=== PATIENT | male | born 1945 | race Caucasian/White ===

== ENCOUNTER → 2016-02-27 | Outpatient (CLI) | payer OTHER ==
[~2016-02-27] MED LIST: AMLO10CA PO; ASPI81TA28 PO; ATEN-175 PO; FENO48TA9 PO; GLUCPOW41 PO; INSDGI SC; INSUINJ14 SC; MULT-506 PO; OMEG10007 PO; SITA50TA5 PO; TRIA75TA53 PO
--- NOTE | 2016-02-28 04:32 | MYOCARDIAL PERFUSION SCAN ---
STRESS CARDIOLITE EXERCISE TREADMILL TEST: Patient exercised for 4 minutes and 4 seconds on a Jaron protocol achieving a peak heart rate of 112 bpm (75% maximum predicted, 7 MET workload). Appropriate blood pressure response to exercise (resting BP 128/ 88 mm Hg, peak BP 166/94 mm Hg). No symptoms reported. Baseline ECG showed sinus rhythm with incomplete right bundle branch block and isoelectric ST segments. During exercise, no ST deviation or significant ectopy noted. At the conclusion of the study, patient was asymptomatic and hemodynamically stable. IMAGING TECHNIQUE: For the stress portion of the study, 32.0 mCi of technetium- 99m Cardiolite IV was injected at 11:25 a.m. on 02/27/2016. Fifteen minutes after the injection, imaging of the heart was performed in multiple projections. For the rest period of the study, 11.5 mCi of technetium-99m Cardiolite was injected IV at 9:30 a.m. One hour following the injection, imaging of the heart was performed in the same projections. FINDINGS: The short axis, vertical long axis and horizontal long axis images were reviewed in detail. No perfusion defects noted at rest or stress. Normal left ventricular size and systolic function with no regional wall motion abnormalities. Ejection fraction was 77%. IMPRESSION: 1. No scintigraphic evidence of myocardial infarct or ischemia. 2. Normal left ventricular wall motion and systolic function (ejection fraction = 77%). 3. Negative ECG portion of exercise treadmill test. 4. No exercise-induced symptoms. MTDD
== END | disposition home or self-care (01) ==
LOC: C.NUCL 09:02
PROVIDERS: ATTEND Family Medicine
DX: R07.89 Other chest pain (principal)

== ENCOUNTER 2020-04-07 17:02 | Observation (INO) ==
--- NOTE | 2020-04-07 18:20 | XRay Report ---
XR chest 1V portable CLINICAL HISTORY: Atypical chest pain COMPARISON STUDY: 08/11/2019 FINDINGS: The heart is borderline enlarged. There is no failure. There is no focal pulmonary consolid ation. There are no pleural effusions. There is no pneumothorax.[ IMPRESSION: No active disease in the chest. ACT 112: Negative or not required by law. Electronically signed by: Michel Johnson M.D. 04/07/2020 6:18 PM
[2020-04-07 18:22] LABS: Basophils # (auto) 0.01 K/uL (0-0.2); Basophils % (auto) 0.1 %; Eosinophils # (auto) 0.25 K/uL (0-0.5); Eosinophils % (auto) 2.7 %; Hematocrit (blood only) 35.8 % (42-52); Immature Granulocytes # (auto) 0.03 K/uL (0.00-0.02); Immature Granulocytes % (auto) 0.3 %; Lymphocytes # (auto) 1.89 K/uL (1.2-3.4); Lymphocytes % (auto) 20.3 %; Mean Corpuscular Hemoglobin 28.2 pg (25-34); Mean Corpuscular Hgb Conc 33.5 g/dL (32-36); Mean Corpuscular Volume 84.2 fL (80-100); Mean Platelet Volume 9.9 fL (7.4-10.4); Monocytes # (auto) 0.72 K/uL (0.11-0.59); Monocytes % (auto) 7.7 %; Neutrophils # (auto) 6.42 K/uL (1.4-6.5); Neutrophils % (auto) 68.9 %; Platelet Count 235 K/uL (130-400); RDW Coefficient of Variation 13.9 % (11.5-14.5); RDW Standard Deviation 42.9 fL (36.4-46.3); Red Blood Count 4.25 M/uL (4.7-6.1); White Blood Count 9.32 K/uL (4.8-10.8)
[2020-04-07 18:39] LABS: Alanine Aminotransferase 26 U/L (12-78); Albumin Level 3.5 gm/dl (3.4-5.0); Aspartate Aminotransferase 17 U/L (15-37); BUN Creatinine Ratio 18.7 (10-20); Blood Urea Nitrogen 24 mg/dl (7-18); Calcium 9.1 mg/dl (8.5-10.1); Carbon Dioxide 30 mmol/L (21-32); Chloride 109 mmol/L (98-107); Creatinine Clr Calc Pharmacy 67.3 ml/min; Est GFR (African American) 63.6; Est GFR (Non-African American) 54.9; Glucose 94 mg/dl (70-99); Lipase 122 U/L (73-393); Potassium 3.7 mmol/L (3.5-5.1); Sodium 144 mmol/L (136-145)
[2020-04-07 18:44] LABS: Albumin Globulin Ratio 0.9 (0.9-2); Alkaline Phosphatase 45 U/L (45-117); Bilirubin,Total 0.5 mg/dl (0.2-1); Globulin 3.9 gm/dl (2.5-4.0); Total Protein 7.4 gm/dl (6.4-8.2); Troponin I < 0.015 ng/ml (0-0.045)
[2020-04-07] MEDS ORDERED: NITROGLYCERIN 2% OINTMENT 30GM TUBE EXT STA (18:54)
--- NOTE | 2020-04-07 19:35 | Emergency Department Note ---
Impression & Plan Substernal chest pain, Insulin dependent diabetes mellitus, RBBB, Left anterior fascicular block ED Provider Note INFORMANT: Patient ED PROVIDER(S): Berny Rios MD CHIEF COMPLAINT: Chest pain PLAN: Disposition: Admitted Condition: Good Outpatient prescription management: none Referral: None MEDICAL DECISION MAKING: Patient presented due to chest pain. He did have relief with nitroglycerin. The patient's ECG did show a bifascicular block. There was no significant change compared to prior. The patient had blood work obtained. Chest x-ray was unremarkable. His CBC, chemistry panel, LFTs, and troponin were negative. The patient had Nitropaste applied to prevent any recurrent chest pain. I discussed a cardiac rule out in the hospital given his family history as well as his diabetes. The patient was in agreement. Consultation was made with Dr. Botello of the hospitalist service. Patient was evaluated in the ER and admitted for further management. Triage Nursing notes reviewed and agree them. Vital Signs: reviewed and remarkable for no significant abnormalities Differential diagnosis: Cardiac ischemia, aortic dissection, pulmonary embolism, pneumothorax, pneumonia, pericarditis, myocarditis, esophageal rupture, GERD, cholecystitis, pancreatitis, musculoskeletal, as well as other pathologies. Diagnostics interpreted by me: ECG: Twelve-lead ECG reveals a sinus rhythm with first-degree AV block at 75 bpm. Right bundle branch block and left anterior fascicular block. No ST elevation. There is no significant change when compared to July 2019. Cardiac Monitoring: Cardiac monitoring ordered by me: The patient was placed on continuous cardiac monitoring and observed. It revealed a normal sinus rhythm at 71 beats per minute without ectopy or evidence of dysrhythmia. Imaging studies: Chest x-ray. Findings: A chest x-ray was performed and revealed no pneumothorax, effusion, infiltrate, pulmonary edema, free air under the diaphragm, or wide mediastinum. Impression: No acute disease. Consultation(s): [facility] hospitalist service HPI: The patient is a 75 year old male who presents to the Emergency Room with complaints of chest pain. This started this morning and is currently resolved. The patient also notes the following associated symptoms, pain radiating to the right shoulder. The patient has used nitroglycerin and IcyHot for relieving factors. Current pain is rated as 0/10. When the patient initially presented his pain was a 3/10. It then resolved. Pt denies LOC, headache, fevers, chills, diaphoresis, visual changes, neck pain, breathing difficulties, nausea, vomiting, abdominal pain, back pain, melena, hematochezia, urinary symptoms, numbness, weakness, lymphadenopathy, rash, or other complaints. ROS: See above HPI for pertinent positives & negatives. A total of 10 systems reviewed and were otherwise negative. PAST MEDICAL HISTORY:See Below , diabetes PAST SURGICAL HISTORY:See Below, FAMILY HISTORY:See Below, CAD. Father of [place] at 71 SOCIAL HISTORY:See Below, non-smoker HOME MEDICATIONS:See Below ALLERGIES:See Below VITALS:See Below PHYSICAL EXAMINATION: GENERAL: Awake, alert, well-appearing, in no distress HENT: Normocephalic, atraumatic. Oropharynx unremarkable. EYES: Normal conjunctiva. Sclera non-icteric. NECK: Inspection normal. Non-tender. Supple. No nuchal rigidity. FROM. No masses. RESPIRATORY: Clear to auscultation. No wheezes. No rales. Normal respiratory effort. CARDIAC: Normal rate. Normal rhythm. No murmurs. No rubs. Extremities warm and well perfused. Pulses equal. No JVD. GI: Soft, non-distended. No tenderness to palpation. No rebound or guarding. No masses. RECTAL: Deferred. MUSCULOSKELETAL: Atraumatic. Chest examination reveals no tenderness. The back is symmetrical on inspection without obvious abnormality. There is no CVA tenderness to palpation. No joint edema. LOWER EXTREMITIES: Calves are equal size bilaterally and non-tender. 1+ edema. No discoloration. NEURO: Normal sensorium. No sensory or motor deficits noted. SKIN: No rash or jaundice noted. Berny Rios MD Past Med/Surg History Medical History (Updated 04/07/20 @ 19:27 by Berny Rios MD) Anemia Cellulitis Diabetic neuropathy Diverticulosis DJD (degenerative joint disease), lumbosacral Dyslipidemia First degree atrioventricular block Hemorrhoids Hypertension Laceration of finger Left anterior fascicular block Monoclonal gammopathy Nephrolithiasis Osteoarthritis RBBB SIRS (systemic inflammatory response syndrome) Type 2 diabetes mellitus Surgical History (Updated 10/18/19 @ 12:53 by Betito Miguel Jr, MD, [facility]) H/O oral surgery History of back surgery Hx of cataract surgery Family History (Updated 02/22/20 @ 12:54 by Montserrat Andujar RN) Father Coronary heart disease Myocardial infarction Heart disease Sister Coronary heart disease Cancer Brother Coronary heart disease Hx of CABG Family/Other Hearing loss Mother Asthma Denies family history of No family history of adverse response to anesthesia Social History (Updated 02/22/20 @ 12:55 by Montserrat Andujar RN) Smoking Status: Never smoker Tobacco Type: Smokeless Tobacco (Dip or Chew) Number of Years Since Quit: 28; Hx Alcohol Use: No Hx Substance Use: No Preferred Language: Portuguese Communication Ability: Effective marital status: Single Current Living Situation: Alone Current Living Situation Comment: Sister lives next door current occupational status: retired How many Children do You have Comment: No Children Feels Safe at Home: Yes Allergies Allergies Allergy/AdvReac Type Severity Reaction Status Date / Time cephalexin Allergy Unknown Unknown Verified 02/22/20 12:48 codeine Allergy Unknown unknown Verified 02/22/20 12:48 Home Meds Home Medications Medication Instructions Recorded Confirmed amlodipine-benazepril 1 cap PO DAILY 08/11/19 02/22/20 aspirin 81 mg PO DAILY 08/11/19 02/22/20 atenolol 50 mg PO BID 08/11/19 02/22/20 atorvastatin 10 mg PO HS 08/11/19 02/22/20 dulaglutide [Trulicity] 0.75 mg SUBCUT WK 08/11/19 02/22/20 fenofibrate 54 mg PO DAILY 08/11/19 02/22/20 insulin aspart U-100 [Novolog 22 - 25 unit SUBCUT TID 08/11/19 02/22/20 Flexpen U-100 Insulin] insulin degludec [Tresiba 56 unit SUBCUT BID 08/11/19 02/22/20 FlexTouch U-200] metformin 1,000 mg PO BID 08/11/19 02/22/20 multivitamin [Multiple Vitamins] 1 tab PO DAILY 08/11/19 02/22/20 nitroglycerin [Nitrostat] 0.4 mg SUBLINGUAL UD PRN 08/11/19 02/22/20 omega 3-iqr-ewe-fish oil [Friendship-3] 1 cap PO BID 08/11/19 10/14/19 triamterene-hydrochlorothiazid 1 tab PO DAILY 08/11/19 02/22/20 Results & Data (ED) Vital Signs Vital Signs - 24 hr 04/07/20 17:06 04/07/20 18:11 04/07/20 18:20 Temperature 36.2 C L Temperature Source Temporal Artery Scan Pulse Rate 79 77 72 Pulse Rate from SpO2 Sensor 76 72 Respiratory Rate 18 12 19 Respiratory Effort / Characteristics Non-Labored Spontaneous Respiratory Depth Normal Blood Pressure 138/76 138/90 Blood Pressure Mean 96 106 Blood Pressure Position Sitting Pulse Oximetry 94 96 93 Oxygen Delivery Method Room Air Sepsis Recent Fever Within 48 Hours No Sepsis New/Unexplained Change in Mental Status N/A Sepsis Action Taken by Nursing No Action Required 04/07/20 18:30 04/07/20 18:31 04/07/20 18:40 Temperature Temperature Source Pulse Rate 72 72 72 Pulse Rate from SpO2 Sensor 72 73 72 Respiratory Rate 19 18 19 Respiratory Effort / Characteristics Respiratory Depth Blood Pressure 157/72 H Blood Pressure Mean 100 Blood Pressure Position Pulse Oximetry 93 94 93 Oxygen Delivery Method Sepsis Recent Fever Within 48 Hours Sepsis New/Unexplained Change in Mental Status Sepsis Action Taken by Nursing 04/07/20 18:50 04/07/20 19:00 04/07/20 19:01 Temperature Temperature Source Pulse Rate 74 71 72 Pulse Rate from SpO2 Sensor 72 71 72 Respiratory Rate 20 15 17 Respiratory Effort / Characteristics Respiratory Depth Blood Pressure 183/97 H Blood Pressure Mean 125 Blood Pressure Position Pulse Oximetry 94 94 94 Oxygen Delivery Method Sepsis Recent Fever Within 48 Hours Sepsis New/Unexplained Change in Mental Status Sepsis Action Taken by Nursing 04/07/20 19:10 Temperature Temperature Source Pulse Rate 71 Pulse Rate from SpO2 Sensor 71 Respiratory Rate 10 L Respiratory Effort / Characteristics Respiratory Depth Blood Pressure Blood Pressure Mean Blood Pressure Position Pulse Oximetry 95 Oxygen Delivery Method Sepsis Recent Fever Within 48 Hours Sepsis New/Unexplained Change in Mental Status Sepsis Action Taken by Nursing Laboratory Data Result diagrams: 04/07/20 18:01 04/07/20 18:01 Lab Results 04/07/20 04/07/20 Range/Units 18:01 18:01 WBC 9.32 (4.8-10.8) K/uL RBC 4.25 L (4.7-6.1) M/uL Hgb 12.0 L (14.0-18.0) g/dL Hct 35.8 L (42-52) % MCV 84.2 (80-100) fL MCH 28.2 (25-34) pg MCHC 33.5 (32-36) g/dL RDW Std Deviation 42.9 (36.4-46.3) fL RDW Coeff of [place] 13.9 (11.5-14.5) % Plt Count 235 (130-400) K/uL MPV 9.9 (7.4-10.4) fL Immature Gran % (Auto) 0.3 % Neut % (Auto) 68.9 % Lymph % (Auto) 20.3 % [place] % (Auto) 7.7 % Eos % (Auto) 2.7 % Baso % (Auto) 0.1 % Neut # (Auto) 6.42 (1.4-6.5) K/uL Lymph # (Auto) 1.89 (1.2-3.4) K/uL [place] # (Auto) 0.72 H (0.11-0.59) K/uL Eos # (Auto) 0.25 (0-0.5) K/uL Baso # (Auto) 0.01 (0-0.2) K/uL Immature Gran # (Auto) 0.03 H (0.00-0.02) K/uL Sodium 144 (136-145) mmol/L Potassium 3.7 (3.5-5.1) mmol/L Chloride 109 H (98-107) mmol/L Carbon Dioxide 30 (21-32) mmol/L Anion Gap 5.0 (3-11) BUN 24 H (7-18) mg/dl Creatinine 1.27 (0.6-1.4) mg/dl Est Cr Clr Drug Dosing 67.3 ml/min Est GFR ( Amer) 63.6 Est GFR (Non-Af Amer) 54.9 BUN/Creatinine Ratio 18.7 (10-20) Glucose 94 (70-99) mg/dl Calcium 9.1 (8.5-10.1) mg/dl Total Bilirubin 0.5 (0.2-1) mg/dl AST 17 (15-37) U/L ALT 26 (12-78) U/L Alkaline Phosphatase 45 (45-117) U/L Troponin I < 0.015 (0-0.045) ng/ml Total Protein 7.4 (6.4-8.2) gm/dl Albumin 3.5 (3.4-5.0) gm/dl Globulin 3.9 (2.5-4.0) gm/dl Albumin/Globulin Ratio 0.9 (0.9-2) Lipase 122 (73-393) U/L Administered Medications Discontinued Medications Nitroglycerin (Nitroglycerin 2% Ointment 30gm Tube) 0.5 inch EXT NOW STA Stop: 04/07/20 18:55 Last Admin: 04/07/20 19:18 Dose: 0.5 inch Documented by: [id number] Discharge Plan Visit Data Chief Complaint: Chest Pain Stated Complaint: CHEST PAIN ED Provider: Berny Rios Discharge Problem: Substernal chest pain, Insulin dependent diabetes mellitus, RBBB, Left anterior fascicular block Forms Stand Alone Forms: My [facility] [place] Prescriptions Prescriptions: No Action multivitamin [Multiple Vitamins] Tablet 1 tab PO DAILY RF: 0 atorvastatin 10 mg tablet 10 mg PO HS RF: 0 aspirin 81 mg Tablet,Delayed Release (Dr/Ec) 81 mg PO DAILY RF: 0 metformin 1,000 mg tablet 1,000 mg PO BID RF: 0 nitroglycerin [Nitrostat] 0.4 mg Tablet, Sublingual 0.4 mg sublingual UD PRN (Reason: Chest Pain) RF: 0 triamterene-hydrochlorothiazid 75-50 mg tablet 1 tab PO DAILY RF: 0 atenolol 50 mg tablet 50 mg PO BID RF: 0 amlodipine-benazepril 10-20 mg capsule 1 cap PO DAILY RF: 0 insulin aspart U-100 [Novolog Flexpen U-100 Insulin] 100 unit/mL (3 mL) insulin pen 22 - 25 unit SUBCUT TID RF: 0 fenofibrate 54 mg tablet 54 mg PO DAILY RF: 0 Tresiba FlexTouch U-200 200 unit/mL (3 mL) insulin pen 56 unit SUBCUT BID RF: 0 Trulicity 0.75 mg/0.5 mL pen injector 0.75 mg SUBCUT WK RF: 0 Friendship-3 350 mg-235 mg- 90 mg-597 mg Capsule,Delayed Release(Dr/Ec) 1 cap PO BID RF: 0
--- NOTE | 2020-04-07 19:51 | History & Physical Report ---
Date of Service April 07, 2020 Assessment & Plan (1) Substernal chest pain: 75yo male with HTN, HLP, DM, Obesity presenting with substernal chest pain . EKG with stable conduction abnormalities, no ischemic changes, troponin x 1 negative -Observation to med with telemetry -trend troponin -Nitro as needed -2D echo in AM -Continue ASA, Atenolol, Atorvastatin, Amlodipine-Benazepril Present on Admission?: Yes (2) Insulin dependent diabetes mellitus: Chronic. Well controlled. -Continue Tresiba -ISS Present on Admission?: Yes (3) Dyslipidemia: Chronic. Stable -Continue Atorvastatin - consider increased dosing -Continue Fenofibrate Present on Admission?: Yes (4) Hypertension: Elevated -Continue Amlodipine-Benazepril -Continue Atenolol - patient will get dose tonight -Continue Triamterene-HCTZ -Continue to monitor F/E/N - Heplock. Electrolytes WNL - check Mg and replete as needed, CC/AHA diet as tolerated Ppx - Lovenox Code - Full per discussion with patient Dispo - Observation to medical with telemetry Present on Admission?: Yes History of Present Illness Chief Complaint: chest pain Primary Care Provider: EZE Vega Kleber Venegas is a 75yo male with history of HTN, HLP, DM presenting with chest pain. Patient woke up around 07:30 this morning and was found to have chest pain. Pain central/substernal, tightness, moderate severity with radiation to the right arm. Pain persisted throughout the day. Patient took a Nitro with some relief. He also took an Aleve and used some Icy Hot with temporary relief. Pain is non-positional, non-pleuritic and non-exertional. He denies diaphoresis, nausea, vomiting, SOB, palpitations. No history of prior. Patient was shoveling snow 7-10 days ago without difficulty. He had some mild shoulder pain following shoveling. Patient with no known CAD. He follows with Cardiology, Dr. Miguel, and is due to see him on April 24. He had a dobutamine stress echocardiogram performed on 11/02 19 which was negative for inducible ischemia at 88% exercise capacity. In the ER patient afebrile, hypertensive at 183/97, no respiratory distress. CP free upon arrival to the ER ER course: Nitro patch Allergies Allergy/AdvReac Type Severity Reaction Status Date / Time cephalexin Allergy Unknown Unknown Verified 04/07/20 19:40 codeine Allergy Unknown unknown Verified 04/07/20 19:40 Home Medications Medication Instructions Recorded Confirmed Type amlodipine-benazepril 1 cap PO DAILY 08/11/19 04/07/20 History aspirin 81 mg PO DAILY 08/11/19 04/07/20 History atenolol 50 mg PO BID 08/11/19 04/07/20 History atorvastatin 10 mg PO HS 08/11/19 04/07/20 History dulaglutide [Trulicity] 0.75 mg SUBCUT WK 08/11/19 04/07/20 History fenofibrate 54 mg PO DAILY 08/11/19 04/07/20 History insulin aspart U-100 [Novolog 0 unit SUBCUT BIDM 08/11/19 04/07/20 History Flexpen U-100 Insulin] insulin degludec [Tresiba 56 unit SUBCUT BID 08/11/19 04/07/20 History FlexTouch U-200] metformin 1,000 mg PO BID 08/11/19 04/07/20 History multivitamin [Multiple Vitamins] 1 tab PO DAILY 08/11/19 04/07/20 History nitroglycerin [Nitrostat] 0.4 mg SUBLINGUAL UD PRN 08/11/19 04/07/20 History omega 2-ehd-kxk-fish oil [[place]-3] 1 cap PO BID 08/11/19 04/07/20 History triamterene-hydrochlorothiazid 1 tab PO DAILY 08/11/19 04/07/20 History Past Med/Surg History Medical History (Updated 04/07/20 @ 20:17 by Parvin Botello DO) Anemia Cellulitis Diabetic neuropathy Diverticulosis DJD (degenerative joint disease), lumbosacral Dyslipidemia First degree atrioventricular block Hemorrhoids Hypertension Laceration of finger Left anterior fascicular block Monoclonal gammopathy Nephrolithiasis Osteoarthritis RBBB SIRS (systemic inflammatory response syndrome) Type 2 diabetes mellitus Surgical History (Updated 10/18/19 @ 12:53 by Betito Miguel Jr, MD, [facility]) H/O oral surgery History of back surgery Hx of cataract surgery Family History (Updated 02/22/20 @ 12:54 by Montserrat Andujar RN) Father Coronary heart disease Myocardial infarction Heart disease Sister Coronary heart disease Cancer Brother Coronary heart disease Hx of CABG Family/Other Hearing loss Mother Asthma Denies family history of No family history of adverse response to anesthesia Social History (Updated 02/22/20 @ 12:55 by Montserrat Andujar RN) Smoking Status: Never smoker Tobacco Type: Smokeless Tobacco (Dip or Chew) Number of Years Since Quit: 28; Hx Alcohol Use: No Hx Substance Use: No Preferred Language: Rwandan Communication Ability: Effective marital status: Single Current Living Situation: Alone Current Living Situation Comment: Sister lives next door current occupational status: retired How many Children do You have Comment: No Children Feels Safe at Home: Yes Review of Systems Review of Systems: All systems reviewed & are unremarkable except as noted in HPI & below Physical Exam Physical Exam: General: patient resting comfortably, NAD, non-toxic in appearance, AA&O x 4 Skin: warm, dry, intact, no rashes or lesions HEENT: NC/AT, PERRL, EOMI, anicteric sclera, conjunctiva without injection, external ear normal to inspection and nontender, nares patent, moist mucus membranes, dentition intact, no oropharyngeal lesions, neck supple, trachea midline, no LAD, no thyromegaly, no JVD Heart: +S1/S2, regular, no m/r/g, no reproducible chest wall or epigastric pain Lungs: equal air entry bilaterally, no rales/rhonchi/wheezes Abd: +BS, soft, NT/ND, no masses/organomegaly/ascites Ext: warm, 2+ pulses in UE/LE bilaterally, no clubbing/cyanosis or edema Neuro: nonfocal, patient AA&O x 4, speech intact, no facial droop, moving all extremities on command with equal strength 5/5 Results & Data Results & Data ([facility]) Vital Signs (Past 12 Hours) Vital Signs Temp Pulse Resp BP Pulse Ox 04/07/20 19:10 71 10 L 95 04/07/20 19:01 72 17 94 04/07/20 19:00 71 15 183/97 H 94 04/07/20 18:50 74 20 94 04/07/20 18:40 72 19 93 04/07/20 18:31 72 18 94 04/07/20 18:30 72 19 157/72 H 93 04/07/20 18:20 72 19 93 04/07/20 18:11 77 12 138/90 96 04/07/20 17:06 36.2 C L 79 18 138/76 94 Laboratory Results Lab Results 04/07/20 04/07/20 Range/Units 18:01 18:01 WBC 9.32 (4.8-10.8) K/uL RBC 4.25 L (4.7-6.1) M/uL Hgb 12.0 L (14.0-18.0) g/dL Hct 35.8 L (42-52) % MCV 84.2 (80-100) fL MCH 28.2 (25-34) pg MCHC 33.5 (32-36) g/dL RDW Std Deviation 42.9 (36.4-46.3) fL RDW Coeff of [place] 13.9 (11.5-14.5) % Plt Count 235 (130-400) K/uL MPV 9.9 (7.4-10.4) fL Immature Gran % (Auto) 0.3 % Neut % (Auto) 68.9 % Lymph % (Auto) 20.3 % [place] % (Auto) 7.7 % Eos % (Auto) 2.7 % Baso % (Auto) 0.1 % Neut # (Auto) 6.42 (1.4-6.5) K/uL Lymph # (Auto) 1.89 (1.2-3.4) K/uL [place] # (Auto) 0.72 H (0.11-0.59) K/uL Eos # (Auto) 0.25 (0-0.5) K/uL Baso # (Auto) 0.01 (0-0.2) K/uL Immature Gran # (Auto) 0.03 H (0.00-0.02) K/uL Sodium 144 (136-145) mmol/L Potassium 3.7 (3.5-5.1) mmol/L Chloride 109 H (98-107) mmol/L Carbon Dioxide 30 (21-32) mmol/L Anion Gap 5.0 (3-11) BUN 24 H (7-18) mg/dl Creatinine 1.27 (0.6-1.4) mg/dl Est Cr Clr Drug Dosing 67.3 ml/min Est GFR ( Amer) 63.6 Est GFR (Non-Af Amer) 54.9 BUN/Creatinine Ratio 18.7 (10-20) Glucose 94 (70-99) mg/dl Calcium 9.1 (8.5-10.1) mg/dl Total Bilirubin 0.5 (0.2-1) mg/dl AST 17 (15-37) U/L ALT 26 (12-78) U/L Alkaline Phosphatase 45 (45-117) U/L Troponin I < 0.015 (0-0.045) ng/ml Total Protein 7.4 (6.4-8.2) gm/dl Albumin 3.5 (3.4-5.0) gm/dl Globulin 3.9 (2.5-4.0) gm/dl Albumin/Globulin Ratio 0.9 (0.9-2) Lipase 122 (73-393) U/L Diagnostic Findings XR chest 1V portable CLINICAL HISTORY: Atypical chest pain COMPARISON STUDY: 08/11/2019 FINDINGS: The heart is borderline enlarged. There is no failure. There is no focal pulmonary consolidation. There are no pleural effusions. There is no pneumothorax.[ IMPRESSION: No active disease in the chest. ACT 112: Negative or not required by law. Electronically signed by: Michel Johnson M.D. 04/07/2020 6:18 PM Dictated: 04/07/201817Transcribed: 04/07/201817 ECG Additional Comments: EKG with SR, RBB, LAFB, no acute ischemic changes Code Status & VTE Plan VTE Prophylaxis Plan VTE Prophylaxis will be ordered: Yes PG Care Time/CCT Total # of Minutes Spent Total Time Spent with Patient: Total time spent is greater than 50% in coordination of care (as documented) at patient's floor/unit and/or counseling patient: Coding Level of Care Code 90143 OBS Care - Level 3 Diagnoses Substernal chest pain R07.2 Insulin dependent diabetes mellitus Dyslipidemia E78.5 Hypertension I10 Hypertension type: essential hypertension (1) Hypertension Hypertension type: essential hypertension Qualified Code(s): I10 - Essential (primary) hypertension
[2020-04-07] MEDS ORDERED: DEXTROSE 50% 50 ML SYRINGE IV PRN (22:11)
[2020-04-07] MEDS ORDERED: ACETAMINOPHEN 325 MG TAB PO PRN (22:11)
[2020-04-07] MEDS ORDERED: GLUCOSE 40% GEL 15 GM TUBE PO PRN (22:11)
[2020-04-07] MEDS ORDERED: CARBOHYDRATES FOR HYPOGLYCEMIA PO PRN (22:11)
[2020-04-07] MEDS ORDERED: NITROGLYCERIN SL 0.4 MG/TAB TAB SL PRN (22:11)
[2020-04-07] MEDS ORDERED: GLUCAGON FOR INJ 1 MG VIAL SQ PRN (22:11)
[2020-04-07] MEDS ORDERED: ATORVASTATIN 10 MG TAB PO SCH (22:11)
[2020-04-07] MEDS ORDERED: ONDANSETRON INJ 2 MG/ML 2 ML VIAL IV PRN (22:11)
[2020-04-07] MEDS ORDERED: NON-FORMULARY MEDICATION (Insulin Degludec [Tresiba Flextouch U-200] 200 unit/mL (3 mL) in SQ SCH (22:11)
[2020-04-07] MEDS ORDERED: GLUCOSE 10 TABS/TUBE PO PRN (22:11)
[2020-04-07] MEDS: ENOXAPARIN INJ 40 MG/0.4 ML SYR SQ SCH (23:34)
[2020-04-07] MEDS: ATENOLOL 50 MG TABLET PO SCH (23:36)
[2020-04-07] MEDS: INSULIN GLARGINE SOLOSTAR 100 UNITS/ML 3 ML PEN SC SCH (23:36)
[2020-04-07] MEDS: INSULIN ASPART 100 UNITS/ML 3 ML PEN SC SCH (23:37)
--- NOTE | 2020-04-08 08:43 | Hospitalist Progress Note ---
Date of Service April 08, 2020 Assessment & Plan Admission and Anticipated Discharge Date Admission Date: April 07, 2020 Results & Data Results & Data ([facility]) Vital Signs (Past 12 Hours) Vital Signs Temp Pulse Pulse Resp BP BP BP 04/08/20 07:44 69 04/08/20 07:28 36.6 C 68 20 146/77 H 04/08/20 05:03 75 04/08/20 03:00 36.9 C 71 20 129/64 04/07/20 23:00 36.8 C 74 18 148/72 H 04/07/20 22:00 36.4 C L 68 16 171/93 H 04/07/20 21:01 70 17 171/93 H 04/07/20 21:00 70 18 04/07/20 20:50 71 18 Pulse Ox 04/08/20 07:44 04/08/20 07:28 95 04/08/20 05:03 04/08/20 03:00 92 04/07/20 23:00 95 04/07/20 22:00 94 04/07/20 21:01 91 04/07/20 21:00 91 04/07/20 20:50 94 Laboratory Results 04/08/20 04/08/20 04/07/20 Range/Units 07:38 01:12 23:31 WBC (4.8-10.8) K/uL RBC (4.7-6.1) M/uL Hgb (14.0-18.0) g/dL Hct (42-52) % MCV (80-100) fL MCH (25-34) pg MCHC (32-36) g/dL RDW Std Deviation (36.4-46.3) fL RDW Coeff of [place] (11.5-14.5) % Plt Count (130-400) K/uL MPV (7.4-10.4) fL Immature Gran % (Auto) % Neut % (Auto) % Lymph % (Auto) % [place] % (Auto) % Eos % (Auto) % Baso % (Auto) % Neut # (Auto) (1.4-6.5) K/uL Lymph # (Auto) (1.2-3.4) K/uL [place] # (Auto) (0.11-0.59) K/uL Eos # (Auto) (0-0.5) K/uL Baso # (Auto) (0-0.2) K/uL Immature Gran # (Auto) (0.00-0.02) K/uL Sodium (136-145) mmol/L Potassium (3.5-5.1) mmol/L Chloride (98-107) mmol/L Carbon Dioxide (21-32) mmol/L Anion Gap (3-11) BUN (7-18) mg/dl Creatinine (0.6-1.4) mg/dl Est Cr Clr Drug Dosing ml/min Est GFR ( Amer) Est GFR (Non-Af Amer) BUN/Creatinine Ratio (10-20) Glucose (70-99) mg/dl POC Glucose 83 92 (70-99) mg/dl Calcium (8.5-10.1) mg/dl Magnesium (1.8-2.4) mg/dl Total Bilirubin (0.2-1) mg/dl AST (15-37) U/L ALT (12-78) U/L Alkaline Phosphatase (45-117) U/L Troponin I < 0.015 (0-0.045) ng/ml Total Protein (6.4-8.2) gm/dl Albumin (3.4-5.0) gm/dl Globulin (2.5-4.0) gm/dl Albumin/Globulin Ratio (0.9-2) Lipase (73-393) U/L COVID-19 Eval Order SARS-CoV-2, RNA, NAAT (NEGATIVE) 04/07/20 04/07/20 04/07/20 Range/Units 20:02 20:02 18:01 WBC (4.8-10.8) K/uL RBC (4.7-6.1) M/uL Hgb (14.0-18.0) g/dL Hct (42-52) % MCV (80-100) fL MCH (25-34) pg MCHC (32-36) g/dL RDW Std Deviation (36.4-46.3) fL RDW Coeff of [place] (11.5-14.5) % Plt Count (130-400) K/uL MPV (7.4-10.4) fL Immature Gran % (Auto) % Neut % (Auto) % Lymph % (Auto) % [place] % (Auto) % Eos % (Auto) % Baso % (Auto) % Neut # (Auto) (1.4-6.5) K/uL Lymph # (Auto) (1.2-3.4) K/uL [place] # (Auto) (0.11-0.59) K/uL Eos # (Auto) (0-0.5) K/uL Baso # (Auto) (0-0.2) K/uL Immature Gran # (Auto) (0.00-0.02) K/uL Sodium (136-145) mmol/L Potassium (3.5-5.1) mmol/L Chloride (98-107) mmol/L Carbon Dioxide (21-32) mmol/L Anion Gap (3-11) BUN (7-18) mg/dl Creatinine (0.6-1.4) mg/dl Est Cr Clr Drug Dosing ml/min Est GFR ( Amer) Est GFR (Non-Af Amer) BUN/Creatinine Ratio (10-20) Glucose (70-99) mg/dl POC Glucose (70-99) mg/dl Calcium (8.5-10.1) mg/dl Magnesium 1.6 L (1.8-2.4) mg/dl Total Bilirubin (0.2-1) mg/dl AST (15-37) U/L ALT (12-78) U/L Alkaline Phosphatase (45-117) U/L Troponin I (0-0.045) ng/ml Total Protein (6.4-8.2) gm/dl Albumin (3.4-5.0) gm/dl Globulin (2.5-4.0) gm/dl Albumin/Globulin Ratio (0.9-2) Lipase (73-393) U/L COVID-19 Eval Order Covid19 [facility] SARS-CoV-2, RNA, NAAT NEGATIVE (NEGATIVE) 04/07/20 04/07/20 Range/Units 18:01 18:01 WBC 9.32 (4.8-10.8) K/uL RBC 4.25 L (4.7-6.1) M/uL Hgb 12.0 L (14.0-18.0) g/dL Hct 35.8 L (42-52) % MCV 84.2 (80-100) fL MCH 28.2 (25-34) pg MCHC 33.5 (32-36) g/dL RDW Std Deviation 42.9 (36.4-46.3) fL RDW Coeff of [place] 13.9 (11.5-14.5) % Plt Count 235 (130-400) K/uL MPV 9.9 (7.4-10.4) fL Immature Gran % (Auto) 0.3 % Neut % (Auto) 68.9 % Lymph % (Auto) 20.3 % [place] % (Auto) 7.7 % Eos % (Auto) 2.7 % Baso % (Auto) 0.1 % Neut # (Auto) 6.42 (1.4-6.5) K/uL Lymph # (Auto) 1.89 (1.2-3.4) K/uL [place] # (Auto) 0.72 H (0.11-0.59) K/uL Eos # (Auto) 0.25 (0-0.5) K/uL Baso # (Auto) 0.01 (0-0.2) K/uL Immature Gran # (Auto) 0.03 H (0.00-0.02) K/uL Sodium 144 (136-145) mmol/L Potassium 3.7 (3.5-5.1) mmol/L Chloride 109 H (98-107) mmol/L Carbon Dioxide 30 (21-32) mmol/L Anion Gap 5.0 (3-11) BUN 24 H (7-18) mg/dl Creatinine 1.27 (0.6-1.4) mg/dl Est Cr Clr Drug Dosing 67.3 ml/min Est GFR ( Amer) 63.6 Est GFR (Non-Af Amer) 54.9 BUN/Creatinine Ratio 18.7 (10-20) Glucose 94 (70-99) mg/dl POC Glucose (70-99) mg/dl Calcium 9.1 (8.5-10.1) mg/dl Magnesium (1.8-2.4) mg/dl Total Bilirubin 0.5 (0.2-1) mg/dl AST 17 (15-37) U/L ALT 26 (12-78) U/L Alkaline Phosphatase 45 (45-117) U/L Troponin I < 0.015 (0-0.045) ng/ml Total Protein 7.4 (6.4-8.2) gm/dl Albumin 3.5 (3.4-5.0) gm/dl Globulin 3.9 (2.5-4.0) gm/dl Albumin/Globulin Ratio 0.9 (0.9-2) Lipase 122 (73-393) U/L COVID-19 Eval Order SARS-CoV-2, RNA, NAAT (NEGATIVE) PG Care Time/CCT Total # of Minutes Spent Total Time Spent with Patient: Total time spent is greater than 50% in coordination of care (as documented) at patient's floor/unit and/or counseling patient: Coding
[2020-04-08] MEDS: MAGNESIUM SULFATE / D5W 1 GM/100 ML BAG IV SCH ×2 (08:59→11:12)
[2020-04-08] MEDS ORDERED: ASPIRIN 81 MG ECTAB PO SCH (09:00)
[2020-04-08] MEDS ORDERED: FENOFIBRATE NANOCRYSTALLIZED 48 MG TABLET PO SCH (09:00)
[2020-04-08] MEDS ORDERED: TRIAMTERENE/HCTZ 37.5/25MG TAB PO SCH (09:00)
[2020-04-08] MEDS ORDERED: amLODIPine BESYLATE 5 MG TAB PO SCH (09:00)
[2020-04-08] MEDS ORDERED: ENALAPRIL MALEATE 10 MG TAB PO SCH (09:00)
[2020-04-08] MEDS: ENOXAPARIN INJ 40 MG/0.4 ML SYR SQ SCH (09:03)
[2020-04-08] MEDS: ATENOLOL 50 MG TABLET PO SCH (09:05)
[2020-04-08] MEDS: INSULIN GLARGINE SOLOSTAR 100 UNITS/ML 3 ML PEN SC SCH (09:07)
[2020-04-08] MEDS: INSULIN ASPART 100 UNITS/ML 3 ML PEN SC SCH ×2 (09:13→12:54)
[2020-04-08 09:14] LABS: Hematocrit (blood only) 37.3 % (42-52); Hemoglobin 12.7 g/dL (14.0-18.0); Mean Corpuscular Hemoglobin 28.7 pg (25-34); Mean Corpuscular Volume 84.4 fL (80-100); Mean Platelet Volume 9.8 fL (7.4-10.4); Platelet Count 248 K/uL (130-400); RDW Coefficient of Variation 13.8 % (11.5-14.5); RDW Standard Deviation 41.9 fL (36.4-46.3); Red Blood Count 4.42 M/uL (4.7-6.1); White Blood Count 10.56 K/uL (4.8-10.8)
[2020-04-08 09:34] LABS: BUN Creatinine Ratio 15.7 (10-20); Blood Urea Nitrogen 20 mg/dl (7-18); Calcium 9.5 mg/dl (8.5-10.1); Carbon Dioxide 29 mmol/L (21-32); Chloride 104 mmol/L (98-107); Creatinine Clr Calc Pharmacy 66.6 ml/min; Est GFR (Non-African American) 54.4; Glucose 188 mg/dl (70-99); Potassium 3.4 mmol/L (3.5-5.1); Sodium 140 mmol/L (136-145)
[2020-04-08] MEDS ORDERED: POTASSIUM CHLORIDE CRTAB 20 MEQ TABCR PO STA (09:35)
[2020-04-08 09:38] LABS: Troponin I < 0.015 ng/ml (0-0.045)
[2020-04-08 09:56] LABS: Lyme Ab IgG w/WB Rflx Negative (Negative)
[2020-04-08 09:57] LABS: Lyme Ab IgM w/WB Rflx Negative (Negative)
--- NOTE | 2020-04-08 13:50 | Discharge Summary ---
Date of Service April 08, 2020 Admission HPI Per Admitting Provider Kleber Venegas is a 75yo male with history of HTN, HLP, DM presenting with chest pain. Patient woke up around 07:30 this morning and was found to have chest pain. Pain central/substernal, tightness, moderate severity with radiation to the right arm. Pain persisted throughout the day. Patient took a Nitro with some relief. He also took an Aleve and used some Icy Hot with temporary relief. Pain is non-positional, non-pleuritic and non-exertional. He denies diaphoresis, nausea, vomiting, SOB, palpitations. No history of prior. Patient was shoveling snow 7-10 days ago without difficulty. He had some mild shoulder pain following shoveling. Patient with no known CAD. He follows with Cardiology, Dr. Miguel, and is due to see him on April 24. He had a dobutamine stress echocardiogram performed on 11/02 19 which was negative for inducible ischemia at 88% exercise capacity. In the ER patient afebrile, hypertensive at 183/97, no respiratory distress. CP free upon arrival to the ER ER course: Nitro patch Admission Exam Per Admitting Provider General: patient resting comfortably, NAD, non-toxic in appearance, AA&O x 4 Skin: warm, dry, intact, no rashes or lesions HEENT: NC/AT, PERRL, EOMI, anicteric sclera, conjunctiva without injection, external ear normal to inspection and nontender, nares patent, moist mucus membranes, dentition intact, no oropharyngeal lesions, neck supple, trachea midline, no LAD, no thyromegaly, no JVD Heart: +S1/S2, regular, no m/r/g, no reproducible chest wall or epigastric pain Lungs: equal air entry bilaterally, no rales/rhonchi/wheezes Abd: +BS, soft, NT/ND, no masses/organomegaly/ascites Ext: warm, 2+ pulses in UE/LE bilaterally, no clubbing/cyanosis or edema Neuro: nonfocal, patient AA&O x 4, speech intact, no facial droop, moving all extremities on command with equal strength 5/5 Principal Diagnosis Rule Out Chest Pain Discharge Exam Constitutional well developed, well nourished, + obese and comfortable; no acute distress Eyes + anicteric sclerae and PERRL ENMT mmm Neck normal visual inspection and trachea midline Respiratory normal respiratory effort, lungs clear to auscultation Cardiovascular RRR, no murmur, no edema Chest (Breasts) Additional Comments: R chest tender to palpation -- reproducible Gastrointestinal (Abdomen) normal bowel sounds, soft, nontender, no hepatosplenomegaly Musculoskeletal no cyanosis or clubbing, extremities motor strength 5/5 Skin warm, dry Neurologic PERRL, EOMI, accommodation nl, no face palsy, no dysarthria Psychiatric A+Ox3, euthymic affect Lymphatic no cervical or axillary lymphadenopathy Discharge Data Allergies Allergy/AdvReac Type Severity Reaction Status Date / Time cephalexin Allergy Unknown Unknown Verified 04/07/20 19:40 codeine Allergy Unknown unknown Verified 04/07/20 19:40 Consultations 04/07/20 19:26 ED Decision to Admit Stat Ordered Studies 04/07 CXR 04/08 ECHO Hospital Course (1) Substernal chest pain: 75yo male with HTN, HLP, DM, Obesity presenting with substernal chest pain . EKG with stable conduction abnormalities, no ischemic changes Troponin negative x 3 troponin x 1 negative Monitored on telemetry ECHO performed -- normal LV size and systolic function. EF 60-65%. No wma. Mild concentric LVH. No significant valvular abnormalities visualized. Normal estimated RVSP. Continued home ASA, Atenolol, Atorvastatin, Amlodipine-Benazepril To have routine follow up with Dr. Miguel in the next month per 6 month follow up from September visit. Of note, prior dobutamine stress echo negative for ischemia October 2019. Had been shoveling snow last week. Pain relieved with IcyHot and Aleve and only time patient with pain during admission was on palpation, aiding in MSK origin (2) Insulin dependent diabetes mellitus: Chronic. Well controlled. Continue Tresiba -ISS while inpatient (3) Dyslipidemia: Chronic. Stable Continued Atorvastatin, fenofibrate -- would discuss with PCP about increasing dose but would hold off during acute period given MSK discomfort and not wanting to cause further myalgias at this time (4) Hypertension: Elevated on admission, secondary to pain. Continued amlodipine-benazepril, atenolol, triamterene-HCTZ BP improved to 127/73 Hypokalemia -- K 3.4 on AM labs and given 20meq PO replacement. Mag also was low on admission but not initially replaced -- ordered 2gm IV while inpatient Hypomagnesemia --Mag 1.6 as above. Replaced Code - Full per discussion with patient Discharged home. Total Time Total Time Spent Total Time Spent (In Minutes): 60 Discharge Plan Discharge Items Patient Disposition: Home - Self-Care Reason For Visit: CHEST PAIN Discharge Diagnosis: Chest Pain Goals: You have been hospitalized for an acute medical problem. During your stay at [facility], we have made an effort to correct the problem that brought you to the hospital while keeping you as comfortable as possible. Medications were used to bring your condition under control and your discharge instructions will include directions for any medications you should take after leaving the hospital. Please make sure you see your Primary Care Provider as part of your follow up plan. Activity: As commented below Activity Comment: no heavy lifting for 2 weeks Non-emergency contact: Primary Care Provider and String Top Sealer Call non-emergency contact if: you have any medication questions, your symptoms worsen, your pain is concerning for you and you have a fever Follow-up/Referrals: Betito Miguel Jr, MD, [facility] [Physician] - (within next month) Mary Koehler CRNP [Primary Care Provider] - Diet: Carb Consistent or DM2 and Heart Healthy Addtl Attending Provider Instructions: You have been hospitalized for chest pain. You have been tested for COVID-19 and this was negative. Chest xray was performed which did not show any abnormality/acute process. No signs of pneumonia or fluid around your lungs or heart. You were placed on a playground monitor no arrhythmias were noted. Cardiac enzymes were checked to ensure no damage to your heart tissue and those have been negative on all three lab draws. Your potassium and magnesium were found to be low and these have been replaced. An ECHO (ultrasound of your heart) was performed to ensure there was no issue. Your pumping function is normal and there were not any valvular abnormalities. There was also no evidence of abnormal movement of your heart ruggiero that would indicate a heart attack. You have had no further chest discomfort outside of reproduction to palpation of your chest wall, which also aides in that this was likely musculoskeletal in origin from previous week of shoveling snow. You can continue to use IcyHot/ibuprofen as needed (but try use sparingly as this can worsen kidney function. You have been sent a prescription for Voltaren gel (diclofenac) that can be used topically up to four times daily and does not have the same effects on your kidneys. Please avoid any heavy lifting for the next two weeks as this can worsen symptoms. You may also want to consider taking over the counter Zantac or similar as reflux can also commonly cause chest pain type symptoms, however they do not seem to be current issue. You should follow up with your primary care in the next weeks to monitor your progress. You may also want to follow up with Dr. Miguel in the upcoming month as you are to have routine follow-up in 6 months per recent office note from last September. Please return to the emergency department with any worsening chest pain, fevers, shortness of breath or for any other symptoms that are concerning for you. It has been a pleasure being a part of the medical team providing for you while you have been in the hospital. Take care! Pending Studies at Discharge: No Stand-Alone Forms: My [facility] Medications and DC Order Prescriptions: New diclofenac sodium 1 % gel 2 g topical QID Qty: 100 RF: 0 Continued multivitamin [Multiple Vitamins] Tablet 1 tab PO DAILY RF: 0 atorvastatin 10 mg tablet 10 mg PO HS RF: 0 aspirin 81 mg Tablet,Delayed Release (Dr/Ec) 81 mg PO DAILY RF: 0 metformin 1,000 mg tablet 1,000 mg PO BID RF: 0 nitroglycerin [Nitrostat] 0.4 mg Tablet, Sublingual 0.4 mg sublingual UD PRN (Reason: Chest Pain) RF: 0 triamterene-hydrochlorothiazid 75-50 mg tablet 1 tab PO DAILY RF: 0 atenolol 50 mg tablet 50 mg PO BID RF: 0 amlodipine-benazepril 10-20 mg capsule 1 cap PO DAILY RF: 0 insulin aspart U-100 [Novolog Flexpen U-100 Insulin] 100 unit/mL (3 mL) insulin pen 0 unit SUBCUT BIDM RF: 0 fenofibrate 54 mg tablet 54 mg PO DAILY RF: 0 Tresiba FlexTouch U-200 200 unit/mL (3 mL) insulin pen 56 unit SUBCUT BID RF: 0 Trulicity 0.75 mg/0.5 mL pen injector 0.75 mg SUBCUT WK RF: 0 [place]-3 350 mg-235 mg- 90 mg-597 mg Capsule,Delayed Release(Dr/Ec) 1 cap PO BID RF: 0 Discharge Orders: Discharge Order (Routine); Ordered 04/08/20 Ordered By: Shari Cox Admission Data Admit Date/Time: 04/07/20 19:40 Attending Provider: Cody Oviedo Admit Provider: Parvin Botello Primary Care Provider: Mary Koehler Other Providers: Cody Oviedo Other Interventions: Discharge Summary Assessment (RN) Last Done: 04/08/20 15:32 Supervising Physician Co-Signing Physician Notes I supervised Shari Cox PA-C on this discharge. I did not see the patient as he was examined within the last 24 hours by an attending physician. The plan is as written in the PA/LOOSELEAF BINDER COVERER's note except for any following changes/exceptions: None Given the negative troponins & stable echo, along with negative stress test <6 months ago, no further inpatient testing needed. Can follow up with PCP or dairy chemist in 1-2 weeks. Coding Level of Care Code 97297 OBS Care - Discharge Diagnoses Substernal chest pain R07.2 Insulin dependent diabetes mellitus Dyslipidemia E78.5 Hypertension I10 Hypertension type: essential hypertension
[2020-04-08 14:28] LABS: BUN Creatinine Ratio 15.9 (10-20); Creatinine Clr Calc Pharmacy 66.1 ml/min; Est GFR (African American) 62.4; Est GFR (Non-African American) 53.9
--- NOTE | 2020-04-08 14:42 | XCELERA ---
[id number]
--- NOTE | 2020-04-09 06:04 | Electrocardiogram Report ---
Test Reason : Blood Pressure : / mmHG Vent. Rate : 075 BPM Atrial Rate : 075 BPM P-R Int : 248 ms QRS Dur : 130 ms QT Int : 418 ms P-R-T Axes : 068 -63 036 degrees QTc Int : 466 ms Sinus rhythm with 1st degree A-V block Right bundle branch block Left anterior fascicular block Bifascicular block Abnormal ECG When compared with ECG of 11-AUG-2019 11:39, T wave inversion no longer evident in Inferior leads Confirmed by Wayne Henry ([id number]) on 04/09/2020 6:03:56 AM Referred By: REFERRED SELF Confirmed By:Wayne Henry
== END 2020-04-08 16:55 | disposition home or self-care (01) ==
LOC: 2W 17:02 → ED 17:02 → SUATTDRO 19:40 → 2W 21:30

== ENCOUNTER 2021-06-10 17:40 | Observation (INO) ==
--- NOTE | 2021-06-10 17:56 | Emergency Department Note ---
Impression & Plan Chest pain ADMIT ED Provider Note HPI: The patient is a 76-year-old gentleman with history of lipidemia, hypertension, type 2 diabetes, presents the emergency department with a chief complaint of a 45-minute episode of chest pain that occurred earlier today. Patient does have nitroglycerin at home, states that he took several tablets and this did relieve his pain after about 45 minutes. By the time the patient arrived to the ED he states he is now pain-free. Patient is hemodynamically stable on arrival, he is noted to have had a cardiac catheterization about 1 month ago on May 07 that showed only mild coronary artery disease. Patient states he did have some nausea associated with this event but no vomiting, states this symptom also resolved. On arrival the patient is in no acute distress, he is hemodynamically stable. ROS: -Cardio: Chest pain *10 point review systems was conducted and is otherwise negative unless stated above *Outpatient medications and allergy history reviewed PE: General: Alert, NAD HEENT: Normocephalic, atraumatic Eyes: Extraocular eye movement is intact, no scleral erythema Pulmonary: Clear to auscultation bilaterally, no wheezing Cardio: Regular rate and rhythm GI: Abdomen is soft, nontender : No suprapubic tenderness MSK: No evidence of trauma or malformation of the extremities, no edema Skin: No evidence of rash Neuro: Alert, no focal deficits Psychiatric: Cooperative testing lead: - An order was placed for continuous cardiac monitoring - Patient was noted to be in sinus rhythm with rate of 70 EKG: Rate: 78 Rhythm: Sinus rhythm Intervals: NV interval prolonged at 240 ms, QRS 152, QTc 501 ST changes: No ST elevation Time: 1753 Medical Decision Making: Patient presented to the emergency department with a transient episode of chest pain. He is noted to have had a recent cardiac catheterization that showed only mild coronary artery disease, this was done about 1 month ago on May 07. On arrival here to the ED the patient states his chest pain is now gone. He is hemodynamically stable on arrival. IV was established, lab work obtained, initial troponin is negative x1, EKG does not show any acute ischemic changes. Glucose is elevated in the 200s without evidence of DKA otherwise. No anion gap, serum bicarbonate level is normal. Lab work is otherwise largely unremarkable. Delta high sensitivity troponin was done at 2 hours and is elevated at 24.3, patient will therefore require admission. He was given aspirin prior to arrival here to the ED. I did discuss this with the patient and he is in agreement for admission, case was discussed with the on-call hospitalist for [facility], Dr. Mendez and the patient was admitted in stable condition for further care. Diagnosis: 1. Chest pain 2. Elevated high-sensitivity troponin at 2 hours 3. History of mild/nonobstructive coronary artery disease Disposition: Admission Martin Webber DO Emergency Medicine Past Med/Surg History Medical History Anemia Cellulitis Diabetic neuropathy Diverticulosis Dizziness DJD (degenerative joint disease), lumbosacral Dyslipidemia First degree atrioventricular block Hemorrhoids Hypertension Left anterior fascicular block Monoclonal gammopathy Morbid obesity Nephrolithiasis Osteoarthritis RBBB Substernal chest pain Type 2 diabetes mellitus Surgical History H/O oral surgery History of back surgery Hx of cataract surgery Family History Father Coronary heart disease Myocardial infarction Heart disease Sister Coronary heart disease Cancer Brother Coronary heart disease Hx of CABG Family/Other Hearing loss Mother Asthma Denies family history of No family history of adverse response to anesthesia Social History Smoking Status: Never smoker Tobacco Type: Smokeless Tobacco (Dip or Chew) Number of Years Since Quit: 28; Second Hand Exposure: No; Hx Alcohol Use: No Hx Substance Use: No Preferred Language: Fijian Communication Ability: Effective 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 Beliefs That Will Affect Care: None marital status: Single Current Living Situation: Alone Current Living Situation Comment: Sister lives next door current occupational status: retired How many Children do You have Comment: No Children Feels Safe at Home: Yes Assistive Devices: Denture - Upper, Denture - Lower and Glasses Allergies Allergies Allergy/AdvReac Type Severity Reaction Status Date / Time cephalexin Allergy Mild Unknown Verified 06/10/21 21:04 codeine Allergy Mild unknown Verified 06/10/21 21:04 Home Meds Home Medications Medication Instructions Recorded Confirmed aspirin 81 mg tablet,delayed 81 mg PO QAM 08/11/19 06/10/21 release atenolol 50 mg tablet 50 mg PO BID 08/11/19 06/10/21 dulaglutide 0.75 mg/0.5 mL 0.75 mg SUBCUT WK 08/11/19 06/10/21 subcutaneous pen injector (Trulicity) fenofibrate 54 mg tablet 54 mg PO QAM 08/11/19 06/10/21 insulin degludec 200 unit/mL (3 56 unit SUBCUT BID 08/11/19 06/10/21 mL) subcutaneous pen (Tresiba FlexTouch U-200 insulin) metformin 1,000 mg tablet 1,000 mg PO BID 08/11/19 06/10/21 nitroglycerin 0.4 mg sublingual 0.4 mg SUBLINGUAL UD PRN 08/11/19 06/10/21 tablet (Nitrostat) omega 3 350 mg-dha 235 mg-epa 90 1 cap PO BID 08/11/19 06/10/21 mg-fish oil 597 mg capsule,delay rel (Guffey-3) glucosam 750 mg-chondroi 100 1 tab PO BID 05/05/20 06/10/21 mg-hyalur 1.65 mg-CF borate 108 mg tablet (Move Free [facility]) losartan 50 mg tablet 50 mg PO QAM 10/25/20 06/10/21 vitamins A,C,W-ryri-mkpchp 14,320 1 cap PO BID 10/25/20 06/10/21 unit-226 mg-200 unit capsule (PreserVision AREDS) amlodipine 10 mg tablet (Norvasc) 10 mg PO QAM 01/02/21 06/10/21 insulin aspart U-100 100 unit/mL 20 unit SUBCUT BIDM ml 04/25/21 06/10/21 (3 mL) subcutaneous pen (Novolog Flexpen U-100 Insulin aspart) atorvastatin 20 mg tablet 20 mg PO HS 05/16/21 06/10/21 triamterene 37.5 1 tab PO QAM 05/16/21 06/10/21 mg-hydrochlorothiazide 25 mg tablet iWOPI 1 tab PO BID 05/17/21 06/10/21 Previous Rx's Medication Instructions Recorded tramadol 50 mg tablet 50 mg PO Q8H PRN #20 tab 05/16/21 Results & Data (ED) Vital Signs Vital Signs - 24 hr 06/10/21 17:53 06/10/21 18:00 06/10/21 18:01 Temperature 36.5 C Temperature Source Oral Pulse Rate 77 78 77 Pulse Rate [Finger] Pulse Rate from SpO2 Sensor 78 78 Pulse Rhythm Regular Pulse Rhythm [Finger] Pulse Strength Normal Pulse Strength [Finger] Respiratory Rate 20 21 21 Respiratory Effort / Characteristics Non-Labored Spontaneous Respiratory Depth Normal Respiratory Pattern Regular Blood Pressure 130/56 L 130/56 L Blood Pressure [Right Arm] Blood Pressure Mean 80 80 Blood Pressure Mean [Right Arm] Blood Pressure Position Sitting Blood Pressure Position [Right Arm] Pulse Oximetry 96 96 96 Oxygen Delivery Method Room Air Room Air Oxygen Flow Rate 0 Sepsis Recent Fever Within 48 Hours No Sepsis New/Unexplained Change in Mental Status N/A Sepsis Action Taken by Nursing No Action Required 06/10/21 18:10 06/10/21 18:20 06/10/21 18:30 Temperature Temperature Source Pulse Rate 76 75 73 Pulse Rate [Finger] Pulse Rate from SpO2 Sensor 76 75 73 Pulse Rhythm Pulse Rhythm [Finger] Pulse Strength Pulse Strength [Finger] Respiratory Rate 20 20 18 Respiratory Effort / Characteristics Respiratory Depth Respiratory Pattern Blood Pressure 139/74 Blood Pressure [Right Arm] Blood Pressure Mean 95 Blood Pressure Mean [Right Arm] Blood Pressure Position Blood Pressure Position [Right Arm] Pulse Oximetry 94 95 94 Oxygen Delivery Method Oxygen Flow Rate Sepsis Recent Fever Within 48 Hours Sepsis New/Unexplained Change in Mental Status Sepsis Action Taken by Nursing 06/10/21 18:40 06/10/21 18:58 06/10/21 20:01 Temperature Temperature Source Pulse Rate 72 Pulse Rate [Finger] 71 Pulse Rate from SpO2 Sensor 72 Pulse Rhythm Pulse Rhythm [Finger] Regular Pulse Strength Pulse Strength [Finger] Normal Respiratory Rate 18 18 20 Respiratory Effort / Characteristics Non-Labored Non-Labored Respiratory Depth Normal Normal Respiratory Pattern Regular Regular Blood Pressure Blood Pressure [Right Arm] 139/74 132/65 Blood Pressure Mean Blood Pressure Mean [Right Arm] 95 87 Blood Pressure Position Blood Pressure Position [Right Arm] Sitting Sitting Pulse Oximetry 95 96 95 Oxygen Delivery Method Room Air Room Air Oxygen Flow Rate Sepsis Recent Fever Within 48 Hours Sepsis New/Unexplained Change in Mental Status Sepsis Action Taken by Nursing Laboratory Data Result diagrams: 06/10/21 18:01 06/10/21 18:01 Lab Results 06/10/21 06/10/21 06/10/21 Range/Units 18:01 18:01 19:56 WBC 10.70 (4.8-10.8) K/uL RBC 4.57 L (4.7-6.1) M/uL Hgb 13.1 L (14.0-18.0) g/dL Hct 39.4 L (42-52) % MCV 86.2 (80-100) fL MCH 28.7 (25-34) pg MCHC 33.2 (32-36) g/dL RDW Std Deviation 44.0 (36.4-46.3) fL RDW Coeff of [place] 14.1 (11.5-14.5) % Plt Count 243 (130-400) K/uL MPV 10.0 (7.4-10.4) fL Immature Gran % (Auto) 0.3 % Neut % (Auto) 79.6 % Lymph % (Auto) 13.6 % Garrett % (Auto) 5.3 % Eos % (Auto) 1.1 % Baso % (Auto) 0.1 % Neut # (Auto) 8.52 H (1.4-6.5) K/uL Lymph # (Auto) 1.45 (1.2-3.4) K/uL Garrett # (Auto) 0.57 (0.11-0.59) K/uL Eos # (Auto) 0.12 (0-0.5) K/uL Baso # (Auto) 0.01 (0-0.2) K/uL Immature Gran # (Auto) 0.03 H (0.00-0.02) K/uL Sodium 140 (136-145) mmol/L Potassium 3.6 (3.5-5.1) mmol/L Chloride 102 (98-107) mmol/L Carbon Dioxide 28 (21-32) mmol/L Anion Gap 10 (3-11) BUN 22 (6-23) mg/dl Creatinine 1.35 (0.6-1.4) mg/dl Est Cr Clr Drug Dosing 63.4 ml/min Est GFR ( Amer) 58.7 ml/min Est GFR (Non-Af Amer) 50.6 ml/min BUN/Creatinine Ratio 16.3 (10-20) Glucose 253 H (70-99(Fasting)) mg/dl Calcium 9.1 (8.5-10.1) mg/dl Total Bilirubin 0.3 (0.2-1.0) mg/dl AST 18 (13-39) U/L ALT 18 (7-52) U/L Alkaline Phosphatase 47 (34-104) U/L Troponin I High Sens 15.0 24.3 H (0-20) pg/ml Total Protein 7.2 (6.0-8.3) gm/dl Albumin 4.1 (3.4-5.0) gm/dl Globulin 3.1 (2.5-4.0) gm/dl Albumin/Globulin Ratio 1.3 (0.9-2) Lipase 28 (11-82) U/L Administered Medications Discontinued Medications Aspirin (Aspirin Chew 324 Mg) 324 mg PO NOW STA Stop: 06/10/21 20:53 Last Admin: 06/10/21 21:03 Dose: Not Given Documented by: [id number] Imaging Data Radiologist's Impression: Chest X-Ray 06/10/21 17:53 XR chest 1V portable HISTORY: 76 years-old Male Chest Pain acute atypical chest pain COMPARISON: Chest radiograph 01/02/2021 TECHNIQUE: Portable AP view of the chest FINDINGS: The cardiac silhouette is enlarged. No pneumothorax, pleural effusion, airspace consolidation or overt pulmonary edema. Atherosclerosis of the thoracic aorta. Bones appear grossly intact. IMPRESSION: Cardiomegaly without acute process. ACT 112: Negative or not required by law. The above report was generated using voice recognition software. It may contain grammatical, syntax or spelling errors. Electronically signed by: Oracio Martinez M.D. 06/10/2021 6:07 PM Discharge Plan Visit Data Chief Complaint: Chest Pain Stated Complaint: CHEST PAIN ED Provider: Martin Webber Discharge Problem: Chest pain Forms Stand Alone Forms: [email or web address] Prescriptions Prescriptions: No Action [facility] 1 tab PO BID RF: 0 losartan 50 mg tablet 50 mg PO QAM RF: 0 PreserVision AREDS [id number] [id number]-yt-ghud capsule 1 cap PO BID RF: 0 aspirin 81 mg Tablet,Delayed Release (Dr/Ec) 81 mg PO QAM RF: 0 metformin 1,000 mg tablet 1,000 mg PO BID RF: 0 nitroglycerin [Nitrostat] 0.4 mg Tablet, Sublingual 0.4 mg sublingual UD PRN (Reason: Chest Pain) RF: 0 atenolol 50 mg tablet 50 mg PO BID RF: 0 fenofibrate 54 mg tablet 54 mg PO QAM RF: 0 Tresiba FlexTouch U-200 200 unit/mL (3 mL) insulin pen 56 unit SUBCUT BID RF: 0 Trulicity 0.75 mg/0.5 mL pen injector 0.75 mg SUBCUT WK RF: 0 Guffey-3 350 mg-235 mg- 90 mg-597 mg Capsule,Delayed Release(Dr/Ec) 1 cap PO BID RF: 0 insulin aspart U-100 [Novolog Flexpen U-100 Insulin] 100 unit/mL (3 mL) insulin pen 20 unit SUBCUT BIDM RF: 0 Move Free [facility] 750 mg-100 mg- 1.65 mg-108 mg Tablet 1 tab PO BID RF: 0 amlodipine [Norvasc] 10 mg tablet 10 mg PO QAM RF: 0 atorvastatin 20 mg tablet 20 mg PO HS RF: 0 triamterene-hydrochlorothiazid 37.5-25 mg tablet 1 tab PO QAM RF: 0 tramadol 50 mg tablet 50 mg PO Q8H PRN (Reason: pain) Qty: 20 RF: 0 Referrals Referrals: Martin Zavaleta MD [Primary Care Provider] - Discharge Problem: Chest pain Qualifiers: Chest pain type: unspecified Qualified Code(s): R07.9 - Chest pain, unspecified
--- NOTE | 2021-06-10 18:09 | XRay Report ---
XR chest 1V portable HISTORY: 76 years-old Male Chest Pain acute atypical chest pain COMPARISON: Chest radiograph 01/02/2021 TECHNIQUE: Portable AP view of the chest FINDINGS: The cardiac silhouette is enlarged. No pneumothorax, pleural effusion, airspace consolidation or over t pulmonary edema. Atherosclerosis of the thoracic aorta. Bones appear grossly intact. IMPRESSION: Cardiomegaly without acute process. ACT 112: Negative or not required by law. The above report was generated using voice recognition software. It may contain grammatical, syntax o r spelling errors. Electronically signed by: Oracio Martinez M.D. 06/10/2021 6:07 PM
[2021-06-10 18:12] LABS: Basophils # (auto) 0.01 K/uL (0-0.2); Basophils % (auto) 0.1 %; Eosinophils # (auto) 0.12 K/uL (0-0.5); Eosinophils % (auto) 1.1 %; Hematocrit (blood only) 39.4 % (42-52); Hemoglobin 13.1 g/dL (14.0-18.0); Immature Granulocytes # (auto) 0.03 K/uL (0.00-0.02); Immature Granulocytes % (auto) 0.3 %; Lymphocytes # (auto) 1.45 K/uL (1.2-3.4); Lymphocytes % (auto) 13.6 %; Mean Corpuscular Hemoglobin 28.7 pg (25-34); Mean Corpuscular Hgb Conc 33.2 g/dL (32-36); Mean Corpuscular Volume 86.2 fL (80-100); Monocytes # (auto) 0.57 K/uL (0.11-0.59); Monocytes % (auto) 5.3 %; Neutrophils # (auto) 8.52 K/uL (1.4-6.5); Neutrophils % (auto) 79.6 %; Platelet Count 243 K/uL (130-400); RDW Coefficient of Variation 14.1 % (11.5-14.5); Red Blood Count 4.57 M/uL (4.7-6.1)
[2021-06-10 18:31] LABS: Albumin Globulin Ratio 1.3 (0.9-2); Albumin Level 4.1 gm/dl (3.4-5.0); BUN Creatinine Ratio 16.3 (10-20); Bilirubin,Total 0.3 mg/dl (0.2-1.0); Calcium 9.1 mg/dl (8.5-10.1); Creatinine Clr Calc Pharmacy 63.4 ml/min; Est GFR (African American) 58.7 ml/min; Est GFR (Non-African American) 50.6 ml/min; Globulin 3.1 gm/dl (2.5-4.0); Potassium 3.6 mmol/L (3.5-5.1); Total Protein 7.2 gm/dl (6.0-8.3)
[2021-06-10] MEDS ORDERED: ASPIRIN CHEW 324 MG PO STA (20:52)
[2021-06-10] MEDS ORDERED: traMADol HCL 50 MG TABLET PO PRN (22:58)
[2021-06-10] MEDS ORDERED: POLYETHYLENE (MIRALAX) 17 GM PACK PO PRN (22:58)
[2021-06-10] MEDS ORDERED: NITROGLYCERIN SL 0.4 MG/TAB TAB SL PRN (22:58)
[2021-06-10] MEDS ORDERED: ACETAMINOPHEN 325 MG TAB PO PRN (22:58)
[2021-06-10] MEDS ORDERED: CARBOHYDRATES FOR HYPOGLYCEMIA PO PRN (23:15)
[2021-06-10] MEDS ORDERED: GLUCAGON FOR INJ 1 MG VIAL IM PRN (23:15)
[2021-06-10] MEDS ORDERED: DEXTROSE 50% 50 ML SYRINGE IV PRN (23:15)
[2021-06-10] MEDS ORDERED: GLUCOSE 10 TABS/TUBE PO PRN (23:15)
[2021-06-10] MEDS ORDERED: GLUCOSE 40% GEL 15 GM TUBE PO PRN (23:15)
[2021-06-10] MEDS: ATENOLOL 50 MG TABLET PO SCH (23:36)
[2021-06-10] MEDS: INSULIN GLARGINE SOLOSTAR 100 UNITS/ML 3 ML PEN SC SCH (23:36)
[2021-06-10] MEDS: INSULIN ASPART PER UNIT SC SCH (23:41)
--- NOTE | 2021-06-11 00:08 | History and Physical Report ---
DATE OF ADMISSION: 06/10/2021. CHIEF COMPLAINT: Chest pain. HISTORY OF PRESENT ILLNESS: This is a 76-year-old male with past medical history significant type 2 diabetes, hypertension, obesity, depression, generalized anxiety, who lives alone at home, presents with chest pain. Around 4:00 p.m., the patient had noticed chest pain, when he was walking in the house, about 8/10 in severity, pressure-like feeling. At that time, he was sweating, no nausea, no shortness of breath, no dizziness. He took three nitros, which relieved the pain. Currently, the patient does not have any chest pain, no sweating currently. Resting comfortably, hemodynamically stable. No headache, no blurred visions, no runny nose, no sore throat, no cough, no fevers, no abdominal pain. Normal bowel and bladder movements. Has chronic swelling in the legs. The patient recently in April had a cardiac catheterization, which showed mild nonobstructive disease. He followed with cardiology. Cardiology was recommending for recuring chest pain to start on long-acting nitrates. ALLERGIES: CEPHALEXIN, CODEINE. PAST MEDICAL HISTORY: As mentioned above. PAST SURGICAL HISTORY: Colonoscopy, cardiac catheterization. MEDICATIONS: The patient is on amlodipine 10 mg p.o. a.m., aspirin 81 mg p.o. a.m., atenolol 50 mg p.o. b.i.d., atorvastatin 20 mg p.o. at bedtime, fenofibrate 54 mg p.o. a.m., insulin aspart 20 units subcutaneous b.i.d., losartan 50 mg p.o. a.m., metformin 1000 mg p.o. b.i.d., nitroglycerin 0.4 mg sublingual p.r.n., omega 1 capsule p.o. b.i.d., tramadol 50 mg p.o. q. 8 hours p.r.n., Tresiba FlexTouch 56 units subcutaneous b.i.d., triamterene/hydrochlorothiazide 37.5/25 mg 1 tablet daily, Trulicity 0.75 mg subcutaneous weekly, multivitamin 1 capsule p.o. b.i.d. FAMILY HISTORY: Significant for no family history on file. SOCIAL HISTORY: Single. No tobacco use. Alcohol occasional. No drug use. REVIEW OF SYSTEMS: As per HPI. Rest of the review of systems is negative. PHYSICAL EXAMINATION: GENERAL: The patient is morbidly obese, not in acute distress. VITAL SIGNS: Temperature 36.5, pulse 71, respiratory rate 20, blood pressure 132/65, oxygen 95% on room air. GENERAL: The patient is alert, oriented, not in acute distress. NECK: No JVD. No neck masses. CARDIOVASCULAR: S1 and S2 heard. Regular rate and rhythm. No murmur, no gallop. RESPIRATORY SYSTEM: Normal AP diameter. No accessory muscle use. No wheezing, no crackles. ABDOMEN: Soft, bowel sounds present, nontender, no distention. CENTRAL NERVOUS SYSTEM: Cranial nerves II through XII are grossly intact, nonfocal. EXTREMITIES: Lower extremity edema present, no erythema seen. LABORATORY DATA: WBC 10, hemoglobin 13.1, hematocrit 39.4, platelets 243. Sodium 140, potassium 3.6, chloride 102, bicarbonate 28, BUN 22, creatinine 1.3, serum glucose 253, calcium 9.1, total bilirubin 0.3, AST 18, ALT 18, alkaline phosphatase 47. Troponin I high sensitivity 24.3, lipase 28. SARS-CoV-2 rapid test negative. IMAGING DATA: Chest x-ray, no acute findings. EKG: Sinus rhythm with first-degree AV block, bifascicular block, no significant change was found. ASSESSMENT AND PLAN: A 76-year-old male who presents with chest pain. 1. Chest pain: Rule out acute coronary syndrome. Initial workup is negative. Recently 2021 had cardiac cath, which showed mild nonobstructive disease, on medical management. Will follow serial enzymes as troponin is slightly elevated. W Echo as per Cardiology. Monitor in the INNOBI tele, n.p.o., and consult cardiology for further recommendations. 2. Diabetes: As the patient is n.p.o., we will cut back his long-acting insulin to [address] on insulin sliding scale. Hold his metformin. Monitor his blood sugars, will follow his HbA1c level. 3. History of hyperlipidemia: Continue atorvastatin and fenofibrate. 4. History of hypertension: Continue atenolol, amlodipine, losartan, and Dyazide and monitor his blood pressure. 5. Obesity: Needs counseling. 6. Deep venous thrombosis prophylaxis: Sequential compression devices. DISPOSITION: Observation in [facility]. PT/OT prior to discharge. Social service to help with discharge planning. Job ID: [id number] BRENDAN
[2021-06-11] MEDS: INSULIN ASPART PER UNIT SC SCH ×4 (06:26→20:22)
[2021-06-11 06:38] LABS: Basophils # (auto) 0.01 K/uL (0-0.2); Basophils % (auto) 0.1 %; Hematocrit (blood only) 35.6 % (42-52); Hemoglobin 12.2 g/dL (14.0-18.0); Immature Granulocytes # (auto) 0.02 K/uL (0.00-0.02); Immature Granulocytes % (auto) 0.2 %; Lymphocytes # (auto) 2.05 K/uL (1.2-3.4); Lymphocytes % (auto) 20.7 %; Mean Corpuscular Hgb Conc 34.3 g/dL (32-36); Mean Corpuscular Volume 84.8 fL (80-100); Mean Platelet Volume 10.1 fL (7.4-10.4); Monocytes # (auto) 0.91 K/uL (0.11-0.59); Monocytes % (auto) 9.2 %; Neutrophils % (auto) 67.8 %; Platelet Count 227 K/uL (130-400); RDW Coefficient of Variation 14.1 % (11.5-14.5); RDW Standard Deviation 43.3 fL (36.4-46.3); White Blood Count 9.89 K/uL (4.8-10.8)
[2021-06-11 06:49] LABS: BUN Creatinine Ratio 20.2 (10-20); Calcium 8.8 mg/dl (8.5-10.1); Creatinine Clr Calc Pharmacy 91.6 ml/min; Est GFR (African American) 90.9 ml/min; Est GFR (Non-African American) 78.4 ml/min; Magnesium 1.6 mg/dl (1.7-2.4); Potassium 3.5 mmol/L (3.5-5.1); Troponin I High Sensitivity 32.3 pg/ml (0-20)
[2021-06-11] MEDS: amLODIPine BESYLATE 5 MG TAB PO SCH (07:45)
[2021-06-11] MEDS: FENOFIBRATE NANOCRYSTALLIZED 48 MG TABLET PO SCH (07:45)
[2021-06-11] MEDS: ATENOLOL 50 MG TABLET PO SCH ×2 (07:45→20:25)
[2021-06-11] MEDS: CEROVITE ADV FORMULA TAB PO SCH (07:45)
[2021-06-11] MEDS: LOSARTAN POTASSIUM 50 MG TAB PO SCH (07:45)
[2021-06-11 07:46] LABS: Estimated Average Glucose 157 mg/dl; Hemoglobin A1C 7.1 % (4.5-5.6)
[2021-06-11] MEDS: TRIAMTERENE/HCTZ 37.5/25MG TAB PO SCH (07:46)
[2021-06-11] MEDS: ASPIRIN 81 MG ECTAB PO SCH (07:46)
[2021-06-11] MEDS: INSULIN GLARGINE SOLOSTAR 100 UNITS/ML 3 ML PEN SC SCH ×2 (08:06→20:23)
[2021-06-11] MEDS ORDERED: NITROGLYCERIN 2% OINTMENT 30GM TUBE EXT SCH (10:00)
--- NOTE | 2021-06-11 11:21 | Hospitalist Progress Note ---
Date of Service June 11, 2021 Assessment & Plan (1) Chest pain: Plan: 1. Chest pain, history of mild nonobstructive CAD Troponins mildly elevated 24, 32, pending EKG: No signs of ischemia Cardiology service consulted Nitropaste ordered 2. Diabetes:Lantus [address] on insulin sliding scale. Hold his metformin. A1c: 7.1 3. History of hyperlipidemia: Continue atorvastatin and fenofibrate. 4. History of hypertension: Continue atenolol, amlodipine, losartan, and Dyazide -Monitor BP 5. Obesity: Needs counseling. 6. Deep venous thrombosis prophylaxis: Sequential compression devices. Disposition Anticipate return to home when medically stable, cleared by cardiology service plan of care discussed with patient in detail and at length all questions answered he is understanding, agreeable, comfortable with the plan of care Admission and Anticipated Discharge Date Admission Date: June 10, 2021 Subjective Follow-up for chest pain, etc. Seen sitting up in bed, comfortable, not in distress Sitting up States he was having chest pain this a.m., relieved by nitro sublingual Also given Nitropaste Chest pain has resolved on exam No shortness of breath, palpitations, dizziness, nausea No other symptom Review of Systems Review of Systems: all noted and negative except for above Physical Exam Physical Exam: General- oriented x 3, not in distress, speaks in sentences with no effort or accessory muscle use Head- atraumatic Eyes- PERRL, EOMI, anicteric ENT- oropharynx clear Neck- supple, no JVD, no adenopathy, no thyromegaly; carotids +2/2, no bruits appreciated Lungs- clear to auscultation bilaterally, no rales/wheezes Heart- normal rate, regular rhythm; no murmur, no gallop, no rub appreciated Abdomen- normal bowel sounds, nondistended, soft, nontender, no masses or hepatosplenomegaly Extremities-trace pretibial edema, no calf tenderness; peripheral pulses intact Neuro- alert, oriented x 3; CN 2-12 grossly intact; motor 5/5 bilaterally;sensation 100% on all extremities; no other gross focal neurologic deficits Skin- warm & dry Results & Data Results & Data ([facility]) Vital Signs (Past 12 Hours) Vital Signs Temp Pulse Pulse Resp BP Pulse Ox 06/11/21 07:51 36.6 C 69 20 164/89 H 93 06/11/21 07:36 70 06/11/21 02:46 36.6 C 67 18 154/80 H 96 06/10/21 23:45 70 all noted and reviewed including below (1) Chest pain Chest pain type: unspecified Qualified Code(s): R07.9 - Chest pain, unspecified
--- NOTE | 2021-06-11 11:32 | Cardiology Consultation ---
Date of Consultation June 11, 2021 Assessment & Plan (1) Chest pain: (2) First degree atrioventricular block: (3) Elevated troponin: 1. Chest pain: He has a long history substernal chest pain. The symptoms he described appear to be consistent with his prior episodes although more severe. As is typical, they did respond to nitroglycerin although this time it took slightly longer. He has been evaluated for these symptoms both with noninvasive and invasive testing. None of these tests have suggested coronary disease as a likely etiology. The only abnormality in his current evaluation is a very mild elevation in the high sensitivity troponin assay. He does not appear to have had elevations in troponin previously, but the new assay is certainly more sensitive in that regard. However, given the reportedly severe and quite prolonged episode of discomfort, I would have expected in even higher elevation in his high sensitivity troponin should this have been true ischemia. I do not think he requires any additional cardiac testing. Think the initial plan for recurrent symptoms was a daily long-acting nitrate. I would recommend isosorbide mononitrate 30 mg daily. 2. 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 This is a 1st degree AV block, right bundle branch block and left anterior fascicular block. This does put him at risk of bradycardia and higher degree conduction disease. This precludes the use of beta-blockers for symptom relief. However, he did not endorse any symptoms of dizziness, lightheadedness, presyncope or syncope at this time. We will need to monitor him for the symptoms over time. History of Present Illness Reason for Consultation: Chest pain Requesting Physician: Kirsten Attending Physician: Néstor Curtis MD History of Present Illness The patient is a 76-year-old gentleman with a history of diabetes and nonobstructive coronary disease who presented to the hospital with an episode of severe and prolonged chest discomfort. The patient states that yesterday while doing very light activity he began to experience substernal chest pain. This was fairly severe in intensity. Patient discontinued his activity and was sitting in his car for a while. After 20-30 minutes he took nitroglycerin without relief. He took a 2nd nitroglycerin with some improvement but not resolution of his pain. He then contacted the paramedics and while waiting took a 3rd nitroglycerin which eventually relieved his symptoms. However, based on the severity of his chest pain in the prolonged course he was brought to the emergency room for evaluation. The chest pain did involve his arms as well. He states that the symptom itself was similar to other episodes he has had but more severe and prolonged. He has had fairly frequent episodes of chest discomfort over the past year or 2. Most of these episodes are prolonged in nature lasting 30-40 minutes. They are generally not provoked by exertion. They are generally relieved with a single nitroglycerin or occasionally a 2nd nitroglycerin. He did not appear to be associated with significant breathing difficulty or dizziness. The patient did undergo coronary angiography for the symptoms approximate 1 month ago. He states that he has had at least 4 or 5 episodes of chest discomfort since that time. These episodes generally last about half an hour. The patient states that he did have 1 additional episodes since being in the hospital. This occurred while lying in his bed, was fairly mild and was relieved with 1 nitroglycerin administered by the nurse. He was ambulatory to the bathroom earlier today without symptoms. Otherwise he claims to be feeling well recently. He denies any activity limitations. No exertional dyspnea. No palpitations. No dizziness. No change in his diet. No gastrointestinal symptoms. No nausea or vomiting. He does have a sleep disturbance related to frequent urination. No orthopnea or paroxysmal nocturnal dyspnea. Allergies Allergy/AdvReac Type Severity Reaction Status Date / Time cephalexin Allergy Mild Unknown Verified 06/10/21 21:04 codeine Allergy Mild unknown Verified 06/10/21 21:04 Home Medications Medication Instructions Recorded Confirmed Type aspirin 81 mg tablet,delayed 81 mg PO QAM 08/11/19 06/10/21 History release atenolol 50 mg tablet 50 mg PO BID 08/11/19 06/10/21 History dulaglutide 0.75 mg/0.5 mL 0.75 mg SUBCUT WK 08/11/19 06/10/21 History subcutaneous pen injector (Trulicity) fenofibrate 54 mg tablet 54 mg PO QAM 08/11/19 06/10/21 History insulin degludec 200 unit/mL (3 56 unit SUBCUT BID 08/11/19 06/10/21 History mL) subcutaneous pen (Tresiba FlexTouch U-200 insulin) metformin 1,000 mg tablet 1,000 mg PO BID 08/11/19 06/10/21 History nitroglycerin 0.4 mg sublingual 0.4 mg SUBLINGUAL UD PRN 08/11/19 06/10/21 History tablet (Nitrostat) omega 3 350 mg-dha 235 mg-epa 90 1 cap PO BID 08/11/19 06/10/21 History mg-fish oil 597 mg capsule,delay rel ([place]-3) glucosam 750 mg-chondroi 100 1 tab PO BID 05/05/20 06/10/21 History mg-hyalur 1.65 mg-CF borate 108 mg tablet ([facility] SADAR 3D) losartan 50 mg tablet 50 mg PO QAM 10/25/20 06/10/21 History vitamins A,C,Z-rlqh-jaexly 14,320 1 cap PO BID 10/25/20 06/10/21 History unit-226 mg-200 unit capsule (PreserVision AREDS) amlodipine 10 mg tablet (Norvasc) 10 mg PO QAM 01/02/21 06/10/21 History insulin aspart U-100 100 unit/mL 20 unit SUBCUT BIDM ml 04/25/21 06/10/21 Hi story (3 mL) subcutaneous pen (Novolog Flexpen U-100 Insulin aspart) atorvastatin 20 mg tablet 20 mg PO HS 05/16/21 06/10/21 History tramadol 50 mg tablet 50 mg PO Q8H PRN #20 tab 05/16/21 06/10/21 Rx triamterene 37.5 1 tab PO QAM 05/16/21 06/10/21 History mg-hydrochlorothiazide 25 mg tablet Zkatter 1 tab PO BID 05/17/21 06/10/21 History Patient History Medical History Anemia Cellulitis Diabetic neuropathy Diverticulosis Dizziness DJD (degenerative joint disease), lumbosacral Dyslipidemia First degree atrioventricular block Hemorrhoids Hypertension Left anterior fascicular block Monoclonal gammopathy Morbid obesity Nephrolithiasis Osteoarthritis RBBB Substernal chest pain Type 2 diabetes mellitus Surgical History H/O oral surgery History of back surgery Hx of cataract surgery Family History Father Coronary heart disease Myocardial infarction Heart disease Sister Coronary heart disease Cancer Brother Coronary heart disease Hx of CABG Family/Other Hearing loss Mother Asthma Denies family history of No family history of adverse response to anesthesia Social History Smoking Status: Never smoker Tobacco Type: Smokeless Tobacco (Dip or Chew) Number of Years Since Quit: 28; Second Hand Exposure: No; Do You Dip or Chew Tobacco: No; Hx Alcohol Use: No Hx Substance Use: No Preferred Language: Swedish Communication Ability: Effective 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 Mood and affect appeared normal. He answered all questions appropriately. Obese HEENT: Pupils are equal and reactive to light and accommodation. Extraocular movements are intact. The sclerae are anicteric. Neuro: Cranial nerves intact Neck: Redundant neck tissue Lungs: Clear to auscultation bilaterally. He has good air movement without use of accessory muscles. No rales wheezes or rhonchi. Cardiac: Heart demonstrates a regular rate and rhythm. Normal S1 and S2. No murmurs on examination. Pulses: The patient has palpable radial pulses bilaterally that are equal in intensity Extremities: There was no evidence of hypoperfusion. There is no cyanosis or clubbing. Minimal lower extremity edema Skin: I did not appreciate any rashes on examination today. Results & Data ([facility]) Vital Signs (Past 12 Hours) Vital Signs Temp Pulse Pulse Resp BP Pulse Ox 06/11/21 07:51 36.6 C 69 20 164/89 H 93 06/11/21 07:36 70 06/11/21 02:46 36.6 C 67 18 154/80 H 96 06/10/21 23:45 70 Laboratory Results Abnormal Lab Results 06/10/21 06/10/21 06/10/21 18:01 18:01 19:56 WBC 10.70 RBC 4.57 L Hgb 13.1 L Hct 39.4 L MCV 86.2 MCH 28.7 MCHC 33.2 RDW Std Deviation 44.0 RDW Coeff of [place] 14.1 Plt Count 243 MPV 10.0 Immature Gran % (Auto) 0.3 Neut % (Auto) 79.6 Lymph % (Auto) 13.6 [place] % (Auto) 5.3 Eos % (Auto) 1.1 Baso % (Auto) 0.1 Neut # (Auto) 8.52 H Lymph # (Auto) 1.45 [place] # (Auto) 0.57 Eos # (Auto) 0.12 Baso # (Auto) 0.01 Immature Gran # (Auto) 0.03 H Sodium 140 Potassium 3.6 Chloride 102 Carbon Dioxide 28 Anion Gap 10 BUN 22 Creatinine 1.35 Est Cr Clr Drug Dosing 63.4 Est GFR ( Amer) 58.7 Est GFR (Non-Af Amer) 50.6 BUN/Creatinine Ratio 16.3 Glucose 253 H POC Glucose Estimat Average Glucose Hemoglobin A1c Calcium 9.1 Magnesium Total Bilirubin 0.3 AST 18 ALT 18 Alkaline Phosphatase 47 Troponin I High Sens 15.0 24.3 H Total Protein 7.2 Albumin 4.1 Globulin 3.1 Albumin/Globulin Ratio 1.3 Lipase 28 SARS-CoV-2, RNA, NAAT 06/10/21 06/10/21 06/11/21 20:52 22:46 05:25 WBC 9.89 RBC 4.20 L Hgb 12.2 L Hct 35.6 L MCV 84.8 MCH 29.0 MCHC 34.3 RDW Std Deviation 43.3 RDW Coeff of [place] 14.1 Plt Count 227 MPV 10.1 Immature Gran % (Auto) 0.2 Neut % (Auto) 67.8 Lymph % (Auto) 20.7 [place] % (Auto) 9.2 Eos % (Auto) 2.0 Baso % (Auto) 0.1 Neut # (Auto) 6.70 H Lymph # (Auto) 2.05 [place] # (Auto) 0.91 H Eos # (Auto) 0.20 Baso # (Auto) 0.01 Immature Gran # (Auto) 0.02 Sodium Potassium Chloride Carbon Dioxide Anion Gap BUN Creatinine Est Cr Clr Drug Dosing Est GFR ( Amer) Est GFR (Non-Af Amer) BUN/Creatinine Ratio Glucose POC Glucose 159 H Estimat Average Glucose Hemoglobin A1c Calcium Magnesium Total Bilirubin AST ALT Alkaline Phosphatase Troponin I High Sens Total Protein Albumin Globulin Albumin/Globulin Ratio Lipase SARS-CoV-2, RNA, NAAT NEGATIVE 06/11/21 06/11/21 06/11/21 05:25 05:25 05:42 WBC RBC Hgb Hct MCV MCH MCHC RDW Std Deviation RDW Coeff of [place] Plt Count MPV Immature Gran % (Auto) Neut % (Auto) Lymph % (Auto) [place] % (Auto) Eos % (Auto) Baso % (Auto) Neut # (Auto) Lymph # (Auto) [place] # (Auto) Eos # (Auto) Baso # (Auto) Immature Gran # (Auto) Sodium 141 Potassium 3.5 Chloride 105 Carbon Dioxide 30 Anion Gap 6 BUN 19 Creatinine 0.94 D Est Cr Clr Drug Dosing 91.6 Est GFR ( Amer) 90.9 Est GFR (Non-Af Amer) 78.4 BUN/Creatinine Ratio 20.2 H Glucose 102 H POC Glucose 109 H Estimat Average Glucose 157 Hemoglobin A1c 7.1 H Calcium 8.8 Magnesium 1.6 L Total Bilirubin AST ALT Alkaline Phosphatase Troponin I High Sens 32.3 H Total Protein Albumin Globulin Albumin/Globulin Ratio Lipase SARS-CoV-2, RNA, NAAT Diagnostic Findings Cardiac catheterization performed 05/07/2021: Mild nonobstructive coronary disease involving the proximal all and 3. The remaining coronary arteries without significant obstructive disease. Echocardiogram obtained 213 1021: Normal LV systolic function with ejection fraction of 60 65%. Mild LVH. No significant valvular abnormalities. Chest x-ray obtained the time admission the acute cardiopulmonary process ECG Additional Comments: EKG demonstrated normal sinus rhythm with long first-degree AV block, right bundle branch block and left anterior fascicular block. PG Care Time/CCT Total # of Minutes Spent Total Time Spent with Patient: Total time spent is greater than 50% in coordination of care (as documented) at patient's floor/unit and/or counseling patient: Coding Level of Care Code INT OBSERVATION CARE 70M LVL 3 Diagnoses Chest pain R07.9 Chest pain type: unspecified First degree atrioventricular block I44.0 Elevated troponin R77.8 (1) Chest pain Chest pain type: unspecified Qualified Code(s): R07.9 - Chest pain, unspecified
[2021-06-11] MEDS: ISOSORBIDE MONO EXTENDED REL 30 MG TABCR PO SCH ×2 (12:05→21:10)
--- NOTE | 2021-06-11 14:05 | Electrocardiogram Report ---
Test Reason : Blood Pressure : / mmHG Vent. Rate : 078 BPM Atrial Rate : 078 BPM P-R Int : 248 ms QRS Dur : 152 ms QT Int : 440 ms P-R-T Axes : 069 -70 000 degrees QTc Int : 501 ms Poor data quality, interpretation may be adversely affected Sinus rhythm with 1st degree A-V block Right bundle branch block Left anterior fascicular block Bifascicular block Abnormal ECG When compared with ECG of 02-JAN-2021 11:23, No significant change was found Confirmed by George Salinas ([id number]) on 06/11/2021 2:04:46 PM Referred By: REFERRED SELF Confirmed By:Oliver Salinas
--- NOTE | 2021-06-11 14:14 | Electrocardiogram Report ---
Test Reason : Blood Pressure : / mmHG Vent. Rate : 067 BPM Atrial Rate : 067 BPM P-R Int : 328 ms QRS Dur : 148 ms QT Int : 444 ms P-R-T Axes : 047 -65 003 degrees QTc Int : 469 ms Sinus rhythm with 1st degree A-V block Right bundle branch block Left anterior fascicular block Bifascicular block Abnormal ECG When compared with ECG of 10-JUN-2021 17:53, (unconfirmed) No significant change was found Confirmed by George Salinas ([id number]) on 06/11/2021 2:14:34 PM Referred By: REFERRED SELF Confirmed By:Oliver Salinas
[2021-06-11] MEDS ORDERED: ATORVASTATIN 20 MG TAB PO SCH (21:00)
[2021-06-12] MEDS: ISOSORBIDE MONO EXTENDED REL 30 MG TABCR PO SCH (08:09)
[2021-06-12] MEDS: FENOFIBRATE NANOCRYSTALLIZED 48 MG TABLET PO SCH (08:11)
[2021-06-12] MEDS: TRIAMTERENE/HCTZ 37.5/25MG TAB PO SCH (08:11)
[2021-06-12] MEDS: ASPIRIN 81 MG ECTAB PO SCH (08:11)
[2021-06-12] MEDS: amLODIPine BESYLATE 5 MG TAB PO SCH (08:12)
[2021-06-12] MEDS: CEROVITE ADV FORMULA TAB PO SCH (08:12)
[2021-06-12] MEDS: LOSARTAN POTASSIUM 50 MG TAB PO SCH (08:12)
[2021-06-12] MEDS: INSULIN GLARGINE SOLOSTAR 100 UNITS/ML 3 ML PEN SC SCH (08:13)
[2021-06-12] MEDS: INSULIN ASPART PER UNIT SC SCH ×2 (08:16→12:11)
[2021-06-12] MEDS: ATENOLOL 50 MG TABLET PO SCH (08:17)
--- NOTE | 2021-06-12 14:19 | Electrocardiogram Report ---
Test Reason : Blood Pressure : / mmHG Vent. Rate : 065 BPM Atrial Rate : 065 BPM P-R Int : 290 ms QRS Dur : 152 ms QT Int : 454 ms P-R-T Axes : 086 -68 -06 degrees QTc Int : 472 ms Sinus rhythm with 1st degree A-V block Right bundle branch block Left anterior fascicular block Bifascicular block Abnormal ECG Confirmed by George Salinas ([id number]) on 06/12/2021 2:18:31 PM Referred By: REFERRED SELF Confirmed By:Oliver Salinas
--- NOTE | 2021-06-12 14:59 | Hospitalist Progress Note ---
Date of Service June 12, 2021 Assessment & Plan (1) Chest pain: Plan: 1. 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 Diabetes: resume usual medications A1c: 7.1 3. History of hyperlipidemia: Continue atorvastatin and fenofibrate. 4. History of hypertension: Continue atenolol, amlodipine, losartan, and Dyazide -Monitor BP 5. Obesity: Needs counseling. 6. Deep venous thrombosis prophylaxis: Sequential compression devices. Disposition as per above plan of care discussed with patient in detail and at length all questions answered he is understanding, agreeable, comfortable with the plan of care Admission and Anticipated Discharge Date Admission Date: June 10, 2021 Subjective ff up for chest pain, etc seen resting in bed, comfortable feels better overall chest pain has resolved ambulated in the halls with no problems no other symptoms states he is ready and would like to be discharged Review of Systems Review of Systems: all noted and negative except for above Physical Exam Physical Exam: General- oriented x 3, not in distress, speaks in sentences with no effort or accessory muscle use Eyes- anicteric Neck- no JVD Lungs- clear breath sounds BL Heart- normal rate, regular rhythm; no murmurs Abdomen- normal bowel sounds, nondistended, soft, no tenderness Extremities- no pretibial edema, no calf tenderness Neuro- alert, oriented x 3; no gross focal neurologic deficits Skin- warm & dry Results & Data Results & Data ([facility]) Vital Signs (Past 12 Hours) Vital Signs Temp Pulse Pulse Resp BP BP Pulse Ox 06/12/21 11:07 36.7 C 75 20 111/62 91 06/12/21 07:25 36.5 C 66 18 130/67 92 06/12/21 07:05 65 06/12/21 03:23 36.4 C L 66 20 130/70 94 all noted and reviewed including below (1) Chest pain Chest pain type: unspecified Qualified Code(s): R07.9 - Chest pain, unspecified
--- NOTE | 2021-06-13 17:27 | Discharge Summary ---
Date of Service June 13, 2021 Admission HPI Per Admitting Provider HISTORY OF PRESENT ILLNESS: This is a 76-year-old male with past medical history significant type 2 diabetes, hypertension, obesity, depression, generalized anxiety, who lives alone at home, presents with chest pain. Around 4:00 p.m., the patient had noticed chest pain, when he was walking in the house, about 8/10 in severity, pressure-like feeling. At that time, he was sweating, no nausea, no shortness of breath, no dizziness. He took three nitros, which relieved the pain. Currently, the patient does not have any chest pain, no sweating currently. Resting comfortably, hemodynamically stable. No headache, no blurred visions, no runny nose, no sore throat, no cough, no fevers, no abdominal pain. Normal bowel and bladder movements. Has chronic swelling in the legs. The patient recently in April had a cardiac catheterization, which showed mild nonobstructive disease. He followed with cardiology. Cardiology was recommending for recuring chest pain to start on long-acting nitrates. ALLERGIES: CEPHALEXIN, CODEINE. PAST MEDICAL HISTORY: As mentioned above. PAST SURGICAL HISTORY: Colonoscopy, cardiac catheterization. MEDICATIONS: The patient is on amlodipine 10 mg p.o. a.m., aspirin 81 mg p.o. a.m., atenolol 50 mg p.o. b.i.d., atorvastatin 20 mg p.o. at bedtime, fenofibrate 54 mg p.o. a.m., insulin aspart 20 units subcutaneous b.i.d., losartan 50 mg p.o. a.m., metformin 1000 mg p.o. b.i.d., nitroglycerin 0.4 mg sublingual p.r.n., omega 1 capsule p.o. b.i.d., tramadol 50 mg p.o. q. 8 hours p.r.n., Tresiba FlexTouch 56 units subcutaneous b.i.d., triamterene/hydrochlorothiazide 37.5/25 mg 1 tablet daily, Trulicity 0.75 mg subcutaneous weekly, multivitamin 1 capsule p.o. b.i.d. FAMILY HISTORY: Significant for no family history on file. SOCIAL HISTORY: Single. No tobacco use. Alcohol occasional. No drug use. REVIEW OF SYSTEMS: As per HPI. Rest of the review of systems is negative. Admission Exam Per Admitting Provider PHYSICAL EXAMINATION: GENERAL: The patient is morbidly obese, not in acute distress. VITAL SIGNS: Temperature 36.5, pulse 71, respiratory rate 20, blood pressure 132/65, oxygen 95% on room air. GENERAL: The patient is alert, oriented, not in acute distress. NECK: No JVD. No neck masses. CARDIOVASCULAR: S1 and S2 heard. Regular rate and rhythm. No murmur, no gallop. RESPIRATORY SYSTEM: Normal AP diameter. No accessory muscle use. No wheezing, no crackles. ABDOMEN: Soft, bowel sounds present, nontender, no distention. CENTRAL NERVOUS SYSTEM: Cranial nerves II through XII are grossly intact, nonfocal. EXTREMITIES: Lower extremity edema present, no erythema seen. Principal Diagnosis CHEST PAIN SECONDARY TO ANGINA HISTORY OF NONOBSTRUCTIVE CORONARY ARTERY DISEASE Discharge Exam General- oriented x 3, not in distress, speaks in sentences with no effort or accessory muscle use Eyes- anicteric Neck- no JVD Lungs- clear breath sounds BL Heart- normal rate, regular rhythm; no murmurs Abdomen- normal bowel sounds, nondistended, soft, no tenderness Extremities- no pretibial edema, no calf tenderness Neuro- alert, oriented x 3; no gross focal neurologic deficits Skin- warm & dry Discharge Data Allergies Allergy/AdvReac Type Severity Reaction Status Date / Time cephalexin Allergy Mild Unknown Verified 06/10/21 21:04 codeine Allergy Mild unknown Verified 06/10/21 21:04 Consultations 06/10/21 21:00 ED Decision to Admit Stat 06/11/21 07:36 Consult Cardiology Routine Hospital Course (1) Chest pain: 1. 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 Diabetes: resume usual medications A1c: 7.1 3. History of hyperlipidemia: Continue atorvastatin and fenofibrate. 4. History of hypertension: Continue atenolol, amlodipine, losartan, and Dyazide -Monitor BP 5. Obesity: Needs counseling. 6. Deep venous thrombosis prophylaxis: Sequential compression devices. Disposition as per above plan of care discussed with patient in detail and at length all questions answered he is understanding, agreeable, comfortable with the plan of care Total Time Total Time Spent Total Time Spent (In Minutes): >30 MINUTES Discharge Plan Discharge Items Patient Disposition: Home - Self-Care Reason For Visit: CHEST PAIN Discharge Diagnosis: CHEST PAIN Activity: As commented below Activity Comment: INCREASE ACTIVITY GRADUALLY TOLERATED Lifting: Wait until after follow-up appointment Exercise/Sports: Wait until after follow-up appointment Driving/Machine Use: No driving if you are having chest pain Non-emergency contact: Primary Care Provider and Spiral Winding Machine Helper Call non-emergency contact if: you have any medication questions, your symptoms worsen, your pain is not controlled, your pain is worsening, your pain is unusual for you, your pain is concerning for you and you have a fever Follow-up/Referrals: Betito Logan Jr, MD, [facility] [Physician] - Martin Zavaleta MD [Primary Care Provider] - (Date & Time 06/15/2021 11:20 AM Provider Martin Zavaleta MD [facility] ) Diet: Carb Consistent or DM2 and Heart Healthy Addtl Attending Provider Instructions: PLEASE REFER TO YOUR NEW MEDICATION LIST AND FOLLOW INSTRUCTIONS CAREFULLY. YOUR NEW MEDICATIONS INCLUDE: Isosorbide mononitrate (Imdur) PLEASE CALL YOUR PRIMARY CARE PHYSICIAN OR RETURN TO THE ER IF WITH WORSENING OF SYMPTOMS, INCLUDING Chest pain, shortness of breath, palpitations, dizziness, weakness. FOLLOW UP WITH PRIMARY CARE PHYSICIAN OUTLINED ABOVE. Follow-up with child care team lead Dr. Logan in 2 weeks. Please call his office for an appointment. Pending Studies at Discharge: No Stand-Alone Forms: My [facility] The car easily beat, Smoking Cessation Medications and DC Order Prescriptions: New isosorbide mononitrate 30 mg Tablet Extended Release 24 Hr 30 mg PO BID 30 Days Qty: 60 RF: 2 Continued [facility] 1 tab PO BID RF: 0 losartan 50 mg tablet 50 mg PO QAM RF: 0 PreserVision AREDS [id number] capsule 1 cap PO BID RF: 0 aspirin 81 mg Tablet,Delayed Release (Dr/Ec) 81 mg PO QAM RF: 0 metformin 1,000 mg tablet 1,000 mg PO BID RF: 0 nitroglycerin [Nitrostat] 0.4 mg Tablet, Sublingual 0.4 mg sublingual UD PRN (Reason: Chest Pain) RF: 0 atenolol 50 mg tablet 50 mg PO BID RF: 0 fenofibrate 54 mg tablet 54 mg PO QAM RF: 0 Tresiba FlexTouch U-200 200 unit/mL (3 mL) insulin pen 56 unit SUBCUT BID RF: 0 Trulicity 0.75 mg/0.5 mL pen injector 0.75 mg SUBCUT WK RF: 0 [place]-3 350 mg-235 mg- 90 mg-597 mg Capsule,Delayed Release(Dr/Ec) 1 cap PO BID RF: 0 insulin aspart U-100 [Novolog Flexpen U-100 Insulin] 100 unit/mL (3 mL) insulin pen 20 unit SUBCUT BIDM RF: 0 [facility] 750 mg-100 mg- 1.65 mg-108 mg Tablet 1 tab PO BID RF: 0 amlodipine [Norvasc] 10 mg tablet 10 mg PO QAM RF: 0 atorvastatin 20 mg tablet 20 mg PO HS RF: 0 triamterene-hydrochlorothiazid 37.5-25 mg tablet 1 tab PO QAM RF: 0 tramadol 50 mg tablet 50 mg PO Q8H PRN (Reason: pain) Qty: 20 RF: 0 Discharge Orders: Discharge Order (Routine); Ordered 06/12/21 Ordered By: Néstor Holloway/Other Patient Handouts: Managing Type 2 Diabetes Admission Data Admit Date/Time: 06/10/21 21:41 Attending Provider: Néstor Curtis Admit Provider: Gal Mendez Primary Care Provider: Martin Zaavleta Other Providers: Gal Mendez ; George Salinas Other Interventions: Discharge Summary Assessment (RN) Last Done: 06/12/21 15:17
== END 2021-06-12 16:12 | disposition home or self-care (01) ==
LOC: 2N 17:40 → ED 17:40 → 2N 06-11 00:54

== ENCOUNTER 2021-10-07 14:15 | Inpatient (IN) ==
--- NOTE | 2021-10-07 15:16 | Emergency Department Note ---
Impression & Plan COVID-19, Hypoxia ED Provider Note NAME: SONDRA FRANCES AGE: 76 SEX: M : 1945 ARRIVES VIA: Ambulance INFORMANT: Patient ED PROVIDER(S): Nate Panda DO CHIEF COMPLAINT: shortness of breath and cough HPI: Patient is a 76-year-old male with a past medical history of chest pain, diabetes, morbid obesity, right bundle branch block, hypertension, hyp erlipidemia who presents to the ER for cough which has been present for the past 1.5 months in combination with not feeling well for the past 3 to 5 days. Admits to shortness of breath with lying flat. Denies any belly pain, nausea, vomiting, or diarrhea. No dysuria, urgency, or frequency. No other exacerbating or remitting factors. He might have a slight sore throat. No recorded fevers. No sick contacts. ROS: See above HPI for pertinent positives & negatives. A total of 10 systems reviewed and were otherwise negative. PAST MEDICAL HISTORY:See Below PAST SURGICAL HISTORY:See Below FAMILY HISTORY:See Below SOCIAL HISTORY:See Below HOME MEDICATIONS:See Below ALLERGIES:See Below VITALS:See Below PHYSICAL EXAMINATION: GENERAL: Sitting up in bed, alert, ill-appearing, disheveled, morbidly obese EYE EXAM: normal conjunctiva. OROPHARYNX: mucous membranes are dry LUNGS: Crackles bilaterally. Normal chest wall mechanics HEART: no murmurs, S1 normal and S2 normal ABDOMEN: abdomen soft, non-tender, normo-active bowel sounds, no masses, no rebound or guarding. UPPER EXTREMITIES: upper extremities are grossly normal. LOWER EXTREMITIES: No pitting edema. NEURO EXAM: Normal sensorium, cranial nerves II-XII grossly intact, normal speech, no gross weakness of arms, no gross weakness of legs. MEDICAL DECISION MAKING: Pt is a 76-year-old male who presents to the ER for shortness of breath and cough. IV was established blood work was obtained. He was found to be hypoxic and placed on 2 L nasal cannula. Labs show no significant leukocytosis. Mild anemia 11.9. D-dimer was elevated and drawn by the hospitalist. BMP slightly low glucose. Troponin was negative. COVID was positive. Chest x-ray was unremarkable. I do favor this likely explains his symptoms. He remained on nasal cannula and was given IV steroids. He was admitted to the hospitalist service. The results the day following admission as it was ordered by the hospitalist service for further work-up. Triage Nursing notes reviewed. Limited review of prior medical records performed Vital Signs: reviewed and remarkable for hypoxic Differential diagnosis: Differential diagnoses includes but is not limited to pneumonia, bronchitis, COPD/Asthma exacerbation, pneumothorax, pulmonary embolism, congestive heart failure, acute coronary syndrome ER treatment provided: See below Diagnostics interpreted by me: ECG: Sinus rhythm with first-degree AV block rate of 76 Left axis Right bundle branch block QTC 497 Cardiac Monitoring: An order was placed for continuous cardiac monitoring. The monitor shows a rate of 80 with sinus rhythm. Laboratory studies: As stated above and show below. Imaging studies: Blood AP upright 1 view the chest was unremarkable Consultation(s): This with hospitalist for further evaluation Procedures: none Critical Care: I have personally spent 35 minutes of critical care time in the direct management of this patient. This includes bedside care, interpretation of rosie gnostic studies, and testing, discussion with consultants, patient, and family members, and other required patient management activities. This 35 minutes is in excess of all separately billable procedures. Past Med/Surg History Medical History Cellulitis Diabetic neuropathy Diverticulosis DJD (degenerative joint disease), lumbosacral Dyslipidemia First degree atrioventricular block Hemorrhoids Hypertension Left anterior fascicular block Monoclonal gammopathy Morbid obesity Osteoarthritis RBBB Snoring Type 2 diabetes mellitus Surgical History H/O oral surgery History of back surgery (~05/2005) History of cardiac cath (~04/27/21) History of colonoscopy History of sinus surgery (~05/10/20) Hx of cataract surgery Family History Father Coronary heart disease Heart disease Myocardial infarction Sister Coronary heart disease Cancer Brother Coronary heart disease Hx of CABG Family/Other Hearing loss Mother Asthma Other No family history of adverse response to anesthesia Social History Smoking Status: Never smoker Tobacco Type: Smokeless Tobacco (Dip or Chew) Number of Years Since Quit: 28; Second Hand Exposure: No; Hx Alcohol Use: No Hx Substance Use: No Preferred Language: Telugu Communication Ability: Effective 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 Beliefs That Will Affect Care: None marital status: Single Current Living Situation: Alone Current Living Situation Comment: Sister lives next door current occupational status: retired How many Children do You have Comment: No Children Feels Safe at Home: Yes Assistive Devices: Glasses Allergies Allergies Allergy/AdvReac Type Severity Reaction Status Date / Time cephalexin Allergy Mild Unknown Verified 09/10/21 15:54 codeine Allergy Mild unknown Verified 09/10/21 15:54 Home Meds Home Medications Medication Instructions Recorded Confirmed aspirin 81 mg tablet,delayed 81 mg PO QAM 08/11/19 10/07/21 release atenolol 50 mg tablet 100 mg PO QAM 08/11/19 10/07/21 dulaglutide 0.75 mg/0.5 mL 0.75 mg subcut WK 08/11/19 10/07/21 subcutaneous pen injector (Trulicity) insulin degludec 200 unit/mL (3 56 unit subcut BID 08/11/19 10/07/21 mL) subcutaneous pen (Tresiba FlexTouch U-200 insulin) metformin 1,000 mg tablet 1,000 mg PO BID 08/11/19 10/07/21 losartan 50 mg tablet 50 mg PO QAM 10/25/20 10/07/21 amlodipine 10 mg tablet (Norvasc) 10 mg PO QAM 01/02/21 10/07/21 atorvastatin 20 mg tablet 20 mg PO HS 05/16/21 10/07/21 triamterene 37.5 1 tab PO QAM 05/16/21 10/07/21 mg-hydrochlorothiazide 25 mg tablet isosorbide mononitrate 120 mg 60 mg PO QAM 07/10/21 10/07/21 tablet,extended release 24 hr Previous Rx's Medication Instructions Recorded tramadol 50 mg tablet 50 mg PO Q8H PRN pain #20 tabs 05/16/21 Results & Data (ED) Vital Signs Vital Signs - 24 hr 10/07/21 14:24 10/07/21 14:29 10/07/21 16:00 Temperature 37.1 C Temperature Source Oral Pulse Rate 75 Pulse Rate [Apical] 74 Pulse Rate from SpO2 Sensor Pulse Rhythm [Apical] Regular Pulse Strength [Apical] Normal Respiratory Rate 24 20 Respiratory Effort / Characteristics Non-Labored Respiratory Depth Normal Normal Blood Pressure 104/53 L Blood Pressure [Right Arm] 121/57 L Blood Pressure Mean 70 Blood Pressure Mean [Right Arm] 78 Pulse Oximetry 88 L 92 94 Oxygen Delivery Method Room Air Nasal Cannula Nasal Cannula Oxygen Flow Rate 2 2 Sepsis Recent Fever Within 48 Hours No Sepsis New/Unexplained Change in Mental Status No Sepsis Action Taken by Nursing No Action Required 10/07/21 16:00 10/07/21 17:30 10/07/21 19:00 Temperature Temperature Source Pulse Rate Pulse Rate [Apical] 97 H Pulse Rate from SpO2 Sensor 74 Pulse Rhythm [Apical] Regular Pulse Strength [Apical] Normal Respiratory Rate 22 Respiratory Effort / Characteristics Respiratory Depth Normal Blood Pressure Blood Pressure [Right Arm] 137/69 Blood Pressure Mean Blood Pressure Mean [Right Arm] 91 Pulse Oximetry 94 95 94 Oxygen Delivery Method Nasal Cannula Oxygen Flow Rate 2 Sepsis Recent Fever Within 48 Hours Sepsis New/Unexplained Change in Mental Status Sepsis Action Taken by Nursing Laboratory Data Result diagrams: 10/07/21 14:30 10/07/21 14:30 Lab Results 10/07/21 10/07/21 10/07/21 Range/Units 14:30 14:30 14:30 WBC 10.27 (4.8-10.8) K/ul RBC 4.41 L (4.63-6.08) M/uL Hgb 11.9 L (14.0-18.0) g/dl Hct 36.9 L (40.1-51.0) % MCV 83.7 (80.0-100.0) fL MCH 27.0 (25.0-34.0) pg MCHC 32.2 (32.0-36.0) g/dL RDW Std Deviation 42.7 (36.4-46.3) fL RDW Coeff of [place] 14.0 (11.5-14.5) % Plt Count 331 (130-400) K/uL MPV 10.4 (9.4-12.4) fL Immature Gran % (Auto) 0.3 % Neut % (Auto) 68.8 % Lymph % (Auto) 14.3 % [place] % (Auto) 14.7 % Eos % (Auto) 1.6 % Baso % (Auto) 0.3 % Neut # (Auto) 7.07 H (1.4-6.5) K/uL Lymph # (Auto) 1.47 (1.2-3.4) K/uL [place] # (Auto) 1.51 H (0.24-0.82) K/uL Eos # (Auto) 0.16 (0-0.50) K/uL Baso # (Auto) 0.03 (0-0.2) K/uL Immature Gran # (Auto) 0.03 H (0.00-0.02) K/uL D-Dimer (0-500) ug/L FEU Sodium 139 (136-145) mmol/L Potassium 3.5 (3.5-5.1) mmol/L Chloride 99 (98-107) mmol/L Carbon Dioxide 30 (21-32) mmol/L Anion Gap 10 (3-11) BUN 17 (6-23) mg/dl Creatinine 1.12 (0.6-1.4) mg/dl Est Cr Clr Drug Dosing 75.3 ml/min Est GFR ( Amer) 73.6 ml/min Est GFR (Non-Af Amer) 63.5 ml/min BUN/Creatinine Ratio 15.2 (10-20) Glucose 68 L (70-99(Fasting)) mg/dl Calcium 9.5 (8.5-10.1) mg/dl Total Bilirubin 1.0 (0.2-1.0) mg/dl AST 23 (13-39) U/L ALT 19 (7-52) U/L Alkaline Phosphatase 55 (34-104) U/L Troponin I High Sens 13.0 (0-20) pg/ml B-Natriuretic Peptide 115 H (0-100) pg/ml Total Protein 7.9 (6.0-8.3) gm/dl Albumin 4.0 (3.4-5.0) gm/dl Globulin 3.9 (2.5-4.0) gm/dl Albumin/Globulin Ratio 1.0 (0.9-2) Lipase 48 (11-82) U/L SARS-CoV-2, RNA, NAAT (NEGATIVE) 10/07/21 10/07/21 Range/Units 14:30 15:40 WBC (4.8-10.8) K/ul RBC (4.63-6.08) M/uL Hgb (14.0-18.0) g/dl Hct (40.1-51.0) % MCV (80.0-100.0) fL MCH (25.0-34.0) pg MCHC (32.0-36.0) g/dL RDW Std Deviation (36.4-46.3) fL RDW Coeff of [place] (11.5-14.5) % Plt Count (130-400) K/uL MPV (9.4-12.4) fL Immature Gran % (Auto) % Neut % (Auto) % Lymph % (Auto) % [place] % (Auto) % Eos % (Auto) % Baso % (Auto) % Neut # (Auto) (1.4-6.5) K/uL Lymph # (Auto) (1.2-3.4) K/uL [place] # (Auto) (0.24-0.82) K/uL Eos # (Auto) (0-0.50) K/uL Baso # (Auto) (0-0.2) K/uL Immature Gran # (Auto) (0.00-0.02) K/uL D-Dimer 790 H* (0-500) ug/L FEU Sodium (136-145) mmol/L Potassium (3.5-5.1) mmol/L Chloride (98-107) mmol/L Carbon Dioxide (21-32) mmol/L Anion Gap (3-11) BUN (6-23) mg/dl Creatinine (0.6-1.4) mg/dl Est Cr Clr Drug Dosing ml/min Est GFR ( Amer) ml/min Est GFR (Non-Af Amer) ml/min BUN/Creatinine Ratio (10-20) Glucose (70-99(Fasting)) mg/dl Calcium (8.5-10.1) mg/dl Total Bilirubin (0.2-1.0) mg/dl AST (13-39) U/L ALT (7-52) U/L Alkaline Phosphatase (34-104) U/L Troponin I High Sens (0-20) pg/ml B-Natriuretic Peptide (0-100) pg/ml Total Protein (6.0-8.3) gm/dl Albumin (3.4-5.0) gm/dl Globulin (2.5-4.0) gm/dl Albumin/Globulin Ratio (0.9-2) Lipase (11-82) U/L SARS-CoV-2, RNA, NAAT POSITIVE A* (NEGATIVE) Administered Medications Discontinued Medications Dexamethasone Sodium Phosphate (DexamethasonePf 10 Mg/Ml Vial) 8 mg IV NOW ONE Stop: 10/07/21 16:17 Last Admin: 10/07/21 16:22 Dose: 8 mg Documented By: SALLY Ioversol (Optiray 300 500ml) 112 ml IV ONCE ONE Stop: 10/07/21 18:35 Last Admin: 10/07/21 18:34 Dose: 112 ml Documented By: EDK Imaging Data Radiologist's Impression: Chest X-Ray 10/07/21 15:05 XR chest 1V portable CLINICAL HISTORY: Chest Pain. COMPARISON STUDY: 06/10/2021 TECHNIQUE: 1 view of the chest FINDINGS: Single frontal view of the chest demonstrates the cardiomediastinal silhouette to be within normal limits. There is a decreased inspiratory effort with elevation of the hemidiaphragms and crowding of the bronchovascular markings at the lung bases and centrally. The lungs are clear of alveolar opacities. There is no evidence for pleural effusion. There is no evidence for vascular congestion. There is no acute osseous pathology. IMPRESSION: 1. There is a decreased inspiratory effort with otherwise no acute chest disease. ACT 112: Negative or not required by law. Electronically signed by: Manfred Stephens M.D. 10/07/2021 3:44 PM Chest CTA 10/07/21 18:09 CT angio chest PE protocol CLINICAL HISTORY: Covid positive. Chest pain and shortness of breath. COMPARISON STUDY: Portable chest from July 07, 2021 CT DOSE: 815.62 mGy. TECHNIQUE: CT Angio of the chest was performed.followed by image post processing with coronal, and sagittal MIP reformats. Contrast Volume: Optiray 300, 112 ml FINDINGS: Vasculature: There is homogeneous perfusion of the pulmonary vasculature bilaterally. No intraluminal filling defects or evidence for pulmonary embolus is seen. Airway: The airway is clear. No endobronchial lesion is identified. Lungs: There is evidence for bronchiectasis with mucus plugging at both lung bases characteristic of an inflammatory process. No groundglass opacities are seen. The lungs are otherwise clear of acute alveolar opacities, air bronchograms or pulmonary nodules. Pleura: There is no evidence for pleural effusion. There is no evidence for pneumothorax. Mediastinum: There is no evidence for pathologic adenopathy. The heart size is within normal limits. The thoracic aorta is within normal limits. There is no evidence for pericardial effusion. Upper abdomen: The adrenal glands are normal bilaterally. Osseous structures: There is no acute osseous pathology. Impression: 1. No CTA evidence for pulmonary embolus. 2. Bronchiectasis with mucus plugging of both lung bases characteristic of an inflammatory process. 2. No groundglass opacities or confluent alveolar infiltrates. ACT 112: Negative or not required by law. Electronically signed by: Manfred Stephens M.D. 10/07/2021 6:46 PM Discharge Plan Visit Data Chief Complaint: Shortness of Breath/Dyspnea ED Provider: Nate Panda Discharge Problem: COVID-19, Hypoxia Forms Stand Alone Forms: [facility] Prescriptions Prescriptions: No Action losartan 50 mg tablet 50 mg PO QAM aspirin 81 mg Tablet,Delayed Release (Dr/Ec) 81 mg PO QAM metformin 1,000 mg tablet 1,000 mg PO BID atenolol 50 mg tablet 100 mg PO QAM Tresiba FlexTouch U-200 200 unit/mL (3 mL) insulin pen 56 unit SUBCUT BID Trulicity 0.75 mg/0.5 mL pen injector 0.75 mg SUBCUT WK Rx Instructions: Q SUN amlodipine [Norvasc] 10 mg tablet 10 mg PO QAM atorvastatin 20 mg tablet 20 mg PO HS triamterene-hydrochlorothiazid 37.5-25 mg tablet 1 tab PO QAM tramadol 50 mg tablet 50 mg PO Q8H PRN (Reason: pain) Qty: 20 0RF isosorbide mononitrate 120 mg tablet extended release 24 hr 60 mg PO QAM Referrals Referrals: Martin Zavaleta MD [Primary Care Provider] -
[2021-10-07 15:20] LABS: Basophils # (auto) 0.03 K/uL (0-0.2); Basophils % (auto) 0.3 %; Eosinophils # (auto) 0.16 K/uL (0-0.50); Eosinophils % (auto) 1.6 %; Hematocrit (blood only) 36.9 % (40.1-51.0); Hemoglobin 11.9 g/dl (14.0-18.0); Immature Granulocytes # (auto) 0.03 K/uL (0.00-0.02); Immature Granulocytes % (auto) 0.3 %; Lymphocytes # (auto) 1.47 K/uL (1.2-3.4); Lymphocytes % (auto) 14.3 %; Mean Corpuscular Hgb Conc 32.2 g/dL (32.0-36.0); Mean Corpuscular Volume 83.7 fL (80.0-100.0); Mean Platelet Volume 10.4 fL (9.4-12.4); Monocytes # (auto) 1.51 K/uL (0.24-0.82); Monocytes % (auto) 14.7 %; Neutrophils # (auto) 7.07 K/uL (1.4-6.5); Neutrophils % (auto) 68.8 %; Platelet Count 331 K/uL (130-400); RDW Standard Deviation 42.7 fL (36.4-46.3); Red Blood Count 4.41 M/uL (4.63-6.08); White Blood Count 10.27 K/ul (4.8-10.8)
[2021-10-07 15:40] LABS: BUN Creatinine Ratio 15.2 (10-20); Calcium 9.5 mg/dl (8.5-10.1); Creatinine Clr Calc Pharmacy 75.3 ml/min; Est GFR (African American) 73.6 ml/min; Est GFR (Non-African American) 63.5 ml/min; Globulin 3.9 gm/dl (2.5-4.0); Potassium 3.5 mmol/L (3.5-5.1); Total Protein 7.9 gm/dl (6.0-8.3)
--- NOTE | 2021-10-07 15:45 | XRay Report ---
XR chest 1V portable CLINICAL HISTORY: Chest Pain. COMPARISON STUDY: 06/10/2021 TECHNIQUE: 1 view of the chest FINDINGS: Single frontal view of the chest demonstrates the cardiomediastinal silhouette to be within normal li mits. There is a decreased inspiratory effort with elevation of the hemidiaphragms and crowding of th e bronchovascular markings at the lung bases and centrally. The lungs are clear of alveolar opacities . There is no evidence for pleural effusion. There is no evidence for vascular congestion. There is n o acute osseous pathology. IMPRESSION: 1. There is a decreased inspiratory effort with otherwise no acute chest disease. ACT 112: Negative or not required by law. Electronically signed by: Manfred Stephens M.D. 10/07/2021 3:44 PM
[2021-10-07] MEDS ORDERED: dexAMETHasone**PF** 10 MG/ML VIAL IV ONE (16:16)
--- NOTE | 2021-10-07 17:02 | History & Physical Report ---
Date of Service October 07, 2021 Assessment & Plan (1) Acute respiratory failure with hypoxemia: (2) COVID-19 virus infection: Plan: 76-year-old male with history of CAD, diabetes type 2, hypertension, presenting with cough and weakness for the past few days. ACUTE HYPOXIC RESPIRATORY FAILURE COVID-19 INFECTION Chest x-ray: No pneumonia Check D-dimer, if elevated will order CT chest Check procalcitonin, ferritin, CRP Start remdesivir day #1: Monitor liver function tests daily Start Decadron 6 mg IV daily Mucinex every 12 hours, Xopenex every 6 hours Incentive spirometry, flutter valve Lovenox for DVT prophylaxis HISTORY OF CAD No cardiac symptoms Continue aspirin, atenolol, Imdur, losartan HYPERTENSION Continue triamterene hydrochlorothiazide DIABETES TYPE 2 Usually Trulicity, Tresiba, metformin Hold above, start Lantus and insulin sliding scale Pharmacy glycemic control consult placed patient on Full code as per patient Disposition Anticipate discharge to home medically stable plan of care discussed with patient in detail and at length all questions answered he is understanding, agreeable, comfortable with the plan of care History of Present Illness Primary Care Provider: Martin Zavaleta MD 76-year-old male with history of CAD, diabetes type 2, hypertension, presenting with cough and weakness for the past few days. Patient was at baseline state of health until a few weeks ago when he started to develop nonproductive cough. The cough progressed and for the past few days the patient has been feeling weak. Also admits to having some shortness of breath. Denies fevers or chills, sore throat, nausea, abdominal pain, chest pain, diarrhea. At the ER, patient was noted to be hypoxic, 88% on room air. Positive wheezing on exam, chest x-ray clear COVID test positive On exam, the patient is comfortable, sitting up in bed, on 2 L of oxygen States he feels better since admission No active symptoms during exam except for coughing spells No other symptoms Allergies Allergy/AdvReac Type Severity Reaction Status Date / Time cephalexin Allergy Mild Unknown Verified 09/10/21 15:54 codeine Allergy Mild unknown Verified 09/10/21 15:54 Home Medications Medication Instructions Recorded Confirmed Type aspirin 81 mg tablet,delayed 81 mg PO QAM 08/11/19 09/10/21 History release atenolol 50 mg tablet 50 mg PO BID 08/11/19 09/10/21 History dulaglutide 0.75 mg/0.5 mL 0.75 mg subcut WK 08/11/19 09/10/21 History subcutaneous pen injector (Trulicity) fenofibrate 54 mg tablet 54 mg PO QAM 08/11/19 09/10/21 History insulin degludec 200 unit/mL (3 56 unit subcut BID 08/11/19 09/10/21 History mL) subcutaneous pen (Tresiba FlexTouch U-200 insulin) metformin 1,000 mg tablet 1,000 mg PO BID 08/11/19 09/10/21 History nitroglycerin 0.4 mg sublingual 0.4 mg sublingual UD PRN Chest Pain 08/11/19 09/10/21 History tablet (Nitrostat) omega 3 350 mg-dha 235 mg-epa 90 1 cap PO BID 08/11/19 09/10/21 History mg-fish oil 597 mg capsule,delay rel (Ware-3) glucosam 750 mg-chondroi 100 1 tab PO BID 05/05/20 09/10/21 History mg-hyalur 1.65 mg-CF borate 108 mg tablet (Move Free [facility]) losartan 50 mg tablet 50 mg PO QAM 10/25/20 09/10/21 History vitamins A,C,J-bsiz-ugrhpm 14,320 1 cap PO BID 10/25/20 09/10/21 History unit-226 mg-200 unit capsule (PreserVision AREDS) amlodipine 10 mg tablet (Norvasc) 10 mg PO QAM 01/02/21 09/10/21 History insulin aspart U-100 100 unit/mL 20 unit subcut BIDM 04/25/21 09/10/21 History (3 mL) subcutaneous pen (Novolog Flexpen U-100 Insulin aspart) atorvastatin 20 mg tablet 20 mg PO HS 05/16/21 09/10/21 History tramadol 50 mg tablet 50 mg PO Q8H PRN pain #20 tabs 05/16/21 09/10/21 Rx triamterene 37.5 1 tab PO QAM 05/16/21 09/10/21 History mg-hydrochlorothiazide 25 mg tablet [facility] 1 tab PO BID 05/17/21 09/10/21 History isosorbide mononitrate 120 mg 60 mg PO QAM 07/10/21 09/10/21 History tablet,extended release 24 hr mometasone 0.1 % topical ointment 1 applic topical DAILY 1 week #15 09/04/21 09/10/21 Rx grams Past Med/Surg History Medical History Cellulitis Diabetic neuropathy Diverticulosis DJD (degenerative joint disease), lumbosacral Dyslipidemia First degree atrioventricular block Hemorrhoids Hypertension Left anterior fascicular block Monoclonal gammopathy Morbid obesity Osteoarthritis RBBB Snoring Type 2 diabetes mellitus Surgical History H/O oral surgery History of back surgery (~05/2005) History of cardiac cath (~04/27/21) History of colonoscopy History of sinus surgery (~05/10/20) Hx of cataract surgery Family History Father Coronary heart disease Heart disease Myocardial infarction Sister Coronary heart disease Cancer Brother Coronary heart disease Hx of CABG Family/Other Hearing loss Mother Asthma Other No family history of adverse response to anesthesia Social History Smoking Status: Never smoker Tobacco Type: Smokeless Tobacco (Dip or Chew) Number of Years Since Quit: 28; Second Hand Exposure: No; Hx Alcohol Use: No Hx Substance Use: No Preferred Language: Croatian Communication Ability: Effective 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: No Beliefs That Will Affect Care: None marital status: Single Current Living Situation: Alone Current Living Situation Comment: Sister lives next door current occupational status: retired How many Children do You have Comment: No Children Feels Safe at Home: Yes Assistive Devices: Glasses Review of Systems Review of Systems: all noted and negative except for above Physical Exam Physical Exam: General- oriented x 3, not in distress, speaks in sentences with no effort or accessory muscle use Head- atraumatic Eyes- PERRL, EOMI, anicteric ENT- oropharynx clear Neck- supple, no JVD, no adenopathy, no thyromegaly; carotids +2/2, no bruits appreciated Lungs-positive mild rhonchi bilaterally, good air entry bilaterally Heart- normal rate, regular rhythm; no murmur, no gallop, no rub appreciated Abdomen- normal bowel sounds, nondistended, soft, nontender, no masses or hepatosplenomegaly Extremities-trace pretibial edema, no calf tenderness; peripheral pulses intact Neuro- alert, oriented x 3; CN 2-12 grossly intact; motor 5/5 bilaterally;sensation 100% on all extremities; no other gross focal neurologic d eficits Skin- warm & dry Results & Data Results & Data ([facility]) Vital Signs (Past 12 Hours) Vital Signs Temp Pulse Pulse Resp BP BP Pulse Ox 10/07/21 16:00 94 10/07/21 16:00 74 20 121/57 L 94 10/07/21 14:29 92 10/07/21 14:24 37.1 C 75 24 104/53 L 88 L O2 Del Method O2 Flow Rate 10/07/21 16:00 Nasal Cannula 2 10/07/21 16:00 Nasal Cannula 2 10/07/21 14:29 Nasal Cannula 2 10/07/21 14:24 Room Air all noted and reviewed including below
[2021-10-07 17:40] LABS: D Dimer 790 ug/L FEU (0-500)
[2021-10-07] MEDS ORDERED: OPTIRAY 300 500mL IV ONE (18:34)
--- NOTE | 2021-10-07 18:48 | CT Scan Report ---
CT angio chest PE protocol CLINICAL HISTORY: Covid positive. Chest pain and shortness of breath. COMPARISON STUDY: Portable chest from July 07, 2021 CT DOSE: 815.62 mGy.cm TECHNIQUE: CT Angio of the chest was performed.followed by image post processing with coronal, and s agittal MIP reformats. Contrast Volume: Optiray 300, 112 ml FINDINGS: Vasculature: There is homogeneous perfusion of the pulmonary vasculature bilaterally. No intraluminal filling defects or evidence for pulmonary embolus is seen. Airway: The airway is clear. No endobronchial lesion is identified. Lungs: There is evidence for bronchiectasis with mucus plugging at both lung bases characteristic of an inflammatory process. No groundglass opacities are seen. The lungs are otherwise clear of acute al veolar opacities, air bronchograms or pulmonary nodules. Pleura: There is no evidence for pleural effusion. There is no evidence for pneumothorax. Mediastinum: There is no evidence for pathologic adenopathy. The heart size is within normal limits. The thoracic aorta is within normal limits. There is no evidence for pericardial effusion. Upper abdomen: The adrenal glands are normal bilaterally. Osseous structures: There is no acute osseous pathology. Impression: 1. No CTA evidence for pulmonary embolus. 2. Bronchiectasis with mucus plugging of both lung bases characteristic of an inflammatory process. 2. No groundglass opacities or confluent alveolar infiltrates. ACT 112: Negative or not required by law. Electronically signed by: Manfred Stephens M.D. 10/07/2021 6:46 PM
[2021-10-07] MEDS ORDERED: ACETAMINOPHEN 325 MG TAB PO PRN (21:35)
[2021-10-07] MEDS ORDERED: REMDESIVIR 200 MG in SODIUM CHLORIDE 0.9% 210 ML IV STA (21:35)
[2021-10-07] MEDS ORDERED: GLUCAGON FOR INJ 1 MG VIAL SQ PRN (21:35)
[2021-10-07] MEDS ORDERED: PHARMACY GLYCEMIC MGMT CONSULT PRN (21:35)
[2021-10-07] MEDS ORDERED: SODIUM CHLOR 7% 4 ML NEB NEB SCH (21:35)
[2021-10-07] MEDS ORDERED: CARBOHYDRATES FOR HYPOGLYCEMIA PO PRN (21:35)
[2021-10-07] MEDS ORDERED: GLUCOSE 10 TAB/TUBE PO PRN (21:35)
[2021-10-07] MEDS ORDERED: LANTUS PER UNIT CHARGE SQ SCH (21:35)
[2021-10-07] MEDS ORDERED: DEXTROSE 50% 50 ML SYRINGE IV PRN (21:35)
[2021-10-07] MEDS ORDERED: GLUCOSE 40% GEL 15 GM TUBE PO PRN (21:35)
[2021-10-07 22:04] LABS: C Reactive Protein 15.44 mg/dl (0-0.5)
[2021-10-07] MEDS: LEVALBUTEROL 1.25MG/0.5ML NEB NEB SCH (22:18)
[2021-10-07] MEDS: INSULIN ASPART PER UNIT SC SCH (22:20)
[2021-10-07 22:25] LABS: Ferritin 168.4 ng/ml (8-388)
[2021-10-07] MEDS: guaiFENesin 600 MG TABCR PO SCH (22:42)
[2021-10-08] MEDS: LEVALBUTEROL 1.25MG/0.5ML NEB NEB SCH (01:14)
[2021-10-08 07:24] LABS: Basophils # (auto) 0.01 K/uL (0-0.2); Basophils % (auto) 0.1 %; Eosinophils # (auto) 0.01 K/uL (0-0.50); Eosinophils % (auto) 0.1 %; Hematocrit (blood only) 34.7 % (40.1-51.0); Hemoglobin 11.3 g/dl (14.0-18.0); Immature Granulocytes # (auto) 0.03 K/uL (0.00-0.02); Immature Granulocytes % (auto) 0.4 %; Lymphocytes # (auto) 0.95 K/uL (1.2-3.4); Mean Corpuscular Hemoglobin 26.8 pg (25.0-34.0); Mean Corpuscular Hgb Conc 32.6 g/dL (32.0-36.0); Mean Corpuscular Volume 82.2 fL (80.0-100.0); Mean Platelet Volume 9.9 fL (9.4-12.4); Monocytes # (auto) 0.81 K/uL (0.24-0.82); Monocytes % (auto) 11.1 %; Neutrophils # (auto) 5.48 K/uL (1.4-6.5); Neutrophils % (auto) 75.3 %; Platelet Count 257 K/uL (130-400); RDW Coefficient of Variation 13.8 % (11.5-14.5); RDW Standard Deviation 41.1 fL (36.4-46.3); Red Blood Count 4.22 M/uL (4.63-6.08); White Blood Count 7.29 K/ul (4.8-10.8)
[2021-10-08] MEDS: LEVALBUTEROL TARTRATE 15 GM HFA.AER.AD INH SCH ×2 (07:30→10:44)
[2021-10-08 07:45] LABS: Albumin Level 3.5 gm/dl (3.4-5.0); Bilirubin,Total 0.6 mg/dl (0.2-1.0); Calcium 8.6 mg/dl (8.5-10.1); Creatinine Clr Calc Pharmacy 66.5 ml/min; Est GFR (Non-African American) 56.1 ml/min; Globulin 3.6 gm/dl (2.5-4.0); Total Protein 7.1 gm/dl (6.0-8.3)
[2021-10-08] MEDS ORDERED: INSULIN HUMAN NPH SC SCH (08:00)
[2021-10-08] MEDS: INSULIN ASPART PER UNIT SC SCH ×4 (08:06→21:13)
[2021-10-08] MEDS: INSULIN HUMAN NPH SC SCH ×2 (08:07→17:12)
[2021-10-08] MEDS: guaiFENesin 600 MG TABCR PO SCH ×2 (08:11→19:59)
[2021-10-08] MEDS: dexAMETHasone 6 MG in SYRINGE 0 ML IV SCH (08:11)
[2021-10-08] MEDS: ENOXAPARIN INJ 40 MG/0.4 ML SYR SQ SCH ×2 (09:01→19:57)
--- NOTE | 2021-10-08 09:12 | Electrocardiogram Report ---
Test Reason : Blood Pressure : / mmHG Vent. Rate : 076 BPM Atrial Rate : 076 BPM P-R Int : 200 ms QRS Dur : 152 ms QT Int : 442 ms P-R-T Axes : -28 -64 -10 degrees QTc Int : 497 ms Normal sinus rhythm Right bundle branch block Left anterior fascicular block Bifascicular block Abnormal ECG When compared with ECG of 12-JUN-2021 05:37, [place] interval has decreased Confirmed by Ihsan Vasquez ([id number]) on 10/08/2021 9:12:48 AM Referred By: REFERRED SELF Confirmed By:Ihsan Vasquez
--- NOTE | 2021-10-08 10:39 | Pharmacy Report ---
Pharmacy Glycemic Short Note 2 - Date of Service October 08, 2021 - Glycemic Short BSG Results (Last 24 hours): 10/07/21 10/07/21 10/08/21 14:30 20:53 07:06 Glucose 68 L 236 H POC Glucose 109 H 10/08/21 07:48 Glucose POC Glucose 230 H OUTPATIENT ANTIDIABETIC REGIMEN: * Trulicity 0.75mg once weekly * Tresiba 56 units SQ BID HbA1C: pending ASSESSMENT: * Patient with a history of type 2 diabetes admitted with COVID and acute hypoxemic respiratory failure. Pharmacy consulted to assist with glycemic management in this setting. * Receiving IV dexamethasone 6mg daily and ordered a diet. * Ordered an initial dose of 10units Lantus last evening, however will transition to NPH BID for basal coverage in light of COVID steroid utilization, and Novolog sliding scale ACHS (moderate-severe stress). PLAN FOR INPATIENT GLYCEMIC CONTROL: * Hold outpatient oral diabetes medications * Basal insulin * NPH 20 units SQ BID * Bolus insulin * NovoLog per scale ACHS or Q6hrs while NPO * Goal Range: Low 110 mg/dL - High 140 mg/dL * Correction Factor: 15 mg/dL/unit * Nutritional / Prandial insulin per carb ratio of 1 unit per 5 grams CHO consumed
[2021-10-08] MEDS ORDERED: LEVALBUTEROL TARTRATE 15 GM HFA.AER.AD INH PRN (14:37)
--- NOTE | 2021-10-08 14:41 | Hospitalist Progress Note ---
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 At presentation: SPO2 88% on room air, required 2 L nasal cannula oxygen At presentation: WBC/Pro-Hernandez/BNP fairly WNL. CRP and D-dimer elevated. CXR with no acute findings. CTA chest with no PE but suggestive of inflammatory process at lung bases. Patient is started on Decadron and remdesivir 10/07, continue with the same Mucinex, Xopenex as needed, incentive spirometer, flutter valve, Lovenox for DVT prophylaxis, self proning as able. Renal function and LFT monitoring. Other chronic medical conditions: CAD, HTN, DM type II--->> continue with/resume home meds as and when appropriate. Sliding scale insulin, home DM meds on hold. Glycemic pharmacy on board. Full code DVT prophylaxis: Lovenox Disposition: Anticipate discharge next few days, possible two-step test prior to discharge. Text document was generated using voice recognition software. It may contain grammatical or spelling errors. Kindly contact undersigned for clarification of any documentation item in question. Admission and Anticipated Discharge Date Admission Date: October 07, 2021 Subjective Patient seen and examined at bedside as a follow-up of COVID-19 virus infection. Patient was lying in bed, on 2 L nasal cannula oxygen, NAD, denies new acute events overnight. Reports eating okay and moving bowels okay. Patient also reports having dry cough about the same. Patient denies any headache or dizziness or chest pain or palpitation or belly pain or acute changes in bowel or bladder habits. Patient does not use oxygen at home. Physical Exam Physical Exam: GENERAL: Alert and oriented x3. NAD, on 2L NC O2. Obese Class III. HEENT: No pallor, no icterus. Pupils equal, round and reactive to light. Oral mucosa moist. NECK: No JVD, no neck masses. HEART: S1 and S2 heard. Regular rate and rhythm. No murmur, no gallop. RESPIRATORY SYSTEM: Normal AP diameter. No accessory muscle use. No wheezing, no crackles. ABDOMEN: Soft, bowel sounds present, nontender, no distention. CENTRAL NERVOUS SYSTEM: No facial droop. Speech is clear. Obeys simple commands. Moves extremities. EXTREMITIES: No edema, no erythema seen. Results & Data Results & Data ([facility]) Vital Signs (Past 12 Hours) Vital Signs Temp Pulse Pulse Pulse Resp BP Pulse Ox 10/08/21 11:53 37.0 C 78 18 140/69 92 10/08/21 10:45 80 20 92 10/08/21 10:21 75 10/08/21 10:21 10/08/21 07:55 36.7 C 80 18 166/83 H 93 10/08/21 07:32 77 18 94 10/08/21 03:09 36.7 C 80 20 103/55 L 91 O2 Del Method O2 Flow Rate 10/08/21 11:53 Nasal Cannula 2 10/08/21 10:45 Nasal Cannula 2 10/08/21 10:21 10/08/21 10:21 Nasal Cannula 2 10/08/21 07:55 Nasal Cannula 2 10/08/21 07:32 Nasal Cannula 2 10/08/21 03:09 Nasal Cannula 1.5
[2021-10-08] MEDS: REMDESIVIR 100 MG in SODIUM CHLORIDE 0.9% 230 ML IV SCH (19:49)
[2021-10-08] MEDS: BENZONATATE 100 MG CAPSULE PO SCH (19:59)
[2021-10-09] MEDS ORDERED: guaiFENesin/DEXTROM SYRUP 100MG/10MG 5ML UDC PO ONE (02:50)
[2021-10-09 07:03] LABS: Hematocrit (blood only) 35.7 % (40.1-51.0); Hemoglobin 11.8 g/dl (14.0-18.0); Mean Corpuscular Hemoglobin 27.2 pg (25.0-34.0); Mean Corpuscular Hgb Conc 33.1 g/dL (32.0-36.0); Mean Corpuscular Volume 82.3 fL (80.0-100.0); Mean Platelet Volume 9.9 fL (9.4-12.4); Platelet Count 290 K/uL (130-400); RDW Standard Deviation 41.8 fL (36.4-46.3); Red Blood Count 4.34 M/uL (4.63-6.08)
[2021-10-09 07:29] LABS: Estimated Average Glucose 166 mg/dl; Hemoglobin A1C 7.4 % (4.5-5.6)
[2021-10-09 07:33] LABS: Albumin Level 3.5 gm/dl (3.4-5.0); BUN Creatinine Ratio 30.9 (10-20); Bilirubin Direct 0.1 mg/dl (0-0.2); Bilirubin,Total 0.3 mg/dl (0.2-1.0); Calcium 8.5 mg/dl (8.5-10.1); Creatinine Clr Calc Pharmacy 74.9 ml/min; Est GFR (African American) 75.2 ml/min; Est GFR (Non-African American) 64.9 ml/min; Globulin 3.5 gm/dl (2.5-4.0); Magnesium 1.8 mg/dl (1.7-2.4); Potassium 3.8 mmol/L (3.5-5.1)
[2021-10-09] MEDS: INSULIN ASPART PER UNIT SC SCH ×4 (08:25→23:07)
[2021-10-09] MEDS ORDERED: INSULIN HUMAN NPH SC SCH (08:30)
[2021-10-09] MEDS: ENOXAPARIN INJ 40 MG/0.4 ML SYR SQ SCH ×2 (08:42→20:35)
[2021-10-09] MEDS: BENZONATATE 100 MG CAPSULE PO SCH ×3 (08:42→20:34)
[2021-10-09] MEDS: guaiFENesin 600 MG TABCR PO SCH ×2 (08:42→20:34)
[2021-10-09] MEDS: dexAMETHasone 6 MG in SYRINGE 0 ML IV SCH (08:43)
[2021-10-09] MEDS: INSULIN HUMAN NPH SC SCH ×2 (10:11→16:48)
--- NOTE | 2021-10-09 11:22 | Pharmacy Report ---
Pharmacy Glycemic Short Note 2 - Date of Service October 09, 2021 - Glycemic Short BSG Results (Last 24 hours): 10/08/21 10/08/21 10/08/21 11:52 17:00 20:20 Glucose POC Glucose 211 H 253 H 180 H 10/09/21 10/09/21 06:30 08:23 Glucose 141 H POC Glucose 123 H OUTPATIENT ANTIDIABETIC REGIMEN: * Trulicity 0.75 mg SC every Friday * Tresiba 56 units SC BID * Metformin 1000 mg PO BID * HbA1c = 7.4% (10/09/21) ASSESSMENT: 10/09: * Leonides received 85 units of insulin yesterday (40 units basal + 45 units bolus). BSGs were uncontrolled: [phone] mg/dL. * Fasting BSG was controlled at 123 mg/dL this AM. Given decrease in BSG from dinner NPH dose to fasting BSG, will reduce dinner NPH dose today. However, given uncontrolled BSGs throughout the day will increase AM NPH dose. * Novolog will be tightened further this AM to help with steroid-induced hyperglycemia, which more commonly effects postprandial BSGs. 10/08: * Patient with a history of type 2 diabetes admitted with COVID and acute hyp oxemic respiratory failure. Pharmacy consulted to assist with glycemic management in this setting. * Receiving IV dexamethasone 6mg daily and ordered a diet. * Ordered an initial dose of 10units Lantus last evening, however will transition to NPH BID for basal coverage in light of COVID steroid utilization, and Novolog sliding scale ACHS (moderate-severe stress). PLAN FOR INPATIENT GLYCEMIC CONTROL: * Hold outpatient oral diabetes medications * Basal insulin * NPH 30 units SC w/ breakfast * NPH 15 units SC w/ dinner * Bolus insulin * NovoLog per scale ACHS or Q6hrs while NPO * Goal Range: Low 110 mg/dL - High 140 mg/dL * Correction Factor: 12 mg/dL/unit * Nutritional / Prandial insulin per carb ratio of 1 unit per 4 grams CHO consumed
[2021-10-09] MEDS ORDERED: POLYETHYLENE (MIRALAX) 17 GM PACK PO PRN (14:06)
[2021-10-09] MEDS ORDERED: FUROSEMIDE INJ 20 MG/2 ML VIAL IV ONE (14:06)
[2021-10-09] MEDS ORDERED: POLYETHYLENE (MIRALAX) 17 GM PACK PO ONE (14:06)
--- NOTE | 2021-10-09 14:07 | Hospitalist Progress Note ---
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 At presentation: SPO2 88% on room air, required 2 L nasal cannula oxygen At presentation: WBC/Pro-Hernandez/BNP fairly WNL. CRP and D-dimer elevated. CXR with no acute findings. CTA chest with no PE but suggestive of inflammatory process at lung bases. Patient is started on Decadron and remdesivir 10/07, continue with the same Mucinex, Xopenex as needed, incentive spirometer, flutter valve, Lovenox for DVT prophylaxis, self proning as able. Renal function and LFT monitoring. Pt fairly stable. Will use one time dose lasix today. Class III obese: pt counseled on healthy lifestyle, dietary intake and exercise regimen. Pt voiced understanding. Other chronic medical conditions: CAD, HTN, DM type II--->> continue with/resume home meds as and when appropriate. Sliding scale insulin, home DM meds on hold. Glycemic pharmacy on board. Full code DVT prophylaxis: Lovenox Disposition: Anticipate discharge in 1-2 days, possible two-step test prior to discharge. PT/OT. Text document was generated using voice recognition software. It may contain grammatical or spelling errors. Kindly contact undersigned for clarification of any documentation item in question. Admission and Anticipated Discharge Date Admission Date: October 07, 2021 Subjective Patient seen and examined at bedside as a follow-up of COVID-19 virus infection. Patient was sitting up in bed, on 2 L nasal cannula oxygen, NAD, denies new acute events overnight. Reports eating okay. Patient reports having dry cough about the same. Patient denies any headache or dizziness or chest pain or palpitation or belly pain or acute changes in bowel or bladder habits. Pt reports strength coming back. Patient does not use oxygen at home. Physical Exam Physical Exam: GENERAL: Alert and oriented x3. NAD, on 2L NC O2. Obese Class III. HEENT: No pallor, no icterus. Pupils equal, round and reactive to light. Oral mucosa moist. NECK: No JVD, no neck masses. HEART: S1 and S2 heard. Regular rate and rhythm. No murmur, no gallop. RESPIRATORY SYSTEM: Normal AP diameter. No accessory muscle use. No wheezing, no crackles. ABDOMEN: Soft, bowel sounds present, nontender, no distention. CENTRAL NERVOUS SYSTEM: No facial droop. Speech is clear. Obeys simple commands. Moves extremities. EXTREMITIES: 1+ BLE edema, no erythema seen. Results & Data Results & Data ([facility]) Vital Signs (Past 12 Hours) Vital Signs Temp Pulse Pulse Resp BP Pulse Ox O2 Del Method 10/09/21 11:00 36.4 C L 75 18 143/89 H 92 Nasal Cannula 10/09/21 10:35 69 10/09/21 10:35 Nasal Cannula 10/09/21 07:00 36.5 C 74 18 155/98 H 92 Nasal Cannula 10/09/21 03:00 36.7 C 74 20 107/65 91 Nasal Cannula O2 Flow Rate 10/09/21 11:00 2 10/09/21 10:35 10/09/21 10:35 2 10/09/21 07:00 2 10/09/21 03:00 2
[2021-10-09] MEDS: REMDESIVIR 100 MG in SODIUM CHLORIDE 0.9% 230 ML IV SCH (20:35)
[2021-10-10 06:44] LABS: Albumin Level 3.5 gm/dl (3.4-5.0); BUN Creatinine Ratio 29.5 (10-20); Bilirubin,Total 0.3 mg/dl (0.2-1.0); Calcium 8.6 mg/dl (8.5-10.1); Creatinine Clr Calc Pharmacy 73.4 ml/min; Est GFR (African American) 73.6 ml/min; Est GFR (Non-African American) 63.5 ml/min; Globulin 3.5 gm/dl (2.5-4.0)
--- NOTE | 2021-10-10 07:55 | Hospitalist Progress Note ---
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 At presentation: SPO2 88% on room air, required 2 L nasal cannula oxygen At presentation: WBC/Procalcitonin/BNP fairly WNL. CRP and D-dimer elevated. CXR with no acute findings. CTA chest with no PE but suggestive of inflammatory process at lung bases. Patient was started on Decadron and remdesivir 10/07, continue with the same Mucinex, Xopenex as needed, incentive spirometer, flutter valve, Lovenox for DVT prophylaxis, self proning as able. Renal function and LFT monitoring. 10/10 - Patient has been on 2 L, now on 4 L of supplemental oxygen. Chest x-ray repeated No change in the patchy bibasilar airspace opacities. This may represent a pneumonia. , opacities at bases, possibly pneumonia. Procalcitonin repeated and negative. We will add doxycycline for now, and continue to closely monitor. Class III obese: pt counseled on healthy lifestyle, dietary intake and exercise regimen. Pt voiced understanding. Other chronic medical conditions: CAD, HTN, DM type II--->> continue with/resume home meds as and when appropriate. Sliding scale insulin, home DM meds on hold. Glycemic pharmacy following. Full code DVT prophylaxis: Lovenox Disposition: may need two-step test prior to discharge. PT/OT. Admission and Anticipated Discharge Date Admission Date: October 07, 2021 Subjective Patient seen in follow-up of COVID-19 virus infection. Patient has been using 2 L since admission, today is requiring 4 L of supplemental oxygen via nasal cannula Chest x-ray repeated this morning Patient is however ambulating in his room without any difficulty Denies fevers, chills, Continues to have cough Denies any abdominal pain, reports good appetite, no nausea vomiting Patient does not use oxygen at home. Review of Systems Review of Systems: All systems reviewed & are unremarkable except as noted in Subjective Physical Exam Physical Exam: GENERAL: Alert and oriented x3. NAD, on 4L NC O2. Obes e Class III. HEENT : NC. EOMI. no ic terus. Pupils equ al, round and reac tive to light. Or al mucosa moist. N XAVI: No JVD, no n xavi masses. HEART: S1 and S2 heard. Regular rate and rhythm. No murmu r, no gallop. RESP IRATORY:No access ory muscle use. 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 ABDOMEN: S oft,obese, bowel s ounds present, non tender NEURO: Sandy rt oriented, answe ring questions jhony ropriately. No fac ial droop. Speech is clear.Moves e xtremities. EXTREM ITIES: 1+ BLE kailee sierra. Results & Data Results & Data ([facility]) Vital Signs (Past 12 Hours) Vital Signs Temp Pulse Pulse Resp BP BP Pulse Ox 10/10/21 07:00 36.8 C 70 18 127/48 L 94 10/10/21 03:10 37 C 74 16 144/71 H 91 10/10/21 00:08 37.1 C 76 20 161/56 H 92 10/09/21 23:34 10/09/21 23:19 74 10/09/21 19:54 36.9 C 74 16 147/85 H 91 O2 Del Method O2 Flow Rate 10/10/21 07:00 Nasal Cannula 4 10/10/21 03:10 Nasal Cannula 2 10/10/21 00:08 Nasal Cannula 2 10/09/21 23:34 Nasal Cannula 2 10/09/21 23:19 10/09/21 19:54 Nasal Cannula 2 Laboratory Results 10/10/21 10/10/21 10/09/21 Range/Units 07:46 05:48 20:32 Sodium 142 (136-145) mmol/L Potassium 4.0 (3.5-5.1) mmol/L Chloride 102 (98-107) mmol/L Carbon Dioxide 35 H (21-32) mmol/L Anion Gap 5 (3-11) BUN 33 H (6-23) mg/dl Creatinine 1.12 (0.6-1.4) mg/dl Est Cr Clr Drug Dosing 73.4 ml/min Est GFR ( Amer) 73.6 ml/min Est GFR (Non-Af Amer) 63.5 ml/min BUN/Creatinine Ratio 29.5 H (10-20) Glucose 126 H (70-99(Fasting)) mg/dl POC Glucose 123 H 173 H (70-99) mg/dl Calcium 8.6 (8.5-10.1) mg/dl Total Bilirubin 0.3 (0.2-1.0) mg/dl AST 32 (13-39) U/L ALT 28 (7-52) U/L Alkaline Phosphatase 45 (34-104) U/L Total Protein 7.0 (6.0-8.3) gm/dl Albumin 3.5 (3.4-5.0) gm/dl Globulin 3.5 (2.5-4.0) gm/dl Albumin/Globulin Ratio 1.0 (0.9-2) 10/09/21 10/09/21 10/09/21 Range/Units 16:38 11:53 08:23 Sodium (136-145) mmol/L Potassium (3.5-5.1) mmol/L Chloride (98-107) mmol/L Carbon Dioxide (21-32) mmol/L Anion Gap (3-11) BUN (6-23) mg/dl Creatinine (0.6-1.4) mg/dl Est Cr Clr Drug Dosing ml/min Est GFR ( Amer) ml/min Est GFR (Non-Af Amer) ml/min BUN/Creatinine Ratio (10-20) Glucose (70-99(Fasting)) mg/dl POC Glucose 189 H 172 H 123 H (70-99) mg/dl Calcium (8.5-10.1) mg/dl Total Bilirubin (0.2-1.0) mg/dl AST (13-39) U/L ALT (7-52) U/L Alkaline Phosphatase (34-104) U/L Total Protein (6.0-8.3) gm/dl Albumin (3.4-5.0) gm/dl Globulin (2.5-4.0) gm/dl Albumin/Globulin Ratio (0.9-2) Medications Administered Current Inpatient Medications Acetaminophen (Acetaminophen 325 Mg Tab) 650 mg PO Q4H PRN PRN Reason: Pain or Fever Stop: 11/06/21 21:34 Benzonatate (Benzonatate 100 Mg Capsule) 100 mg PO TID JOSÉ MANUEL Stop: 11/07/21 20:59 Last Admin: 10/09/21 20:34 Dose: 100 mg Dextrose (Dextrose 50% 50 Ml Syringe) 25 - 50 ml IV UD PRN; Protocol PRN Reason: Hypoglycemia Protocol Stop: 11/06/21 21:34 Enoxaparin Sodium (Enoxaparin Inj 40 Mg/0.4 Ml Syr) 40 mg SQ Q12H JOSÉ MANUEL Stop: 11/07/21 07:59 Last Admin: 10/09/21 20:35 Dose: 40 mg Glucagon (Glucagon For Inj 1 Mg Vial) 1 mg SQ UD PRN; Protocol PRN Reason: Hypoglycemia Protocol Stop: 11/06/21 21:34 Glucose (Glucose 40% Gel 15 Gm Tube) 15 - 30 gm PO UD PRN; Protocol PRN Reason: Hypoglycemia Protocol Stop: 11/06/21 21:34 Glucose (Glucose 10 Tab/Tube) 4 - 8 tab PO UD PRN; Protocol PRN Reason: Hypoglycemia Treatment Stop: 11/06/21 21:34 Guaifenesin (Guaifenesin 600 Mg Tabcr) 1,200 mg PO Q12 JOSÉ MANUEL Stop: 11/06/21 21:34 Last Admin: 10/09/21 20:34 Dose: 1,200 mg Remdesivir 100 mg/ Sodium (Chloride) 250 mls @ 250 mls/hr IV Q24H JOSÉ MANUEL Stop: 10/11/21 20:59 Last Infusion: 10/09/21 21:35 Dose: Infused Dexamethasone 6 mg/ Syringe 1.5 mls @ 1 mls/min IV DAILY JOSÉ MANUEL Stop: 10/18/21 08:59 Last Admin: 10/09/21 08:43 Dose: 1 mls/min Insulin Aspart (Insulin Aspart Per Unit) 0 units SC ACHS JOSÉ MANUEL; Protocol Stop: 11/06/21 21:34 Last Admin: 10/09/21 23:07 Dose: 18 units Insulin Human NPH (Insulin Human Nph) 15 units SC QDD JOSÉ MANUEL; Protocol Stop: 11/08/21 16:29 Last Admin: 10/09/21 16:48 Dose: 15 units Insulin Human NPH (Insulin Human Nph) 35 units SC QDB JOSÉ MANUEL; Protocol Stop: 11/08/21 08:29 Levalbuterol HCl (Levalbuterol Tartrate 15 Gm Hfa.Aer.Ad) 2 puffs INH QIDR PRN PRN Reason: sob/wheezing/resp distress Stop: 11/07/21 06:59 Miscellaneous (Carbohydrates For Hypoglycemia ) 15 - 30 gm PO UD PRN PRN Reason: Hypoglycemia Protocol Stop: 11/06/21 21:34 Miscellaneous Information (Pharmacy Glycemic Mgmt Consult) 1 each N/A UD PRN PRN Reason: Consult Stop: 11/06/21 21:34 Polyethylene Glycol (Polyethylene (Miralax) 17 Gm Pack) 17 gm PO DAILY PRN PRN Reason: Constipation Stop: 11/08/21 14:05
[2021-10-10] MEDS: INSULIN HUMAN NPH SC SCH ×2 (07:59→17:01)
[2021-10-10] MEDS: INSULIN ASPART PER UNIT SC SCH ×4 (07:59→21:18)
[2021-10-10] MEDS: ENOXAPARIN INJ 40 MG/0.4 ML SYR SQ SCH ×2 (08:05→20:26)
[2021-10-10] MEDS: dexAMETHasone 6 MG in SYRINGE 0 ML IV SCH (08:05)
[2021-10-10] MEDS: guaiFENesin 600 MG TABCR PO SCH ×2 (08:06→20:28)
[2021-10-10] MEDS: BENZONATATE 100 MG CAPSULE PO SCH ×3 (08:06→20:27)
--- NOTE | 2021-10-10 09:49 | XRay Report ---
XR chest 1V portable HISTORY: hypoxia, follow up COMPARISON: Chest 10/07/2021. FINDINGS: There are low lung volumes. No pneumothorax. No pleural effusions. The heart is borderline enlarged. No evidence for pulmonary edema. Patchy bibasilar airspace opacities persist. IMPRESSION: No change in the patchy bibasilar airspace opacities. This may represent a pneumonia. ACT 112: Negative or not required by law. Electronically signed by: Norris Meléndez M.D. 10/10/2021 9:48 AM
[2021-10-10] MEDS: DOXYCYCLINE HYCLATE 100 MG CAP PO SCH ×2 (11:57→20:28)
--- NOTE | 2021-10-10 13:46 | Pharmacy Report ---
Pharmacy Glycemic Short Note 2 - Date of Service October 10, 2021 - Glycemic Short BSG Results (Last 24 hours): 10/09/21 10/09/21 10/10/21 16:38 20:32 05:48 Glucose 126 H POC Glucose 189 H 173 H 10/10/21 10/10/21 07:46 11:51 Glucose POC Glucose 123 H 175 H OUTPATIENT ANTIDIABETIC REGIMEN: * Trulicity 0.75 mg SC every Friday * Tresiba 56 units SC BID * Metformin 1000 mg PO BID * HbA1c = 7.4% (10/09/21) ASSESSMENT: 10/10: * Patient received 108 units of insulin yesterday (45 units basal + 63 units bolus). BSGs were improved but still above goal: [phone] mg/dL. * Evening BSGs still elevated. No adjustment to Novolog today but will increase AM NPH dose by approximately 20%. * Remains on 6 mg IV dexamethasone daily plus day #4/5 of Remdesivir. 10/09: * Leonides received 85 units of insulin yesterday (40 units basal + 45 units bolus). BSGs were uncontrolled: [phone] mg/dL. * Fasting BSG was controlled at 123 mg/dL this AM. Given decrease in BSG from dinner NPH dose to fasting BSG, will reduce dinner NPH dose today. However, given uncontrolled BSGs throughout the day will increase AM NPH dose. * Novolog will be tightened further this AM to help with steroid-induced hypergl ycemia, which more commonly effects postprandial BSGs. 10/08: * Patient with a history of type 2 diabetes admitted with COVID and acute hypoxemic respiratory failure. Pharmacy consulted to assist with glycemic management in this setting. * Receiving IV dexamethasone 6mg daily and ordered a diet. * Ordered an initial dose of 10units Lantus last evening, however will transition to NPH BID for basal coverage in light of COVID steroid utilization, and Novolog sliding scale ACHS (moderate-severe stress). PLAN FOR INPATIENT GLYCEMIC CONTROL: * Hold outpatient oral diabetes medications * Basal insulin * NPH 35 units SC w/ breakfast * NPH 15 units SC w/ dinner * Bolus insulin * NovoLog per scale ACHS or Q6hrs while NPO * Goal Range: Low 110 mg/dL - High 140 mg/dL * Correction Factor: 12 mg/dL/unit * Nutritional / Prandial insulin per carb ratio of 1 unit per 4 grams CHO consumed
[2021-10-10] MEDS: ASPIRIN 81 MG ECTAB PO SCH (17:40)
[2021-10-10] MEDS: REMDESIVIR 100 MG in SODIUM CHLORIDE 0.9% 230 ML IV SCH (19:39)
[2021-10-10] MEDS: ATENOLOL 50 MG TABLET PO SCH (20:27)
[2021-10-10] MEDS: ISOSORBIDE MONONITRATE 20 MG TAB PO SCH (20:29)
[2021-10-11 06:21] LABS: Albumin Level 3.1 gm/dl (3.4-5.0); BUN Creatinine Ratio 28.7 (10-20); Bilirubin,Total 0.3 mg/dl (0.2-1.0); Calcium 8.1 mg/dl (8.5-10.1); Creatinine Clr Calc Pharmacy 81.7 ml/min; Est GFR (African American) 83.4 ml/min; Est GFR (Non-African American) 71.9 ml/min; Globulin 3.2 gm/dl (2.5-4.0); Magnesium 1.7 mg/dl (1.7-2.4); Phosphorus 2.9 mg/dl (2.5-4.9); Potassium 3.9 mmol/L (3.5-5.1); Total Protein 6.3 gm/dl (6.0-8.3)
[2021-10-11] MEDS ORDERED: MAGNESIUM SULFATE / D5W 1 GM/100 ML BAG IV ONE (07:30)
--- NOTE | 2021-10-11 07:34 | Hospitalist Progress Note ---
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 At presentation: SPO2 88% on room air, required 2 L nasal cannula oxygen At presentation: WBC/Procalcitonin/BNP fairly WNL. CRP and D-dimer elevated. CXR with no acute findings. CTA chest with no PE but suggestive of inflammatory process at lung bases. Patient was started on Decadron and remdesivir 10/07, continue with the same Mucinex, Xopenex as needed, incentive spirometer, flutter valve, Lovenox for DVT prophylaxis, self proning as able. Renal function and LFT monitoring. 10/10 - Patient has been on 2 L, now on 4 L of supplemental oxygen. Chest x-ray repeated No change in the patchy bibasilar airspace opacities. This may represent a pneumonia. , opacities at bases, possibly pneumonia. Procalcitonin repeated and negative. Doxycycline added, continue to closely monitor. Class III obese: pt counseled on healthy lifestyle, dietary intake and exercise regimen. Pt voiced understanding. Other chronic medical conditions: CAD, HTN, DM type II--->> continue with/resume home meds as and when appropriate. Sliding scale insulin, home DM meds on hold. Glycemic pharmacy following. Resumed atenolol - pt takes 50 mg bid Resumed ASA Resumed isosorbide mononitrate - pt takes 30 bid Will resume HCTZ/triamteren Full code DVT prophylaxis: Lovenox Disposition: may need two-step test prior to discharge. PT/OT. Admission and Anticipated Discharge Date Admission Date: October 07, 2021 Subjective Patient seen in follow-up of COVID-19 virus infection. Patient has been using 2 L since admission, but since yesterday is requiring 4 L of supplemental oxygen via nasal cannula Chest x-ray repeated yesterday Patient is however ambulating in his room without any difficulty Denies fevers, chills, Continues to have cough Denies any abdominal pain, reports good appetite, no nausea vomiting Patient does not use oxygen at home. Review of Systems Review of Systems: All systems reviewed & are unremarkable except as noted in Subjective Physical Exam Physical Exam: GENERAL: Alert and oriented x3. NAD, on 4L NC O2. Obes e Class III. HEENT : NC. EOMI. no ic terus. Pupils equ al, round and reac tive to light. Or al mucosa moist. N XAVI: No JVD, no n xavi masses. HEART: S1 and S2 heard. Regular rate and rhythm. No murmu r, no gallop. RESP IRATORY:No access ory muscle use. 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 ABDOMEN: S oft,obese, bowel s ounds present, non tender NEURO: Sandy rt oriented, answe ring questions jhony ropriately. No fac ial droop. Speech is clear.Moves e xtremities. EXTREM ITIES: 1+ BLE kailee sierra. Results & Data Results & Data ([facility]) Vital Signs (Past 12 Hours) Vital Signs Temp Pulse Pulse Resp BP Pulse Ox O2 Del Method 10/11/21 07:20 61 10/11/21 02:00 Nasal Cannula 10/11/21 03:23 36.6 C 64 20 130/59 L 95 Nasal Cannula 10/10/21 22:18 73 10/10/21 23:15 37.0 C 70 18 124/72 97 Nasal Cannula 10/10/21 22:22 Room Air 10/10/21 20:10 36.4 C L 78 22 142/75 H 94 Nasal Cannula O2 Flow Rate 10/11/21 07:20 10/11/21 02:00 4 10/11/21 03:23 4 10/10/21 22:18 10/10/21 23:15 4 10/10/21 22:22 10/10/21 20:10 4 Laboratory Results 10/11/21 10/10/21 10/10/21 Range/Units 05:35 21:15 16:52 Sodium 140 (136-145) mmol/L Potassium 3.9 (3.5-5.1) mmol/L Chloride 104 (98-107) mmol/L Carbon Dioxide 33 H (21-32) mmol/L Anion Gap 3 (3-11) BUN 29 H (6-23) mg/dl Creatinine 1.01 (0.6-1.4) mg/dl Est Cr Clr Drug Dosing 81.7 ml/min Est GFR ( Amer) 83.4 ml/min Est GFR (Non-Af Amer) 71.9 ml/min BUN/Creatinine Ratio 28.7 H (10-20) Glucose 105 H (70-99(Fasting)) mg/dl POC Glucose 156 H 194 H (70-99) mg/dl Calcium 8.1 L (8.5-10.1) mg/dl Phosphorus 2.9 (2.5-4.9) mg/dl Magnesium 1.7 (1.7-2.4) mg/dl Total Bilirubin 0.3 (0.2-1.0) mg/dl AST 25 (13-39) U/L ALT 28 (7-52) U/L Alkaline Phosphatase 41 (34-104) U/L Total Protein 6.3 (6.0-8.3) gm/dl Albumin 3.1 L (3.4-5.0) gm/dl Globulin 3.2 (2.5-4.0) gm/dl Albumin/Globulin Ratio 1.0 (0.9-2) Procalcitonin (0-0.5) ng/ml 10/10/21 10/10/21 10/10/21 Range/Units 11:51 07:46 05:52 Sodium (136-145) mmol/L Potassium (3.5-5.1) mmol/L Chloride (98-107) mmol/L Carbon Dioxide (21-32) mmol/L Anion Gap (3-11) BUN (6-23) mg/dl Creatinine (0.6-1.4) mg/dl Est Cr Clr Drug Dosing ml/min Est GFR ( Amer) ml/min Est GFR (Non-Af Amer) ml/min BUN/Creatinine Ratio (10-20) Glucose (70-99(Fasting)) mg/dl POC Glucose 175 H 123 H (70-99) mg/dl Calcium (8.5-10.1) mg/dl Phosphorus (2.5-4.9) mg/dl Magnesium (1.7-2.4) mg/dl Total Bilirubin (0.2-1.0) mg/dl AST (13-39) U/L ALT (7-52) U/L Alkaline Phosphatase (34-104) U/L Total Protein (6.0-8.3) gm/dl Albumin (3.4-5.0) gm/dl Globulin (2.5-4.0) gm/dl Albumin/Globulin Ratio (0.9-2) Procalcitonin 0.10 (0-0.5) ng/ml Medications Administered Current Inpatient Medications Acetaminophen (Acetaminophen 325 Mg Tab) 650 mg PO Q4H PRN PRN Reason: Pain or Fever Stop: 11/06/21 21:34 Aspirin (Aspirin 81 Mg Ectab) 81 mg PO QAM [facility] Stop: 11/09/21 16:29 Last Admin: 10/10/21 17:40 Dose: 81 mg Atenolol (Atenolol 50 Mg Tablet) 50 mg PO BID [facility] Stop: 11/09/21 20:59 Last Admin: 10/10/21 20:27 Dose: 50 mg Benzonatate (Benzonatate 100 Mg Capsule) 100 mg PO TID [facility] Stop: 11/07/21 20:59 Last Admin: 10/10/21 20:27 Dose: 100 mg Dextrose (Dextrose 50% 50 Ml Syringe) 25 - 50 ml IV UD PRN; Protocol PRN Reason: Hypoglycemia Protocol Stop: 11/06/21 21:34 Doxycycline Hyclate (Doxycycline Hyclate 100 Mg Cap) 100 mg PO BID [facility] Stop: 10/17/21 10:59 Last Admin: 10/10/21 20:28 Dose: 100 mg Enoxaparin Sodium (Enoxaparin Inj 40 Mg/0.4 Ml Syr) 40 mg SQ Q12H [facility] Stop: 11/07/21 07:59 Last Admin: 10/10/21 20:26 Dose: 40 mg Glucagon (Glucagon For Inj 1 Mg Vial) 1 mg SQ UD PRN; Protocol PRN Reason: Hypoglycemia Protocol Stop: 11/06/21 21:34 Glucose (Glucose 40% Gel 15 Gm Tube) 15 - 30 gm PO UD PRN; Protocol PRN Reason: Hypoglycemia Protocol Stop: 11/06/21 21:34 Glucose (Glucose 10 Tab/Tube) 4 - 8 tab PO UD PRN; Protocol PRN Reason: Hypoglycemia Treatment Stop: 11/06/21 21:34 Guaifenesin (Guaifenesin 600 Mg Tabcr) 1,200 mg PO Q12 [facility] Stop: 11/06/21 21:34 Last Admin: 10/10/21 20:28 Dose: 1,200 mg Remdesivir 100 mg/ Sodium (Chloride) 250 mls @ 250 mls/hr IV Q24H [facility] Stop: 10/11/21 20:59 Last Infusion: 10/10/21 20:51 Dose: Infused Dexamethasone 6 mg/ Syringe 1.5 mls @ 1 mls/min IV DAILY [facility] Stop: 10/18/21 08:59 Last Admin: 10/10/21 08:05 Dose: 1 mls/min Magnesium Sulfate/Dextrose (Magnesium Sulfate / D5w) 1 gm in 100 mls @ 50 mls/hr IV ONE ONE Stop: 10/11/21 09:29 Insulin Aspart (Insulin Aspart Per Unit) 0 units SC ACHS [facility]; Protocol Stop: 11/06/21 21:34 Last Admin: 10/10/21 21:18 Dose: 13 units Insulin Human NPH (Insulin Human Nph) 15 units SC QDD [facility]; Protocol Stop: 11/08/21 16:29 Last Admin: 10/10/21 17:01 Dose: 15 units Insulin Human NPH (Insulin Human Nph) 35 units SC QDB [facility]; Protocol Stop: 11/08/21 08:29 Last Admin: 10/10/21 07:59 Dose: 35 units Isosorbide Mononitrate (Isosorbide Mononitrate 20 Mg Tab) 20 mg PO BID [facility] Stop: 11/09/21 20:59 Last Admin: 10/10/21 20:29 Dose: 20 mg Levalbuterol HCl (Levalbuterol Tartrate 15 Gm Hfa.Aer.Ad) 2 puffs INH QIDR PRN PRN Reason: sob/wheezing/resp distress Stop: 11/07/21 06:59 Miscellaneous (Carbohydrates For Hypoglycemia ) 15 - 30 gm PO UD PRN PRN Reason: Hypoglycemia Protocol Stop: 11/06/21 21:34 Miscellaneous Information (Pharmacy Glycemic Mgmt Consult) 1 each N/A UD PRN PRN Reason: Consult Stop: 11/06/21 21:34 Polyethylene Glycol (Polyethylene (Miralax) 17 Gm Pack) 17 gm PO DAILY PRN PRN Reason: Constipation Stop: 11/08/21 14:05 Last Admin: 10/10/21 12:00 Dose: 17 gm
[2021-10-11] MEDS: INSULIN ASPART PER UNIT SC SCH ×4 (08:00→21:08)
[2021-10-11] MEDS: INSULIN HUMAN NPH SC SCH ×2 (08:00→17:04)
[2021-10-11] MEDS: ENOXAPARIN INJ 40 MG/0.4 ML SYR SQ SCH ×2 (08:23→20:51)
[2021-10-11] MEDS: guaiFENesin 600 MG TABCR PO SCH ×2 (08:23→20:52)
[2021-10-11] MEDS: ISOSORBIDE MONONITRATE 20 MG TAB PO SCH ×2 (08:23→20:54)
[2021-10-11] MEDS: dexAMETHasone 6 MG in SYRINGE 0 ML IV SCH (08:23)
[2021-10-11] MEDS: ATENOLOL 50 MG TABLET PO SCH ×2 (08:24→20:53)
[2021-10-11] MEDS: DOXYCYCLINE HYCLATE 100 MG CAP PO SCH ×2 (08:24→20:52)
[2021-10-11] MEDS: BENZONATATE 100 MG CAPSULE PO SCH ×3 (08:24→20:53)
[2021-10-11] MEDS: ASPIRIN 81 MG ECTAB PO SCH (09:50)
[2021-10-11] MEDS: TRIAMTERENE/HCTZ 37.5/25MG TAB PO SCH (12:21)
[2021-10-11] MEDS: REMDESIVIR 100 MG in SODIUM CHLORIDE 0.9% 230 ML IV SCH (20:50)
[2021-10-12 07:09] LABS: BUN Creatinine Ratio 26.5 (10-20); Calcium 8.4 mg/dl (8.5-10.1); Creatinine Clr Calc Pharmacy 80.9 ml/min; Est GFR (African American) 82.4 ml/min; Est GFR (Non-African American) 71.1 ml/min; Magnesium 1.8 mg/dl (1.7-2.4); Phosphorus 3.4 mg/dl (2.5-4.9)
[2021-10-12] MEDS: INSULIN ASPART PER UNIT SC SCH ×4 (08:33→20:33)
[2021-10-12] MEDS: INSULIN HUMAN NPH SC SCH ×2 (08:34→16:57)
[2021-10-12] MEDS: BENZONATATE 100 MG CAPSULE PO SCH ×3 (08:44→20:42)
[2021-10-12] MEDS: dexAMETHasone 6 MG in SYRINGE 0 ML IV SCH (08:44)
[2021-10-12] MEDS: ISOSORBIDE MONONITRATE 20 MG TAB PO SCH ×2 (08:44→20:45)
[2021-10-12] MEDS: DOXYCYCLINE HYCLATE 100 MG CAP PO SCH ×2 (08:45→20:43)
[2021-10-12] MEDS: guaiFENesin 600 MG TABCR PO SCH ×2 (08:45→20:44)
[2021-10-12] MEDS: ATENOLOL 50 MG TABLET PO SCH ×2 (08:45→20:45)
[2021-10-12] MEDS: ENOXAPARIN INJ 40 MG/0.4 ML SYR SQ SCH ×2 (08:45→20:44)
[2021-10-12] MEDS: TRIAMTERENE/HCTZ 37.5/25MG TAB PO SCH (08:46)
[2021-10-12] MEDS: ASPIRIN 81 MG ECTAB PO SCH (08:46)
--- NOTE | 2021-10-12 10:47 | Pharmacy Report ---
Pharmacy Glycemic Short Note 2 - Date of Service October 12, 2021 - Glycemic Short BSG Results (Last 24 hours): 10/11/21 10/11/21 10/11/21 11:48 16:28 20:42 Glucose POC Glucose 173 H 174 H 140 H 10/12/21 10/12/21 05:47 07:46 Glucose 141 H POC Glucose 153 H OUTPATIENT ANTIDIABETIC REGIMEN: * Trulicity 0.75 mg SC every Friday * Tresiba 56 units SC BID * Metformin 1000 mg PO BID * HbA1c = 7.4% (10/09/21) ASSESSMENT: 10/12: * Leonides received 102 units of insulin yesterday (50 units basal + 52 units bolus). BSGs were acceptable: [phone] mg/dL. * Fasting BSG acceptable at 153 mg/dL this AM. No change to NPH. No change to Novolog. * Continues on IV dexamethasone for COVID. Remdesivir course is complete. Patient started on doxycycline yesterday. 10/10: * Patient received 108 units of insulin yesterday (45 units basal + 63 units bolus). BSGs were improved but still above goal: [phone] mg/dL. * Evening BSGs still elevated. No adjustment to Novolog today but will increase AM NPH dose by approximately 20%. * Remains on 6 mg IV dexamethasone daily plus day #4/5 of Remdesivir. 10/09: * Leonides received 85 units of insulin yesterday (40 units basal + 45 units bolus). BSGs were uncontrolled: [phone] mg/dL. * Fasting BSG was controlled at 123 mg/dL this AM. Given decrease in BSG from dinner NPH dose to fasting BSG, will reduce dinner NPH dose today. However, given uncontrolled BSGs throughout the day will increase AM NPH dose. * Novolog will be tightened further this AM to help with steroid-induced hyperglycemia, which more commonly effects postprandial BSGs. 10/08: * Patient with a history of type 2 diabetes admitted with COVID and acute hypoxemic respiratory failure. Pharmacy consulted to assist with glycemic management in this setting. * Receiving IV dexamethasone 6mg daily and ordered a diet. * Ordered an initial dose of 10units Lantus last evening, however will transition to NPH BID for basal coverage in light of COVID steroid utilization, and Novolog sliding scale ACHS (moderate-severe stress). PLAN FOR INPATIENT GLYCEMIC CONTROL: * Hold outpatient oral diabetes medications * Basal insulin * NPH 35 units SC w/ breakfast * NPH 15 units SC w/ dinner * Bolus insulin * NovoLog per scale ACHS or Q6hrs while NPO * Goal Range: Low 110 mg/dL - High 140 mg/dL * Correction Factor: 12 mg/dL/unit * Nutritional / Prandial insulin per carb ratio of 1 unit per 4 grams CHO consumed
--- NOTE | 2021-10-12 17:30 | Hospitalist Progress Note ---
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 At presentation: SPO2 88% on room air, required 2 L nasal cannula oxygen At presentation: WBC/Procalcitonin/BNP fairly WNL. CRP and D-dimer elevated. CXR with no acute findings. CTA chest with no PE but suggestive of inflammatory process at lung bases. Patient was started on Decadron and remdesivir 10/07 Finished 5 day course of remdesivir Mucinex, Xopenex as needed, incentive spirometer, flutter valve, Lovenox for DVT prophylaxis, self proning as able. Renal function and LFT monitoring. 10/10 - Patient has been on 2 L, now on 4 L of supplemental oxygen. Chest x-ray repeated No change in the patchy bibasilar airspace opacities. This may represent a pneumonia. , opacities at bases, possibly pneumonia. Procalcitonin repeated and negative. Doxycycline added, continue to closely monitor. 10/12 - pt down to 2L today, pt does not seem to feel much different Class III obese: pt counseled on healthy lifestyle, dietary intake and exercise regimen. Pt voiced understanding. Other chronic medical conditions: CAD, HTN, DM type II--->> continue with/resume home meds as and when appropriate. Sliding scale insulin, home DM meds on hold. Glycemic pharmacy following. Resumed atenolol - pt takes 50 mg bid Resumed ASA Resumed isosorbide mononitrate - pt takes 30 bid Resumed HCTZ/triamteren Full code DVT prophylaxis: Lovenox Disposition: may need two-step test prior to discharge. PT/OT. Admission and Anticipated Discharge Date Admission Date: October 07, 2021 Subjective Patient seen in follow-up of COVID-19 virus infection. Patient initially using 2 L since admission, then was requiring 4 L of supplemental oxygen via nasal cannula as of yesterday Now again down to 2L Patient is ambulating in his room without any difficulty Denies fevers, chills, Continues to have cough Denies any abdominal pain, reports good appetite, no nausea vomiting Patient does not use oxygen at home. Review of Systems Review of Systems: All systems reviewed & are unremarkable except as noted in Subjective Physical Exam Physical Exam: GENERAL: Alert and oriented x3. NAD, on 2L NC O2. Obes e Class III. HEENT : NC. EOMI. no ic terus. Pupils equ al, round and reac tive to light. Or al mucosa moist. N XAVI: No JVD, no n xavi masses. HEART: S1 and S2 heard. Regular rate and rhythm. No murmu r, no gallop. RESP IRATORY:No access ory muscle use. 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 ABDOMEN: S oft,obese, bowel s ounds present, non tender NEURO: Sandy rt oriented, answe ring questions jhony ropriately. No fac ial droop. Speech is clear.Moves e xtremities. EXTREM ITIES: 1+ BLE kailee ma. Results & Data Results & Data ([facility]) Vital Signs (Past 12 Hours) Vital Signs Temp Pulse Pulse Pulse Resp BP BP 10/12/21 15:00 66 10/12/21 14:43 36.6 C 69 20 141/83 H 10/12/21 11:45 36.8 C 69 18 123/69 10/12/21 08:00 10/12/21 08:40 36.6 C 68 18 129/66 10/12/21 07:00 61 Pulse Ox O2 Del Method O2 Flow Rate 10/12/21 15:00 10/12/21 14:43 93 Nasal Cannula 2 10/12/21 11:45 94 Nasal Cannula 2 10/12/21 08:00 Nasal Cannula 2 10/12/21 08:40 94 Nasal Cannula 2 10/12/21 07:00 Laboratory Results 10/12/21 10/12/21 10/12/21 Range/Units 16:42 11:42 07:46 Sodium (136-145) mmol/L Potassium (3.5-5.1) mmol/L Chloride (98-107) mmol/L Carbon Dioxide (21-32) mmol/L Anion Gap (3-11) BUN (6-23) mg/dl Creatinine (0.6-1.4) mg/dl Est Cr Clr Drug Dosing ml/min Est GFR ( Amer) ml/min Est GFR (Non-Af Amer) ml/min BUN/Creatinine Ratio (10-20) Glucose (70-99(Fasting)) mg/dl POC Glucose 156 H 171 H 153 H (70-99) mg/dl Calcium (8.5-10.1) mg/dl Phosphorus (2.5-4.9) mg/dl Magnesium (1.7-2.4) mg/dl 10/12/21 10/11/21 Range/Units 05:47 20:42 Sodium 138 (136-145) mmol/L Potassium 4.0 (3.5-5.1) mmol/L Chloride 100 (98-107) mmol/L Carbon Dioxide 33 H (21-32) mmol/L Anion Gap 5 (3-11) BUN 27 H (6-23) mg/dl Creatinine 1.02 (0.6-1.4) mg/dl Est Cr Clr Drug Dosing 80.9 ml/min Est GFR ( Amer) 82.4 ml/min Est GFR (Non-Af Amer) 71.1 ml/min BUN/Creatinine Ratio 26.5 H (10-20) Glucose 141 H (70-99(Fasting)) mg/dl POC Glucose 140 H (70-99) mg/dl Calcium 8.4 L (8.5-10.1) mg/dl Phosphorus 3.4 (2.5-4.9) mg/dl Magnesium 1.8 (1.7-2.4) mg/dl Medications Administered Current Inpatient Medications Acetaminophen (Acetaminophen 325 Mg Tab) 650 mg PO Q4H PRN PRN Reason: Pain or Fever Stop: 11/06/21 21:34 Aspirin (Aspirin 81 Mg Ectab) 81 mg PO QAM [facility] Stop: 11/09/21 16:29 Last Admin: 10/12/21 08:46 Dose: 81 mg Atenolol (Atenolol 50 Mg Tablet) 50 mg PO BID [facility] Stop: 11/09/21 20:59 Last Admin: 10/12/21 08:45 Dose: 50 mg Benzonatate (Benzonatate 100 Mg Capsule) 100 mg PO TID [facility] Stop: 11/07/21 20:59 Last Admin: 10/12/21 13:50 Dose: 100 mg Dextrose (Dextrose 50% 50 Ml Syringe) 25 - 50 ml IV UD PRN; Protocol PRN Reason: Hypoglycemia Protocol Stop: 11/06/21 21:34 Doxycycline Hyclate (Doxycycline Hyclate 100 Mg Cap) 100 mg PO BID [facility] Stop: 10/17/21 10:59 Last Admin: 10/12/21 08:45 Dose: 100 mg Enoxaparin Sodium (Enoxaparin Inj 40 Mg/0.4 Ml Syr) 40 mg SQ Q12H [facility] Stop: 11/07/21 07:59 Last Admin: 10/12/21 08:45 Dose: 40 mg Glucagon (Glucagon For Inj 1 Mg Vial) 1 mg SQ UD PRN; Protocol PRN Reason: Hypoglycemia Protocol Stop: 11/06/21 21:34 Glucose (Glucose 40% Gel 15 Gm Tube) 15 - 30 gm PO UD PRN; Protocol PRN Reason: Hypoglycemia Protocol Stop: 11/06/21 21:34 Glucose (Glucose 10 Tab/Tube) 4 - 8 tab PO UD PRN; Protocol PRN Reason: Hypoglycemia Treatment Stop: 11/06/21 21:34 Guaifenesin (Guaifenesin 600 Mg Tabcr) 1,200 mg PO Q12 [facility] Stop: 11/06/21 21:34 Last Admin: 10/12/21 08:45 Dose: 1,200 mg Dexamethasone 6 mg/ Syringe 1.5 mls @ 1 mls/min IV DAILY [facility] Stop: 10/18/21 08:59 Last Admin: 10/12/21 08:44 Dose: 1 mls/min Insulin Aspart (Insulin Aspart Per Unit) 0 units SC ACHS [facility]; Protocol Stop: 11/06/21 21:34 Last Admin: 10/12/21 16:56 Dose: 10 units Insulin Human NPH (Insulin Human Nph) 15 units SC QDD [facility]; Protocol Stop: 11/08/21 16:29 Last Admin: 10/12/21 16:57 Dose: 15 units Insulin Human NPH (Insulin Human Nph) 35 units SC QDB [facility]; Protocol Stop: 11/08/21 08:29 Last Admin: 10/12/21 08:34 Dose: 35 units Isosorbide Mononitrate (Isosorbide Mononitrate 20 Mg Tab) 20 mg PO BID [facility] Stop: 11/09/21 20:59 Last Admin: 10/12/21 08:44 Dose: 20 mg Levalbuterol HCl (Levalbuterol Tartrate 15 Gm Hfa.Aer.Ad) 2 puffs INH QIDR PRN PRN Reason: sob/wheezing/resp distress Stop: 11/07/21 06:59 Miscellaneous (Carbohydrates For Hypoglycemia ) 15 - 30 gm PO UD PRN PRN Reason: Hypoglycemia Protocol Stop: 11/06/21 21:34 Miscellaneous Information (Pharmacy Glycemic Mgmt Consult) 1 each N/A UD PRN PRN Reason: Consult Stop: 11/06/21 21:34 Polyethylene Glycol (Polyethylene (Miralax) 17 Gm Pack) 17 gm PO DAILY PRN PRN Reason: Constipation Stop: 11/08/21 14:05 Last Admin: 10/10/21 12:00 Dose: 17 gm Triamterene/Hydrochlorothiazide (Triamterene/Hctz 37.5/25mg Tab) 1 tab PO QAM [facility] Stop: 11/10/21 11:59 Last Admin: 10/12/21 08:46 Dose: 1 tab
[2021-10-13] MEDS: INSULIN ASPART PER UNIT SC SCH ×4 (08:40→21:57)
[2021-10-13] MEDS: ATENOLOL 50 MG TABLET PO SCH ×2 (09:09→21:33)
[2021-10-13] MEDS: ISOSORBIDE MONONITRATE 20 MG TAB PO SCH ×2 (09:09→21:32)
[2021-10-13] MEDS: ASPIRIN 81 MG ECTAB PO SCH (09:09)
[2021-10-13] MEDS: BENZONATATE 100 MG CAPSULE PO SCH ×3 (09:09→21:35)
[2021-10-13] MEDS: guaiFENesin 600 MG TABCR PO SCH ×2 (09:09→21:34)
[2021-10-13] MEDS: TRIAMTERENE/HCTZ 37.5/25MG TAB PO SCH (09:10)
[2021-10-13] MEDS: ENOXAPARIN INJ 40 MG/0.4 ML SYR SQ SCH ×2 (09:10→20:30)
[2021-10-13] MEDS: DOXYCYCLINE HYCLATE 100 MG CAP PO SCH ×2 (09:10→21:33)
[2021-10-13] MEDS: INSULIN HUMAN NPH SC SCH ×2 (09:30→17:20)
--- NOTE | 2021-10-13 10:17 | Hospitalist Progress Note ---
Date of Service October 13, 2021 Assessment & Plan (1) COVID-19 virus infection: Plan: 76 yo M with hx of CAD, diabetes type 2, hypertension, presented 10/08 with cough and weakness for the past few days [employer]. He is being managed for the following: Hypoxia COVID-19 INFECTION Presenting with dry cough and weakness for past few days [employer]. 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 At presentation: SPO2 88% on room air, required 2 L nasal cannula oxygen At presentation: WBC/Procalcitonin/BNP fairly WNL. CRP and D-dimer elevated. CXR with no acute findings. CTA chest with no PE but suggestive of inflammatory process at lung bases. Patient was started on Decadron and remdesivir 10/07 Finished 5 day course of remdesivir Mucinex, Xopenex as needed, incentive spirometer, flutter valve, Lovenox for DVT prophylaxis, self proning as able. Renal function and LFT monitoring. 10/10 - Patient has been on 2 L, now on 4 L of supplemental oxygen. Chest x-ray repeated No change in the patchy bibasilar airspace opacities. This may represent a pneumonia. , opacities at bases, possibly pneumonia. Procalcitonin repeated and negative. Doxycycline added, continue to closely monitor. 10/12 - pt down to 2L today, pt does not seem to feel much different 10/13 - pt on 2L, continues to feel weak but improved since he came the hospital Class III obese: pt counseled on lifestyle modifications. Pt voiced understanding. Other chronic medical conditions: CAD, HTN, DM type II--->> continue with/resume home meds as and when appropriate. Sliding scale insulin, home DM meds on hold. Glycemic pharmacy following. Resumed atenolol - pt takes 50 mg bid Resumed ASA Resumed isosorbide mononitrate - pt takes 30 bid Resumed HCTZ/triamteren Full code DVT prophylaxis: Lovenox Disposition: may need two-step test prior to discharge. PT/OT. Admission and Anticipated Discharge Date Admission Date: October 07, 2021 Subjective Patient seen in follow-up of COVID-19 virus infection. Patient initially using 2 L since admission, then was requiring 4 L of supplemental oxygen via nasal cannula Now again down to 2L as of yesterday saturating at 95% Patient is ambulating in his room without any difficulty Denies fevers, chills, Continues to have cough complains of being weak. Denies any abdominal pain, reports good appetite, no nausea vomiting Patient does not use oxygen at home. Will obtain 2 step tmrw Review of Systems Review of Systems: All systems reviewed & are unremarkable except as noted in Subjective Physical Exam Physical Exam: GENERAL: Alert and oriented x3. NAD, on 2L NC O2. Obes e Class III. HEENT : NC. EOMI. no ic terus. Pupils equ al, round and reac tive to light. Or al mucosa moist. N XAVI: No JVD, no n xavi masses. HEART: S1 and S2 heard. Regular rate and rhythm. No murmu r, no gallop. RESP IRATORY:No access ory muscle use. N o wheezing, no electrician aircraft ckles. ABDOMEN: S oft,obese, bowel s ounds present, non tender NEURO: Sandy rt oriented, answe ring questions jhony ropriately. No fac ial droop. Speech is clear.Moves e xtremities. EXTREM ITIES: 1+ BLE kailee ma. Results & Data Results & Data ([facility]) Vital Signs (Past 12 Hours) Vital Signs Temp Pulse Pulse Resp BP BP Pulse Ox 10/13/21 09:06 37 C 63 18 134/73 94 10/12/21 22:22 63 10/13/21 03:36 36.6 C 57 L 18 127/58 L 94 10/12/21 23:00 36.5 C 62 20 129/59 L 95 O2 Del Method O2 Flow Rate 10/13/21 09:06 Nasal Cannula 2 10/12/21 22:22 10/13/21 03:36 Nasal Cannula 2 10/12/21 23:00 Nasal Cannula 2 Medications Administered Current Inpatient Medications Acetaminophen (Acetaminophen 325 Mg Tab) 650 mg PO Q4H PRN PRN Reason: Pain or Fever Stop: 11/06/21 21:34 Aspirin (Aspirin 81 Mg Ectab) 81 mg PO QAM [facility] Stop: 11/09/21 16:29 Last Admin: 10/13/21 09:09 Dose: 81 mg Atenolol (Atenolol 50 Mg Tablet) 50 mg PO BID [facility] Stop: 11/09/21 20:59 Last Admin: 10/13/21 09:09 Dose: 50 mg Benzonatate (Benzonatate 100 Mg Capsule) 100 mg PO TID [facility] Stop: 11/07/21 20:59 Last Admin: 10/13/21 09:09 Dose: 100 mg Dextrose (Dextrose 50% 50 Ml Syringe) 25 - 50 ml IV UD PRN; Protocol PRN Reason: Hypoglycemia Protocol Stop: 11/06/21 21:34 Doxycycline Hyclate (Doxycycline Hyclate 100 Mg Cap) 100 mg PO BID [facility] Stop: 10/17/21 10:59 Last Admin: 10/13/21 09:10 Dose: 100 mg Enoxaparin Sodium (Enoxaparin Inj 40 Mg/0.4 Ml Syr) 40 mg SQ Q12H [facility] Stop: 11/07/21 07:59 Last Admin: 10/13/21 09:10 Dose: 40 mg Glucagon (Glucagon For Inj 1 Mg Vial) 1 mg SQ UD PRN; Protocol PRN Reason: Hypoglycemia Protocol Stop: 11/06/21 21:34 Glucose (Glucose 40% Gel 15 Gm Tube) 15 - 30 gm PO UD PRN; Protocol PRN Reason: Hypoglycemia Protocol Stop: 11/06/21 21:34 Glucose (Glucose 10 Tab/Tube) 4 - 8 tab PO UD PRN; Protocol PRN Reason: Hypoglycemia Treatment Stop: 11/06/21 21:34 Guaifenesin (Guaifenesin 600 Mg Tabcr) 1,200 mg PO Q12 [facility] Stop: 11/06/21 21:34 Last Admin: 10/13/21 09:09 Dose: 1,200 mg Dexamethasone 6 mg/ Syringe 1.5 mls @ 1 mls/min IV DAILY [facility] Stop: 10/16/21 09:02 Last Admin: 10/12/21 08:44 Dose: 1 mls/min Insulin Aspart (Insulin Aspart Per Unit) 0 units SC ACHS [facility]; Protocol Stop: 11/06/21 21:34 Last Admin: 10/13/21 08:40 Dose: 18 units Insulin Human NPH (Insulin Human Nph) 15 units SC QDD [facility]; Protocol Stop: 11/08/21 16:29 Last Admin: 10/12/21 16:57 Dose: 15 units Insulin Human NPH (Insulin Human Nph) 35 units SC QDB [facility]; Protocol Stop: 11/08/21 08:29 Last Admin: 10/13/21 09:30 Dose: 35 units Isosorbide Mononitrate (Isosorbide Mononitrate 20 Mg Tab) 20 mg PO BID [facility] Stop: 11/09/21 20:59 Last Admin: 10/13/21 09:09 Dose: 20 mg Levalbuterol HCl (Levalbuterol Tartrate 15 Gm Hfa.Aer.Ad) 2 puffs INH QIDR PRN PRN Reason: sob/wheezing/resp distress Stop: 11/07/21 06:59 Miscellaneous (Carbohydrates For Hypoglycemia ) 15 - 30 gm PO UD PRN PRN Reason: Hypoglycemia Protocol Stop: 11/06/21 21:34 Miscellaneous Information (Pharmacy Glycemic Mgmt Consult) 1 each N/A UD PRN PRN Reason: Consult Stop: 11/06/21 21:34 Polyethylene Glycol (Polyethylene (Miralax) 17 Gm Pack) 17 gm PO DAILY PRN PRN Reason: Constipation Stop: 11/08/21 14:05 Last Admin: 10/10/21 12:00 Dose: 17 gm Triamterene/Hydrochlorothiazide (Triamterene/Hctz 37.5/25mg Tab) 1 tab PO QAM [facility] Stop: 11/10/21 11:59 Last Admin: 10/13/21 09:10 Dose: 1 tab
[2021-10-13] MEDS: dexAMETHasone 6 MG in SYRINGE 0 ML IV SCH (10:51)
[2021-10-13] MEDS ORDERED: SODIUM CHLORIDE 0.65% NA SOLN 45 ML (OCEAN) ONE ×2 (12:21→12:27)
[2021-10-14] MEDS: DOXYCYCLINE HYCLATE 100 MG CAP PO SCH ×2 (08:30→20:50)
[2021-10-14] MEDS: guaiFENesin 600 MG TABCR PO SCH ×2 (08:30→20:49)
[2021-10-14] MEDS: dexAMETHasone 6 MG in SYRINGE 0 ML IV SCH (08:30)
[2021-10-14] MEDS: ENOXAPARIN INJ 40 MG/0.4 ML SYR SQ SCH ×2 (08:30→20:45)
[2021-10-14] MEDS: ISOSORBIDE MONONITRATE 20 MG TAB PO SCH ×2 (08:31→20:49)
[2021-10-14] MEDS: ASPIRIN 81 MG ECTAB PO SCH (08:31)
[2021-10-14] MEDS: ATENOLOL 50 MG TABLET PO SCH ×2 (08:31→20:47)
[2021-10-14] MEDS: TRIAMTERENE/HCTZ 37.5/25MG TAB PO SCH (08:31)
[2021-10-14] MEDS: BENZONATATE 100 MG CAPSULE PO SCH ×3 (08:31→20:47)
[2021-10-14] MEDS: INSULIN ASPART PER UNIT SC SCH ×4 (08:38→21:51)
[2021-10-14] MEDS: INSULIN HUMAN NPH SC SCH (08:39)
--- NOTE | 2021-10-14 09:15 | Hospitalist Progress Note ---
Date of Service October 14, 2021 Assessment & Plan (1) COVID-19 virus infection: Plan: 76 yo M with hx of CAD, diabetes type 2, hypertension, presented 10/08 with cough and weakness for the past few days [employer]. He is being managed for the following: Hypoxia COVID-19 INFECTION Presenting with dry cough and weakness for past few days [employer]. 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 At presentation: SPO2 88% on room air, required 2 L nasal cannula oxygen At presentation: WBC/Procalcitonin/BNP fairly WNL. CRP and D-dimer elevated. CXR with no acute findings. CTA chest with no PE but suggestive of inflammatory process at lung bases. Patient was started on Decadron and remdesivir 10/07 Finished 5 day course of remdesivir Mucinex, Xopenex as needed, incentive spirometer, flutter valve, Lovenox for DVT prophylaxis, self proning as able. Renal function and LFT monitoring. 10/10 - Patient has been on 2 L, now on 4 L of supplemental oxygen. Chest x-ray repeated No change in the patchy bibasilar airspace opacities. This may represent a pneumonia. , opacities at bases, possibly pneumonia. Procalcitonin repeated and negative. Doxycycline added, continue to closely monitor. 10/12 - pt down to 2L today, pt does not seem to feel much different 10/13 - pt on 2L, continues to feel weak but improved since he came to the hospital 10/14 - pt remains on 2L 2 step test done - pt does not require O2 at rest or with ambulation Class III obese: pt counseled on lifestyle modifications. Pt voiced understanding. Other chronic medical conditions: CAD, HTN, DM type II--->> continue with/resume home meds as and when appropriate. Sliding scale insulin, home DM meds on hold. Glycemic pharmacy following. Resumed atenolol - pt takes 50 mg bid Resumed ASA Resumed isosorbide mononitrate - pt takes 30 bid Resumed HCTZ/triamteren Full code DVT prophylaxis: Lovenox Disposition: plan to DC home Admission and Anticipated Discharge Date Admission Date: October 07, 2021 Subjective Patient seen in follow-up of COVID-19 virus infection. Patient initially using 2 L since admission, then was requiring 4 L of supplemental oxygen via nasal cannula Now again down to 2L Patient is ambulating in his room without any difficulty Denies fevers, chills, chest pain. continues to have cough complains of being weak. Denies any abdominal pain, reports good appetite, no nausea vomiting Update: 2 step test today and pt does not require O2 at rest or with ambulation Review of Systems Review of Systems: All systems reviewed & are unremarkable except as noted in Subjective Physical Exam Physical Exam: GENERAL: Alert and oriented x3. NAD, on 2L NC O2. Obes e Class III. HEENT : NC. EOMI. no ic terus. Pupils equ al, round and reac tive to light. Or al mucosa moist. N XAVI: No JVD, no n xavi masses. HEART: S1 and S2 heard. Regular rate and rhythm. No murmu r, no gallop. RESP IRATORY:No access ory muscle use. N o wheezing, no etcher aircraft ckles. ABDOMEN: S oft,obese, bowel s ounds present, non tender NEURO: Sandy rt oriented, answe ring questions jhony ropriately. No fac ial droop. Speech is clear.Moves e xtremities. EXTREM ITIES: 1+ BLE kailee esquivel. Results & Data Results & Data ([facility]) Vital Signs (Past 12 Hours) Vital Signs Temp Pulse Pulse Resp BP BP Pulse Ox 10/14/21 09:00 54 L 10/14/21 09:00 10/14/21 08:16 36.2 C L 63 20 146/75 H 96 10/14/21 05:23 36.8 C 56 L 18 139/66 96 10/13/21 22:22 65 10/13/21 23:50 36.5 C 63 18 122/60 96 O2 Del Method O2 Flow Rate 10/14/21 09:00 10/14/21 09:00 Nasal Cannula 2 10/14/21 08:16 Nasal Cannula 2 10/14/21 05:23 Room Air 10/13/21 22:22 10/13/21 23:50 Nasal Cannula 2 Laboratory Results 10/14/21 10/14/21 10/14/21 Range/Units 11:48 08:11 08:08 Sodium 138 (136-145) mmol/L Potassium 3.8 (3.5-5.1) mmol/L Chloride 100 (98-107) mmol/L Carbon Dioxide 31 (21-32) mmol/L Anion Gap 7 (3-11) BUN 24 H (6-23) mg/dl Creatinine 0.97 (0.6-1.4) mg/dl Est Cr Clr Drug Dosing 85.4 ml/min Est GFR ( Amer) 87.5 ml/min Est GFR (Non-Af Amer) 75.5 ml/min BUN/Creatinine Ratio 24.7 H (10-20) Glucose 152 H (70-99(Fasting)) mg/dl POC Glucose 176 H 147 H (70-99) mg/dl Calcium 8.8 (8.5-10.1) mg/dl Magnesium 1.6 L (1.7-2.4) mg/dl 10/13/21 10/13/21 Range/Units 20:07 17:05 Sodium (136-145) mmol/L Potassium (3.5-5.1) mmol/L Chloride (98-107) mmol/L Carbon Dioxide (21-32) mmol/L Anion Gap (3-11) BUN (6-23) mg/dl Creatinine (0.6-1.4) mg/dl Est Cr Clr Drug Dosing ml/min Est GFR ( Amer) ml/min Est GFR (Non-Af Amer) ml/min BUN/Creatinine Ratio (10-20) Glucose (70-99(Fasting)) mg/dl POC Glucose 192 H 157 H (70-99) mg/dl Calcium (8.5-10.1) mg/dl Magnesium (1.7-2.4) mg/dl Medications Administered Current Inpatient Medications Acetaminophen (Acetaminophen 325 Mg Tab) 650 mg PO Q4H PRN PRN Reason: Pain or Fever Stop: 11/06/21 21:34 Aspirin (Aspirin 81 Mg Ectab) 81 mg PO QAM [facility] Stop: 11/09/21 16:29 Last Admin: 10/14/21 08:31 Dose: 81 mg Atenolol (Atenolol 50 Mg Tablet) 50 mg PO BID [facility] Stop: 11/09/21 20:59 Last Admin: 10/14/21 08:31 Dose: 50 mg Benzonatate (Benzonatate 100 Mg Capsule) 100 mg PO TID [facility] Stop: 11/07/21 20:59 Last Admin: 10/14/21 08:31 Dose: 100 mg Dextrose (Dextrose 50% 50 Ml Syringe) 25 - 50 ml IV UD PRN; Protocol PRN Reason: Hypoglycemia Protocol Stop: 11/06/21 21:34 Doxycycline Hyclate (Doxycycline Hyclate 100 Mg Cap) 100 mg PO BID [facility] Stop: 10/17/21 10:59 Last Admin: 10/14/21 08:30 Dose: 100 mg Enoxaparin Sodium (Enoxaparin Inj 40 Mg/0.4 Ml Syr) 40 mg SQ Q12H [facility] Stop: 11/07/21 07:59 Last Admin: 10/14/21 08:30 Dose: 40 mg Glucagon (Glucagon For Inj 1 Mg Vial) 1 mg SQ UD PRN; Protocol PRN Reason: Hypoglycemia Protocol Stop: 11/06/21 21:34 Glucose (Glucose 40% Gel 15 Gm Tube) 15 - 30 gm PO UD PRN; Protocol PRN Reason: Hypoglycemia Protocol Stop: 11/06/21 21:34 Glucose (Glucose 10 Tab/Tube) 4 - 8 tab PO UD PRN; Protocol PRN Reason: Hypoglycemia Treatment Stop: 11/06/21 21:34 Guaifenesin (Guaifenesin 600 Mg Tabcr) 1,200 mg PO Q12 [facility]OS[facility] MANUEL Stop: 11/06/21 21:34 Last Admin: 10/14/21 08:30 Dose: 1,200 mg Dexamethasone 6 mg/ Syringe 1.5 mls @ 1 mls/min IV DAILY [facility] Stop: 10/16/21 09:02 Last Admin: 10/14/21 08:30 Dose: 1 mls/min Insulin Aspart (Insulin Aspart Per Unit) 0 units SC ACHS [facility]; Protocol Stop: 11/06/21 21:34 Last Admin: 10/14/21 08:38 Dose: 9 units Insulin Human NPH (Insulin Human Nph) 35 units SC QDB [facility]; Protocol Stop: 11/08/21 08:29 Last Admin: 10/14/21 08:39 Dose: 35 units Insulin Human NPH (Insulin Human Nph) 17 units SC QDD [facility]; Protocol Stop: 11/13/21 16:29 Isosorbide Mononitrate (Isosorbide Mononitrate 20 Mg Tab) 20 mg PO BID [facility] Stop: 11/09/21 20:59 Last Admin: 10/14/21 08:31 Dose: 20 mg Levalbuterol HCl (Levalbuterol Tartrate 15 Gm Hfa.Aer.Ad) 2 puffs INH QIDR PRN PRN Reason: sob/wheezing/resp distress Stop: 11/07/21 06:59 Miscellaneous (Carbohydrates For Hypoglycemia ) 15 - 30 gm PO UD PRN PRN Reason: Hypoglycemia Protocol Stop: 11/06/21 21:34 Miscellaneous Information (Pharmacy Glycemic Mgmt Consult) 1 each N/A UD PRN PRN Reason: Consult Stop: 11/06/21 21:34 Polyethylene Glycol (Polyethylene (Miralax) 17 Gm Pack) 17 gm PO DAILY PRN PRN Reason: Constipation Stop: 11/08/21 14:05 Last Admin: 10/10/21 12:00 Dose: 17 gm Triamterene/Hydrochlorothiazide (Triamterene/Hctz 37.5/25mg Tab) 1 tab PO QAM [facility] Stop: 11/10/21 11:59 Last Admin: 10/14/21 08:31 Dose: 1 tab
[2021-10-14 09:21] LABS: BUN Creatinine Ratio 24.7 (10-20); Calcium 8.8 mg/dl (8.5-10.1); Creatinine Clr Calc Pharmacy 85.4 ml/min; Est GFR (African American) 87.5 ml/min; Est GFR (Non-African American) 75.5 ml/min; Magnesium 1.6 mg/dl (1.7-2.4); Potassium 3.8 mmol/L (3.5-5.1)
--- NOTE | 2021-10-14 12:49 | Discharge Summary ---
Date of Service October 14, 2021 Admission HPI Per Admitting Provider 76-year-old male with history of CAD, diabetes type 2, hypertension, presenting with cough and weakness for the past few days. Patient was at baseline state of health until a few weeks ago when he started to develop nonproductive cough. The cough progressed and for the past few days the patient has been feeling weak. Also admits to having some shortness of breath. Denies fevers or chills, sore throat, nausea, abdominal pain, chest pain, diarrhea. At the ER, patient was noted to be hypoxic, 88% on room air. Positive wheezing on exam, chest x-ray clear COVID test positive On exam, the patient is comfortable, sitting up in bed, on 2 L of oxygen States he feels better since admission No active symptoms during exam except for coughing spells No other symptoms Admission Exam Per Admitting Provider General- oriented x 3, not in distress, speaks in sentences with no effort or accessory muscle use Head- atraumatic Eyes- PERRL, EOMI, anicteric ENT- oropharynx clear Neck- supple, no JVD, no adenopathy, no thyromegaly; carotids +2/2, no bruits appreciated Lungs-positive mild rhonchi bilaterally, good air entry bilaterally Heart- normal rate, regular rhythm; no murmur, no gallop, no rub appreciated Abdomen- normal bowel sounds, nondistended, soft, nontender, no masses or hepatosplenomegaly Extremities-trace pretibial edema, no calf tenderness; peripheral pulses intact Neuro- alert, oriented x 3; CN 2-12 grossly intact; motor 5/5 bilaterally;sensation 100% on all extremities; no other gross focal neurologic deficits Skin- warm & dry Principal Diagnosis Acute resp. failure w/ hypoxia d/t covid virus infection Discharge Exam GENERAL: Alert and oriented x3. NAD, on 2L NC O2. Obese Class III. HEENT: NC. EOMI. no icterus. Pupils equal, round and reactive to light. Oral mucosa moist. NECK: No JVD, no neck masses. HEART: S1 and S2 heard. Regular rate and rhythm. No murmur, no gallop. RESPIRATORY:No accessory muscle use. No wheezing, no crackles. ABDOMEN: Soft,obese, bowel sounds present, nontender NEURO: Alert oriented, answering questions appropriately. No facial droop. Speech is clear.Moves extremities. EXTREMITIES: 1+ BLE edema. Discharge Data Allergies Allergy/AdvReac Type Severity Reaction Status Date / Time cephalexin Allergy Mild Unknown Verified 09/10/21 15:54 codeine Allergy Mild unknown Verified 09/10/21 15:54 Consultations 10/07/21 16:30 ED Decision to Admit Stat Ordered Studies 10/07/21 18:09 CT angio chest PE protocol Stat FINDINGS: Vasculature: There is homogeneous perfusion of the pulmonary vasculature bilaterally. No intraluminal filling defects or evidence for pulmonary embolus is seen. Airway: The airway is clear. No endobronchial lesion is identified. Lungs: There is evidence for bronchiectasis with mucus plugging at both lung bases characteristic of an inflammatory process. No groundglass opacities are seen. The lungs are otherwise clear of acute alveolar opacities, air bronchograms or pulmonary nodules. Pleura: There is no evidence for pleural effusion. There is no evidence for pneumothorax. Mediastinum: There is no evidence for pathologic adenopathy. The heart size is within normal limits. The thoracic aorta is within normal limits. There is no evidence for pericardial effusion. Upper abdomen: The adrenal glands are normal bilaterally. Osseous structures: There is no acute osseous pathology. Impression: 1. No CTA evidence for pulmonary embolus. 2. Bronchiectasis with mucus plugging of both lung bases characteristic of an inflammatory process. 2. No groundglass opacities or confluent alveolar infiltrates. Hospital Course (1) COVID-19 virus infection: 76 yo M with hx of CAD, diabetes type 2, hypertension, presented 10/08 with cough and weakness for the past few days [employer]. He is being managed for the following: Hypoxia COVID-19 INFECTION Presenting with dry cough and weakness for past few days [employer]. 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 At presentation: SPO2 88% on room air, required 2 L nasal cannula oxygen At presentation: WBC/Procalcitonin/BNP fairly WNL. CRP and D-dimer elevated. CXR with no acute findings. CTA chest with no PE but suggestive of inflammatory process at lung bases. Patient was started on Decadron and remdesivir 10/07 Finished 5 day course of remdesivir Mucinex, Xopenex as needed, incentive spirometer, flutter valve, Lovenox for DVT prophylaxis, self proning as able. Renal function and LFT monitoring. 10/10 - Patient has been on 2 L, now on 4 L of supplemental oxygen. Chest x-ray repeated No change in the patchy bibasilar airspace opacities. This may represent a pneumonia. , opacities at bases, possibly pneumonia. Procalcitonin repeated and negative. Doxycycline added, continue to closely monitor. 10/12 - pt down to 2L today, pt does not seem to feel much different 10/13 - pt on 2L, continues to feel weak but improved since he came to the hospital 10/14 - pt remains on 2L 2 step test done - pt does not require O2 at rest or with ambulation Class III obese: pt counseled on lifestyle modifications. Pt voiced understanding. Other chronic medical conditions: CAD, HTN, DM type II--->> continue with/resume home meds as and when appropriate. Sliding scale insulin, home DM meds on hold. Glycemic pharmacy following. Resumed atenolol - pt takes 50 mg bid Resumed ASA Resumed isosorbide mononitrate - pt takes 30 bid Resumed HCTZ/triamteren Disposition: plan to DC home Total Time Total Time Spent Total Time Spent (In Minutes): 40 Discharge Plan Discharge Items Patient Disposition: Home - Self-Care Reason For Visit: COVID,HYPOXIA Discharge Diagnosis: Acute resp. failure w/ hypoxia d/t covid virus infection Activity: Per Instructions section Non-emergency contact: Primary Care Provider Call non-emergency contact if: you have any medication questions and your symptoms worsen Follow-up/Referrals: Martin Zavaleta MD [Primary Care Provider] - Diet: Carb Consistent or DM2 and Heart Healthy Addtl Attending Provider Instructions: Follow-up with your primary care doctor within 1 week. Take guaifenesin/Mucinex, and a doxycycline as prescribed. Continue using incentive spirometer and flutter valve. For now, hold amlodipine and lisinopril. Continue taking your other medications. If you can, monitor your blood pressure at home and record your numbers. Discuss further with your primary care providers if/when you should restart your other medications. Addtl [facility] Provider Instructions: Home Isolation COVID-19 Instructions The following information about Home Isolation is from the CDC Website: https://www.cdc.gov/coronavirus/2019-ncov/hcp/zdaqzdaw-kaxalmi-mgeras.html Stay home except to get medical care People who are mildly ill with COVID-19 are able to isolate at home during their illness. You should restrict activities outside your home, except for getting medical care. Do not go to work, school, or public areas. Avoid using public transportation, ride-sharing, or taxis. Separate yourself from other people and animals in your home People: As much as possible, you should stay in a specific room and away from other people in your home. Also, you should use a separate bathroom, if available. Animals: You should restrict contact with pets and other animals while you are sick with COVID-19, just like you would around other people. Although there have not been reports of pets or other animals becoming sick with COVID-19, it is still recommended that people sick with COVID-19 limit contact with animals until more information is known about the virus. When possible, have another member of your household care for your animals while you are sick. If you are sick with COVID-19, avoid contact with your pet, including petting, snuggling, being kissed or licked, and sharing food. If you must care for your pet or be around animals while you are sick, wash your hands before and after you interact with pets and wear a face mask. Call ahead before visiting your doctor If you have a medical appointment, call the healthcare provider and tell them that you have or may have COVID-19. This will help the healthcare providers office take steps to keep other people from getting infected or exposed. Wear a face mask You should wear a face mask when you are around other people (e.g., sharing a room or vehicle) or pets and before you enter a healthcare providers office. If you are not able to wear a face mask (for example, because it causes trouble breathing), then people who live with you should not stay in the same room with you, or they should wear a face mask if they enter your room. Cover your coughs and sneezes Cover your mouth and nose with a tissue when you cough or sneeze. Throw used tissues in a lined trash can. Immediately wash your hands with soap and water for at least 20 seconds or, if soap and water are not available, clean your hands with an alcohol-based hand nurse educator that contains at least 60% alcohol. Clean your hands often Wash your hands often with soap and water for at least 20 seconds, especially after blowing your nose, coughing, or sneezing; going to the bathroom; and before eating or preparing food. If soap and water are not readily available, use an alcohol-based hand nurse educator with at least 60% alcohol, covering all surfaces of your hands and rubbing them together until they feel dry. Soap and water are the best option if hands are visibly dirty. Avoid touching your eyes, nose, and mouth with unwashed hands. Avoid sharing personal household items You should not share dishes, drinking glasses, cups, eating utensils, towels, or bedding with other people or pets in your home. After using these items, they should be washed thoroughly with soap and water. Clean all high-touch surfaces everyday High touch surfaces include counters, tabletops, doorknobs, bathroom fixtures, toilets, phones, keyboards, tablets, and bedside tables. Also, clean any surfaces that may have blood, stool, or body fluids on them. Use a household cleaning spray or wipe, according to the label instructions. Labels contain instructions for safe and effective use of the cleaning product including precautions you should take when applying the product, such as wearing gloves and making sure you have good ventilation during use of the product. Monitor your symptoms Seek prompt medical attention if your illness is worsening (e.g., difficulty breathing).Beforeseeking care, call your healthcare provider and tell them that you have, or are being evaluated for, COVID-19. Put on a face mask before you enter the facility. These steps will help the healthcare providers office to keep other people in the office or waiting room from getting infected or exposed. Ask your healthcare provider to call the local or state health department. Persons who are placed under active monitoring or facilitated self- monitoring should follow instructions provided by their local health department or occupational health professionals, as appropriate. When working with your local health department check their available hours. If you have a medical emergency and need to call 911, notify the dispatch personnel that you have, or are being evaluated for COVID-19. If possible, put on a face mask before emergency medical services arrive. Discontinuing home isolation Patients with confirmed COVID-19 should remain under home isolation precautions until the risk of secondary transmission to others is thought to be low. The decision to discontinue home isolation precautions should be made on a [id number] basis, in consultation with healthcare providers and state and local health departments. Coronavirus disease 2019 (COVID-19) is a virus that causes a respiratory illness. It is caused by a coronavirus called 2019 novel coronavirus (2019-nCoV). There are many types of coronavirus. Coronaviruses are a very common cause of bronchitis. They may sometimes cause lung infection(pneumonia). Symptoms can range from mild to severe respiratory illness. These viruses are also foundin some animals. COVID-19 was first found in people in [facility], in late 2018. In 2020, several cases of COVID-19 have been confirmed in the [place] Public health officials are working to find the source. How the virus spreads is not yet fully known. It may be spread through droplets of fluid that a person coughs or sneezes into the air. It may be spread if you touch a surface with virus on it, such as a handle or object, and then touch your mouth. What are the symptoms of COVID-19? Some people have no symptoms or mild symptoms. Symptoms may appear 2 to 14 days after contact with the virus. Symptoms can include: Fever Coughing Trouble breathing What are possible complications from COVID-19? In many cases, this virus can cause infection (pneumonia) in both lungs. In some cases, this can cause . How is COVID-19 diagnosed? Your healthcare provider will ask about your symptoms. He or she will also ask about your recent travel and contact with sick people. Testing for the virus is only done through the CDC. If yourhealthcare provider thinks you may have COVID- 19, he or she will work with your local health department and the CDC on testing. Follow all instructions from your healthcare provider. COVID-19 is diagnosed by: Nasal and throat swab. A cotton-tipped swab is wiped inside your nose or throa t. This is done to check for viruses in your nasal mucus. Sputum culture. A small sample of mucus coughed from your lungs (sputum) is collected if you have a cough. It is checked for the virus. How is COVID-19 treated? There is currently no medicine to treat the virus. Treatment is done to help your body while it fights the virus. This is known as supportive care. Supportive care may include: Pain medicine. These include acetaminophen and ibuprofen. They are used to help ease pain and reduce fever. Bed rest. This helps your body fight the illness. For severe illness, you may need to stay in the hospital. Care during severe illness may include: IV (intravenous) fluids.These are given through a vein to help keep your body hydrated. Oxygen. Supplemental oxygen or ventilation with a breathing machine (ventilator) may be given. This is done to keep enough oxygen in your body. Are you at risk for COVID-19? If youve been to a place where people have been sick with this virus, you are at risk for infection. You are at risk if you: Recently traveled to an affected area Had contact with a sick person who recently traveled to this area Had contact with a person who was diagnosed with COVID-19 How can COVID-19 be prevented? There is no vaccine yet. The best prevention is to not have contact with the virus. The CDC advises that people should not travel to areas where there are COVID-19 outbreaks right now for any reason that is not urgent. To help prevent spreading the infection, wash your hands often, or use an alcohol-basedhand nurse educator. If you are in an area with COVID-19: Wash your hands often. Or use an alcohol-based hand nurse educator often. Only touch your eyes, nose, or mouth with clean hands. Dont have contact with people who are sick. Follow local instructions about being in public. For example, you may be told to not use public transport for a period of time. Stay away from markets that have live or animals. Wash your hands after touching any animals. Don't touch animals that may be sick. Dont share eating or drinking tools with sick people. Dont kiss someone who is sick. Clean surfaces often with disinfectant. If you were in an area with COVID-19 in the last 14 days: Call your healthcare provider. He or she can talk with local health staff to see what action may be needed. Follow all instructions from your provider. Take your temperature every morning and evening for at least 14 days. This is to check for fever. Keep a record of the readings. Keep watch for symptoms of the virus. Tell your provider right away if you have symptoms. If you were in an area with COVID-19 and have a fever or other symptoms: Dont panic. Keep in mind that other illnesses can cause similar symptoms. Stay away from work, school, and public places. Limit physical contact with family members. Don't kiss anyone or share eating or drinking utensils. Clean surfaces you touch with disinfectant. This is to help prevent the virus from spreading. Call your healthcare provider. Explain that you have been exposed to COVID-19 and have symptoms. Do this before going to any hospital. Wait for instructions. Keep in mind that healthcare staff may wear protective equipment such as masks, gowns, gloves, and eye protection. You may be put in a separate room. This is to prevent the possible virus from spreading. Tell the healthcare staff about recent travel. This includes local travel on public transport. Staff may need to find other people you have been in contact with. Follow all instructions the healthcare staff give you. If you have been diagnosed with COVID-19 Follow all instructions from your healthcare provider. Dont leave your home, except to get medical care. Call your healthcare providers office before going. They can prepare and give you instructions. This will help prevent the virus from spreading. Dont go to work, school, or public areas. Dont use public transport or taxis. Stay away from other people in your home. Have them wear face masks around you. Dont share household items or food. Wear a face mask if you can. This includes at home or in a medical facility. Cover your face with a tissue when you cough or sneeze. Throw the tissue away. Wash your hands. Wash your hands often. Caregivers should: Follow all instructions from healthcare staff. Wear a face mask and protective clothing as advised. Wash hands often. Keep track of the sick persons symptoms. Clean surfaces, fabrics, and laundry thoroughly. Keep other people away from the sick person. When to call your healthcare provider Call your healthcare provider: If youve recently traveled and have symptoms If you have been diagnosed with COVID-19 and your symptoms are worse To learn more To find out more about COVID-19, visit the CDC website at www.cdc.gov/coronavirus/2019-ncov/index.html. 2123-5517 [employer] [address] [place] [address], [place] [address]. All rights reserved. This information is not intended as a substitute for professional medical care. Always follow your healthcare professional's instructions. This information has been adapted from [employer] Pending Studies at Discharge: No Stand-Alone Forms: [facility], Smoking Cessation Medications and DC Order Prescriptions: New guaifenesin [Mucinex] 600 mg Tablet Extended Release 12hr 600 mg PO Q12 5 Days Qty: 10 0RF doxycycline hyclate 100 mg Capsule 100 mg PO BID 2 Days Qty: 4 0RF Continued losartan 50 mg tablet 50 mg PO QAM aspirin 81 mg Tablet,Delayed Release (Dr/Ec) 81 mg PO QAM metformin 1,000 mg tablet 1,000 mg PO BID atenolol 50 mg tablet 100 mg PO QAM Tresiba FlexTouch U-200 200 unit/mL (3 mL) insulin pen 56 unit SUBCUT BID Trulicity 0.75 mg/0.5 mL pen injector 0.75 mg SUBCUT WK Rx Instructions: Q SUN amlodipine [Norvasc] 10 mg tablet 10 mg PO QAM atorvastatin 20 mg tablet 20 mg PO HS triamterene-hydrochlorothiazid 37.5-25 mg tablet 1 tab PO QAM tramadol 50 mg tablet 50 mg PO Q8H PRN (Reason: pain) Qty: 20 0RF isosorbide mononitrate 120 mg tablet extended release 24 hr 60 mg PO QAM Discharge Orders: Discharge Order (Routine); Ordered 10/14/21 Ordered By: Jovan Heerdia Admission Data Admit Date/Time: 10/07/21 20:13 Attending Provider: Jovan Heredia Admit Provider: Néstor Curtis Primary Care Provider: Martin Zavaleta Other Providers: Néstor Curtis ; Angela López
[2021-10-14] MEDS ORDERED: INSULIN HUMAN NPH SC SCH (16:30)
[2021-10-15 04:25] VITALS: TEMP 98.4; O2SAT 91
[2021-10-15] MEDS: ISOSORBIDE MONONITRATE 20 MG TAB PO SCH (07:33)
[2021-10-15] MEDS: ASPIRIN 81 MG ECTAB PO SCH (07:33)
[2021-10-15] MEDS: TRIAMTERENE/HCTZ 37.5/25MG TAB PO SCH (07:34)
[2021-10-15] MEDS: guaiFENesin 600 MG TABCR PO SCH (07:34)
[2021-10-15] MEDS: ATENOLOL 50 MG TABLET PO SCH (07:34)
[2021-10-15] MEDS: BENZONATATE 100 MG CAPSULE PO SCH (07:35)
[2021-10-15] MEDS: ENOXAPARIN INJ 40 MG/0.4 ML SYR SQ SCH (07:35)
[2021-10-15] MEDS: dexAMETHasone 6 MG in SYRINGE 0 ML IV SCH (07:54)
[2021-10-15] MEDS: INSULIN ASPART PER UNIT SC SCH (08:50)
[2021-10-15] MEDS: INSULIN HUMAN NPH SC SCH (08:52)
[2021-10-15] MEDS: DOXYCYCLINE HYCLATE 100 MG CAP PO SCH (08:59)
[2021-10-15 09:38] VITALS: BP 129/79; PULSE 58
== END 2021-10-15 09:39 | disposition home or self-care (01) | DRG 177 ==
LOC: ED 14:15 → SUATTDRO 20:13 → EDINP 20:13 → 2E 20:57
DX: J18.9 Pneumonia, unspecified organism; Z79.4 Long term (current) use of insulin; E66.01 Morbid (severe) obesity due to excess calories; Z87.891 Personal history of nicotine dependence; Z68.42 Body mass index [BMI] 45.0-49.9, adult; Z79.84 Long term (current) use of oral hypoglycemic drugs; Z88.5 Allergy status to narcotic agent; I25.10 Atherosclerotic heart disease of native coronary artery without angina pectoris; E78.5 Hyperlipidemia, unspecified; I10 Essential (primary) hypertension; I45.10 Unspecified right bundle-branch block; J96.01 Acute respiratory failure with hypoxia; U07.1 COVID-19; Z79.82 Long term (current) use of aspirin; E11.9 Type 2 diabetes mellitus without complications

== ENCOUNTER 2022-06-05 08:15 | Inpatient (IN) ==
--- NOTE | 2022-06-05 08:28 | Emergency Department Note ---
Impression & Plan Chest pain, Hypoxia, Pulmonary edema, Hypomagnesemia, Atrial fibrillation ED Provider Note NAME: SONDRA FRANCES AGE: 77 SEX: M : 1945 ARRIVES VIA: Ambulance INFORMANT: Patient, EMS ED PROVIDER(S): Ihsan Walters DO CHIEF COMPLAINT: Chest pain HPI: The patient is a 77-year-old male who presented to the emergency department for an evaluation of chest pain. The patient states he started noticing chest pain over the course the last few days. The patient also noticed some cough. He denies any difficulty breathing at this time but does note some shortness of breath with exertion. The patient called 911 this morning. He was found to be hypoxic and tachycardic. He was given aspirin nitroglycerin and a DuoNeb prior to arrival as he was found to be wheezing by the prehospital personnel. The patient denies having any hemoptysis. He has not seen his family doctor for the symptoms. He denies have any recent traveling. He does note some swelling in his lower legs which is not new for him. ROS: See above HPI for pertinent positives & negatives. A total of 10 systems reviewed and were otherwise negative. PAST MEDICAL HISTORY: See Below PAST SURGICAL HISTORY: See Below FAMILY HISTORY: See Below SOCIAL HISTORY: See Below HOME MEDICATIONS: See Below ALLERGIES: See Below VITALS: See Below PHYSICAL EXAMINATION: GENERAL: Patient is awake alert in no acute distress patient is resting comfo rtably and showing no signs of anxiety EYES: The conjunctivae are clear. The pupils are round and reactive. EARS, NOSE, MOUTH AND THROAT: The nose is without any evidence of any deformity. Mucous membranes are moist. Tongue is midline. NECK: The neck is nontender and supple. RESPIRATORY: Diminished breath sounds are noted throughout. There were rales in all lung carmona. There was tachypnea with conversational dyspnea appreciated. CARDIOVASCULAR: Tachycardic and regular heart sounds were noted to auscultation. There is no definite murmur. GASTROINTESTINAL: The abdomen is soft. Abdomen is nontender. MUSCULOSKELETAL/EXTREMITIES: There is no evidence of gross deformity full range of motion is noted in the hips and shoulders. SKIN: Pedal edema was noted bilaterally. Skin is warm and dry. NEUROLOGIC: Patient is awake alert and oriented x3 MEDICAL DECISION MAKING: The patient is a 77-year-old male who presented to the emergency department for an evaluation of chest pain and difficulty breathing. The patient arrived via ambulance. He was treated with aspirin and nitroglycerin prior to arrival. The patient was also given a DuoNeb. He was having episodes of tachycardia which initially were felt to be sinus tachycardia. He continues to have episodes of this tachycardia. He has a bundle-branch block pattern at baseline. The patient was treated with supplemental oxygen as well as Lasix in the emergency department. He was feeling much better on reevaluation. I discussed the patient's laboratory and radiographic studies with him. Given his findings I do feel the patient would be a better candidate for inpatient management. For this reason I discussed his condition with the on-call [facility]. They have agreed to evaluate the patient in the emergency department for further management and disposition. Triage Nursing notes reviewed. Prior medical records reviewed Vital Signs: reviewed and remarkable for initial hypoxia and episodes of tachycardia. Differential diagnosis: Cardiac ischemia, aortic dissection, pulmonary embolism, pneumothorax, pneumonia, pericarditis, myocarditis, esophageal rupture, GERD, cholecystitis, pancreatitis, musculoskeletal, as well as other pathologies. ER treatment provided: See below Diagnostics interpreted by me: ECG: EKG was obtained in the emergency department. My interpretation is sinus tachycardia at 142 bpm. Right bundle branch block pattern was noted. No PVCs were noted. This was compared to a tracing from May 15, 2022. The right bundle branch block pattern is not new however the tachycardias. Prehospital EKG was reviewed. My interpretation is sinus rhythm with first- degree AV block at 118 bpm. There are some runs of what appeared to be rapid A- fib versus SVT noted. Cardiac Monitoring: An order was placed for continuous cardiac monitoring. The monitor shows a rate of sinus rhythm with first-degree AV block at 89 bpm. Laboratory studies: As stated above and show below. Imaging studies: See below. Radiographic imaging was reviewed by myself Consultation(s): I discussed this case with Joanne who is on-call for the [facility] group Past Med/Surg History Medical History Cellulitis resolved, BLE Diabetic neuropathy Diverticulosis DJD (degenerative joint disease), lumbosacral Dyslipidemia First degree atrioventricular block Hemorrhoids Hypertension Left anterior fascicular block Monoclonal gammopathy Morbid obesity BMI 45.4 Osteoarthritis RBBB Snoring pt states he is scheduled for a sleep study test this summer Type 2 diabetes mellitus Surgical History H/O oral surgery all teeth removed History of back surgery (~05/2005) lumbar laminectomy History of cardiac cath (~04/27/21) no stents, d/t angina History of colonoscopy last 2015 History of sinus surgery (~05/10/20) Hx of cataract surgery Family History Father Coronary heart disease Heart disease Myocardial infarction Sister Coronary heart disease Cancer Brother Coronary heart disease Hx of CABG Family/Other Hearing loss Mother Asthma Other No family history of adverse response to anesthesia Social History Smoking Status: Never smoker Tobacco Type: Smokeless Tobacco (Dip or Chew) Second Hand Exposure: No; Hx Alcohol Use: No Hx Substance Use: No Preferred Language: Guamanian Communication Ability: Effective Tile Picker Required: No Beliefs That Will Affect Care: None marital status: Single Current Living Situation: Alone Current Living Situation Comment: Sister lives next door current occupational status: retired How many Children do You have Comment: No Children Feels Safe at Home: Yes Assistive Devices: Cane Allergies Allergies Allergy/AdvReac Type Severity Reaction Status Date / Time cephalexin Allergy Mild Unknown Verified 05/15/22 15:00 codeine Allergy Mild unknown Verified 05/15/22 15:00 Home Meds Home Medications Medication Instructions Recorded Confirmed aspirin 81 mg tablet,delayed 81 mg PO QAM 08/11/19 06/05/22 release atenolol 50 mg tablet 50 mg PO BID 08/11/19 06/05/22 dulaglutide 0.75 mg/0.5 mL 0.75 mg subcut WK 08/11/19 06/05/22 subcutaneous pen injector (Trulicity) insulin degludec 200 unit/mL (3 40 unit subcut BID 08/11/19 06/05/22 mL) subcutaneous pen (Tresiba FlexTouch U-200 insulin) metformin 1,000 mg tablet 1,000 mg PO BID 08/11/19 06/05/22 losartan 50 mg tablet 50 mg PO QAM 10/25/20 06/05/22 amlodipine 10 mg tablet (Norvasc) 10 mg PO QAM 01/02/21 06/05/22 atorvastatin 20 mg tablet 20 mg PO HS 05/16/21 06/05/22 triamterene 37.5 1 tab PO QAM 05/16/21 06/05/22 mg-hydrochlorothiazide 25 mg tablet insulin aspar prt-insulin aspart 0 sliding scale dose subcut 05/15/22 06/05/22 100 unit/mL (70-30) subcutaneous USEASDIRECTD soln (Novolog Mix 70-30 U-100 Insuln) Previous Rx's Medication Instructions Recorded tramadol 50 mg tablet 50 mg PO Q8H PRN pain #20 tabs 05/16/21 isosorbide mononitrate 120 mg 60 mg PO QAM #45 tabs 01/07/22 tablet,extended release 24 hr Results & Data (ED) Vital Signs Vital Signs - 24 hr 06/05/22 08:27 06/05/22 08:16 06/05/22 08:16 Temperature 37.2 C Temperature Source Oral Pulse Rate 90 143 H Pulse Rhythm Regular Pulse Strength Normal Respiratory Rate 21 Respiratory Effort / Characteristics Spontaneous Respiratory Depth Normal Blood Pressure 138/96 Blood Pressure Mean 110 Blood Pressure Position Sitting Pulse Oximetry 88 L Oxygen Delivery Method Room Air Oxygen Flow Rate Sepsis Recent Fever Within 48 Hours No Sepsis New/Unexplained Change in Mental Status No Sepsis Action Taken by Nursing Physician Notified Fraction of Inspired Oxygen - Titration 06/05/22 08:19 06/05/22 09:10 06/05/22 08:22 Temperature Temperature Source Pulse Rate 138 H 80 Pulse Rhythm Pulse Strength Respiratory Rate 25 H 21 Respiratory Effort / Characteristics Respiratory Depth Blood Pressure Blood Pressure Mean Blood Pressure Position Pulse Oximetry 94 92 93 Oxygen Delivery Method Nasal Cannula Nasal Cannula Nasal Cannula Oxygen Flow Rate 4 4 Sepsis Recent Fever Within 48 Hours Sepsis New/Unexplained Change in Mental Status Sepsis Action Taken by Nursing Fraction of Inspired Oxygen - Titration 4 06/05/22 08:30 06/05/22 09:00 06/05/22 09:15 Temperature Temperature Source Pulse Rate 89 140 H 137 H Pulse Rhythm Pulse Strength Respiratory Rate 23 22 19 Respiratory Effort / Characteristics Respiratory Depth Blood Pressure Blood Pressure Mean Blood Pressure Position Pulse Oximetry 93 95 92 Oxygen Delivery Method Nasal Cannula Nasal Cannula Nasal Cannula Oxygen Flow Rate 4 4 4 Sepsis Recent Fever Within 48 Hours Sepsis New/Unexplained Change in Mental Status Sepsis Action Taken by Nursing Fraction of Inspired Oxygen - Titration 06/05/22 09:30 06/05/22 09:45 06/05/22 10:00 Temperature Temperature Source Pulse Rate 140 H 143 H 140 H Pulse Rhythm Pulse Strength Respiratory Rate 22 22 30 H Respiratory Effort / Characteristics Respiratory Depth Blood Pressure Blood Pressure Mean Blood Pressure Position Pulse Oximetry 92 92 93 Oxygen Delivery Method Nasal Cannula Nasal Cannula Nasal Cannula Oxygen Flow Rate 4 4 4 Sepsis Recent Fever Within 48 Hours Sepsis New/Unexplained Change in Mental Status Sepsis Action Taken by Nursing Fraction of Inspired Oxygen - Titration 06/05/22 10:15 06/05/22 10:30 06/05/22 10:42 Temperature Temperature Source Pulse Rate 138 H 140 H Pulse Rhythm Pulse Strength Respiratory Rate 26 H 23 Respiratory Effort / Characteristics Respiratory Depth Blood Pressure 153/93 H Blood Pressure Mean 113 Blood Pressure Position Pulse Oximetry 92 92 Oxygen Delivery Method Nasal Cannula Nasal Cannula Oxygen Flow Rate 4 4 Sepsis Recent Fever Within 48 Hours Sepsis New/Unexplained Change in Mental Status Sepsis Action Taken by Nursing Fraction of Inspired Oxygen - Titration 06/05/22 10:42 06/05/22 10:45 06/05/22 11:00 Temperature Temperature Source Pulse Rate 135 H 145 H 89 Pulse Rhythm Pulse Strength Respiratory Rate 28 H 18 24 Respiratory Effort / Characteristics Respiratory Depth Blood Pressure Blood Pressure Mean Blood Pressure Position Pulse Oximetry 94 93 Oxygen Delivery Method Nasal Cannula Nasal Cannula Oxygen Flow Rate 4 4 Sepsis Recent Fever Within 48 Hours Sepsis New/Unexplained Change in Mental Status Sepsis Action Taken by Nursing Fraction of Inspired Oxygen - Titration Home Medications Current Medication List: was personally reviewed by me Laboratory Data Attestation: I reviewed the patient's lab results. 06/05/22 08:34 06/05/22 08:34 Lab Results 06/05/22 06/05/22 06/05/22 Range/Units 08:34 08:34 08:34 WBC 9.99 (4.8-10.8) K/ul RBC 4.90 (4.70-6.10) M/uL Hgb 13.9 L (14.0-18.0) g/dl Hct 40.3 L (42.0-52.0) % MCV 82.2 (80.0-100.0) fL MCH 28.4 (25.0-34.0) pg MCHC 34.5 (32.0-36.0) g/dL RDW Std Deviation 41.0 (36.4-46.3) fL RDW Coeff of [place] 13.8 (11.5-14.5) % Plt Count 212 (130-400) K/uL MPV 10.3 (9.4-12.4) fL Immature Gran % (Auto) 0.4 % Neut % (Auto) 83.9 % Lymph % (Auto) 5.6 % Pickett % (Auto) 8.5 % Eos % (Auto) 1.4 % Baso % (Auto) 0.2 % Neut # (Auto) 8.38 H (1.40-6.50) K/uL Lymph # (Auto) 0.56 L (1.2-3.4) K/uL Pickett # (Auto) 0.85 H (0.11-0.59) K/uL Eos # (Auto) 0.14 (0-0.50) K/uL Baso # (Auto) 0.02 (0-0.2) K/uL Immature Gran # (Auto) 0.04 (0.01-0.20) K/uL PT 10.9 (9.0-12.0) Seconds INR 1.0 (0.9-1.1) APTT 25.5 (21.0-31.0) Seconds PTT Ratio 0.9 VBG pH (7.36-7.41) VBG pCO2 (38-50) mmHg VBG pO2 mmHg VBG HCO3 mmol/L VBG O2 Saturation % VBG Base Excess mEq/L Sodium 139 (136-145) mmol/L Potassium 3.7 (3.5-5.1) mmol/L Chloride 100 (98-107) mmol/L Carbon Dioxide 29 (21-32) mmol/L Anion Gap 10 (3-11) BUN 18 (6-23) mg/dl Creatinine 1.00 (0.6-1.4) mg/dl Est Cr Clr Drug Dosing 86.7 ml/min Est GFR ( Amer) 83.8 ml/min Est GFR (Non-Af Amer) 72.3 ml/min BUN/Creatinine Ratio 18.0 (10-20) Glucose 206 H (70-99(Fasting)) mg/dl Calcium 9.5 (8.6-10.3) mg/dl Magnesium 1.3 L (1.7-2.4) mg/dl Total Bilirubin 0.9 (0.2-1.0) mg/dl AST 24 (13-39) U/L ALT 18 (7-52) U/L Alkaline Phosphatase 44 (34-104) U/L Troponin I High Sens 22.6 H (0-20) pg/ml B-Natriuretic Peptide (0-100) pg/ml Total Protein 7.3 (6.0-8.3) gm/dl Albumin 4.2 (3.4-5.0) gm/dl Globulin 3.1 (2.5-4.0) gm/dl Albumin/Globulin Ratio 1.4 (0.9-2) SARS-CoV-2 (PCR) (Negative) Influenza Type A (PCR) (Neg) Influenza Type B (PCR) (Neg) RSV (RT-PCR) (Neg) 06/05/22 06/05/22 06/05/22 Range/Units 08:34 08:34 Unknown WBC (4.8-10.8) K/ul RBC (4.70-6.10) M/uL Hgb (14.0-18.0) g/dl Hct (42.0-52.0) % MCV (80.0-100.0) fL MCH (25.0-34.0) pg MCHC (32.0-36.0) g/dL RDW Std Deviation (36.4-46.3) fL RDW Coeff of [place] (11.5-14.5) % Plt Count (130-400) K/uL MPV (9.4-12.4) fL Immature Gran % (Auto) % Neut % (Auto) % Lymph % (Auto) % Pickett % (Auto) % Eos % (Auto) % Baso % (Auto) % Neut # (Auto) (1.40-6.50) K/uL Lymph # (Auto) (1.2-3.4) K/uL Pickett # (Auto) (0.11-0.59) K/uL Eos # (Auto) (0-0.50) K/uL Baso # (Auto) (0-0.2) K/uL Immature Gran # (Auto) (0.01-0.20) K/uL PT (9.0-12.0) Seconds INR (0.9-1.1) APTT (21.0-31.0) Seconds PTT Ratio VBG pH 7.44 H (7.36-7.41) VBG pCO2 47 (38-50) mmHg VBG pO2 45 mmHg VBG HCO3 32 mmol/L VBG O2 Saturation 77.7 % VBG Base Excess 6.6 mEq/L Sodium (136-145) mmol/L Potassium (3.5-5.1) mmol/L Chloride (98-107) mmol/L Carbon Dioxide (21-32) mmol/L Anion Gap (3-11) BUN (6-23) mg/dl Creatinine (0.6-1.4) mg/dl Est Cr Clr Drug Dosing ml/min Est GFR ( Amer) ml/min Est GFR (Non-Af Amer) ml/min BUN/Creatinine Ratio (10-20) Glucose (70-99(Fasting)) mg/dl Calcium (8.6-10.3) mg/dl Magnesium (1.7-2.4) mg/dl Total Bilirubin (0.2-1.0) mg/dl AST (13-39) U/L ALT (7-52) U/L Alkaline Phosphatase (34-104) U/L Troponin I High Sens (0-20) pg/ml B-Natriuretic Peptide 303 H (0-100) pg/ml Total Protein (6.0-8.3) gm/dl Albumin (3.4-5.0) gm/dl Globulin (2.5-4.0) gm/dl Albumin/Globulin Ratio (0.9-2) SARS-CoV-2 (PCR) NEGATIVE (Negative) Influenza Type A (PCR) Negative (Neg) Influenza Type B (PCR) Negative (Neg) RSV (RT-PCR) Negative (Neg) Administered Medications Discontinued Medications Furosemide (Furosemide 40 Mg/4 Ml Vial) 40 mg IV ONE ONE Stop: 06/05/22 10:18 Last Admin: 06/05/22 10:43 Dose: 40 mg Documented By: HG Imaging Data Attestation: I personally reviewed and interpreted this imaging study as follows: My Impression: 1 view chest x-ray was obtained in the emergency department. My interpretation is cardiomegaly, final report below. Radiologist's Impression: Chest X-Ray 06/05/22 08:19 XR chest 1V portable HISTORY: 77 years-old Male Dyspnea acute shortness of breath COMPARISON: 10/10/2021 TECHNIQUE: AP view of the chest FINDINGS: Cardiac silhouette is enlarged. Unchanged mediastinal contours. Subcentimeter calcified granuloma of the right midlung. No pneumothorax, pleural effusion or overt pulmonary edema. Unchanged mild interstitial coarsening of the lung bases. Degenerative changes of the shoulders and spine. IMPRESSION: Cardiomegaly without acute process. ACT 112: Negative or not required by law. The above report was generated using voice recognition software. It may contain grammatical, syntax or spelling errors. Electronically signed by: Oracio Martinez M.D. 06/05/2022 9:50 AM Discharge Plan Visit Data Chief Complaint: Chest Pain Stated Complaint: CHEST PAIN, HEADACHE ED Provider: Ihsan Walters Discharge Problem: Chest pain, Hypoxia, Pulmonary edema, Hypomagnesemia, Atrial fibrillation Patient Disposition: Being Evaluated by Hospitalist Forms Stand Alone Forms: [facility] Prescriptions Prescriptions: No Action isosorbide mononitrate 120 mg tablet extended release 24 hr 60 mg PO QAM Qty: 45 3RF insulin asp prt-insulin aspart [Novolog Mix 70-30 U-100 Insuln] 100 unit/mL (70-30) solution 0 sliding scale dose subcut USEASDIRECTD Rx Instructions: 20 units BID; Sliding scale: 2 units for every 50 over 150 losartan 50 mg tablet 50 mg PO QAM aspirin 81 mg Tablet,Delayed Release (Dr/Ec) 81 mg PO QAM metformin 1,000 mg tablet 1,000 mg PO BID atenolol 50 mg tablet 50 mg PO BID insulin degludec [Tresiba FlexTouch U-200] 200 unit/mL (3 mL) insulin pen 40 unit SUBCUT BID Trulicity 0.75 mg/0.5 mL pen injector 0.75 mg SUBCUT WK Rx Instructions: Q SUN amlodipine [Norvasc] 10 mg tablet 10 mg PO QAM atorvastatin 20 mg tablet 20 mg PO HS triamterene-hydrochlorothiazid 37.5-25 mg tablet 1 tab PO QAM tramadol 50 mg tablet 50 mg PO Q8H PRN (Reason: pain) Qty: 20 0RF Referrals Referrals: Martin Zavaleta MD [Primary Care Provider] -
[2022-06-05 08:54] LABS: Base Excess VBG 6.6 mEq/L; HCO3 VBG 32 mmol/L; Oxygen Saturation VBG 77.7 %; PCO2 VBG 47 mmHg (38-50); PO2 VBG 45 mmHg; pH VBG 7.44 (7.36-7.41)
[2022-06-05 09:04] LABS: Basophils # (auto) 0.02 K/uL (0-0.2); Basophils % (auto) 0.2 %; Eosinophils # (auto) 0.14 K/uL (0-0.50); Eosinophils % (auto) 1.4 %; Hematocrit (blood only) 40.3 % (42.0-52.0); Hemoglobin 13.9 g/dl (14.0-18.0); Immature Granulocytes # (auto) 0.04 K/uL (0.01-0.20); Immature Granulocytes % (auto) 0.4 %; Lymphocytes # (auto) 0.56 K/uL (1.2-3.4); Lymphocytes % (auto) 5.6 %; Mean Corpuscular Hemoglobin 28.4 pg (25.0-34.0); Mean Corpuscular Hgb Conc 34.5 g/dL (32.0-36.0); Mean Corpuscular Volume 82.2 fL (80.0-100.0); Mean Platelet Volume 10.3 fL (9.4-12.4); Monocytes # (auto) 0.85 K/uL (0.11-0.59); Monocytes % (auto) 8.5 %; Neutrophils # (auto) 8.38 K/uL (1.40-6.50); Neutrophils % (auto) 83.9 %; Platelet Count 212 K/uL (130-400); RDW Coefficient of Variation 13.8 % (11.5-14.5); White Blood Count 9.99 K/ul (4.8-10.8)
[2022-06-05 09:24] LABS: Troponin I High Sensitivity 22.6 pg/ml (0-20)
[2022-06-05 09:32] LABS: Partial Thromboplastin Ratio 0.9; Partial Thromboplastin Time 25.5 Seconds (21.0-31.0); Prothrombin Time 10.9 Seconds (9.0-12.0)
[2022-06-05 09:33] LABS: Albumin Level 4.2 gm/dl (3.4-5.0); Bilirubin,Total 0.9 mg/dl (0.2-1.0); Calcium 9.5 mg/dl (8.6-10.3); Magnesium 1.3 mg/dl (1.7-2.4); Potassium 3.7 mmol/L (3.5-5.1)
[2022-06-05 09:39] LABS: Albumin Globulin Ratio 1.4 (0.9-2); Creatinine Clr Calc Pharmacy 86.7 ml/min; Est GFR (African American) 83.8 ml/min; Est GFR (Non-African American) 72.3 ml/min; Globulin 3.1 gm/dl (2.5-4.0); Total Protein 7.3 gm/dl (6.0-8.3)
--- NOTE | 2022-06-05 09:52 | XRay Report ---
XR chest 1V portable HISTORY: 77 years-old Male Dyspnea acute shortness of breath COMPARISON: 10/10/2021 TECHNIQUE: AP view of the chest FINDINGS: Cardiac silhouette is enlarged. Unchanged mediastinal contours. Subcentimeter calcified granuloma of the right midlung. No pneumothorax, pleural effusion or overt pulmonary edema. Unchanged mild interst itial coarsening of the lung bases. Degenerative changes of the shoulders and spine. IMPRESSION: Cardiomegaly without acute process. ACT 112: Negative or not required by law. The above report was generated using voice recognition software. It may contain grammatical, syntax o r spelling errors. Electronically signed by: Oracio Martinez M.D. 06/05/2022 9:50 AM
[2022-06-05 09:59] LABS: Influenza A virus by PCR Negative (Neg); Influenza B virus by PCR Negative (Neg); RSV by PCR Negative (Neg); SARS CoV2 RNA(COVID-19) Ceph NEGATIVE (Negative)
[2022-06-05] MEDS ORDERED: FUROSEMIDE 40 MG/4 ML VIAL IV ONE (10:17)
[2022-06-05] MEDS ORDERED: MAGNESIUM SULFATE / D5W 1 GM/100 ML BAG IV STA (10:37)
--- NOTE | 2022-06-05 10:55 | History & Physical Report ---
Date of Service June 05, 2022 Assessment & Plan (1) Atrial flutter with rapid ventricular response: (2) Hypoxia: (3) Chest pain: Plan: - Admit to PCU - HR in the 140s in aflutter and breaks intermittently into the 80s with 1st degree AV block, RBBB and likely secondary to electrolyte abnormalities - Replacing mag and potassium - Will order 1 dose of cardizem now to see if breaks rhythm - Cardiology consulted - follows with Dr. Miguel as outpatient - Check 2 D echo - last from Mar 2020 was reviewed showed EF of 60-65 %, no regional wall motion abnormalities, mild concentric left ventricular hypertrophy - EKG reviewed - Check TSH with morning labs (4) Hypomagnesemia: Plan: - Mag 1.3 on arrival, given 1 g in the ER and will order an additional 1 g IV (5) Hypertension: Plan: - Pt missed all antihypertensives this morning, will continue on atenolol 50 mg twice daily, Imdur, losartan - Holding triamterene/HCTZ - BP elevated 153/93 (6) Dyslipidemia: Plan: - Cont statin therapy (7) Type 2 diabetes mellitus: Plan: - A1C with am labs - Will continue ISS with accuchecks, holding metformin - Continue lantus 40 U BID, takes trulicity on Sundays (8) Morbid obesity: Plan: - BMI of 43.7 - Diet and exercise to be encouraged throughout hospital course DVT ppx: - teds, scds, heparin subq CODE: Full code Dispo: From home, likely to remain in the hospital x 1-2 days A total of 77 minutes were spent with greater than 50% of that time face to face with the patient, personally reviewing all current laboratories, imaging studies, past medication reconciliation, outpatient chart review, and discussion with specialists to collaborate care for the patient with attending. Please see attending documentation for corrections and/or additions. History of Present Illness Chief Complaint: Shortness of breath Primary Care Provider: Martin Zavaleta MD This is a 77 yo M with PMHx of DM II, HTN, obesity with BMI 43.7, chronic ischemic heart disease, MDD, generalized anxiety who presents with shortness of breath with hypoxia on room air with O2 sats at 88% upon presentation. Last evening around 9 PM he had acute onset of substernal chest pain and headache while he was sitting down watching TV in the evening. This morning upon awakening his chest pain was resolved and his headache was gone however he still had a cough and felt short of breath with minimal exertion. Cough is nonproductive, and does cause a twinge pain in the lower right side of his anterior chest. He does not wear any oxygen at baseline, is currently on 4 L here with sats at 92 to 93%. EKG and telemetry monitoring show that he is in a flutter with a rate of 140s while sitting at rest, and intermittently, even during our conversation he breaks into NSR with HR down into the 80s. All while sitting at rest. He denies any chest pain, lightheadedness, dizziness, palpitations, abdominal complaints, nausea or vomiting. Patient has been tolerating p.o. intake without difficulty. Patient did not take his morning medications today due to calling EMS, but did take them last evening. He follows with Dr. Miguel with [facility] cardiology routinely. He reports having a cardiac cath about 2 years ago which was okay. Allergies Allergy/AdvReac Type Severity Reaction Status Date / Time cephalexin Allergy Mild Unknown Verified 05/15/22 15:00 codeine Allergy Mild unknown Verified 05/15/22 15:00 Home Medications Medication Instructions Recorded Confirmed Type aspirin 81 mg tablet,delayed 81 mg PO QAM 08/11/19 06/05/22 History release atenolol 50 mg tablet 50 mg PO BID 08/11/19 06/05/22 History dulaglutide 0.75 mg/0.5 mL 0.75 mg subcut WK 08/11/19 06/05/22 History subcutaneous pen injector (Trulicity) insulin degludec 200 unit/mL (3 40 unit subcut BID 08/11/19 06/05/22 History mL) subcutaneous pen (Tresiba FlexTouch U-200 insulin) metformin 1,000 mg tablet 1,000 mg PO BID 08/11/19 06/05/22 History losartan 50 mg tablet 50 mg PO QAM 10/25/20 06/05/22 History amlodipine 10 mg tablet (Norvasc) 10 mg PO QAM 01/02/21 06/05/22 History atorvastatin 20 mg tablet 20 mg PO HS 05/16/21 06/05/22 History tramadol 50 mg tablet 50 mg PO Q8H PRN pain #20 tabs 03/23/22 04/12/23 Rx triamterene 37.5 1 tab PO QAM 05/16/21 06/05/22 History mg-hydrochlorothiazide 25 mg tablet isosorbide mononitrate 120 mg 60 mg PO QAM #45 tabs 01/07/22 06/05/22 Rx tablet,extended release 24 hr insulin aspart U-100 100 unit/mL unit subcut BID 06/05/22 History (3 mL) subcutaneous pen (Novolog FlexPen U-100 Insulin aspart) Past Med/Surg History Medical History CAD (coronary artery disease) Cellulitis resolved, BLE Diabetic neuropathy Diverticulosis DJD (degenerative joint disease), lumbosacral Dyslipidemia First degree atrioventricular block Hemorrhoids Hypertension Left anterior fascicular block Monoclonal gammopathy Morbid obesity BMI 45.4 Osteoarthritis RBBB Snoring pt states he is scheduled for a sleep study test this summer Type 2 diabetes mellitus Surgical History H/O oral surgery all teeth removed History of back surgery (~05/2005) lumbar laminectomy History of cardiac cath (~04/27/21) no stents, d/t angina History of colonoscopy last 2015 History of sinus surgery (~05/10/20) Hx of cataract surgery Family History Father Coronary heart disease Heart disease Myocardial infarction Sister Coronary heart disease Cancer Brother Coronary heart disease Hx of CABG Family/Other Hearing loss Mother Asthma Other No family history of adverse response to anesthesia Social History Smoking Status: Never smoker Tobacco Type: Smokeless Tobacco (Dip or Chew) Second Hand Exposure: No; Hx Alcohol Use: No Hx Substance Use: No Preferred Language: Bulgarian Communication Ability: Effective 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 Beliefs That Will Affect Care: None marital status: Single Current Living Situation: Alone Current Living Situation Comment: Sister is neighbor current occupational status: retired How many Children do You have Comment: No Children Feels Safe at Home: Yes Assistive Devices: Denture - Upper, Denture - Lower and Glasses Review of Systems Review of Systems: Constitutional: No fever, sweats or chills Eyes: No diplopia, no worsening or blurred vision ENT: normal hearing, no trouble swallowing Respiratory: As per HPI, + cough, no sputum, + dyspnea on exertion Cardiovascular: As per HPI, currently no chest pain, tightness or palpitations Abdomen: No pain, nausea, vomiting, diarrhea or constipation Musculoskeletal: No joint pain, calf pain, + chronic lower extremity swelling Neurologic: No weakness, numbness/tingling, or balance problems Psychiatric: No anxiety or depression Skin: No rash or itch Physical Exam Physical Exam: General: awake, alert, no apparent distress, + morbidly obese with BMI of 43.7 Head: Normocephalic, atraumatic ENT: PERRL, EOMI, no pharyngeal exudate, mucous membranes moist Chest: On for L via NC with O2 sats at 93%, + coarse breath sounds, faint rales, no crackles or wheeze Cardiac: HR in the 140s in aflutter and breaks intermittently into the 80s with 1st degree AV block, RBBB, no murmur, no JVD, normal peripheral pulses, good capillary refill Abdominal: NABS x 4 quadrants, + obese, soft, nondistended, nontender to palpation, no rebound or guarding Extremities: Normal inspection, 1+ pitting peripheral edema bilaterally, no erythema, calfs nontender to palpation Psych: Normal mood and affect Skin: Multiple actinic keratoses lesions chest, trunk, back, head Neuro: AAO x 3, strength intact bilaterally and rated 5/5, no motor deficits, speech is clear, no peripheral sensory deficits Results & Data Results & Data Vital Signs (Past 12 Hours) Vital Signs Temp Pulse Resp BP Pulse Ox O2 Del Method O2 Flow Rate 06/05/22 10:30 140 H 23 92 Nasal Cannula 4 06/05/22 10:15 138 H 26 H 92 Nasal Cannula 4 06/05/22 10:00 140 H 30 H 93 Nasal Cannula 4 06/05/22 09:45 143 H 22 92 Nasal Cannula 4 06/05/22 09:30 140 H 22 92 Nasal Cannula 4 06/05/22 09:15 137 H 19 92 Nasal Cannula 4 06/05/22 09:00 140 H 22 95 Nasal Cannula 4 06/05/22 08:30 89 23 93 Nasal Cannula 4 06/05/22 08:22 80 21 93 Nasal Cannula 4 06/05/22 09:10 92 Nasal Cannula 06/05/22 08:19 138 H 25 H 94 Nasal Cannula 4 06/05/22 08:16 37.2 C 143 H 21 138/96 88 L Room Air 06/05/22 08:27 90 Laboratory Results 06/05/22 06/05/22 06/05/22 Unknown 08:34 08:34 WBC RBC Hgb Hct MCV MCH MCHC RDW Std Deviation RDW Coeff of Troy Plt Count MPV Immature Gran % (Auto) Neut % (Auto) Lymph % (Auto) Pierce % (Auto) Eos % (Auto) Baso % (Auto) Neut # (Auto) Lymph # (Auto) Pierce # (Auto) Eos # (Auto) Baso # (Auto) Immature Gran # (Auto) PT INR APTT PTT Ratio VBG pH 7.44 H VBG pCO2 47 VBG pO2 45 VBG HCO3 32 VBG O2 Saturation 77.7 VBG Base Excess 6.6 Sodium Potassium Chloride Carbon Dioxide Anion Gap BUN Creatinine Est Cr Clr Drug Dosing Est GFR ( Amer) Est GFR (Non-Af Amer) BUN/Creatinine Ratio Glucose Calcium Magnesium Total Bilirubin AST ALT Alkaline Phosphatase Troponin I High Sens B-Natriuretic Peptide 303 H Total Protein Albumin Globulin Albumin/Globulin Ratio SARS-CoV-2 (PCR) NEGATIVE Influenza Type A (PCR) Negative Influenza Type B (PCR) Negative RSV (RT-PCR) Negative 06/05/22 06/05/22 06/05/22 08:34 08:34 08:34 WBC 9.99 RBC 4.90 Hgb 13.9 L Hct 40.3 L MCV 82.2 MCH 28.4 MCHC 34.5 RDW Std Deviation 41.0 RDW Coeff of [place] 13.8 Plt Count 212 MPV 10.3 Immature Gran % (Auto) 0.4 Neut % (Auto) 83.9 Lymph % (Auto) 5.6 Pierce % (Auto) 8.5 Eos % (Auto) 1.4 Baso % (Auto) 0.2 Neut # (Auto) 8.38 H Lymph # (Auto) 0.56 L Pierce # (Auto) 0.85 H Eos # (Auto) 0.14 Baso # (Auto) 0.02 Immature Gran # (Auto) 0.04 PT 10.9 INR 1.0 APTT 25.5 PTT Ratio 0.9 VBG pH VBG pCO2 VBG pO2 VBG HCO3 VBG O2 Saturation VBG Base Excess Sodium 139 Potassium 3.7 Chloride 100 Carbon Dioxide 29 Anion Gap 10 BUN 18 Creatinine 1.00 Est Cr Clr Drug Dosing 86.7 Est GFR ( Amer) 83.8 Est GFR (Non-Af Amer) 72.3 BUN/Creatinine Ratio 18.0 Glucose 206 H Calcium 9.5 Magnesium 1.3 L Total Bilirubin 0.9 AST 24 ALT 18 Alkaline Phosphatase 44 Troponin I High Sens 22.6 H B-Natriuretic Peptide Total Protein 7.3 Albumin 4.2 Globulin 3.1 Albumin/Globulin Ratio 1.4 SARS-CoV-2 (PCR) Influenza Type A (PCR) Influenza Type B (PCR) RSV (RT-PCR) Diagnostic Findings Chest X-Ray 06/05/22 08:19 XR chest 1V portable HISTORY: 77 years-old Male Dyspnea acute shortness of breath COMPARISON: 10/10/2021 TECHNIQUE: AP view of the chest FINDINGS: Cardiac silhouette is enlarged. Unchanged mediastinal contours. Subcentimeter calcified granuloma of the right midlung. No pneumothorax, pleural effusion or overt pulmonary edema. Unchanged mild interstitial coarsening of the lung bases. Degenerative changes of the shoulders and spine. IMPRESSION: Cardiomegaly without acute process. ACT 112: Negative or not required by law. The above report was generated using voice recognition software. It may contain grammatical, syntax or spelling errors. Electronically signed by: Oracio Martinez M.D. 06/05/2022 9:50 AM ECG Additional Comments: 05-JUN-2022 08:20:11 [facility]-EDSTAT ROUTINE RETRIEVAL Poor data quality, interpretation may be adversely affected Wide QRS tachycardia Right bundle branch block Abnormal ECG When compared with ECG of 15-MAY-2022 15:17, (unconfirmed) Wide QRS tachycardia has replaced Sinus rhythm Vent. rate has increased BY 72 BPM 25mm/[id number] 241 HDCID: 12Unconfirmed Vent. rate 142 BPM NM interval * ms QRS duration 140 ms QT/QTc 338/519 ms Code Status & VTE Plan Code Status Full code - discussed with the patient at bedside Supervising Physician Co-Signing Physician Notes Patient was seen and examined independently. Chart reviewed. Case discussed with MARQUISE. Here with new onset A flutter, evaluated by Cardiology felt to have SVT will discuss with EP tomorrow. SVT episodes improved with electrolyte repletions. Will give additional 1gm Mg now (brings to total 3gm Mg today) and an additional 20mEQ K now (total 40mEq today). With his hypomagnesemia and triggering of SVT, triamterene-HCTZ was discontinued. BP currently is at goal on remaining medications. He is on multiple antihypertensives which raises question of medication compliance, he is at risk for polypharmacy. May need secondary HTN workup as outpatient including sleep study. (5) Hypertension Hypertension type: essential hypertension Qualified Code(s): I10 - Essential (primary) hypertension
[2022-06-05] MEDS ORDERED: POTASSIUM CHLORIDE CRTAB 20 MEQ TABCR PO STA ×2 (11:39→21:12)
[2022-06-05] MEDS ORDERED: MAGNESIUM SULFATE / D5W 1 GM/100 ML BAG IV ONE ×2 (11:39→21:15)
[2022-06-05] MEDS ORDERED: TRIAMTERENE/HCTZ 37.5/25MG TAB PO SCH (11:45)
[2022-06-05] MEDS ORDERED: dilTIAZem HCl 5 MG/ML 5 ML VIAL IV STA (11:57)
[2022-06-05] MEDS ORDERED: ONDANSETRON INJ 2 MG/ML 2 ML VIAL IV PRN (12:31)
[2022-06-05] MEDS ORDERED: ACETAMINOPHEN 325 MG TAB PO PRN (12:31)
[2022-06-05] MEDS ORDERED: GLUCAGON FOR INJ 1 MG VIAL SQ PRN (12:31)
[2022-06-05] MEDS ORDERED: GLUCOSE 10 TAB/TUBE PO PRN (12:31)
[2022-06-05] MEDS ORDERED: GLUCOSE 40% GEL 15 GM TUBE PO PRN (12:31)
[2022-06-05] MEDS ORDERED: DEXTROSE 50% 50 ML SYRINGE IV PRN (12:31)
[2022-06-05] MEDS ORDERED: CARBOHYDRATES FOR HYPOGLYCEMIA PO PRN (12:31)
[2022-06-05 13:00] LABS: Appearance Urine Clear (Clear); Bacteria Urine Automated Negative (Negative); Bilirubin Urine Negative (Negative); Blood Urine Negative (Negative); Color Urine Yellow; Glucose Urine UA Negative (Negative); Ketones Urine Trace (Negative); Leukocyte Esterase Urine Negative (Negative); Nitrite Urine Negative (Negative); Protein Urine 2+ (Negative); RBC Urine Automated 0-4 /hpf (0-4); Specific Gravity Urine 1.022 (1.000-1.030); Urobilinogen Urine Negative (Negative)
[2022-06-05] MEDS: ASPIRIN 81 MG ECTAB PO SCH (13:14)
[2022-06-05] MEDS: amLODIPine BESYLATE 5 MG TAB PO SCH (13:14)
[2022-06-05] MEDS: ISOSORBIDE MONO EXTENDED REL 60 MG TABCR PO SCH (13:14)
[2022-06-05] MEDS: ATENOLOL 50 MG TABLET PO SCH ×2 (13:14→20:52)
[2022-06-05] MEDS: LOSARTAN POTASSIUM 50 MG TAB PO SCH (13:15)
[2022-06-05] MEDS ORDERED: METOPROLOL TARTRATE 1 MG/ML VIAL IV PRN (13:33)
[2022-06-05] MEDS: INSULIN ASPART PER UNIT CHARGE SC SCH ×3 (13:43→20:51)
[2022-06-05] MEDS: LANTUS PER UNIT CHARGE SQ SCH ×2 (13:43→20:51)
[2022-06-05 15:52] LABS: BUN Creatinine Ratio 15.9 (10-20); Calcium 9.1 mg/dl (8.6-10.3); Creatinine Clr Calc Pharmacy 65.1 ml/min; Est GFR (African American) 63.3 ml/min; Est GFR (Non-African American) 54.7 ml/min; Magnesium 1.6 mg/dl (1.7-2.4); Potassium 3.7 mmol/L (3.5-5.1)
--- NOTE | 2022-06-05 20:33 | Cardiology Consultation ---
Date of Consultation June 05, 2022 Assessment & Plan (1) SVT (supraventricular tachycardia): (2) Chest pain: (3) Hypoxia: (4) Hypomagnesemia: (5) Elevated troponin: (6) Hypertension: (7) CAD (coronary artery disease): Plan ASSESSMENT/PLAN: 1. SVT: Has had several episodes of sustained SVT in the setting of hypomagnesemia. Following magnesium supplementation, SVT burden significantly improved with last episode ending at 1:25 PM. Discussed the diagnosis. Discussed treatment options such as antiarrhythmic therapy or consideration of EP study and ablation. He would like to pursue/consider possibility of ablation if felt appropriate by electrophysiology. Will discuss with electrophysiology tomorrow. Continue to monitor electrolytes and replete appropriately. If he has sustained issues overnight, consider IV amiodarone. Continue beta-apple. 2. Chest pain: Had only mild nonobstructive CAD approximately 1 year ago. Chest pain likely related to sustained SVT. Plan as above. Trend troponin levels. Echo tomorrow. 3. Elevated troponin: Repeat high-sensitivity troponin ordered. Recommend trending until peak. 4. Hypoxia: Has bilateral wheezing and elevated BNP. Very difficult exam in regards to volume status. Received intravenous Lasix. Maintain net negative fluid balance today. 5. Hypomagnesemia: Repletion as per primary hospitalist service. SVT burden significantly improved following magnesium supplementation. 6. Hypertension: Blood pressure has been normotensive to mildly hypertensive for the most part today. No changes made at this time. 7. CAD: Mild nonobstructive CAD on 05/07/2021 cath. Risk factor modification. Continue aspirin, statin, beta-apple therapy. Chest discomfort likely related to sustained SVT. Trend troponin levels. No indication for urgent cardiac catheterization at this time. 8. Disposition: Patient care communicated to primary hospitalist, Dr. Rosenberg. Will discuss with electrophysiology, Dr. Salinas, tomorrow. Highly complex medical issues for which EP study and ablation considered and discussed, versus antiarrhythmic therapy. Thank you for allowing me to participate in the care of your patient. Please call for any other questions or concerns. Sincerely, Billy Henry M.D. History of Present Illness Reason for Consultation: Chest pain and arrhythmia Requesting Physician: Luz Rosenberg MD Attending Physician: Luz Rosenberg MD History of Present Illness Mr. Venegas is a very pleasant 77-year-old gentleman with a history significant for type 2 diabetes, nonobstructive CAD, hypertension, dyslipidemia, and monoclonal gammopathy. His primary numerical control operator is Dr. Miguel. He was admitted on 06/05/2022 after presenting with chest discomfort. At approximately 9:30 PM on 06/04/2022, he developed substernal chest pressure while sitting and watching TV. He states that the pain was constant till morning. At 7 AM because it was still there, he called 911. He denies radiation of the pain, associated shortness of breath, or palpitations. On presentation ECG, he appeared to be in SVT. On telemetry, he has had several episodes of sustained SVT, lasting several minutes at a time. His last episode was at 1:16 PM till 1:25 PM when he converted to sinus rhythm and remained so till evaluated tonight. He was found to be hypomagnesemic with a level of 1.3 on presentation and primary hospitalist service ordered magnesium supplementation with a level increasing to 1.6 when last evaluated. He was given intravenous Lasix 40 mg daily. He is currently chest pain-free. He denies shortness of breath. He chronically sleeps in a recliner but denies orthopnea. He has chronic but stable lower extremity edema. He denies any recent nausea, vomiting, diarrhea, melena, hematochezia, hematuria, syncope, or near syncope. He denies any palpitations and is unaware that his heart rate was elevated. He admits that he consumes food high in sodium content at times. He does not maintain a low-sodium diet. He does not weigh himself. On presentation, he was mildly hypoxic with a reported oxygen saturation of 88% on room air. Review of systems: As above. Review of systems otherwise negative/unremarkable. Family history: Father from [place] at the age of 73. Social history: He denies smoking, alcohol, or drug abuse. He lives alone. He has not been . He has no children. He was unaccompanied in his hospital room. Allergies Allergy/AdvReac Type Severity Reaction Status Date / Time cephalexin Allergy Mild Unknown Verified 05/15/22 15:00 codeine Allergy Mild unknown Verified 05/15/22 15:00 Home Medications Medication Instructions Recorded Confirmed Type aspirin 81 mg tablet,delayed 81 mg PO QAM 08/11/19 06/05/22 History release atenolol 50 mg tablet 50 mg PO BID 08/11/19 06/05/22 History dulaglutide 0.75 mg/0.5 mL 0.75 mg subcut WK 08/11/19 06/05/22 History subcutaneous pen injector (Trulicity) insulin degludec 200 unit/mL (3 40 unit subcut BID 08/11/19 06/05/22 History mL) subcutaneous pen (Tresiba FlexTouch U-200 insulin) metformin 1,000 mg tablet 1,000 mg PO BID 08/11/19 06/05/22 History losartan 50 mg tablet 50 mg PO QAM 10/25/20 06/05/22 History amlodipine 10 mg tablet (Norvasc) 10 mg PO QAM 01/02/21 06/05/22 History atorvastatin 20 mg tablet 20 mg PO HS 05/16/21 06/05/22 History tramadol 50 mg tablet 50 mg PO Q8H PRN pain #20 tabs 05/16/21 06/05/22 Rx triamterene 37.5 1 tab PO QAM 05/16/21 06/05/22 History mg-hydrochlorothiazide 25 mg tablet isosorbide mononitrate 120 mg 60 mg PO QAM #45 tabs 01/07/22 06/05/22 Rx tablet,extended release 24 hr insulin aspart U-100 100 unit/mL unit subcut BID 06/05/22 History (3 mL) subcutaneous pen (Novolog FlexPen U-100 Insulin aspart) Patient History Medical History CAD (coronary artery disease) Cellulitis resolved, BLE Diabetic neuropathy Diverticulosis DJD (degenerative joint disease), lumbosacral Dyslipidemia First degree atrioventricular block Hemorrhoids Hypertension Left anterior fascicular block Monoclonal gammopathy Morbid obesity BMI 45.4 Osteoarthritis RBBB Snoring pt states he is scheduled for a sleep study test this summer Type 2 diabetes mellitus Surgical History H/O oral surgery all teeth removed History of back surgery (~05/2005) lumbar laminectomy History of cardiac cath (~04/27/21) no stents, d/t angina History of colonoscopy last 2016 History of sinus surgery (~05/10/20) Hx of cataract surgery Family History Father Coronary heart disease Heart disease Myocardial infarction Sister Coronary heart disease Cancer Brother Coronary heart disease Hx of CABG Family/Other Hearing loss Mother Asthma Other No family history of adverse response to anesthesia Social History Smoking Status: Never smoker Tobacco Type: Smokeless Tobacco (Dip or Chew) Second Hand Exposure: No; Hx Alcohol Use: No Hx Substance Use: No Preferred Language: Iraqi Communication Ability: Effective Printer Technician Required: No Beliefs That Will Affect Care: None marital status: Single Current Living Situation: Alone Current Living Situation Comment: Sister is neighbor current occupational status: retired How many Children do You have Comment: No Children Feels Safe at Home: Yes Assistive Devices: Denture - Upper, Denture - Lower and Glasses Physical Exam Physical Exam: Gen.: No acute distress. Alert and oriented. HEENT: Anicteric sclera. Neck: Thick neck. No bruits. Normal carotid upstrokes bilaterally. Cardiac: No ventricular heave. Regular. Distant heart sounds. No murmurs, rubs, or gallops. Pulmonary: Bilateral expiratory wheezing. Abdomen: Soft, nontender, nondistended, with normoactive bowel sounds. No bruits noted. Extremities: 2+ radial pulses bilaterally. 2+ posterior tibialis pulses bilaterally. Trace bilateral lower extremity edema. No cyanosis. Psychiatric: Affect appears appropriate. Results & Data Vital Signs (Past 12 Hours) Vital Signs Temp Pulse Pulse Resp BP BP Pulse Ox 06/05/22 19:13 36.8 C 80 19 127/64 94 06/05/22 16:33 80 06/05/22 15:20 37.2 C 79 18 93/53 L 94 06/05/22 13:10 84 06/05/22 13:28 06/05/22 12:40 36.8 C 88 22 149/79 H 94 06/05/22 11:45 141 H 24 94 06/05/22 11:30 87 14 95 06/05/22 11:15 91 H 21 94 06/05/22 11:00 89 24 06/05/22 10:45 145 H 18 93 04/12/23 10:42 135 H 28 H 94 06/05/22 10:42 153/93 H 06/05/22 10:30 140 H 23 92 06/05/22 10:15 138 H 26 H 92 06/05/22 10:00 140 H 30 H 93 06/05/22 09:45 143 H 22 92 06/05/22 09:30 140 H 22 92 06/05/22 09:15 137 H 19 92 06/05/22 09:00 140 H 22 95 06/05/22 08:30 89 23 93 06/05/22 09:10 92 06/05/22 08:27 90 O2 Del Method O2 Flow Rate 06/05/22 19:13 Room Air 06/05/22 16:33 06/05/22 15:20 Nasal Cannula 4 06/05/22 13:10 06/05/22 13:28 Nasal Cannula 4 06/05/22 12:40 Nasal Cannula 4 06/05/22 11:45 Nasal Cannula 4 06/05/22 11:30 Nasal Cannula 4 06/05/22 11:15 Nasal Cannula 4 06/05/22 11:00 06/05/22 10:45 Nasal Cannula 4 06/05/22 10:42 Nasal Cannula 4 06/05/22 10:42 06/05/22 10:30 Nasal Cannula 4 06/05/22 10:15 Nasal Cannula 4 06/05/22 10:00 Nasal Cannula 4 06/05/22 09:45 Nasal Cannula 4 06/05/22 09:30 Nasal Cannula 4 06/05/22 09:15 Nasal Cannula 4 06/05/22 09:00 Nasal Cannula 4 06/05/22 08:30 Nasal Cannula 4 06/05/22 09:10 Nasal Cannula 06/05/22 08:27 Laboratory Results Laboratory Results - last 24 hr 06/05/22 06/05/22 06/05/22 08:34 08:34 08:34 WBC 9.99 RBC 4.90 Hgb 13.9 L Hct 40.3 L MCV 82.2 MCH 28.4 MCHC 34.5 RDW Std Deviation 41.0 RDW Coeff of [place] 13.8 Plt Count 212 MPV 10.3 Immature Gran % (Auto) 0.4 Neut % (Auto) 83.9 Lymph % (Auto) 5.6 [place] % (Auto) 8.5 Eos % (Auto) 1.4 Baso % (Auto) 0.2 Neut # (Auto) 8.38 H Lymph # (Auto) 0.56 L [place] # (Auto) 0.85 H Eos # (Auto) 0.14 Baso # (Auto) 0.02 Immature Gran # (Auto) 0.04 PT 10.9 INR 1.0 APTT 25.5 PTT Ratio 0.9 VBG pH VBG pCO2 VBG pO2 VBG HCO3 VBG O2 Saturation VBG Base Excess Sodium 139 Potassium 3.7 Chloride 100 Carbon Dioxide 29 Anion Gap 10 BUN 18 Creatinine 1.00 Est Cr Clr Drug Dosing 86.7 Est GFR ( Amer) 83.8 Est GFR (Non-Af Amer) 72.3 BUN/Creatinine Ratio 18.0 Glucose 206 H POC Glucose Calcium 9.5 Magnesium 1.3 L Total Bilirubin 0.9 AST 24 ALT 18 Alkaline Phosphatase 44 Troponin I High Sens 22.6 H B-Natriuretic Peptide Total Protein 7.3 Albumin 4.2 Globulin 3.1 Albumin/Globulin Ratio 1.4 Urine Color Urine Appearance Urine pH Ur Specific [place] Urine Protein Urine Glucose (UA) Urine Ketones Urine Blood Urine Nitrite Urine Bilirubin Urine Urobilinogen Ur Leukocyte Esterase Urine WBC (Auto) Urine RBC (Auto) U Hyaline Cast (Auto) U Epithel Cells (Auto) Urine Bacteria (Auto) SARS-CoV-2 (PCR) Influenza Type A (PCR) Influenza Type B (PCR) RSV (RT-PCR) 06/05/22 06/05/22 06/05/22 08:34 08:34 11:01 WBC RBC Hgb Hct MCV MCH MCHC RDW Std Deviation RDW Coeff of [place] Plt Count MPV Immature Gran % (Auto) Neut % (Auto) Lymph % (Auto) [place] % (Auto) Eos % (Auto) Baso % (Auto) Neut # (Auto) Lymph # (Auto) [place] # (Auto) Eos # (Auto) Baso # (Auto) Immature Gran # (Auto) PT INR APTT PTT Ratio VBG pH 7.44 H VBG pCO2 47 VBG pO2 45 VBG HCO3 32 VBG O2 Saturation 77.7 VBG Base Excess 6.6 Sodium Potassium Chloride Carbon Dioxide Anion Gap BUN Creatinine Est Cr Clr Drug Dosing Est GFR ( Amer) Est GFR (Non-Af Amer) BUN/Creatinine Ratio Glucose POC Glucose Calcium Magnesium Total Bilirubin AST ALT Alkaline Phosphatase Troponin I High Sens B-Natriuretic Peptide 303 H Total Protein Albumin Globulin Albumin/Globulin Ratio Urine Color Yellow Urine Appearance Clear Urine pH 6.0 Ur Specific [place] 1.022 Urine Protein 2+ H Urine Glucose (UA) Negative Urine Ketones Trace H Urine Blood Negative Urine Nitrite Negative Urine Bilirubin Negative Urine Urobilinogen Negative Ur Leukocyte Esterase Negative Urine WBC (Auto) 1-5 Urine RBC (Auto) 0-4 U Hyaline Cast (Auto) 1-5 U Epithel Cells (Auto) 10-20 H Urine Bacteria (Auto) Negative SARS-CoV-2 (PCR) Influenza Type A (PCR) Influenza Type B (PCR) RSV (RT-PCR) 06/05/22 06/05/22 06/05/22 12:37 15:04 15:04 WBC RBC Hgb Hct MCV MCH MCHC RDW Std Deviation RDW Coeff of [place] Plt Count MPV Immature Gran % (Auto) Neut % (Auto) Lymph % (Auto) [place] % (Auto) Eos % (Auto) Baso % (Auto) Neut # (Auto) Lymph # (Auto) [place] # (Auto) Eos # (Auto) Baso # (Auto) Immature Gran # (Auto) PT INR APTT PTT Ratio VBG pH VBG pCO2 VBG pO2 VBG HCO3 VBG O2 Saturation VBG Base Excess Sodium 138 Potassium 3.7 Chloride 99 Carbon Dioxide 30 Anion Gap 9 BUN 20 Creatinine 1.26 Est Cr Clr Drug Dosing 65.1 Est GFR ( Amer) 63.3 Est GFR (Non-Af Amer) 54.7 BUN/Creatinine Ratio 15.9 Glucose 219 H POC Glucose 169 H Calcium 9.1 Magnesium Cancelled 1.6 L Total Bilirubin AST ALT Alkaline Phosphatase Troponin I High Sens B-Natriuretic Peptide Total Protein Albumin Globulin Albumin/Globulin Ratio Urine Color Urine Appearance Urine pH Ur Specific [place] Urine Protein Urine Glucose (UA) Urine Ketones Urine Blood Urine Nitrite Urine Bilirubin Urine Urobilinogen Ur Leukocyte Esterase Urine WBC (Auto) Urine RBC (Auto) U Hyaline Cast (Auto) U Epithel Cells (Auto) Urine Bacteria (Auto) SARS-CoV-2 (PCR) Influenza Type A (PCR) Influenza Type B (PCR) RSV (RT-PCR) 06/05/22 06/05/22 06/05/22 16:32 19:57 Unknown WBC RBC Hgb Hct MCV MCH MCHC RDW Std Deviation RDW Coeff of [place] Plt Count MPV Immature Gran % (Auto) Neut % (Auto) Lymph % (Auto) [place] % (Auto) Eos % (Auto) Baso % (Auto) Neut # (Auto) Lymph # (Auto) [place] # (Auto) Eos # (Auto) Baso # (Auto) Immature Gran # (Auto) PT INR APTT PTT Ratio VBG pH VBG pCO2 VBG pO2 VBG HCO3 VBG O2 Saturation VBG Base Excess Sodium Potassium Chloride Carbon Dioxide Anion Gap BUN Creatinine Est Cr Clr Drug Dosing Est GFR ( Amer) Est GFR (Non-Af Amer) BUN/Creatinine Ratio Glucose POC Glucose 169 H 168 H Calcium Magnesium Total Bilirubin AST ALT Alkaline Phosphatase Troponin I High Sens B-Natriuretic Peptide Total Protein Albumin Globulin Albumin/Globulin Ratio Urine Color Urine Appearance Urine pH Ur Specific [place] Urine Protein Urine Glucose (UA) Urine Ketones Urine Blood Urine Nitrite Urine Bilirubin Urine Urobilinogen Ur Leukocyte Esterase Urine WBC (Auto) Urine RBC (Auto) U Hyaline Cast (Auto) U Epithel Cells (Auto) Urine Bacteria (Auto) SARS-CoV-2 (PCR) NEGATIVE Influenza Type A (PCR) Negative Influenza Type B (PCR) Negative RSV (RT-PCR) Negative Diagnostic Findings Labs reviewed and notable for elevated BNP, stable renal function, stable hemoglobin, normal potassium, low magnesium, and slightly elevated high- sensitivity troponin. Initial magnesium was 1.3 and improved to 1.6. Telemetry personally reviewed: Multiple episodes of sustained SVT in the 140s. Episodes included 8:55 AM to 9:18 AM when converted to sinus rhythm. 9:23 AM to 9:36 AM, 11:55 AM to 12:01 PM, 11:53 AM to 11:54 AM, 11:31 AM to 11:46 AM and the last episode at 1:16 PM to 1:25 PM. Since then, has maintained sinus rhythm. History and physical report reviewed. Chest x-ray 06/05/2022 personally reviewed: No obvious infiltrate or pleural effusion. No obvious acute process. Radiology reports as cardiomegaly without acute process. Most recent outpatient cardiology visit by Dr. Miguel on 05/15/2022 reviewed. Cardiac cath report from 05/07/2021: Large OM 3 proximal 20 to 30%. Otherwise, luminal irregularities within the LAD, circumflex, and dominant RCA. Echo 04/08/2020: Normal LV size, wall motion, systolic function. EF 60 to 65%. Mild LVH. No significant valvular abnormalities. ECGs personally reviewed: ECG 06/05/2022 at 8:20 AM: Probable SVT 142 bpm. RBBB. ECG 06/05/2022 at 11:27 AM: Sinus rhythm with first-degree AV block 86 bpm. RBBB. LAFB. Outpatient ECG 05/15/2022: Sinus rhythm first-degree AV block. RBBB. LAFB. Medications Administered Current Inpatient Medications Acetaminophen (Acetaminophen 325 Mg Tab) 650 mg PO Q4H PRN PRN Reason: Moderate Pain (Scale 4, 5, 6) Stop: 07/05/22 12:30 Amlodipine Besylate (Amlodipine Besylate 5 Mg Tab) 10 mg PO QAM [facility] Stop: 07/05/22 11:44 Last Admin: 06/05/22 13:14 Dose: 10 mg Aspirin (Aspirin 81 Mg Ectab) 81 mg PO QAM JOSÉ MANUEL Stop: 07/05/22 11:44 Last Admin: 06/05/22 13:14 Dose: 81 mg Atenolol (Atenolol 50 Mg Tablet) 50 mg PO BID JOSÉ MANUEL Stop: 07/05/22 11:44 Last Admin: 06/05/22 13:14 Dose: 50 mg Atorvastatin Calcium (Atorvastatin 20 Mg Tab) 20 mg PO HS [facility] Stop: 07/05/22 20:59 Dextrose (Dextrose 50% 50 Ml Syringe) 25 - 50 ml IV UD PRN; Protocol PRN Reason: Hypoglycemia Protocol Stop: 07/05/22 12:30 Glucagon (Glucagon For Inj 1 Mg Vial) 1 mg SQ UD PRN; Protocol PRN Reason: Hypoglycemia Protocol Stop: 07/05/22 12:30 Glucose (Glucose 10 Tab/Tube) 4 - 8 tab PO UD PRN; Protocol PRN Reason: Hypoglycemia Treatment Stop: 07/05/22 12:30 Glucose (Glucose 40% Gel 15 Gm Tube) 15 - 30 gm PO UD PRN; Protocol PRN Reason: Hypoglycemia Protocol Stop: 07/05/22 12:30 Heparin Sodium (Porcine) (Heparin Sod 5,000 Unit/0.5 Ml Vial) 5,000 units SQ Q12 JOSÉ MANUEL Stop: 07/05/22 20:59 Insulin Aspart (Insulin Aspart Per Unit Charge) 0 units SC ACHS JOSÉ MANUEL Stop: 07/05/22 12:30 Last Admin: 06/05/22 18:08 Dose: 7 units Insulin Glargine (Lantus Per Unit Charge) 40 units SQ BID [facility] Stop: 07/05/22 11:44 Last Admin: 06/05/22 13:43 Dose: 40 units Isosorbide Mononitrate (Isosorbide [place] Extended Rel 60 Mg Tabcr) 60 mg PO QAM [facility] Stop: 07/05/22 11:44 Last Admin: 06/05/22 13:14 Dose: 60 mg Losartan Potassium (Losartan Potassium 50 Mg Tab) 50 mg PO QAM [facility] Stop: 07/05/22 11:44 Last Admin: 06/05/22 13:15 Dose: 50 mg Metoprolol Tartrate (Metoprolol Tartrate 1 Mg/Ml Vial) 2.5 mg IV Q6 PRN PRN Reason: Tachycardia Stop: 07/05/22 17:59 Miscellaneous (Carbohydrates For Hypoglycemia ) 15 - 30 gm PO UD PRN PRN Reason: Hypoglycemia Protocol Stop: 07/05/22 12:30 Ondansetron HCl (Ondansetron Inj 2 Mg/Ml 2 Ml Vial) 4 mg IV Q4H PRN PRN Reason: Nausea And Vomiting Stop: 07/05/22 12:30 PG Care Time/CCT Total # of Minutes Spent Total Time Spent with Patient: Total time spent is greater than 50% in coordination of care (as documented) at patient's floor/unit and/or counseling patient: Coding Level of Care Code 66483 INT INP/OBS CARE 3/75MIN Diagnoses SVT (supraventricular tachycardia) I47.1 Chest pain R07.9 Hypoxia R09.02 Hypomagnesemia E83.42 Elevated troponin R77.8 Hypertension I10 Hypertension type: essential hypertension CAD (coronary artery disease) I25.10 (6) Hypertension Hypertension type: essential hypertension Qualified Code(s): I10 - Essential (primary) hypertension
[2022-06-05] MEDS: ATORVASTATIN 20 MG TAB PO SCH (20:52)
[2022-06-05] MEDS: HEPARIN SOD 5,000 UNIT/0.5 ML VIAL SQ SCH (20:52)
[2022-06-05] MEDS ORDERED: ALBUT/IPRATROP 3MG/0.5MG NEB 3 ML VIAL NEB PRN (23:23)
[2022-06-06] MEDS: guaiFENesin 600 MG TABCR PO SCH ×3 (00:12→21:02)
[2022-06-06 06:55] LABS: Hematocrit (blood only) 35.3 % (42.0-52.0); Hemoglobin 12.1 g/dl (14.0-18.0); Mean Corpuscular Hemoglobin 28.5 pg (25.0-34.0); Mean Corpuscular Hgb Conc 34.3 g/dL (32.0-36.0); Mean Corpuscular Volume 83.1 fL (80.0-100.0); Mean Platelet Volume 10.3 fL (9.4-12.4); Platelet Count 184 K/uL (130-400); RDW Coefficient of Variation 14.2 % (11.5-14.5); RDW Standard Deviation 42.6 fL (36.4-46.3); Red Blood Count 4.25 M/uL (4.70-6.10); White Blood Count 5.48 K/ul (4.8-10.8)
[2022-06-06 07:10] LABS: BUN Creatinine Ratio 19.6 (10-20); Calcium 8.6 mg/dl (8.6-10.3); Chol HDL Ratio 3.6 (0-5); Creatinine Clr Calc Pharmacy 73.7 ml/min; Magnesium 1.7 mg/dl (1.7-2.4); Potassium 3.4 mmol/L (3.5-5.1)
[2022-06-06] MEDS ORDERED: POTASSIUM CHLORIDE CRTAB 20 MEQ TABCR PO STA (07:30)
[2022-06-06] MEDS ORDERED: MAGNESIUM SULFATE / D5W 1 GM/100 ML BAG IV ONE (07:30)
[2022-06-06] MEDS: INSULIN ASPART PER UNIT CHARGE SC SCH ×4 (08:46→20:44)
[2022-06-06] MEDS: LOSARTAN POTASSIUM 50 MG TAB PO SCH (08:51)
[2022-06-06] MEDS: ISOSORBIDE MONO EXTENDED REL 60 MG TABCR PO SCH (08:51)
[2022-06-06] MEDS: ASPIRIN 81 MG ECTAB PO SCH (08:52)
[2022-06-06] MEDS: ATENOLOL 50 MG TABLET PO SCH ×2 (08:52→21:03)
[2022-06-06] MEDS: amLODIPine BESYLATE 5 MG TAB PO SCH (08:52)
[2022-06-06] MEDS: HEPARIN SOD 5,000 UNIT/0.5 ML VIAL SQ SCH ×2 (08:53→20:57)
[2022-06-06] MEDS: FUROSEMIDE 40 MG/4 ML VIAL IV SCH (08:56)
[2022-06-06] MEDS: LANTUS PER UNIT CHARGE SQ SCH ×2 (09:22→20:53)
[2022-06-06 09:36] LABS: Estimated Average Glucose 154 mg/dl
[2022-06-06] MEDS: MAGNESIUM OXIDE 400 MG TAB PO SCH (10:35)
--- NOTE | 2022-06-06 11:18 | Hospitalist Progress Note ---
Date of Service June 06, 2022 Assessment & Plan (1) Atrial flutter with rapid ventricular response: (2) Hypoxia: (3) Chest pain: Plan: - Admitted to PCU - On admission - HR in the 140s in aflutter and breaks intermittently into the 80s with 1st degree AV block, RBBB and likely secondary to electrolyte abnormalities - Replacing mag and potassium - Cardiology consulted - follows with Dr. Miguel as outpatient - Check 2 D echo - last from Mar 2020 was reviewed showed EF of 60-65 %, no regional wall motion abnormalities, mild concentric left ventricular hypertrophy - EKG reviewed - TSH wnl - Seen by cardiology - chest pain believed to be secondary to sustained SVT in the setting of hypomagnesemia. EP consult plan for today. (4) Hypomagnesemia: Plan: - Mag 1.3 on admission - replete and monitor (5) Hypertension: Plan: - continue on atenolol 50 mg twice daily, Imdur, losartan - Holding triamterene/HCTZ (6) Dyslipidemia: Plan: - Cont statin therapy (7) Type 2 diabetes mellitus: Plan: - current A1C 7.0% - Will continue ISS with accuchecks, holding metformin - Continue lantus 40 U BID, takes trulicity on Sundays (8) Morbid obesity: Plan: - BMI of 43.7 - lifestyle modification encouraged, counseling provided DVT ppx: - teds, scds, heparin subq CODE: Full code Dispo: From home, likely to remain in the hospital x 1-2 days Admission and Anticipated Discharge Date Admission Date: June 05, 2022 Subjective Pt seen in follow up of chest pain Seen by cardiology, believed to be secondary to sustained SVT in the setting of hypomagnesemia Currently sitting up in chair, in NAD Currently denies any chest pain or palpitations or shortness of breath Says he has been having occasional cough for past 2 to 3 days, denies any nasal congestion or sick contacts No abdominal pain nausea vomiting, no fevers Currently on RA, earlier this AM pt was on 4L of suppl. O2 Review of Systems Review of Systems: All systems reviewed & are unremarkable except as noted in Subjective Physical Exam Physical Exam: General: morbidly obese , elderly M in NAD Head: Normocephalic, atraumatic ENT: PERRL, EOMI Chest: + coarse breath sounds, faint rales Cardiac:rrr, no murmur noted Abdominal: NABS x 4 quadrants, + obese, soft, nondistended, nontender to palpation Extremities: minimal LE edema bilaterally, no erythema,moves extremities Psych: Normal mood and affect Skin: Multiple actinic keratoses lesions chest, trunk, back, head, skin is otherwise warm and dry Neuro: AAO x 3, speech fluent, no facial asymmetry, moves extremities Results & Data Results & Data Vital Signs (Past 12 Hours) Vital Signs Temp Pulse Pulse Resp BP Pulse Ox O2 Del Method 06/06/22 07:15 Nasal Cannula 06/06/22 10:04 66 06/06/22 07:00 36.6 C 67 18 148/79 H 96 Nasal Cannula 06/06/22 02:51 37.1 C 68 17 129/71 94 Oxymask 06/05/22 23:59 69 19 95 Oxymask O2 Flow Rate 06/06/22 07:15 4 06/06/22 10:04 06/06/22 07:00 4 06/06/22 02:51 4 06/05/22 23:59 4 Laboratory Results 06/06/22 06/06/22 06/06/22 Range/Units 07:49 06:11 06:11 WBC (4.8-10.8) K/ul RBC (4.70-6.10) M/uL Hgb (14.0-18.0) g/dl Hct (42.0-52.0) % MCV (80.0-100.0) fL MCH (25.0-34.0) pg MCHC (32.0-36.0) g/dL RDW Std Deviation (36.4-46.3) fL RDW Coeff of [place] (11.5-14.5) % Plt Count (130-400) K/uL MPV (9.4-12.4) fL Sodium (136-145) mmol/L Potassium (3.5-5.1) mmol/L Chloride (98-107) mmol/L Carbon Dioxide (21-32) mmol/L Anion Gap (3-11) BUN (6-23) mg/dl Creatinine (0.6-1.4) mg/dl Est Cr Clr Drug Dosing ml/min Est GFR ( Amer) ml/min Est GFR (Non-Af Amer) ml/min BUN/Creatinine Ratio (10-20) Glucose (70-99(Fasting)) mg/dl POC Glucose 101 H (70-99) mg/dl Estimat Average Glucose 154 mg/dl Hemoglobin A1c 7.0 H (4.5-5.6) % Calcium (8.6-10.3) mg/dl Magnesium Troponin I High Sens (0-20) pg/ml Triglycerides (0-150) mg/dl Cholesterol (0-200) mg/dl LDL Cholesterol, Calc mg/dl VLDL Cholesterol, Calc (0-30) mg/dl HDL Cholesterol mg/dl Cholesterol/HDL Ratio (0-5) TSH 0.531 (0.300-4.500) uIu/ml Urine Color Urine Appearance (Clear) Urine pH (4.5-7.5) Ur Specific [place] (1.000-1.030) Urine Protein (Negative) Urine Glucose (UA) (Negative) Urine Ketones (Negative) Urine Blood (Negative) Urine Nitrite (Negative) Urine Bilirubin (Negative) Urine Urobilinogen (Negative) Ur Leukocyte Esterase (Negative) Urine WBC (Auto) (0-5) /hpf Urine RBC (Auto) (0-4) /hpf U Hyaline Cast (Auto) (0-5) /lpf U Epithel Cells (Auto) (0-5) /lpf Urine Bacteria (Auto) (Negative) 06/06/22 06/06/22 06/05/22 Range/Units 06:11 06:11 22:46 WBC 5.48 (4.8-10.8) K/ul RBC 4.25 L (4.70-6.10) M/uL Hgb 12.1 L (14.0-18.0) g/dl Hct 35.3 L (42.0-52.0) % MCV 83.1 (80.0-100.0) fL MCH 28.5 (25.0-34.0) pg MCHC 34.3 (32.0-36.0) g/dL RDW Std Deviation 42.6 (36.4-46.3) fL RDW Coeff of [place] 14.2 (11.5-14.5) % Plt Count 184 (130-400) K/uL MPV 10.3 (9.4-12.4) fL Sodium 139 (136-145) mmol/L Potassium 3.4 L (3.5-5.1) mmol/L Chloride 100 (98-107) mmol/L Carbon Dioxide 33 H (21-32) mmol/L Anion Gap 6 (3-11) BUN 22 (6-23) mg/dl Creatinine 1.12 (0.6-1.4) mg/dl Est Cr Clr Drug Dosing 73.7 ml/min Est GFR ( Amer) 73.0 ml/min Est GFR (Non-Af Amer) 63.0 ml/min BUN/Creatinine Ratio 19.6 (10-20) Glucose 101 H (70-99(Fasting)) mg/dl POC Glucose (70-99) mg/dl Estimat Average Glucose mg/dl Hemoglobin A1c (4.5-5.6) % Calcium 8.6 (8.6-10.3) mg/dl Magnesium 1.7 Troponin I High Sens 46.1 H (0-20) pg/ml Triglycerides 99 (0-150) mg/dl Cholesterol 103 (0-200) mg/dl LDL Cholesterol, Calc 54 mg/dl VLDL Cholesterol, Calc 20 (0-30) mg/dl HDL Cholesterol 29 mg/dl Cholesterol/HDL Ratio 3.6 (0-5) TSH (0.300-4.500) uIu/ml Urine Color Urine Appearance (Clear) Urine pH (4.5-7.5) Ur Specific [place] (1.000-1.030) Urine Protein (Negative) Urine Glucose (UA) (Negative) Urine Ketones (Negative) Urine Blood (Negative) Urine Nitrite (Negative) Urine Bilirubin (Negative) Urine Urobilinogen (Negative) Ur Leukocyte Esterase (Negative) Urine WBC (Auto) (0-5) /hpf Urine RBC (Auto) (0-4) /hpf U Hyaline Cast (Auto) (0-5) /lpf U Epithel Cells (Auto) (0-5) /lpf Urine Bacteria (Auto) (Negative) 06/05/22 06/05/22 06/05/22 Range/Units 20:31 19:57 16:32 WBC (4.8-10.8) K/ul RBC (4.70-6.10) M/uL Hgb (14.0-18.0) g/dl Hct (42.0-52.0) % MCV (80.0-100.0) fL MCH (25.0-34.0) pg MCHC (32.0-36.0) g/dL RDW Std Deviation (36.4-46.3) fL RDW Coeff of [place] (11.5-14.5) % Plt Count (130-400) K/uL MPV (9.4-12.4) fL Sodium (136-145) mmol/L Potassium (3.5-5.1) mmol/L Chloride (98-107) mmol/L Carbon Dioxide (21-32) mmol/L Anion Gap (3-11) BUN (6-23) mg/dl Creatinine (0.6-1.4) mg/dl Est Cr Clr Drug Dosing ml/min Est GFR ( Amer) ml/min Est GFR (Non-Af Amer) ml/min BUN/Creatinine Ratio (10-20) Glucose (70-99(Fasting)) mg/dl POC Glucose 168 H 169 H (70-99) mg/dl Estimat Average Glucose mg/dl Hemoglobin A1c (4.5-5.6) % Calcium (8.6-10.3) mg/dl Magnesium Troponin I High Sens 50.4 H* D (0-20) pg/ml Triglycerides (0-150) mg/dl Cholesterol (0-200) mg/dl LDL Cholesterol, Calc mg/dl VLDL Cholesterol, Calc (0-30) mg/dl HDL Cholesterol mg/dl Cholesterol/HDL Ratio (0-5) TSH (0.300-4.500) uIu/ml Urine Color Urine Appearance (Clear) Urine pH (4.5-7.5) Ur Specific [place] (1.000-1.030) Urine Protein (Negative) Urine Glucose (UA) (Negative) Urine Ketones (Negative) Urine Blood (Negative) Urine Nitrite (Negative) Urine Bilirubin (Negative) Urine Urobilinogen (Negative) Ur Leukocyte Esterase (Negative) Urine WBC (Auto) (0-5) /hpf Urine RBC (Auto) (0-4) /hpf U Hyaline Cast (Auto) (0-5) /lpf U Epithel Cells (Auto) (0-5) /lpf Urine Bacteria (Auto) (Negative) 06/05/22 06/05/22 06/05/22 Range/Units 15:04 15:04 12:37 WBC (4.8-10.8) K/ul RBC (4.70-6.10) M/uL Hgb (14.0-18.0) g/dl Hct (42.0-52.0) % MCV (80.0-100.0) fL MCH (25.0-34.0) pg MCHC (32.0-36.0) g/dL RDW Std Deviation (36.4-46.3) fL RDW Coeff of [place] (11.5-14.5) % Plt Count (130-400) K/uL MPV (9.4-12.4) fL Sodium 138 (136-145) mmol/L Potassium 3.7 (3.5-5.1) mmol/L Chloride 99 (98-107) mmol/L Carbon Dioxide 30 (21-32) mmol/L Anion Gap 9 (3-11) BUN 20 (6-23) mg/dl Creatinine 1.26 (0.6-1.4) mg/dl Est Cr Clr Drug Dosing 65.1 ml/min Est GFR ( Amer) 63.3 ml/min Est GFR (Non-Af Amer) 54.7 ml/min BUN/Creatinine Ratio 15.9 (10-20) Glucose 219 H (70-99(Fasting)) mg/dl POC Glucose 169 H (70-99) mg/dl Estimat Average Glucose mg/dl Hemoglobin A1c (4.5-5.6) % Calcium 9.1 (8.6-10.3) mg/dl Magnesium 1.6 L Cancelled Troponin I High Sens (0-20) pg/ml Triglycerides (0-150) mg/dl Cholesterol (0-200) mg/dl LDL Cholesterol, Calc mg/dl VLDL Cholesterol, Calc (0-30) mg/dl HDL Cholesterol mg/dl Cholesterol/HDL Ratio (0-5) TSH (0.300-4.500) uIu/ml Urine Color Urine Appearance (Clear) Urine pH (4.5-7.5) Ur Specific [place] (1.000-1.030) Urine Protein (Negative) Urine Glucose (UA) (Negative) Urine Ketones (Negative) Urine Blood (Negative) Urine Nitrite (Negative) Urine Bilirubin (Negative) Urine Urobilinogen (Negative) Ur Leukocyte Esterase (Negative) Urine WBC (Auto) (0-5) /hpf Urine RBC (Auto) (0-4) /hpf U Hyaline Cast (Auto) (0-5) /lpf U Epithel Cells (Auto) (0-5) /lpf Urine Bacteria (Auto) (Negative) 06/05/22 Range/Units 11:01 WBC (4.8-10.8) K/ul RBC (4.70-6.10) M/uL Hgb (14.0-18.0) g/dl Hct (42.0-52.0) % MCV (80.0-100.0) fL MCH (25.0-34.0) pg MCHC (32.0-36.0) g/dL RDW Std Deviation (36.4-46.3) fL RDW Coeff of [place] (11.5-14.5) % Plt Count (130-400) K/uL MPV (9.4-12.4) fL Sodium (136-145) mmol/L Potassium (3.5-5.1) mmol/L Chloride (98-107) mmol/L Carbon Dioxide (21-32) mmol/L Anion Gap (3-11) BUN (6-23) mg/dl Creatinine (0.6-1.4) mg/dl Est Cr Clr Drug Dosing ml/min Est GFR ( Amer) ml/min Est GFR (Non-Af Amer) ml/min BUN/Creatinine Ratio (10-20) Glucose (70-99(Fasting)) mg/dl POC Glucose (70-99) mg/dl Estimat Average Glucose mg/dl Hemoglobin A1c (4.5-5.6) % Calcium (8.6-10.3) mg/dl Magnesium Troponin I High Sens (0-20) pg/ml Triglycerides (0-150) mg/dl Cholesterol (0-200) mg/dl LDL Cholesterol, Calc mg/dl VLDL Cholesterol, Calc (0-30) mg/dl HDL Cholesterol mg/dl Cholesterol/HDL Ratio (0-5) TSH (0.300-4.500) uIu/ml Urine Color Yellow Urine Appearance Clear (Clear) Urine pH 6.0 (4.5-7.5) Ur Specific [place] 1.022 (1.000-1.030) Urine Protein 2+ H (Negative) Urine Glucose (UA) Negative (Negative) Urine Ketones Trace H (Negative) Urine Blood Negative (Negative) Urine Nitrite Negative (Negative) Urine Bilirubin Negative (Negative) Urine Urobilinogen Negative (Negative) Ur Leukocyte Esterase Negative (Negative) Urine WBC (Auto) 1-5 (0-5) /hpf Urine RBC (Auto) 0-4 (0-4) /hpf U Hyaline Cast (Auto) 1-5 (0-5) /lpf U Epithel Cells (Auto) 10-20 H (0-5) /lpf Urine Bacteria (Auto) Negative (Negative) Medications Administered Current Inpatient Medications Acetaminophen (Acetaminophen 325 Mg Tab) 650 mg PO Q4H PRN PRN Reason: Moderate Pain (Scale 4, 5, 6) Stop: 07/05/22 12:30 Albuterol (Albut/Ipratrop 3mg/0.5mg Neb 3 Ml Vial) 3 ml NEB Q4R PRN; Protocol PRN Reason: Shortness Of Breath Or Wheezing Stop: 07/06/22 02:59 Last Admin: 06/05/22 23:59 Dose: 3 ml Amlodipine Besylate (Amlodipine Besylate 5 Mg Tab) 10 mg PO QAM [facility] Stop: 07/05/22 11:44 Last Admin: 06/06/22 08:52 Dose: 10 mg Aspirin (Aspirin 81 Mg Ectab) 81 mg PO QAM [facility] [place] Stop: 07/05/22 11:44 Last Admin: 06/06/22 08:52 Dose: 81 mg Atenolol (Atenolol 50 Mg Tablet) 50 mg PO BID [facility] [place] Stop: 07/05/22 11:44 Last Admin: 06/06/22 08:52 Dose: 50 mg Atorvastatin Calcium (Atorvastatin 20 Mg Tab) 20 mg PO HS [facility] Stop: 07/05/22 20:59 Last Admin: 06/05/22 20:52 Dose: 20 mg Dextrose (Dextrose 50% 50 Ml Syringe) 25 - 50 ml IV UD PRN; Protocol PRN Reason: Hypoglycemia Protocol Stop: 07/05/22 12:30 Furosemide (Furosemide 40 Mg/4 Ml Vial) 40 mg IV DAILY [facility] Stop: 07/06/22 08:59 Last Admin: 06/06/22 08:56 Dose: 40 mg Glucagon (Glucagon For Inj 1 Mg Vial) 1 mg SQ UD PRN; Protocol PRN Reason: Hypoglycemia Protocol Stop: 07/05/22 12:30 Glucose (Glucose 10 Tab/Tube) 4 - 8 tab PO UD PRN; Protocol PRN Reason: Hypoglycemia Treatment Stop: 07/05/22 12:30 Glucose (Glucose 40% Gel 15 Gm Tube) 15 - 30 gm PO UD PRN; Protocol PRN Reason: Hypoglycemia Protocol Stop: 07/05/22 12:30 Guaifenesin (Guaifenesin 600 Mg Tabcr) 600 mg PO Q12 [facility] [place] Stop: 07/05/22 23:24 Last Admin: 06/06/22 08:51 Dose: 600 mg Heparin Sodium (Porcine) (Heparin Sod 5,000 Unit/0.5 Ml Vial) 5,000 units SQ Q12 [facility] Stop: 07/05/22 20:59 Last Admin: 06/06/22 08:53 Dose: 5,000 units Insulin Aspart (Insulin Aspart Per Unit Charge) 0 units SC ACHS [facility] [place] Stop: 07/05/22 12:30 Last Admin: 06/06/22 08:46 Dose: 5 units Insulin Glargine (Lantus Per Unit Charge) 40 units SQ BID [facility] [place] Stop: 07/05/22 11:44 Last Admin: 06/06/22 09:22 Dose: 40 units Isosorbide Mononitrate (Isosorbide [place] Extended Rel 60 Mg Tabcr) 60 mg PO QAM [facility] [place] Stop: 07/05/22 11:44 Last Admin: 06/06/22 08:51 Dose: 60 mg Losartan Potassium (Losartan Potassium 50 Mg Tab) 50 mg PO QAM [facility] [place] Stop: 07/05/22 11:44 Last Admin: 06/06/22 08:51 Dose: 50 mg Magnesium Oxide (Magnesium Oxide 400 Mg Tab) 400 mg PO QAM [facility] [place] Stop: 07/06/22 08:59 Last Admin: 06/06/22 10:35 Dose: 400 mg Metoprolol Tartrate (Metoprolol Tartrate 1 Mg/Ml Vial) 2.5 mg IV Q6 PRN PRN Reason: Tachycardia Stop: 07/05/22 17:59 Miscellaneous (Carbohydrates For Hypoglycemia ) 15 - 30 gm PO UD PRN PRN Reason: Hypoglycemia Protocol Stop: 07/05/22 12:30 Ondansetron HCl (Ondansetron Inj 2 Mg/Ml 2 Ml Vial) 4 mg IV Q4H PRN PRN Reason: Nausea And Vomiting Stop: 07/05/22 12:30 (5) Hypertension Hypertension type: essential hypertension Qualified Code(s): I10 - Essential (primary) hypertension
--- NOTE | 2022-06-06 19:21 | Cardiology Progress Note ---
Date of Service June 06, 2022 Assessment & Plan (1) SVT (supraventricular tachycardia): (2) Chest pain: (3) Hypoxia: (4) Hypomagnesemia: (5) Elevated troponin: (6) Hypertension: (7) CAD (coronary artery disease): Plan ASSESSMENT/PLAN: 1. SVT: No recurrent SVT since shortly after admission. He reports brief episodes of similar symptoms over the years. Generally 10 minutes then resolves. He is not a good candidate for medical therapy due to his undelying conduction disease. We discussed ablation and he wants to proceed. I will arrange for the procedure as an outpatient. I think he can continue his current medication. 2. Chest pain: Mildly elevated markers in the setting of prolonged tachycardia. Not ACS. 3. Elevated troponin: as above. No ACS 4. Hypoxia: Has bilateral wheezing and elevated BNP. Very difficult exam in regards to volume status. Received intravenous Lasix. Maintain net negative fluid balance. 5. Hypomagnesemia: Repletion as per primary hospitalist service. SVT burden significantly improved following magnesium supplementation. 6. Hypertension: Blood pressure has been normotensive to mildly hypertensive for the most part today. No changes made at this time. 7. CAD: Mild nonobstructive CAD on 05/07/2021 cath. Risk factor modification. Continue aspirin, statin, beta-apple therapy. Chest discomfort likely related to sustained SVT. Trend troponin levels. No indication for urgent cardiac catheterization at this time. 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 None on telemetry. Admission and Anticipated Discharge Date Admission Date: June 05, 2022 Subjective Currently feeling well. Ambulated around today without symptoms. No recurrent chest pain Review of Systems Review of Systems: per HPI Physical Exam Physical Exam: Gen.: No acute distress. Alert and oriented. HEENT: Anicteric sclera. Pulmonary: Normal respiratory effort Abdomen: obese Extremities: No cyanosis. Psychiatric: Affect appears appropriate. Results & Data Vital Signs (Past 12 Hours) Vital Signs Temp Pulse Pulse Resp BP Pulse Ox Pulse Ox 06/06/22 16:20 63 06/06/22 16:00 36.5 C 79 18 101/64 96 06/06/22 09:20 92 06/06/22 11:00 36.5 C 66 18 95/59 L 91 06/06/22 10:04 66 O2 Del Method O2 Flow Rate 06/06/22 16:20 06/06/22 16:00 Room Air 06/06/22 09:20 4 06/06/22 11:00 Room Air 06/06/22 10:04 Laboratory Results Abnormal Lab Results 06/05/22 06/05/22 06/05/22 19:57 20:31 22:46 WBC RBC Hgb Hct MCV MCH MCHC RDW Std Deviation RDW Coeff of [place] Plt Count MPV Sodium Potassium Chloride Carbon Dioxide Anion Gap BUN Creatinine Est Cr Clr Drug Dosing Est GFR ( Amer) Est GFR (Non-Af Amer) BUN/Creatinine Ratio Glucose POC Glucose 168 H Estimat Average Glucose Hemoglobin A1c Calcium Magnesium Troponin I High Sens 50.4 H* D 46.1 H Triglycerides Cholesterol LDL Cholesterol, Calc VLDL Cholesterol, Calc HDL Cholesterol Cholesterol/HDL Ratio TSH 06/06/22 06/06/22 06/06/22 06:11 06:11 06:11 WBC 5.48 RBC 4.25 L Hgb 12.1 L Hct 35.3 L MCV 83.1 MCH 28.5 MCHC 34.3 RDW Std Deviation 42.6 RDW Coeff of [place] 14.2 Plt Count 184 MPV 10.3 Sodium 139 Potassium 3.4 L Chloride 100 Carbon Dioxide 33 H Anion Gap 6 BUN 22 Creatinine 1.12 Est Cr Clr Drug Dosing 73.7 Est GFR ( Amer) 73.0 Est GFR (Non-Af Amer) 63.0 BUN/Creatinine Ratio 19.6 Glucose 101 H POC Glucose Estimat Average Glucose 154 Hemoglobin A1c 7.0 H Calcium 8.6 Magnesium 1.7 Troponin I High Sens Triglycerides 99 Cholesterol 103 LDL Cholesterol, Calc 54 VLDL Cholesterol, Calc 20 HDL Cholesterol 29 Cholesterol/HDL Ratio 3.6 TSH 06/06/22 06/06/22 06/06/22 06:11 07:49 12:15 WBC RBC Hgb Hct MCV MCH MCHC RDW Std Deviation RDW Coeff of [place] Plt Count MPV Sodium Potassium Chloride Carbon Dioxide Anion Gap BUN Creatinine Est Cr Clr Drug Dosing Est GFR ( Amer) Est GFR (Non-Af Amer) BUN/Creatinine Ratio Glucose POC Glucose 101 H 162 H Estimat Average Glucose Hemoglobin A1c Calcium Magnesium Troponin I High Sens Triglycerides Cholesterol LDL Cholesterol, Calc VLDL Cholesterol, Calc HDL Cholesterol Cholesterol/HDL Ratio TSH 0.531 06/06/22 16:21 WBC RBC Hgb Hct MCV MCH MCHC RDW Std Deviation RDW Coeff of [place] Plt Count MPV Sodium Potassium Chloride Carbon Dioxide Anion Gap BUN Creatinine Est Cr Clr Drug Dosing Est GFR ( Amer) Est GFR (Non-Af Amer) BUN/Creatinine Ratio Glucose POC Glucose 129 H Estimat Average Glucose Hemoglobin A1c Calcium Magnesium Troponin I High Sens Triglycerides Cholesterol LDL Cholesterol, Calc VLDL Cholesterol, Calc HDL Cholesterol Cholesterol/HDL Ratio TSH Diagnostic Findings Echocardiogram demonstrated normal LV function. PG Care Time/CCT Total # of Minutes Spent Total Time Spent with Patient: Total time spent is greater than 50% in coordination of care (as documented) at patient's floor/unit and/or counseling patient: Coding Level of Care Code 38666 SUB INP/OBS CARE 2/35MIN Diagnoses SVT (supraventricular tachycardia) I47.1 Chest pain R07.9 Hypoxia R09.02 Hypomagnesemia E83.42 Elevated troponin R77.8 Hypertension I10 Hypertension type: essential hypertension CAD (coronary artery disease) I25.10 (6) Hypertension Hypertension type: essential hypertension Qualified Code(s): I10 - Essential (primary) hypertension
[2022-06-06] MEDS: ATORVASTATIN 20 MG TAB PO SCH (21:03)
--- NOTE | 2022-06-07 05:29 | Electrocardiogram Report ---
Test Reason : Blood Pressure : / mmHG Vent. Rate : 142 BPM Atrial Rate : 136 BPM P-R Int : 000 ms QRS Dur : 140 ms QT Int : 338 ms P-R-T Axes : 000 262 011 degrees QTc Int : 519 ms Poor data quality, interpretation may be adversely affected Supraventricular tachycardia Right bundle branch block Abnormal ECG When compared with ECG of 15-MAY-2022 15:17, Supraventricular tachycardia has replaced Sinus rhythm Vent. rate has increased BY 72 BPM Confirmed by Wayne Henry ([id number]) on 06/07/2022 5:29:13 AM Referred By: Confirmed By:Wayne Henry
--- NOTE | 2022-06-07 05:42 | Electrocardiogram Report ---
Test Reason : Blood Pressure : / mmHG Vent. Rate : 086 BPM Atrial Rate : 086 BPM P-R Int : 322 ms QRS Dur : 142 ms QT Int : 446 ms P-R-T Axes : 000 -78 -01 degrees QTc Int : 533 ms Sinus rhythm with 1st degree A-V block Right bundle branch block Left anterior fascicular block Bifascicular block Abnormal ECG When compared with ECG of 05-JUN-2022 08:20, Sinus rhythm has replaced Supraventricular tachycardia Vent. rate has decreased BY 56 BPM Confirmed by Wayne Henry ([id number]) on 06/07/2022 5:42:45 AM Referred By: REFERRED SELF Confirmed By:Wayne Henry
[2022-06-07] MEDS: INSULIN ASPART PER UNIT CHARGE SC SCH ×2 (08:57→12:42)
[2022-06-07] MEDS: LANTUS PER UNIT CHARGE SQ SCH (08:58)
[2022-06-07] MEDS: guaiFENesin 600 MG TABCR PO SCH (09:01)
[2022-06-07] MEDS: MAGNESIUM OXIDE 400 MG TAB PO SCH (09:02)
[2022-06-07] MEDS: ISOSORBIDE MONO EXTENDED REL 60 MG TABCR PO SCH (09:02)
[2022-06-07] MEDS: ASPIRIN 81 MG ECTAB PO SCH (09:02)
[2022-06-07] MEDS: ATENOLOL 50 MG TABLET PO SCH (09:02)
[2022-06-07] MEDS: amLODIPine BESYLATE 5 MG TAB PO SCH (09:02)
[2022-06-07] MEDS: LOSARTAN POTASSIUM 50 MG TAB PO SCH (09:03)
[2022-06-07] MEDS: HEPARIN SOD 5,000 UNIT/0.5 ML VIAL SQ SCH (09:11)
[2022-06-07] MEDS: FUROSEMIDE 40 MG/4 ML VIAL IV SCH (09:11)
[2022-06-07 09:21] LABS: Hematocrit (blood only) 41.2 % (42.0-52.0); Hemoglobin 14.1 g/dl (14.0-18.0); Mean Corpuscular Hemoglobin 28.4 pg (25.0-34.0); Mean Corpuscular Hgb Conc 34.2 g/dL (32.0-36.0); Mean Corpuscular Volume 83.1 fL (80.0-100.0); Mean Platelet Volume 10.2 fL (9.4-12.4); Platelet Count 214 K/uL (130-400); RDW Coefficient of Variation 13.7 % (11.5-14.5); RDW Standard Deviation 41.8 fL (36.4-46.3); Red Blood Count 4.96 M/uL (4.70-6.10); White Blood Count 6.08 K/ul (4.8-10.8)
[2022-06-07 09:36] LABS: BUN Creatinine Ratio 21.3 (10-20); Calcium 8.5 mg/dl (8.6-10.3); Creatinine Clr Calc Pharmacy 76.4 ml/min; Est GFR (African American) 76.3 ml/min; Est GFR (Non-African American) 65.9 ml/min; Magnesium 1.6 mg/dl (1.7-2.4); Phosphorus 3.3 mg/dl (2.5-4.9); Potassium 3.5 mmol/L (3.5-5.1)
[2022-06-07] MEDS ORDERED: POTASSIUM CHLORIDE CRTAB 20 MEQ TABCR PO STA (09:57)
[2022-06-07] MEDS: MAGNESIUM SULFATE / D5W 1 GM/100 ML BAG IV SCH ×2 (10:26→12:20)
--- NOTE | 2022-06-07 10:35 | Discharge Summary ---
Date of Service June 07, 2022 Admission HPI Per Admitting Provider This is a 77 yo M with PMHx of DM II, HTN, obesity with BMI 43.7, chronic ischemic heart disease, MDD, generalized anxiety who presents with shortness of breath with hypoxia on room air with O2 sats at 88% upon presentation. Last evening around 9 PM he had acute onset of substernal chest pain and headache while he was sitting down watching TV in the evening. This morning upon awakening his chest pain was resolved and his headache was gone however he still had a cough and felt short of breath with minimal exertion. Cough is nonproductive, and does cause a twinge pain in the lower right side of his anterior chest. He does not wear any oxygen at baseline, is currently on 4 L here with sats at 92 to 93%. EKG and telemetry monitoring show that he is in a flutter with a rate of 140s while sitting at rest, and intermittently, even during our conversation he breaks into NSR with HR down into the 80s. All while sitting at rest. He denies any chest pain, lightheadedness, dizziness, palpitations, abdominal complaints, nausea or vomiting. Patient has been tolerating p.o. intake without difficulty. Patient did not take his morning medications today due to calling EMS, but did take them last evening. He follows with Dr. Miguel with [facility] cardiology routinely. He reports having a cardiac cath about 2 years ago which was okay. Admission Exam Per Admitting Provider General: awake, alert, no apparent distress, + morbidly obese with BMI of 43.7 Head: Normocephalic, atraumatic ENT: PERRL, EOMI, no pharyngeal exudate, mucous membranes moist Chest: On for L via NC with O2 sats at 93%, + coarse breath sounds, faint rales, no crackles or wheeze Cardiac: HR in the 140s in aflutter and breaks intermittently into the 80s with 1st degree AV block, RBBB, no murmur, no JVD, normal peripheral pulses, good capillary refill Abdominal: NABS x 4 quadrants, + obese, soft, nondistended, nontender to palpation, no rebound or guarding Extremities: Normal inspection, 1+ pitting peripheral edema bilaterally, no erythema, calfs nontender to palpation Psych: Normal mood and affect Skin: Multiple actinic keratoses lesions chest, trunk, back, head Neuro: AAO x 3, strength intact bilaterally and rated 5/5, no motor deficits, speech is clear, no peripheral sensory deficits Principal Diagnosis Chest pain secondary to SVT Hypomagnesemia Discharge Exam General: morbidly obese , elderly M in NAD Head: Normocephalic, atraumatic ENT: PERRL, EOMI Chest: + CTAB, faint rales Cardiac:rrr, no murmur noted Abdominal: NABS x 4 quadrants, + obese, soft, nondistended, nontender to palpation Extremities: minimal LE edema bilaterally, no erythema,moves extremities Psych: Normal mood and affect Skin: Multiple actinic keratoses lesions noted, skin is otherwise warm and dry Neuro: AAO x 3, speech fluent, no facial asymmetry, moves extremities Discharge Data Allergies Allergy/AdvReac Type Severity Reaction Status Date / Time cephalexin Allergy Mild Unknown Verified 05/15/22 15:00 codeine Allergy Mild unknown Verified 05/15/22 15:00 Consultations 06/05/22 10:38 ED Decision to Admit Stat 06/05/22 11:38 Consult Cardiology Routine Hospital Course (1) Atrial flutter with rapid ventricular response: (2) Hypoxia: (3) Chest pain: - Admitted to PCU - On admission - HR in the 140s in aflutter and breaks intermittently into the 80s with 1st degree AV block, RBBB and likely secondary to electrolyte abnormalities - Replacing mag and potassium - Cardiology consulted - follows with Dr. Miguel as outpatient - Check 2 D echo - last from Mar 2020 was reviewed showed EF of 60-65 %, no regional wall motion abnormalities, mild concentric left ventricular hypertrophy Current Echo -compared to prior study, no significant change. EF 55 to 60%. Moderate concentric LVH. Grade 1 diastolic dysfunction. There is moderate to severe mitral annular calcification. There is no mitral valve stenosis. Significant mitral regurg is absent. - EKG reviewed - TSH wnl - Seen by cardiology - chest pain believed to be secondary to sustained SVT in the setting of hypomagnesemia. EP consulted - Dr. Salinas -discussed, plan for outpatient ablation. Magnesium supplement. (4) Hypomagnesemia: - Mag 1.3 on admission - replete and monitor - outpt supplement - recheck mag level as outpt at the next PCP appointment (5) Hypertension: - continue on atenolol 50 mg twice daily, Imdur, losartan - Holding triamterene/HCTZ - discontinued d/t hypomagnesemia (6) Dyslipidemia: - Cont statin therapy (7) Type 2 diabetes mellitus: - current A1C 7.0% - Will continue ISS with accuchecks, holding metformin - Continue lantus 40 U BID, takes trulicity on Sundays (8) Morbid obesity: - BMI of 43.7 - lifestyle modification encouraged, counseling provided -Patient would likely benefit from outpatient referral to dietitian -Also concern for possible sleep apnea, recommend outpatient sleep apnea study Total Time Total Time Spent Total Time Spent (In Minutes): 40 Discharge Plan Discharge Items Patient Disposition: Home - Self-Care Reason For Visit: SHORTNESS OF BREATH Discharge Diagnosis: Chest pain secondary to SVT Hypomagnesemia Activity: Per Instructions section Non-emergency contact: Primary Care Provider and Tuber Operator Call non-emergency contact if: you have any medication questions and your symptoms worsen Follow-up/Referrals: Martin Zavaleta MD [Primary Care Provider] - (Date & Time 06/13/2022 10:20 AM Provider Martin Zavaleta MD [facility] [address] ) Diet: Carb Consistent or DM2 and Heart Healthy Fluids: 1800ml (7 cups) Addtl Attending Provider Instructions: Follow-up with primary care doctor and car inspector. The appointment with primary care doctor was scheduled for you for June 13. You will also need to follow-up with cardiology, Dr. Salinas, for possible ablation. Your magnesium level was found low in the hospital. Recommend magnesium supplement. Also one of your medications, triamterene-hydrochlorothiazide, was discontinued due to low magnesium level. Also recommend weight loss, and outpatient sleep study for possible sleep apnea. Pending Studies at Discharge: No Stand-Alone Forms: My [employer], Smoking Cessation Medications and DC Order Prescriptions: New magnesium oxide 400 mg (241.3 mg magnesium) Tablet 400 mg PO QAM Qty: 20 0RF Continued isosorbide mononitrate 120 mg tablet extended release 24 hr 60 mg PO QAM Qty: 45 3RF losartan 50 mg tablet 50 mg PO QAM aspirin 81 mg Tablet,Delayed Release (Dr/Ec) 81 mg PO QAM metformin 1,000 mg tablet 1,000 mg PO BID atenolol 50 mg tablet 50 mg PO BID insulin degludec [Tresiba FlexTouch U-200] 200 unit/mL (3 mL) insulin pen 40 unit SUBCUT BID Trulicity 0.75 mg/0.5 mL pen injector 0.75 mg SUBCUT WK Rx Instructions: Q SUN amlodipine [Norvasc] 10 mg tablet 10 mg PO QAM atorvastatin 20 mg tablet 20 mg PO HS tramadol 50 mg tablet 50 mg PO Q8H PRN (Reason: pain) Qty: 20 0RF insulin aspart U-100 [Novolog FlexPen U-100 Insulin] 100 unit/mL (3 mL) insulin pen SUBCUT BID Discontinued triamterene-hydrochlorothiazid 37.5-25 mg tablet 1 tab PO QAM Discharge Orders: Discharge Order (Routine); Ordered 06/07/22 Ordered By: Jovan Heredia Admission Data Admit Date/Time: 06/05/22 11:00 Attending Provider: Jovan Heredia Admit Provider: Luz Rosenberg Primary Care Provider: Martin Zavaleta Other Providers: Luz Rosenberg ; Wayne Henry
--- NOTE | 2022-06-07 21:36 | Electrocardiogram Report ---
Test Reason : Blood Pressure : / mmHG Vent. Rate : 066 BPM Atrial Rate : 066 BPM P-R Int : 302 ms QRS Dur : 152 ms QT Int : 460 ms P-R-T Axes : -29 -67 -09 degrees QTc Int : 482 ms Sinus rhythm with 1st degree A-V block Right bundle branch block Left anterior fascicular block Bifascicular block Abnormal ECG When compared with ECG of 05-JUN-2022 11:27, No significant change was found Confirmed by Wayne Henry ([id number]) on 06/07/2022 9:35:34 PM Referred By: REFERRED SELF Confirmed By:Wayne Henry
== END 2022-06-07 15:31 | disposition home or self-care (01) | DRG 308 ==
LOC: ED 08:15 → SUATTDRO 11:00 → 2S 11:00

== ENCOUNTER 2022-10-24 09:52 | Observation (INO) ==
[2022-10-24] MEDS ORDERED: LIDOCAINE 1% LOCAL 20 ML VIAL ONE (11:50)
[2022-10-24] MEDS ORDERED: VANCOMYCIN HCL 1000MG/20ML VIAL ONE (11:50)
[2022-10-24] MEDS ORDERED: BUPIVACAINE 0.25% PF 30 ML VIAL ONE (11:50)
[2022-10-24] MEDS ORDERED: WATER, STERILE FOR INJ 10 ML VIAL ONE (11:50)
--- NOTE | 2022-10-24 11:51 | History & Physical Bridge Note ---
Date of Service October 24, 2022 History & Physical Bridge Note I have examined the patient, reviewed the History & Physical and in the interval since the performance of the History & Physical I have noted the following changes of clinical significance: no changes noted
--- NOTE | 2022-10-24 11:53 | Pre Anesthesia Assessment ---
Date of Service October 24, 2022 Pre Sedation Assessment Vital Signs Temp Pulse Resp BP Pulse Ox O2 Del Method 10/24/22 10:06 36.8 C 77 18 150/95 H 94 Room Air Cardiovascular + regular rate and + regular rhythm Respiratory + respiratory effort normal Pre-Sedation Airway Assessment Smoking Status: Never smoker Hx Sleep Apnea: No Hx Difficult Intubation: No Short, Thick Neck: No Thyromental Distance: > or= 3.5 Finger Breadths Oral Cavity: + Dentures Mallampati Class: IV ASA: ASA3 NPO Status Date of Last Intake of Fluids: 10/24/22 Time of Last Intake of Fluids: 08: Last Oral Intake of Fluids Comment: sip with pills Date of Last Intake of Solid Food: 10/23/22 Procedure Planning Contraindications for Sedation: none Current Medications Reviewed: Yes Notes The planned sedation has been discussed with the patient. Informed Consent was obtained. I have identified the patient, determined the appropriateness of sedation and have assessed the patient immediately prior to the procedure. All medicine(s) and interventions are by my order.
[2022-10-24] MEDS ORDERED: CLINDAMYCIN 600 MG/D5W 50 ML BAG IV ONE (11:56)
[2022-10-24] MEDS ORDERED: CLOPIDOGREL BISULFATE 300 MG TAB ONE (12:05)
[2022-10-24] MEDS ORDERED: MIDAZOLAM HCL 5 MG/ML 1 ML VIAL ONE (12:07)
[2022-10-24] MEDS ORDERED: fentaNYL citrate PF 100 MCG/2 ML VIAL ONE (12:07)
--- NOTE | 2022-10-24 13:23 | Post Anesthesia Assessment ---
Date of Service October 24, 2022 Post Sedation Assessment Vital Signs Temp Pulse Resp BP Pulse Ox O2 Del Method 10/24/22 10:06 36.8 C 77 18 150/95 H 94 Room Air Recovery Score Activity: Moves 4 extremities Respiration: Deep Breath/Cough Circulation: +/-20% PreAnes Value Consciousness: Fully Awake Oxygen Saturation: O2 needed for >90% Discharge Sedation Level of Care: Fast Track Phase II Post Sedation Plan On clinical assessment, the patient appears to have tolerated the sedation without complications. Patient is recovering as anticipated. Patient will continue to be monitored by nursing and may be discharged when sedation discharge criteria are met per below protocol. Upon Completions of procedure up to 15 minutes continue every 5 minute vital signs and the P.A.R. score; then discharge to a Phase I or Fast Track to Phase II per the following guidelines: * Discharge Patient to appropriate Phase II area if PAR is 8 or greater or return to pre- procedure baseline. The post - procedure orders will be as directed. * If PAR score is less than 8 or not return to pre-procedure baseline then patient will follow Phase I monitoring till PAR is reached for Phase II. The Phase I may be done in procedure room or may call to secure a Phase I area. * If naloxone or flumazenil are used for reversal, hold in Phase I for continued monitoring from when last reversal dose was given for a minimum of 60 minutes or longer pending the nurse and/or physician discretion of patient condition before discharge to Phase II. Please call the Sedation Physician to re-evaluate and complete post-note for discharge to Phase II area. Do NOT discharge from procedure sedation or Phase 1 until post- sedation evaluation note is complete by procedure /sedation MD Sedation Discharge Instructions to be given to the patient at discharge to home.
--- NOTE | 2022-10-24 15:54 | Electrophysiology Report ---
Date of Service October 24, 2022 Electrophysiology Procedure Electrophysiology Procedure Report Procedure performed: Implantation of dual-chamber permanent pacemaker with left bundle pacing lead Staff talent acquisition coordinator: George Salinas MD Indication: The patient is a 77-year-old gentleman who had previous undergone evaluation for supraventricular tachycardia. 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 Procedure in detail: The patient was informed of the risks benefits and alternatives to the intended procedure and he wished to proceed. He was taken to the electrophysiology suite in a fasting state. A preoperative antibiotic had been administered. The patient was monitored electrocardiographically throughout today's procedure and conscious sedation was administered per protocol. The left upper pectoral area is prepped and draped in usual sterile fashion. This area was anesthetized using subcutaneous administration of a xylocaine solution. An incision was made at this site and carried down to the prepectoralis fascia using sharp dissection. Electrocautery was also employed for dissection as well as for hemostasis. A device pocket was fashioned tissues above the pectoralis muscle. Subsequent to this maneuver the left axillary vein was accessed using modified Seldinger technique. Sheath was placed over guidewire and use facilitate passage of a guiding catheter for mapping of the interventricular septum. Once appropriate location was identified the pacing lead was advanced into the ventricular septum until the desired effect was achieved. The guiding catheter and sheath were then removed and the proximal portion of the lead was then sutured to the prepectoralis fascia using nonabsorbable suture. A sheath was placed over the remaining guidewire and used to stay passage of a pacing lead to the right atrium and fluoroscopic guidance. Adequate sensing and threshold parameters were obtained prior to active-fixation's lead to the endocardial surface. The proximal portion of lead was then sutured the prepectoralis fascia with nonabsorbable suture. The device pocket was irrigated with antibiotic solution. The leads were then attached to the device. The device and leads were then placed in the pocket and pocket was closed in 3 layers of absorbable suture. Steri-Strips and sterile dressing were applied. The device was tested yevgeniy nvasively prior to conclusion the procedure. The patient tolerated procedure well there no immediate complications. Equipment used: New pulse generator: On Site Manager [employer]. Model number: [id number] serial number [id number] Right atrial lead: On Site Manager [facility]. Model number: [id number] serial number [id number] Right ventricular lead: On Site Manager [employer]. Model number: 330 serial karsten Murrell [id number] Measured data: Right atrial lead: P waves measured 2.9 mV. Pacing threshold was 0.7 V at 0.5 ms with a pacing impedance of 657 ohms Right ventricular lead: R waves measured 18.6 mV. Pacing threshold 0.7 V at 0.5 ms with a pacing impedance of 888 ohms Impression: Successful implantation of dual-chamber permanent pacemaker with left bundle pacing MNPG Electrophysiology codes Pacing Procedure 1: Pacin Insert/Replace Pacer A & V PG Moderate Sedation Codes Moderate Sedation Codes Procedure 1: Sedation/Anesthesia: 46206 Mod Sedation by the same physician;Init15 Min Child Age 5 & Up Procedure 2: Sedation/Anesthesia: 55644 Mod Sedation by the same physician; Ea [id number] Minutes
[2022-10-24] MEDS ORDERED: GLUCOSE 40% GEL 15 GM TUBE PO PRN (16:46)
[2022-10-24] MEDS ORDERED: DEXTROSE 50% 50 ML SYRINGE IV PRN (16:46)
[2022-10-24] MEDS ORDERED: GLUCAGON FOR INJ 1 MG VIAL SQ PRN (16:46)
[2022-10-24] MEDS ORDERED: GLUCOSE 10 TAB/TUBE PO PRN (16:46)
[2022-10-24] MEDS ORDERED: CARBOHYDRATES FOR HYPOGLYCEMIA PO PRN (16:46)
[2022-10-24] MEDS: metFORMIN HCL 500 MG TAB PO SCH (17:40)
[2022-10-24] MEDS: oxyCODONE HCL IR 5 MG TAB (IMMEDIATE RELEASE) PO PRN (17:42)
[2022-10-24] MEDS ORDERED: CLINDAMYCIN/D5W 600 MG/50 ML BAG IV ONE (20:00)
[2022-10-24] MEDS: ATENOLOL 50 MG TABLET PO SCH (21:00)
[2022-10-24] MEDS ORDERED: ATORVASTATIN 20 MG TAB PO SCH (21:00)
[2022-10-24] MEDS: INSULIN ASPART PER UNIT CHARGE SC SCH (21:01)
[2022-10-24] MEDS: LANTUS PER UNIT CHARGE SQ SCH (21:04)
[2022-10-25] MEDS: oxyCODONE HCL IR 5 MG TAB (IMMEDIATE RELEASE) PO PRN (02:01)
--- NOTE | 2022-10-25 07:02 | XRay Report ---
XR chest 2V PA/lateral CLINICAL HISTORY: Pacemaker insertion. COMPARISON STUDY: Chest CT October 07, 2021. Chest radiograph June 05, 2022. FINDINGS: There is no pneumothorax following placement of a dual-lead left subclavian pacemaker. Lead tips project over the right atrial appendage and right ventricle. Cardiomegaly is unchanged. Mild in terstitial thickening is unchanged. IMPRESSION: No pneumothorax placement of a dual-lead left subclavian pacemaker. ACT 112: Negative or not required by law. Electronically signed by: Timothy Black M.D. 10/25/2022 7:01 AM
[2022-10-25] MEDS: ATENOLOL 50 MG TABLET PO SCH (08:08)
[2022-10-25] MEDS: metFORMIN HCL 500 MG TAB PO SCH (08:08)
[2022-10-25] MEDS: INSULIN ASPART PER UNIT CHARGE SC SCH (08:11)
[2022-10-25] MEDS: LANTUS PER UNIT CHARGE SQ SCH (08:16)
[2022-10-25] MEDS ORDERED: amLODIPine BESYLATE 5 MG TAB PO SCH (09:00)
[2022-10-25] MEDS ORDERED: ISOSORBIDE MONO EXTENDED REL 60 MG TABCR PO SCH (09:00)
[2022-10-25] MEDS ORDERED: MAGNESIUM OXIDE 400 MG TAB PO SCH (09:00)
[2022-10-25] MEDS ORDERED: ASPIRIN 81 MG ECTAB PO SCH (09:00)
[2022-10-25] MEDS ORDERED: LOSARTAN POTASSIUM 50 MG TAB PO SCH (09:00)
--- NOTE | 2022-10-25 09:13 | Discharge Summary ---
Date of Service October 25, 2022 Admission HPI Per Admitting Provider Patient is a 77-year-old gentleman with a history of tachy-landry syndrome. Prior EP testing revealed poor AV ratna conduction despite history of SVT. He is therefore advised to undergo permanent pacemaker. Principal Diagnosis Tachy-landry syndrome Discharge Exam On the day of discharge the device implant site revealed very mild ecchymosis. No erythema. No drainage. No hematoma. Discharge Data Allergies Allergy/AdvReac Type Severity Reaction Status Date / Time cephalexin Allergy Mild Unknown Verified 10/24/22 10:15 codeine Allergy Mild unknown Verified 10/24/22 10:15 Procedures Performed Operation Date: 10/24/22 11:00 Actual Procedures p Pacer with A/V Leads (Dual) - George Salinas MD Ordered Studies 10/24/22 07:00 EP Lab Images for PACS ONCE Hospital Course (1) Tachy-landry syndrome: On the day of admission the patient underwent implantation of a dual-chamber Medtronic pacemaker with left bundle pacing lead. The following morning x-ray demonstrated stable lead position without evidence of pneumothorax. Device interrogation revealed normal function of the device. No immediate complication. Total Time Total Time Spent Total Time Spent (In Minutes): 20 Discharge Plan Discharge Items Patient Disposition: Home - Self-Care Reason For Visit: SVT, Left Anterior Fascicular Block, RBBB Discharge Diagnosis: tachy-landry syndrome Condition on Discharge: Good Activity: Resume your previous activity Lifting: No more than 10 pounds Lifting Comment: NO liftring left arm above shoulder or behind neck for 6 weeks Bathing: Keep incision dry Bathing Comment: Keep wound dry and steri-strip intact until f/u Exercise/Sports: Rest today Driving/Machine Use: Resume 1 day after discharge Non-emergency contact: Health Systems Analyst Call non-emergency contact if: you have any medication questions, your symptoms worsen, you have a fever, your wound has increased redness, your wound has increased drainage and your wound pain has increased Follow-up/Referrals: Martin Zavaleta MD [Primary Care Provider] - Diet: Carb Consistent or DM2 and Heart Healthy Addtl Attending Provider Instructions: none Pending Studies at Discharge: No Stand-Alone Forms: My [facility], Smoking Cessation Medications and DC Order Prescriptions: Continued losartan 50 mg tablet 50 mg PO QAM magnesium oxide 400 mg (241.3 mg magnesium) tablet 400 mg PO DAILY Qty: 90 0RF isosorbide mononitrate 120 mg tablet extended release 24 hr 120 mg PO QAM Qty: 90 3RF aspirin 81 mg Tablet,Delayed Release (Dr/Ec) 81 mg PO QAM metformin 1,000 mg tablet 1,000 mg PO BID atenolol 50 mg tablet 50 mg PO BID insulin degludec [Tresiba FlexTouch U-200] 200 unit/mL (3 mL) insulin pen 40 unit SUBCUT BID Trulicity 0.75 mg/0.5 mL pen injector 0.75 mg SUBCUT WK Rx Instructions: Q SUN amlodipine [Norvasc] 10 mg tablet 10 mg PO QAM atorvastatin 20 mg tablet 20 mg PO HS insulin aspart U-100 [Novolog FlexPen U-100 Insulin] 100 unit/mL (3 mL) insulin pen SUBCUT BID guaifenesin 600 mg tablet extended release 12hr 600 mg PO BID Qty: 10 0RF Discharge Orders: Discharge Order (Routine); Ordered 10/25/22 Ordered By: George Salinas Admission Data Admit Date/Time: 10/24/22 13:23 Attending Provider: George Salinas Admit Provider: George Salinas Primary Care Provider: Martin Zavaleta Other Interventions: Discharge Summary Assessment (RN) Last Done: 10/25/22 09:29 Coding Level of Care Code 42737 IN/OBS DISCH 30 MIN/LESS Diagnoses Tachy-landry syndrome I49.5
--- NOTE | 2022-10-28 15:19 | Electrocardiogram Report ---
Test Reason : Blood Pressure : / mmHG Vent. Rate : 071 BPM Atrial Rate : 071 BPM P-R Int : 162 ms QRS Dur : 162 ms QT Int : 476 ms P-R-T Axes : -06 -35 137 degrees QTc Int : 517 ms Atrial-sensed ventricular-paced rhythm Abnormal ECG When compared with ECG of 15-OCT-2022 14:39, Ventricular pacing is now present Confirmed by Wayne Henry ([id number]) on 10/28/2022 3:18:55 PM Referred By: Betito Miguel Confirmed By:Wayne Henry
== END 2022-10-25 11:43 | disposition home or self-care (01) | DRG 243 ==
LOC: EP 09:52 → INTOOBSV 13:23 → 2E 13:23

== ENCOUNTER 2023-06-18 12:18 | Inpatient (IN) ==
--- NOTE | 2023-06-18 13:26 | XRay Report ---
XR chest 1V portable CLINICAL HISTORY: Hypoxia. COMPARISON STUDY: Chest CT October 07, 2021. Chest radiograph October 25, 2022. FINDINGS: Left subclavian pacer is in place. There is no pneumothorax or pleural effusion. Cardiomega ly is unchanged. No consolidation is identified. No evidence for pulmonary edema. IMPRESSION: No acute cardiopulmonary findings. Cardiomegaly. ACT 112: Negative or not required by law. Electronically signed by: Timothy Black M.D. 06/18/2023 1:25 PM
[2023-06-18 13:28] LABS: Basophils # (auto) 0.03 K/uL (0.00-0.20); Basophils % (auto) 0.3 %; Eosinophils # (auto) 0.19 K/uL (0.00-0.50); Eosinophils % (auto) 1.7 %; Hematocrit (blood only) 39.8 % (42.0-52.0); Hemoglobin 13.2 g/dl (14.0-18.0); Immature Granulocytes # (auto) 0.04 K/uL (0.01-0.20); Immature Granulocytes % (auto) 0.4 %; Lymphocytes # (auto) 1.57 K/uL (1.20-3.40); Lymphocytes % (auto) 14.1 %; Mean Corpuscular Hemoglobin 27.9 pg (25.0-34.0); Mean Corpuscular Hgb Conc 33.2 g/dL (32.0-36.0); Mean Corpuscular Volume 84.1 fL (80.0-100.0); Mean Platelet Volume 10.4 fL (9.4-12.4); Monocytes # (auto) 1.19 K/uL (0.11-0.59); Monocytes % (auto) 10.7 %; Neutrophils # (auto) 8.13 K/uL (1.40-6.50); Neutrophils % (auto) 72.8 %; Platelet Count 251 K/uL (130-400); RDW Coefficient of Variation 14.2 % (11.5-14.5); RDW Standard Deviation 43.4 fL (36.4-46.3); Red Blood Count 4.73 M/uL (4.70-6.10); White Blood Count 11.15 K/ul (4.8-10.8)
[2023-06-18 13:40] LABS: Bilirubin,Total 0.7 mg/dl (0.2-1.0); Calcium 9.3 mg/dl (8.6-10.3); Creatinine Clr Calc Pharmacy 82.5 ml/min; Est GFR (African American) 83.2 ml/min; Est GFR (Non-African American) 71.8 ml/min; Potassium 4.1 mmol/L (3.5-5.1); Total Protein 7.4 gm/dl (6.0-8.3)
--- NOTE | 2023-06-18 13:55 | Emergency Department Note ---
Impression & Plan Exertional dyspnea ED Provider Note NAME: SONDRA FRANCES AGE: 78 SEX: M : 1945 ARRIVES VIA: Walk-In INFORMANT: Patient, ED PROVIDER(S): Cecilia Cole MD CHIEF COMPLAINT: hypoxia HPI: This 78-year-old male presenting for hypoxia. Patient states that over the past 1 to 2 weeks he has noticed increasing dyspnea. He notes that getting around is more difficult at home. He is never had any oxygen requirements. Never smoker. He currently states he has had shortness of breath specifically with walking and also at rest. He has no chest pain, fevers, chills or nausea. Does have a slight cough which brings up clear sputum, no blood. No pleurisy. No significant leg swelling that is new. ROS: See above HPI for pertinent positives & negatives. A total of 10 systems reviewed and were otherwise negative. PAST MEDICAL HISTORY: See Below PAST SURGICAL HISTORY: See Below FAMILY HISTORY: See Below SOCIAL HISTORY: See Below HOME MEDICATIONS: See Below ALLERGIES: See Below VITALS: See Below PHYSICAL EXAMINATION: General: resting comfortably in no acute distress Head: Normocephalic and atraumatic Eyes: Normal inspection, extraocular muscles intact Ear, nose, throat: Normal external exam Neck: Normal range of motion Respiratory: lungs clear to auscultation bilaterally Cardiovascular: Regular rate/rhythm, no murmur GI: soft, nontender, no guarding or rebound Extremities: nontender, moves all extremities Neuro: The patient awake and alert, appropriately conversive, no focal deficits, symmetric faces Skin: Warm, dry, and intact MEDICAL DECISION MAKING: This is a 78-year-old presents for hypoxia. Consider COPD, asthma, bronchitis, pneumonia, CHF, PE, ACS. -ECG independently interpreted by me with ventricularly paced rhythm, rate of 75, normal axis, normal NV, normal QRS, normal QTc, no ST segment elevations consistent with STEMI criteria -Leukocytosis of 11.15 noted, otherwise no significant electrolyte disturbances. No transaminitis. -Chest Xray independently interpreted by me showing cardiomegaly without pneumothorax, focal opacity, or pleural effusions. -Patient ambulated and was more tachypneic and mildly hypoxic to about 87 with ambulation -Patient require admission, consider cardiogenic versus respiratory cause Differential diagnosis: See above ER treatment provided: See below Diagnostics interpreted by me: ECG: See above Cardiac Monitoring: An order was placed for continuous cardiac monitoring. The monitor shows a rate of 72 with sinus rhythm. Laboratory studies: As stated above and show below. Imaging studies: See below. Past Med/Surg History Medical History Pacemaker History of COVID-19 09/2021, admitted to [facility] for 8 days-"pt unsure why he was admitted" per record, cough and hypoxia>resolved CAD (coronary artery disease) Snoring Elevated troponin hx Morbid obesity BMI 45.4 Left anterior fascicular block RBBB First degree atrioventricular block Monoclonal gammopathy DJD (degenerative joint disease), lumbosacral Hemorrhoids pt denies Diabetic neuropathy Osteoarthritis Diverticulosis Dyslipidemia Hypertension Type 2 diabetes mellitus IDDM Surgical History History of permanent cardiac pacemaker placement 09/2022, [facility]; f/u [facility]ology History of colonoscopy last 2015 History of sinus surgery (~05/10/20) History of cardiac cath (~04/27/21) no stents, d/t angina H/O oral surgery all teeth removed History of back surgery (~05/2005) lumbar laminectomy Hx of cataract surgery lt Family History Father Coronary heart disease Heart disease Myocardial infarction Sister Coronary heart disease Cancer Brother Coronary heart disease Hx of CABG Family/Other Hearing loss Mother Asthma Other No family history of adverse response to anesthesia Social History Smoking Status: Never smoker Tobacco Type: Smokeless Tobacco (Dip or Chew) Second Hand Exposure: No; Do You Dip or Chew Tobacco: No (quit 1992; advised); Hx Alcohol Use: No Hx Substance Use: No Preferred Language: Indonesian Communication Ability: Effective Hand Stitcher Required: No Beliefs That Will Affect Care: None marital status: Single Current Living Situation: Alone Current Living Situation Comment: Sister is neighbor current occupational status: retired How many Children do You have Comment: No Children Feels Safe at Home: Yes Assistive Devices: Denture - Upper, Denture - Lower and Glasses Allergies Allergies Allergy/AdvReac Type Severity Reaction Status Date / Time cephalexin Allergy Mild Rash Verified 05/07/23 07:43 codeine Allergy Mild Rash Verified 05/07/23 07:43 Home Meds Home Medications Medication Instructions Recorded Confirmed aspirin 81 mg tablet,delayed 81 mg PO QAM 08/11/19 06/18/23 release atenolol 50 mg tablet 50 mg PO QAM 08/11/19 06/18/23 dulaglutide 0.75 mg/0.5 mL 0.75 mg subcut Q7D 08/11/19 06/18/23 subcutaneous pen injector (Trulicity) insulin degludec 200 unit/mL (3 40 unit subcut BID 08/11/19 06/18/23 mL) subcutaneous pen (Tresiba FlexTouch U-200 insulin) metformin 1,000 mg tablet 1,000 mg PO BID 08/11/19 06/18/23 losartan 50 mg tablet 50 mg PO QAM 10/25/20 06/18/23 amlodipine 10 mg tablet (Norvasc) 10 mg PO QAM 01/02/21 06/18/23 atorvastatin 20 mg tablet 20 mg PO HS 05/16/21 06/18/23 insulin aspart U-100 100 unit/mL 20 unit subcut BID 06/05/22 06/18/23 (3 mL) subcutaneous pen (Novolog FlexPen U-100 Insulin aspart) diclofenac sodium 1 % topical gel 2 g topical QID PRN Pain 03/03/23 06/18/23 (Voltaren Arthritis Pain) fenofibrate 54 mg tablet 54 mg PO QAM 03/03/23 06/18/23 glucosamine HCl 1 tab PO BID 03/03/23 06/18/23 isosorbide mononitrate 60 mg 60 mg PO QAM 03/03/23 06/18/23 tablet,extended release 24 hr nitroglycerin 0.4 mg sublingual 0.4 mg sublingual Q5M PRN Chest 03/03/23 06/18/23 tablet Pain omega-3 fatty acids-fish oil 360 1 cap PO BID 03/03/23 06/18/23 mg-1,200 mg capsule (Fish Oil) triamterene 37.5 1 cap PO QAM 03/03/23 06/18/23 mg-hydrochlorothiazide 25 mg capsule magnesium oxide 400 mg (241.3 mg 400 mg PO HS 05/02/23 06/18/23 magnesium) tablet Results & Data (ED) Vital Signs Vital Signs - 24 hr 06/18/23 12:21 06/18/23 12:37 06/18/23 12:49 Temperature 36.9 C Temperature Source Skin Pulse Rate 85 76 74 Pulse Rate from SpO2 Sensor 75 Respiratory Rate 20 17 Blood Pressure 105/62 Blood Pressure Mean 76 Pulse Oximetry 92 90 Oxygen Delivery Method Room Air Sepsis Recent Fever Within 48 Hours No Sepsis New/Unexplained Change in Mental Status No Sepsis Action Taken by Nursing No Action Required 06/18/23 13:00 06/18/23 13:00 06/18/23 13:30 Temperature Temperature Source Pulse Rate 75 70 Pulse Rate from SpO2 Sensor 74 70 Respiratory Rate 20 19 Blood Pressure 159/83 H Blood Pressure Mean 105 Pulse Oximetry 90 90 Oxygen Delivery Method Sepsis Recent Fever Within 48 Hours Sepsis New/Unexplained Change in Mental Status Sepsis Action Taken by Nursing 06/18/23 13:30 06/18/23 13:49 06/18/23 13:54 Temperature Temperature Source Pulse Rate 80 Pulse Rate from SpO2 Sensor 78 Respiratory Rate 24 20 Blood Pressure 134/81 Blood Pressure Mean 94 Pulse Oximetry 87 L 92 Oxygen Delivery Method Room Air Sepsis Recent Fever Within 48 Hours Sepsis New/Unexplained Change in Mental Status Sepsis Action Taken by Nursing 06/18/23 13:54 06/18/23 14:00 06/18/23 14:00 Temperature Temperature Source Pulse Rate 72 Pulse Rate from SpO2 Sensor 72 Respiratory Rate 21 Blood Pressure 152/87 H 142/81 H Blood Pressure Mean 111 96 Pulse Oximetry 91 92 Oxygen Delivery Method Sepsis Recent Fever Within 48 Hours Sepsis New/Unexplained Change in Mental Status Sepsis Action Taken by Nursing Laboratory Data 06/18/23 12:49 06/18/23 12:49 Lab Results 06/18/23 06/18/23 Range/Units 12:49 12:50 WBC 11.15 H (4.8-10.8) K/ul RBC 4.73 (4.70-6.10) M/uL Hgb 13.2 L (14.0-18.0) g/dl Hct 39.8 L (42.0-52.0) % MCV 84.1 (80.0-100.0) fL MCH 27.9 (25.0-34.0) pg MCHC 33.2 (32.0-36.0) g/dL RDW Std Deviation 43.4 (36.4-46.3) fL RDW Coeff of [place] 14.2 (11.5-14.5) % Plt Count 251 (130-400) K/uL MPV 10.4 (9.4-12.4) fL Immature Gran % (Auto) 0.4 % Neut % (Auto) 72.8 % Lymph % (Auto) 14.1 % Ada % (Auto) 10.7 % Eos % (Auto) 1.7 % Baso % (Auto) 0.3 % Neut # (Auto) 8.13 H (1.40-6.50) K/uL Lymph # (Auto) 1.57 (1.20-3.40) K/uL Ada # (Auto) 1.19 H (0.11-0.59) K/uL Eos # (Auto) 0.19 (0.00-0.50) K/uL Baso # (Auto) 0.03 (0.00-0.20) K/uL Immature Gran # (Auto) 0.04 (0.01-0.20) K/uL Sodium 140 (136-145) mmol/L Potassium 4.1 (3.5-5.1) mmol/L Chloride 103 (98-107) mmol/L Carbon Dioxide 29 (21-32) mmol/L Anion Gap 8 (3-11) BUN 19 (6-23) mg/dl Creatinine 1.00 (0.6-1.4) mg/dl Est Cr Clr Drug Dosing 82.5 ml/min Est GFR ( Amer) 83.2 ml/min Est GFR (Non-Af Amer) 71.8 ml/min BUN/Creatinine Ratio 19.0 (10-20) Glucose 118 H (70-99(Fasting)) mg/dl Calcium 9.3 (8.6-10.3) mg/dl Total Bilirubin 0.7 (0.2-1.0) mg/dl Direct Bilirubin 0.1 (0-0.2) mg/dl AST 23 (13-39) U/L ALT 18 (7-52) U/L Alkaline Phosphatase 60 (34-104) U/L B-Natriuretic Peptide 207 H (0-100) pg/ml Total Protein 7.4 (6.0-8.3) gm/dl Albumin 4.0 (3.4-5.0) gm/dl Adenovirus (PCR) Not Detected (NotDetected) B. pertussis DNA (PCR) Not Detected (NotDetected) B.parapertussis DNA PCR Not Detected (NotDetected) C. pneumoniae DNA (PCR) Not Detected (NotDetected) Coronavirus OC43 (PCR) Not Detected (NotDetected) Coronavirus HKU1 (PCR) Not Detected (NotDetected) Coronavirus 229E (PCR) Not Detected (NotDetected) SARS-CoV-2 (PCR) Not Detected (NotDetected) Coronavirus NL63 (PCR) Not Detected (NotDetected) Human Metapneumovir PCR Not Detected (NotDetected) Influenza Type A (PCR) Not Detected (NotDetected) Influenza Type B (PCR) Not Detected (NotDetected) M. pneumoniae (PCR) Not Detected (NotDetected) Parainfluenza 1 (PCR) Not Detected (NotDetected) Parainfluenza 2 (PCR) Not Detected (NotDetected) Parainfluenza 3 (PCR) Not Detected (NotDetected) Parainfluenza 4 (PCR) Not Detected (NotDetected) RSV (PCR) Not Detected (NotDetected) Entero/Rhino (PCR) Not Detected (NotDetected) Imaging Data Radiologist's Impression: Chest X-Ray 06/18/23 12:34 XR chest 1V portable CLINICAL HISTORY: Hypoxia. COMPARISON STUDY: Chest CT October 07, 2021. Chest radiograph October 25, 2022. FINDINGS: Left subclavian pacer is in place. There is no pneumothorax or pleural effusion. Cardiomegaly is unchanged. No consolidation is identified. No evidence for pulmonary edema. IMPRESSION: No acute cardiopulmonary findings. Cardiomegaly. ACT 112: Negative or not required by law. Electronically signed by: Timothy Black M.D. 06/18/2023 1:25 PM Discharge Plan Visit Data Chief Complaint: Referred by Doctor Stated Complaint: LOW OXYGEN LEVEL ED Provider: Cecilia Cole Discharge Problem: Exertional dyspnea Forms Stand Alone Forms: [facility] [employer] Prescriptions Prescriptions: No Action isosorbide mononitrate 60 mg tablet extended release 24 hr 60 mg PO QAM nitroglycerin 0.4 mg tablet, sublingual 0.4 mg sublingual Q5M PRN (Reason: Chest Pain) Rx Instructions: do not exceed 3 doses per episode omega-3 fatty acids-fish oil [Fish Oil] 360-1,200 mg capsule 1 cap PO BID glucosamine HCl 1 tab PO BID Rx Instructions: joint triamterene-hydrochlorothiazid 37.5-25 mg capsule 1 cap PO QAM fenofibrate 54 mg tablet 54 mg PO QAM diclofenac sodium [Voltaren Arthritis Pain] 1 % gel 2 g topical QID PRN (Reason: Pain) Rx Instructions: apply to single elbow, wrist or hand; for hand includes palm/fingers/back of hand losartan 50 mg tablet 50 mg PO QAM aspirin 81 mg Tablet,Delayed Release (Dr/Ec) 81 mg PO QAM metformin 1,000 mg tablet 1,000 mg PO BID atenolol 50 mg tablet 50 mg PO QAM insulin degludec [Tresiba FlexTouch U-200] 200 unit/mL (3 mL) insulin pen 40 unit SUBCUT BID Trulicity 0.75 mg/0.5 mL pen injector 0.75 mg SUBCUT Q7D Rx Instructions: Q SUN amlodipine [Norvasc] 10 mg tablet 10 mg PO QAM atorvastatin 20 mg tablet 20 mg PO HS insulin aspart U-100 [Novolog FlexPen U-100 Insulin] 100 unit/mL (3 mL) insulin pen 20 unit SUBCUT BID magnesium oxide 400 mg (241.3 mg magnesium) tablet 400 mg PO HS Referrals Referrals: Martin Zavaleta MD [Primary Care Provider] -
[2023-06-18 14:08] LABS: Adenovirus PCR Not Detected (NotDetected); Bordetella parapertussis PCR Not Detected (NotDetected); Bordetella pertussis PCR Not Detected (NotDetected); Chlamydia pneumoniae PCR Not Detected (NotDetected); Coronavirus 229E PCR Not Detected (NotDetected); Coronavirus CoV-2 (COVID19)PCR Not Detected (NotDetected); Coronavirus HKU1 PCR Not Detected (NotDetected); Coronavirus NL63 PCR Not Detected (NotDetected); Coronavirus OC43PCR Not Detected (NotDetected); Human Metapneumovirus PCR Not Detected (NotDetected); Influenza A PCR Not Detected (NotDetected); Influenza B PCR Not Detected (NotDetected); Mycoplasma pneumoniae PCR Not Detected (NotDetected); Parainfluenza Virus 1 PCR Not Detected (NotDetected); Parainfluenza Virus 2 PCR Not Detected (NotDetected); Parainfluenza Virus 3 PCR Not Detected (NotDetected); Parainfluenza Virus 4 PCR Not Detected (NotDetected); Respiratory Syncytial VirusPCR Not Detected (NotDetected); Rhinovirus/Enterovirus PCR Not Detected (NotDetected)
--- NOTE | 2023-06-18 15:10 | History & Physical Report ---
Date of Service June 18, 2023 Assessment & Plan (1) Exertional dyspnea: (2) Hypoxia: Plan: Patient is 78 year old male with PMH HTN, insulin-dependent DM II, atrial flutter, tachybradycardia syndrome s/p pacemaker, CAD, anxiety, depression, obesity and others as below presented to ER with complaint of progressive exertional shortness of breath and cough x 1 week. Today at urgent care with reported sats 85-87% on room air. Was given neb treatment there. In ER afebrile, patient currently sitting in bed without acute symptoms. Patient was ambulated through ER with noted dyspnea and sats 87% on room air with ambulation. At rest patient reports is asymptomatic and without shortness of breath and oxygen sats 92% on room air. WBC: 11, BNP: 207. Negative BioFire respiratory panel. Lactate: WNL CXR: Cardiomegaly, No acute cardiopulmonary findings. Procalcitonin pending DDx: Fluid overload, bronchitis Will hold on antibiotics at this time pending procalcitonin CTA chest to r/o PE and for further evaluation Supplemental oxygen as needed Echo CBC, BMP in am CTA chest: Bilateral lower lobe bronchial wall thickening and regions of mucus plugging suggesting inflammatory airways disease. Additional small infiltrate in the left lower lobe concerning for mild pulmonary infection/pneumonitis. No evidence of pulmonary embolism. Will start xopenex nebs, mucinex, incentive spirometry, flutter valve, doxycycline for possible pneumonia and mucous plugging. Procalciltonin still pending If no improvement consider pulmonology consult (3) Hypomagnesemia: Plan: Magnesium: 1.6 Replace and monitor (4) Chest pain: Plan: History CAD Patient reports chronic intermittent chest pain for years, denies any increased frequency Denies any current chest pain Initial troponin: 21. EKG V-paced Trend troponin Continue aspirin, isosorbide, atenolol, losartan (5) Hypertension: Plan: Stable Continue amlodipine (6) Type 2 diabetes mellitus: Plan: Insulin-dependent A1c: 7.0 on 05/23/2023 Hold home Trulicity, metformin Continue home Tresiba, NovoLog sliding scale per protocol (7) Tachy-landry syndrome: Plan: S/p pacemaker Pacemaker interrogation (8) Morbid obesity: Plan: BMI 45 Lifestyle modifications recommended DVT Prophylaxis Lovenox SQ Full Code as per discussion with pt Follows with Dr Zavaleta for routine care Pt was seen and care coordinated with Dr Cole. See addendum I spent a total of 80 minutes reviewing notes, outpatient records, labs, medication, coordinating, documenting and providing care for this patient excluding time spent in the performance of separately billed services. History of Present Illness Chief Complaint: SOB Primary Care Provider: Martin Zavaleta MD Patient is 78 year old male with PMH HTN, insulin-dependent DM II, atrial flutter, tachybradycardia syndrome s/p pacemaker, CAD, anxiety, depression, obesity and others as below presented to ER with complaint of shortness of breath. History obtained from patient, outpatient chart review. Patient reports 1 week ago started with cough intermittently productive clear-colored sputum. H e has had progressive exertional shortness of breath over the past week. Worse shortness of breath today prompting him to go to urgent care. Seen at urgent care with reported sats 85-87% on room air. Was given neb treatment there. Patient states he does not feel any different after neb treatment. Patient reports chronic intermittent anterior chest pain that occurs a couple times a month. He reports can and occur at rest or activity and states these have been happening for years however are not as severe since he had his pacemaker placed. He denies any associated symptoms with this. He denies any increased episodes of chest pain. Denies any chest pain today. Reports chronic bilateral lower extremity edema which patient feels has not worsened. Is not on diuretics. Denies fever/chills, diaphoresis, N/V/D/C, RAMIREZ, dizziness, syncope, vision changes, neck pain, orthopnea, palpitations, hemoptysis, sore throat, rhinorrhea, abdominal pain, paresthesias, weakness, extremity weakness, rashes, urinary symptoms. In ER patient currently sitting in bed without acute symptoms. Patient was ambulated through ER with noted dyspnea and sats 87% on room air with ambulation. At rest patient reports is asymptomatic and without shortness of breath and oxygen sats 92% on room air. Echo 06/06/2022: EF: 55-60%, moderate LVH, grade 1 diastolic dysfunction, moderate-severe mitral annular calcification, no significant mitral stenosis or regurgitation Allergies Allergy/AdvReac Type Severity Reaction Status Date / Time cephalexin Allergy Mild Rash Verified 05/07/23 07:43 codeine Allergy Mild Rash Verified 05/07/23 07:43 Home Medications Medication Instructions Recorded Confirmed Type aspirin 81 mg tablet,delayed 81 mg PO QAM 08/11/19 06/18/23 History release atenolol 50 mg tablet 100 mg PO QAM 08/11/19 06/18/23 History dulaglutide 0.75 mg/0.5 mL 0.75 mg subcut Q7D 08/11/19 06/18/23 History subcutaneous pen injector (Trulicity) insulin degludec 200 unit/mL (3 40 unit subcut BID 08/11/19 06/18/23 History mL) subcutaneous pen (Tresiba FlexTouch U-200 insulin) metformin 1,000 mg tablet 1,000 mg PO BID 08/11/19 06/18/23 History losartan 50 mg tablet 50 mg PO QAM 10/25/20 06/18/23 History amlodipine 10 mg tablet (Norvasc) 10 mg PO QAM 01/02/21 06/18/23 History atorvastatin 20 mg tablet 20 mg PO HS 05/16/21 06/18/23 History insulin aspart U-100 100 unit/mL 20 unit subcut BID 06/05/22 06/18/23 History (3 mL) subcutaneous pen (Novolog FlexPen U-100 Insulin aspart) diclofenac sodium 1 % topical gel 2 g topical QID PRN Pain 03/03/23 06/18/23 History (Voltaren Arthritis Pain) fenofibrate 54 mg tablet 54 mg PO QAM 03/03/23 06/18/23 History glucosamine HCl 1 tab PO BID 03/03/23 06/18/23 History nitroglycerin 0.4 mg sublingual 0.4 mg sublingual Q5M PRN Chest 03/03/23 06/18/23 History tablet Pain omega-3 fatty acids-fish oil 360 1 cap PO BID 03/03/23 06/18/23 History mg-1,200 mg capsule (Fish Oil) magnesium oxide 400 mg (241.3 mg 400 mg PO HS 05/02/23 06/18/23 History magnesium) tablet isosorbide mononitrate 120 mg 60 mg PO DAILY 06/18/23 06/18/23 History tablet,extended release 24 hr Past Med/Surg History Medical History Pacemaker History of COVID-19 09/2021, admitted to [facility] for 8 days-"pt unsure why he was admitted" per record, cough and hypoxia>resolved CAD (coronary artery disease) Snoring Elevated troponin hx Morbid obesity BMI 45.4 Left anterior fascicular block RBBB First degree atrioventricular block Monoclonal gammopathy DJD (degenerative joint disease), lumbosacral Hemorrhoids pt denies Diabetic neuropathy Osteoarthritis Diverticulosis Dyslipidemia Hypertension Type 2 diabetes mellitus IDDM Surgical History History of permanent cardiac pacemaker placement 09/2022, [facility]; f/u [facility] cardiology History of colonoscopy last 2015 History of sinus surgery (~05/10/20) History of cardiac cath (~04/27/21) no stents, d/t angina H/O oral surgery all teeth removed History of back surgery (~05/2005) lumbar laminectomy Hx of cataract surgery lt Family History Father Coronary heart disease Heart disease Myocardial infarction Sister Coronary heart disease Cancer Brother Coronary heart disease Hx of CABG Family/Other Hearing loss Mother Asthma Other No family history of adverse response to anesthesia Social History Smoking Status: Never smoker Tobacco Type: Smokeless Tobacco (Dip or Chew) Second Hand Exposure: No; Do You Dip or Chew Tobacco: No (used to chew tobacco in early ); Tobacco Cessation Education Requested by Patient: No Hx Alcohol Use: No Hx Substance Use: No Preferred Language: Syriac Communication Ability: Effective 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 Beliefs That Will Affect Care: None marital status: Single Current Living Situation: Alone Current Living Situation Comment: Sister is neighbor current occupational status: retired How many Children do You have Comment: No Children Other Information That Helps Us Care for You: No Feels Safe at Home: Yes Safety Concerns: Feels Safe At This Time Assistive Devices: Denture - Upper, Denture - Lower and Glasses Review of Systems Review of Systems: All systems reviewed & are unremarkable except as noted in HPI & below Physical Exam Physical Exam: General: no acute distress, obese elderly male Head: normocephalic, atraumatic Eyes: conjunctiva non-injected, anicteric ENT: normal inspection external ears, nose, mucous membranes moist Neck: supple, trachea midline, non-tender Lungs: no respiratory distress, diminished breath sounds without wheezing/rhonchi/rales noted CV: RRR, no murmur noted, 1-2+pretibial edema Abd: normal BS, soft, non-tender Ext: no cyanosis, no calf tenderness Neuro: A&O x 3, no focal deficits noted, normal affect Skin: warm, dry Results & Data Results & Data Vital Signs (Past 12 Hours) Vital Signs Temp Pulse Resp BP Pulse Ox O2 Del Method 06/18/23 14:00 142/81 H 92 06/18/23 14:00 72 21 91 06/18/23 13:54 152/87 H 06/18/23 13:54 80 20 92 06/18/23 13:49 24 87 L Room Air 06/18/23 13:30 134/81 06/18/23 13:30 70 19 90 06/18/23 13:00 159/83 H 06/18/23 13:00 75 20 90 06/18/23 12:49 74 06/18/23 12:37 76 17 90 06/18/23 12:21 36.9 C 85 20 105/62 92 Room Air Laboratory Results Short CBC 06/18/23 Range/Units 12:49 WBC 11.15 H (4.8-10.8) K/ul Hgb 13.2 L (14.0-18.0) g/dl Hct 39.8 L (42.0-52.0) % Plt Count 251 (130-400) K/uL BMP 06/18/23 12:49 Sodium 140 Potassium 4.1 Chloride 103 Carbon Dioxide 29 BUN 19 Creatinine 1.00 Glucose 118 H Calcium 9.3 Liver Function 06/18/23 Range/Units 12:49 Total Bilirubin 0.7 (0.2-1.0) mg/dl Direct Bilirubin 0.2 (0-0.2) mg/dl AST 23 (13-39) U/L ALT 18 (7-52) U/L Alkaline Phosphatase 60 (34-104) U/L Albumin 4.0 (3.4-5.0) gm/dl Urine 06/18/23 Range/Units 16:15 Urine Color Dark Yellow Urine Appearance Clear (Clear) Urine pH 6.0 (4.5-7.5) Ur Specific [place] 1.030 (1.000-1.030) Urine Protein 3+ H (Negative) Urine Glucose (UA) Negative (Negative) Diagnostic Findings Chest X-Ray 06/18/23 12:34 XR chest 1V portable CLINICAL HISTORY: Hypoxia. COMPARISON STUDY: Chest CT October 07, 2021. Chest radiograph October 25, 2022. FINDINGS: Left subclavian pacer is in place. There is no pneumothorax or pleural effusion. Cardiomegaly is unchanged. No consolidation is identified. No evidence for pulmonary edema. IMPRESSION: No acute cardiopulmonary findings. Cardiomegaly. ACT 112: Negative or not required by law. Electronically signed by: Timothy Black M.D. 06/18/2023 1:25 PM Chest CTA 06/18/23 17:40 Exam(s): CTA CHEST IV Amt: 118 ml opti 320 EXAM: CT Angiography Chest With Intravenous Contrast CLINICAL HISTORY: Reason for exam: PE. TECHNIQUE: Axial computed tomographic angiography images of the chest with intravenous contrast. CTDI is 66.13 mGy and DLP is 853.19 mGy-cm. Automated exposure control was utilized for the study. A dose lowering technique was utilized adhering to the principles of ALARA. MIP reconstructed images were created and reviewed. COMPARISON: 11/07/21 FINDINGS: Pulmonary arteries: Adequate pulmonary artery opacification. No evidence of pulmonary embolism. Main pulmonary artery is normal in caliber. Aorta: Thoracic aortic atherosclerosis without aneurysm or dissection. Lungs: Bilateral lower lobe bronchial wall thickening and regions of mucus plugging. Additional small infiltrate in the left lower lobe (series 3, image 56). Calcified granulomas in the right lung in keeping with chronic granulomatous disease. No confluent airspace consolidation or pulmonary mass. Pleural space: Unremarkable. No pleural effusion or pneumothorax. Heart: Coronary artery atherosclerosis. Mitral annular calcification. Mild cardiomegaly. No pericardial effusion. Bones/joints: No acute fracture. No dislocation. Soft tissues: Unremarkable. Lymph nodes: Unremarkable. No lymphadenopathy. Tubes, lines and devices: Left chest wall dual-lead AICD-pacemaker. IMPRESSION: 1. Bilateral lower lobe bronchial wall thickening and regions of mucus plugging suggesting inflammatory airways disease. 2. Additional small infiltrate in the left lower lobe concerning for mild pulmonary infection/pneumonitis. 3. No evidence of pulmonary embolism. Electronically signed by: Angel Hill M.D. 06/18/23 21:05 PM ECG Findings: + paced rhythm Code Status & VTE Plan VTE Prophylaxis Plan VTE Prophylaxis will be ordered: Yes Supervising Physician Co-Signing Physician Notes Pt was seen and examined by myself, Latrice Cole MD on the day of service. Care was coordinated with Alyce Melchor PA-C. 78yoM presenting with acute hypoxic respiratory failure after going to urgent care for concerning SOB and cough for about 1 week. States that he does not oxygen at baseline. On exam, some mild distress, sitting in tripod position in the room Breath sounds decreased but good air movement RRR Chest CTA ordered and noted pneumonia, started on doxycycline, consider pulmonology consult. Oxygen supplementation as needed, wean as tolerated. Concern might be cardiac cause as well, pt with pacemaker, CTA with no noted fluid, echo ordered and pending. Otherwise as above. I spent a total [id number] coordinating, documenting, and providing care for this patient excluding time spent in the performance of separately billed services (5) Hypertension Hypertension type: essential hypertension Qualified Code(s): I10 - Essential (primary) hypertension
--- NOTE | 2023-06-18 16:33 | Electrocardiogram Report ---
Test Reason : Blood Pressure : / mmHG Vent. Rate : 075 BPM Atrial Rate : 075 BPM P-R Int : 000 ms QRS Dur : 110 ms QT Int : 392 ms P-R-T Axes : 066 -45 -39 degrees QTc Int : 437 ms Ventricular-paced rhythm Abnormal ECG When compared with ECG of 24-OCT-2022 16:10, Vent. rate has increased BY 4 BPM Confirmed by Ihsan Vasquez ([id number]) on 06/18/2023 4:33:17 PM Referred By: Confirmed By:Ihsan Vasquez
[2023-06-18] MEDS ORDERED: GLUCOSE 10 TAB/TUBE PO PRN (16:41)
[2023-06-18] MEDS ORDERED: DEXTROSE 50% 50 ML SYRINGE IV PRN (16:41)
[2023-06-18] MEDS ORDERED: ACETAMINOPHEN 325 MG TAB PO PRN (16:41)
[2023-06-18] MEDS ORDERED: POLYETHYLENE (MIRALAX) 17 GM PACK PO PRN (16:41)
[2023-06-18] MEDS ORDERED: CARBOHYDRATES FOR HYPOGLYCEMIA PO PRN (16:41)
[2023-06-18] MEDS ORDERED: GLUCOSE 40% GEL 15 GM TUBE PO PRN (16:41)
[2023-06-18] MEDS ORDERED: GLUCAGON FOR INJ 1 MG VIAL SQ PRN (16:41)
[2023-06-18] MEDS ORDERED: ONDANSETRON INJ 2 MG/ML 2 ML VIAL IV PRN (16:41)
[2023-06-18 17:32] LABS: Appearance Urine Clear (Clear); Bacteria Urine Automated None Seen (None Seen); Bilirubin Urine Negative (Negative); Blood Urine Negative (Negative); Color Urine Dark Yellow; Glucose Urine UA Negative (Negative); Ketones Urine Trace (Negative); Leukocyte Esterase Urine Negative (Negative); Mucus Urine Present (None Prsent); Nitrite Urine Negative (Negative); Protein Urine 3+ (Negative); RBC Urine Automated 0-2 /hpf (0-2); Urobilinogen Urine Negative (Negative); WBC Urine Automated 0-5 /hpf (0-5)
[2023-06-18] MEDS: INSULIN ASPART PER UNIT CHARGE SC SCH (17:49)
[2023-06-18] MEDS: ENOXAPARIN INJ 40 MG/0.4 ML SYR SQ SCH (17:50)
[2023-06-18 19:17] LABS: Bilirubin Direct 0.2 mg/dl (0-0.2)
[2023-06-18 19:34] LABS: Magnesium 1.6 mg/dl (1.7-2.4)
[2023-06-18] MEDS: OPTIRAY 320 125ml IV ONE (20:18)
[2023-06-18] MEDS: ATORVASTATIN 20 MG TAB PO SCH (21:05)
[2023-06-18] MEDS: MAGNESIUM SULFATE / D5W 1 GM/100 ML BAG IV ONE (21:05)
--- NOTE | 2023-06-18 21:06 | CT Scan Report ---
Exam(s): CTA CHEST IV Amt: 118 ml opti 320 EXAM: CT Angiography Chest With Intravenous Contrast CLINICAL HISTORY: Reason for exam: PE. TECHNIQUE: Axial computed tomographic angiography images of the chest with intravenous contrast. CTDI is 66.13 mGy and DLP is 853.19 mGy-cm. Automated exposure control was utilized for the study. A dose lowering technique was utilized adhering to the principles of ALARA. MIP reconstructed images were created and reviewed. COMPARISON: 11/07/21 FINDINGS: Pulmonary arteries: Adequate pulmonary artery opacification. No evidence of pulmonary embolism. Main pulmonary artery is normal in caliber. Aorta: Thoracic aortic atherosclerosis without aneurysm or dissection. Lungs: Bilateral lower lobe bronchial wall thickening and regions of mucus plugging. Additional small infiltrate in the left lower lobe (series 3, image 56). Calcified granulomas in the right lung in keeping with chronic granulomatous disease. No confluent airspace consolidation or pulmonary mass. Pleural space: Unremarkable. No pleural effusion or pneumothorax. Heart: Coronary artery atherosclerosis. Mitral annular calcification. Mild cardiomegaly. No pericardial effusion. Bones/joints: No acute fracture. No dislocation. Soft tissues: Unremarkable. Lymph nodes: Unremarkable. No lymphadenopathy. Tubes, lines and devices: Left chest wall dual-lead AICD-pacemaker. IMPRESSION: 1. Bilateral lower lobe bronchial wall thickening and regions of mucus plugging suggesting inflammatory airways disease. 2. Additional small infiltrate in the left lower lobe concerning for mild pulmonary infection/pneumonitis. 3. No evidence of pulmonary embolism. Electronically signed by: Angel Hill M.D. 06/18/23 21:05 PM
[2023-06-18] MEDS: LANTUS PER UNIT CHARGE SQ SCH (21:10)
[2023-06-18] MEDS: DOXYCYCLINE HYCLATE 100 MG in DEXTROSE 5% MINI-B 100 ML IV SCH (22:26)
[2023-06-19] MEDS: HYDROcodone/HOMATROPINE SYRUP 5MG/1.5MG 5ML UDP PO PRN (00:40)
[2023-06-19] MEDS: LEVALBUTEROL 1.25 MG/3 ML NEB NEB SCH (00:43)
[2023-06-19] MEDS ORDERED: LEVALBUTEROL 1.25MG/0.5ML NEB NEB SCH (01:00)
[2023-06-19 06:55] LABS: Basophils # (auto) 0.02 K/uL (0.00-0.20); Basophils % (auto) 0.2 %; Eosinophils # (auto) 0.31 K/uL (0.00-0.50); Eosinophils % (auto) 3.7 %; Hematocrit (blood only) 38.5 % (42.0-52.0); Hemoglobin 12.4 g/dl (14.0-18.0); Immature Granulocytes # (auto) 0.02 K/uL (0.01-0.20); Immature Granulocytes % (auto) 0.2 %; Lymphocytes # (auto) 1.87 K/uL (1.20-3.40); Lymphocytes % (auto) 22.1 %; Mean Corpuscular Hemoglobin 27.6 pg (25.0-34.0); Mean Corpuscular Hgb Conc 32.2 g/dL (32.0-36.0); Mean Corpuscular Volume 85.6 fL (80.0-100.0); Mean Platelet Volume 10.4 fL (9.4-12.4); Monocytes # (auto) 0.88 K/uL (0.11-0.59); Monocytes % (auto) 10.4 %; Neutrophils # (auto) 5.36 K/uL (1.40-6.50); Neutrophils % (auto) 63.4 %; Platelet Count 205 K/uL (130-400); RDW Coefficient of Variation 14.4 % (11.5-14.5); RDW Standard Deviation 44.6 fL (36.4-46.3); White Blood Count 8.46 K/ul (4.8-10.8)
[2023-06-19 07:18] LABS: Calcium 9.1 mg/dl (8.6-10.3); Magnesium 1.7 mg/dl (1.7-2.4); Potassium 3.6 mmol/L (3.5-5.1)
[2023-06-19 07:23] LABS: BUN Creatinine Ratio 21.3 (10-20); Creatinine Clr Calc Pharmacy 87.5 ml/min; Est GFR (African American) 89.6 ml/min; Est GFR (Non-African American) 77.3 ml/min
[2023-06-19 07:46] LABS: Troponin I High Sensitivity 18.2 pg/ml (0-20)
[2023-06-19] MEDS: guaiFENesin 600 MG TABCR PO SCH (07:56)
[2023-06-19] MEDS: ASPIRIN 81 MG ECTAB PO SCH (07:56)
[2023-06-19] MEDS: ATENOLOL 50 MG TABLET PO SCH (07:56)
[2023-06-19] MEDS: amLODIPine BESYLATE 5 MG TAB PO SCH (07:56)
[2023-06-19] MEDS: ISOSORBIDE MONO EXTENDED REL 60 MG TABCR PO SCH (07:59)
[2023-06-19] MEDS: LOSARTAN POTASSIUM 50 MG TAB PO SCH (07:59)
[2023-06-19] MEDS: MAGNESIUM SULFATE / D5W 1 GM/100 ML BAG IV SCH (13:20)
[2023-06-19] MEDS: POTASSIUM CHLORIDE CRTAB 20 MEQ TABCR PO STA (13:21)
--- NOTE | 2023-06-19 13:27 | Hospitalist Progress Note ---
Date of Service June 19, 2023 Assessment & Plan (1) Exertional dyspnea: Plan 78 year old male with PMH of HTN, insulin-dependent DM II, atrial flutter, tachybradycardia syndrome s/p pacemaker, CAD, anxiety, depression, obesity presented to ER 06/17 with complaint of progressive exertional shortness of breath and cough x 1 week. On the day of arrival - at urgent care with reported sats 85-87% on room air. Was given neb treatment there. He is being managed for the following. Exertional dyspnea: Hypoxia: Likely early CHF exacerbation, HFpEF Demand ischemia: Likely secondary to CHF exacerbation, patient with no new chest pain, flat trend, admitting EKG with ventricular paced rhythm. Patient does report chronic intermittent chest pain for years, denies any increased frequency. Will need cardiology evaluation. Continue home aspirin, Imdur, atenolol, losartan. Patient coming in with progressive SMITH associated with dry cough, denied any febrile illness/sore throat/chest pain. At presentation, saturation 87% on room air with ambulation. 92% at rest. Admitting labs: WBC 11.15 K, troponin flat trend in 20s, RPP negative, UA negative. BNP at 207. Procalcitonin negative. Admitting CXR with no acute finding. Admitting CTA chest suggestive of inflammatory airways disease versus mild pulmonary infection. No evidence of PE. 06/06/2022 echo with EF of 55 to 60%, grade 1 diastolic dysfunction. Likely fluid overload/CHF exacerbation versus bronchitis Continue doxycycline 06/17, follow clinically. Continue nebs and incentive spirometry. Wean down oxygen as tolerated. No home oxygen use per patient, currently utilizing 2 L oxygen via nasal cannula. Will give small dose IV Lasix daily, not on diuresis at home. Consult cardiology, patient reports he follows Dr. Salinas Patient without improvement in his cough, cough dry in nature, reports dyspnea on exertion. I's and O's, monitor replete electrolytes, CHF education. Hypomagnesemia: Monitor and replete. Other chronic medical conditions: Continue with/resume home meds as and when able Hypertension: Continue home amlodipine, atenolol, losartan. T2DM: Insulin-dependent, A1c 7.0 on 05/23/2023. Sliding scale insulin while in the hospital. Tachybradycardia syndrome: Status post pacemaker, stable. Morbid obesity: Lifestyle modification recommended. DVT prophylaxis: Lovenox subcu Full code Follows with Dr Zavaleta for routine care Admission and Anticipated Discharge Date Admission Date: June 18, 2023 Subjective Patient was seen and examined at bedside. Patient was lying in bed, on 2 L oxygen via nasal cannula, NAD, resting comfortably. Patient reports eating okay and moving bowels okay. Patient reports dry cough, about the same, no improvement, denies any chest pain or sore throat or recent febrile illness. Physical Exam Physical Exam: GENERAL: Alert and oriented x3. NAD, on 2L NC O2 HEENT: No pallor, no icterus. Pupils equal, round and reactive to light. Oral mucosa moist. NECK: No JVD, no neck masses. HEART: S1 and S2 heard. Regular rate and rhythm. No murmur, no gallop. RESPIRATORY SYSTEM: Normal AP diameter. No accessory muscle use. No wheezing, bb crackles. ABDOMEN: Soft, bowel sounds present, nontender, no distention. CENTRAL NERVOUS SYSTEM: No facial droop. Speech is clear. Obeys simple commands. Moves extremities. EXTREMITIES: 2+ BLE edema, no erythema seen. Results & Data Results & Data Vital Signs (Past 12 Hours) Vital Signs Temp Pulse Pulse Pulse Resp BP Pulse Ox 06/19/23 13:06 77 93 H 17 06/19/23 11:41 36.6 C 63 16 127/71 92 06/19/23 09:59 66 06/19/23 08:55 06/19/23 07:49 36.8 C 74 20 166/84 H 93 06/19/23 07:10 77 18 92 06/19/23 03:07 36.8 C 72 18 159/88 H 92 O2 Del Method O2 Flow Rate 06/19/23 13:06 Nasal Cannula 2 06/19/23 11:41 Nasal Cannula 1.5 06/19/23 09:59 06/19/23 08:55 Nasal Cannula 2 06/19/23 07:49 Nasal Cannula 2 06/19/23 07:10 Nasal Cannula 2 06/19/23 03:07 Nasal Cannula 2
[2023-06-19] MEDS: FUROSEMIDE INJ 20 MG/2 ML VIAL IV SCH (14:26)
--- NOTE | 2023-06-19 15:17 | XCELERA ---
[id number]
[2023-06-20 06:31] LABS: Hematocrit (blood only) 36.6 % (42.0-52.0); Mean Corpuscular Hemoglobin 27.8 pg (25.0-34.0); Mean Corpuscular Hgb Conc 32.8 g/dL (32.0-36.0); Mean Corpuscular Volume 84.9 fL (80.0-100.0); Mean Platelet Volume 10.1 fL (9.4-12.4); Platelet Count 203 K/uL (130-400); RDW Coefficient of Variation 13.9 % (11.5-14.5); RDW Standard Deviation 43.4 fL (36.4-46.3); Red Blood Count 4.31 M/uL (4.70-6.10); White Blood Count 7.97 K/ul (4.8-10.8)
[2023-06-20 06:32] LABS: BUN Creatinine Ratio 18.6 (10-20); Calcium 8.2 mg/dl (8.6-10.3); Creatinine Clr Calc Pharmacy 80.7 ml/min; Est GFR (African American) 81.2 ml/min; Est GFR (Non-African American) 70.1 ml/min; Magnesium 1.6 mg/dl (1.7-2.4); Phosphorus 3.5 mg/dl (2.5-4.9); Potassium 3.6 mmol/L (3.5-5.1)
[2023-06-20] MEDS ORDERED: cefTRIAXone SODIUM 2,000 MG in DEXTROSE 5 % MINI-B 50 ML IV SCH (08:15)
[2023-06-20] MEDS: ALBUT/IPRATROP 3MG/0.5MG NEB 3 ML VIAL NEB SCH (08:29)
[2023-06-20] MEDS: levoFLOXacin 750 MG TAB PO SCH (11:49)
--- NOTE | 2023-06-20 12:05 | Cardiology Consultation ---
Date of Consultation June 20, 2023 Assessment & Plan (1) Acute respiratory failure with hypoxemia: -etiology is multifactorial. -suspect mainly an infectious process. -may be a component of hypervolemia. -agree with intravenous Lasix while hospitalized. -discussed a salt restricted diet. -discussed daily weights and sliding-scale diuretics (Lasix 40 mg p.o. p.r.n. weight gain). -stable for hospital discharge from a cardiac perspective. (2) CAD (coronary artery disease): -nonobstructive by cardiac catheterization, April 2021 -quiescent current medical regimen. (3) Hypertension: -adequate control on current regimen. (4) Tachy-landry syndrome: -s/p DDD pacer, September 2022. -proper function at time of interrogation, February 2023. -participates in the [employer] system at home. -no recent SVT by history. History of Present Illness Attending Physician: Mukul Ardon MD History of Present Illness Mr. Venegas is a 78-year-old male admitted June 17 with acute bronchitis verses volume overload. This consultation was ordered to assist in his cardiac management. Of note, patient is seen by Drs Lamont and Brad. The patient was in his usual state of health until approximately 1-2 weeks prior to presentation. During that time frame, he noted progressive exertional dyspnea and a cough. He did not experienced chest discomfort, fever, or chills. He was seen in an urgent care center on the day of admission and noted to be hypoxic with oxygen saturations of 85-87% on room air. He was admitted and placed on both intravenous antibiotics and intravenous Lasix. He has improved dramatically since admission. He does carry a history of coronary artery disease. Cardiac catheterization performed in April 2021 noted nonobstructive disease. A dual chamber pacemaker was placed in September 2022 because of significant AV conduction disease and tachy-landry syndrome. Currently, patient is resting comfortably in bed without complaints. Past medical and surgical history 1. Coronary artery disease-see above 2. Hypertension 3. Hypercholesterolemia 4. Paroxysmal SVT 5. Tachy-landry syndrome 6. DDD pacemaker-September 2022 7. Diabetes mellitus 8. Diabetic neuropathy 9. Monoclonal gammopathy 10. Morbid obesity 11. DJD 12. Intra-ocular lens implants Social history Single, lives alone No tobacco alcohol Family history Noncontributory Review of systems A 10 point review systems was undertaken and negative except that described above. Allergies Allergy/AdvReac Type Severity Reaction Status Date / Time cephalexin Allergy Mild Rash Verified 05/07/23 07:43 codeine Allergy Mild Rash Verified 05/07/23 07:43 Home Medications Medication Instructions Recorded Confirmed Type aspirin 81 mg tablet,delayed 81 mg PO QAM 08/11/19 06/18/23 History release atenolol 50 mg tablet 100 mg PO QAM 08/11/19 06/18/23 History dulaglutide 0.75 mg/0.5 mL 0.75 mg subcut Q7D 08/11/19 06/18/23 History subcutaneous pen injector (Trulicity) insulin degludec 200 unit/mL (3 40 unit subcut BID 08/11/19 06/18/23 History mL) subcutaneous pen (Tresiba FlexTouch U-200 insulin) metformin 1,000 mg tablet 1,000 mg PO BID 08/11/19 06/18/23 History losartan 50 mg tablet 50 mg PO QAM 10/25/20 06/18/23 History amlodipine 10 mg tablet (Norvasc) 10 mg PO QAM 01/02/21 06/18/23 History atorvastatin 20 mg tablet 20 mg PO HS 05/16/21 06/18/23 History insulin aspart U-100 100 unit/mL 20 unit subcut BID 06/05/22 06/18/23 History (3 mL) subcutaneous pen (Novolog FlexPen U-100 Insulin aspart) diclofenac sodium 1 % topical gel 2 g topical QID PRN Pain 03/03/23 06/18/23 History (Voltaren Arthritis Pain) fenofibrate 54 mg tablet 54 mg PO QAM 03/03/23 06/18/23 History glucosamine HCl 1 tab PO BID 03/03/23 06/18/23 History nitroglycerin 0.4 mg sublingual 0.4 mg sublingual Q5M PRN Chest 03/03/23 06/18/23 History tablet Pain omega-3 fatty acids-fish oil 360 1 cap PO BID 03/03/23 06/18/23 History mg-1,200 mg capsule (Fish Oil) magnesium oxide 400 mg (241.3 mg 400 mg PO HS 05/02/23 06/18/23 History magnesium) tablet isosorbide mononitrate 120 mg 60 mg PO DAILY 06/18/23 06/18/23 History tablet,extended release 24 hr Patient History Medical History Pacemaker History of COVID-19 09/2021, admitted to [facility] for 8 days-"pt unsure why he was admitted" per record, cough and hypoxia>resolved CAD (coronary artery disease) Snoring Elevated troponin hx Morbid obesity BMI 45.4 Left anterior fascicular block RBBB First degree atrioventricular block Monoclonal gammopathy DJD (degenerative joint disease), lumbosacral Hemorrhoids pt denies Diabetic neuropathy Osteoarthritis Diverticulosis Dyslipidemia Hypertension Type 2 diabetes mellitus IDDM Surgical History History of permanent cardiac pacemaker placement 09/2022, [facility]; f/u [facility] History of colonoscopy last 2015 History of sinus surgery (~05/10/20) History of cardiac cath (~04/27/21) no stents, d/t angina H/O oral surgery all teeth removed History of back surgery (~05/2005) lumbar laminectomy Hx of cataract surgery lt Family History Father Coronary heart disease Heart disease Myocardial infarction Sister Coronary heart disease Cancer Brother Coronary heart disease Hx of CABG Family/Other Hearing loss Mother Asthma Other No family history of adverse response to anesthesia Social History Smoking Status: Never smoker Tobacco Type: Smokeless Tobacco (Dip or Chew) Second Hand Exposure: No; Do You Dip or Chew Tobacco: No (used to chew tobacco in early ); Tobacco Cessation Education Requested by Patient: No Hx Alcohol Use: No Hx Substance Use: No Preferred Language: [place] Communication Ability: Effective 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 HEENT exam is negative. Neck is supple with full carotid upstrokes. There are no carotid bruits. Jugular is pressure is flat 90. There is no thyromegaly. Cardiovascular exam reveals a regular rhythm with distant heart sounds. No obvious murmurs. No S3. Lungs are clear without rales, rhonchi, or wheezes. Abdomen is obese without bruits. Extremities reveal intact radial artery pulses bilaterally. Trace to 1+ pretibial edema is noted. Results & Data Vital Signs (Past 12 Hours) Vital Signs Temp Pulse Pulse Pulse Pulse Pulse Resp 06/20/23 11:26 37.1 C 73 18 06/20/23 10:35 84 89 68 06/20/23 09:34 76 06/20/23 07:31 36.7 C 76 18 06/20/23 07:22 06/20/23 07:14 74 20 06/20/23 02:58 36.8 C 71 18 06/20/23 00:02 80 18 Resp Resp Resp BP BP Pulse Ox Pulse Ox 06/20/23 11:26 142/67 H 93 06/20/23 10:35 22 24 20 96 06/20/23 09:34 06/20/23 07:31 163/74 H 93 06/20/23 07:22 06/20/23 07:14 95 06/20/23 02:58 125/68 93 06/20/23 00:02 92 Pulse Ox Pulse Ox O2 Del Method O2 Flow Rate O2 Flow Rate 06/20/23 11:26 Room Air 06/20/23 10:35 85 L 89 L 2 06/20/23 09:34 06/20/23 07:31 Nasal Cannula 2 06/20/23 07:22 Nasal Cannula 2 06/20/23 07:14 Nasal Cannula 2 06/20/23 02:58 Nasal Cannula 2 06/20/23 00:02 Nasal Cannula 2 Laboratory Results CBC notes hemoglobin 12.0, hematocrit 36.6, white count 7.9, and platelet count of [id number]. Electrolytes note a sodium of 137, potassium 3.6, chloride 103, bicarb 30, BUN 19, creatinine 1.02, glucose 90. Initial high sensitivity troponin was 21 with follow-up values of 24.1 and 18.2. BNP is mildly elevated at 209. Diagnostic Findings Echocardiogram notes normal left ventricular systolic function with ejection fraction of 65-70%. There is moderate LVH. Compared with study performed in May 2022, no significant change. EKG notes atrial sensing and ventricular pacing. CT scan of the chest notes bilateral lower lobe bronchial wall thickening consistent with an infectious etiology. There is also left lower lobe pneumonitis. No pulmonary embolism. Chest x-ray notes cardiomegaly without acute disease. PG Care Time/CCT Total # of Minutes Spent Total Time Spent with Patient: Total time spent is greater than 50% in coordination of care (as documented) at patient's floor/unit and/or counseling patient: Coding Level of Care Code 52488 INT INP/OBS CARE 375MIN Diagnoses Acute respiratory failure with hypoxemia J96.01 CAD (coronary artery disease) I25.10 Essential hypertension I10 Hypertension type: essential hypertension Tachy-landry syndrome I49.5 (3) Hypertension Hypertension type: essential hypertension Qualified Code(s): I10 - Essential (primary) hypertension
[2023-06-20] MEDS: SODIUM CHLOR 7% 4 ML NEB NEB SCH (13:18)
--- NOTE | 2023-06-20 16:00 | Hospitalist Progress Note ---
Date of Service June 20, 2023 Assessment & Plan (1) Exertional dyspnea: Plan 78 year old male with PMH of HTN, insulin-dependent DM II, atrial flutter, tachybradycardia syndrome s/p pacemaker, CAD, anxiety, depression, obesity presented to ER 06/17 with complaint of progressive exertional shortness of breath and cough x 1 week. On the day of arrival - at urgent care with reported sats 85-87% on room air. Was given neb treatment there. He is being managed for the following. Acute hypoxic respiratory failure; present with SpO2 less than 90%; using accessory muscle at admission Acute on chronic HFpEF Bilateral pneumonia Demand ischemia: Likely secondary to CHF exacerbation, patient with no new chest pain, flat trend, admitting EKG with ventricular paced rhythm. Patient does report chronic intermittent chest pain for years, denies any increased frequency. Will need cardiology evaluation. Continue home aspirin, Imdur, atenolol, losartan. Patient coming in with progressive SMITH associated with dry cough, denied any febrile illness/sore throat/chest pain. At presentation, saturation 87% on room air Admitting labs: WBC 11.15 K, troponin flat trend in 20s, RPP negative, UA negative. BNP at 207. Procalcitonin negative. Admitting CXR with no acute finding. Admitting CTA chest suggestive of inflammatory airways disease versus mild pulmonary infection. No evidence of PE. 06/06/2022 echo with EF of 55 to 60%, grade 1 diastolic dysfunction. Likely fluid overload/CHF exacerbation versus bronchitis Patient currently on Levaquin; plan to treat for 5 days. Wean down oxygen as tolerated. Diuresis with IV Lasix Two-step oxygen evaluation done; patient needs 2 L on exertion. Other chronic medical conditions: Continue with/resume home meds as and when ab le Hypertension: Continue home amlodipine, atenolol, losartan. T2DM: Insulin-dependent, A1c 7.0 on 05/23/2023. Sliding scale insulin while in the hospital. Tachybradycardia syndrome: Status post pacemaker, stable. Morbid obesity: Lifestyle modification recommended. DVT prophylaxis: Lovenox subcu Full code Follows with Dr Zavaleta for routine care Time spent evaluating patient, direct bedside care, chart review, placing orders, interpretation of diagnostic studies, discussion with consultants, patient, and family members, as well as other required patient management activities is 50 minutes Please note the above document was generated using voice recognition software. It may contain grammatical, syntax or spelling errors. Any formal questions or concerns about the content, text or information contained within the body of this dictation should be directly addressed to the provider for clarification Admission and Anticipated Discharge Date Admission Date: June 18, 2023 Subjective Patient seen and examined at bedside. He reports mild shortness of breath on exertion. Overall reports that his symptoms have improved. Comfortable; not in distress. Review of Systems Review of Systems: All systems reviewed & are unremarkable except as noted in Subjective Physical Exam Physical Exam: Constitutional: WD/WN, vitals as above, NAD, sitting up in bed, pleasant, conversing easily Respiratory: Bilateral basal crackles present Cardiovascular: RRR, no murmur, no edema Vessels: no JVD or carotid bruit Chest: normal inspection of chest Abdomen: normal bowel sounds, soft, nontender, no hepatosplenomegaly Musculoskeletal: no cyanosis or clubbing, extremities motor strength 5/5 Skin: no rashes, warm and dry normal turgor Neurologic: PERRL, EOMI, accommodation nl, no face palsy, no dysarthria CN's II- XI intact bilaterally and moves all extremities Psychiatric: A+Ox3, euthymic affect Results & Data Results & Data Vital Signs (Past 12 Hours) Vital Signs Temp Pulse Pulse Pulse Pulse Pulse Resp 06/20/23 15:05 36.8 C 74 18 06/20/23 13:20 70 24 06/20/23 11:26 37.1 C 73 18 06/20/23 10:35 84 89 68 06/20/23 09:34 76 06/20/23 07:31 36.7 C 76 18 06/20/23 07:22 06/20/23 07:14 74 20 Resp Resp Resp BP Pulse Ox Pulse Ox Pulse Ox 06/20/23 15:05 139/74 92 06/20/23 13:20 89 L 06/20/23 11:26 142/67 H 93 06/20/23 10:35 22 24 20 96 85 L 06/20/23 09:34 06/20/23 07:31 163/74 H 93 06/20/23 07:22 06/20/23 07:14 95 Pulse Ox O2 Del Method O2 Flow Rate O2 Flow Rate 06/20/23 15:05 Room Air 06/20/23 13:20 Room Air 06/20/23 11:26 Room Air 06/20/23 10:35 89 L 2 06/20/23 09:34 06/20/23 07:31 Nasal Cannula 2 06/20/23 07:22 Nasal Cannula 2 06/20/23 07:14 Nasal Cannula 2
[2023-06-20] MEDS: FUROSEMIDE INJ 20 MG/2 ML VIAL IV SCH (17:26)
[2023-06-20] MEDS ORDERED: SODIUM CHLORIDE 0.65% NA SOLN 45 ML (OCEAN) PRN (20:35)
--- NOTE | 2023-06-21 12:00 | Hospitalist Progress Note ---
Date of Service June 21, 2023 Assessment & Plan (1) Exertional dyspnea: Plan 78 year old male with PMH of HTN, insulin-dependent DM II, atrial flutter, tachybradycardia syndrome s/p pacemaker, CAD, anxiety, depression, obesity presented to ER 06/17 with complaint of progressive exertional shortness of breath and cough x 1 week. On the day of arrival - at urgent care with reported sats 85-87% on room air. Was given neb treatment there. He is being managed for the following. Acute hypoxic respiratory failure; present with SpO2 less than 90%; using accessory muscle at admission Acute on chronic HFpEF Bilateral pneumonia Demand ischemia: Likely secondary to CHF exacerbation, patient with no new chest pain, flat trend, admitting EKG with ventricular paced rhythm. Patient does report chronic intermittent chest pain for years, denies any increased frequency. Will need cardiology evaluation. Continue home aspirin, Imdur, atenolol, losartan. Patient coming in with progressive SMITH associated with dry cough, denied any febrile illness/sore throat/chest pain. At presentation, saturation 87% on room air Admitting labs: WBC 11.15 K, troponin flat trend in 20s, RPP negative, UA negative. BNP at 207. Procalcitonin negative. Admitting CXR with no acute finding. Admitting CTA chest suggestive of inflammatory airways disease versus mild pulmonary infection. No evidence of PE. 06/06/2022 echo with EF of 55 to 60%, grade 1 diastolic dysfunction. Likely fluid overload/CHF exacerbation along with bronchitis s Patient currently on Levaquin; plan to treat for 5 days. Wean down oxygen as tolerated. Diuresis with IV Lasix Two-step oxygen evaluation done; patient needs 2 L on exertion. Other chronic medical conditions: Continue with/resume home meds as and when able Hypertension: Continue home amlodipine, atenolol, losartan. T2DM: Insulin-dependent, A1c 7.0 on 05/23/2023. Sliding scale insulin while in the hospital. Tachybradycardia syndrome: Status post pacemaker, stable. Morbid obesity: Lifestyle modification recommended. DVT prophylaxis: Lovenox subcu Full code Follows with Dr Zavaleta for routine care Please note the above document was generated using voice recognition software. It may contain grammatical, syntax or spelling errors. Any formal questions or concerns about the content, text or information contained within the body of this dictation should be directly addressed to the provider for clarification Admission and Anticipated Discharge Date Admission Date: June 18, 2023 Subjective Patient seen and examined at bedside. He reports that his cough is still persistent. He is currently on 2 L of oxygen by nasal cannula. Review of Systems Review of Systems: All systems reviewed & are unremarkable except as noted in Subjective Physical Exam Physical Exam: Constitutional: WD/WN, vitals as above, NAD, sitting up in bed, pleasant, conversing easily Respiratory: Occasional crackles heard Cardiovascular: RRR, no murmur, no edema Vessels: no JVD or carotid bruit Chest: normal inspection of chest Abdomen: normal bowel sounds, soft, nontender, no hepatosplenomegaly Musculoskeletal: no cyanosis or clubbing, extremities motor strength 5/5 Skin: no rashes, warm and dry normal turgor Neurologic: PERRL, EOMI, accommodation nl, no face palsy, no dysarthria CN's II- XI intact bilaterally and moves all extremities Psychiatric: A+Ox3, euthymic affect Results & Data Results & Data Vital Signs (Past 12 Hours) Vital Signs Temp Pulse Pulse Resp BP BP Pulse Ox 06/21/23 07:48 36.7 C 66 20 145/84 H 93 06/21/23 07:35 63 06/21/23 07:20 78 20 95 06/21/23 07:09 06/21/23 03:58 36.6 C 72 20 165/76 H 93 06/21/23 01:15 70 18 95 06/21/23 00:31 36.6 C 71 20 136/72 92 O2 Del Method O2 Flow Rate 06/21/23 07:48 Nasal Cannula 2 06/21/23 07:35 06/21/23 07:20 Nasal Cannula 2 06/21/23 07:09 Nasal Cannula 2 06/21/23 03:58 Room Air 06/21/23 01:15 Room Air, Nasal Cannula 06/21/23 00:31 Room Air
[2023-06-22] MEDS: BENZONATATE 100 MG CAPSULE PO SCH (07:48)
--- NOTE | 2023-06-22 10:12 | Discharge Summary ---
Date of Service June 22, 2023 Admission HPI Per Admitting Provider Patient is 78 year old male with PMH HTN, insulin-dependent DM II, atrial flutter, tachybradycardia syndrome s/p pacemaker, CAD, anxiety, depression, obesity and others as below presented to ER with complaint of shortness of breath. History obtained from patient, outpatient chart review. Patient reports 1 week ago started with cough intermittently productive clear-colored sputum. He has had progressive exertional shortness of breath over the past week. Worse shortness of breath today prompting him to go to urgent care. Seen at urgent care with reported sats 85-87% on room air. Was given neb treatment there. Patient states he does not feel any different after neb treatment. Patient reports chronic intermittent anterior chest pain that occurs a couple times a month. He reports can and occur at rest or activity and states these have been happening for years however are not as severe since he had his pacemaker placed. He denies any associated symptoms with this. He denies any increased episodes of chest pain. Denies any chest pain today. Reports chronic bilateral lower extremity edema which patient feels has not worsened. Is not on diuretics. Denies fever/chills, diaphoresis, N/V/D/C, RAMIREZ, dizziness, syncope, vision changes, neck pain, orthopnea, palpitations, hemoptysis, sore throat, rhinorrhea, abdominal pain, paresthesias, weakness, extremity weakness, rashes, urinary symptoms. In ER patient currently sitting in bed without acute symptoms. Patient was ambulated through ER with noted dyspnea and sats 87% on room air with ambulation. At rest patient reports is asymptomatic and without shortness of breath and oxygen sats 92% on room air. Echo 06/06/2022: EF: 55-60%, moderate LVH, grade 1 diastolic dysfunction, moderate-severe mitral annular calcification, no significant mitral stenosis or regurgitation Admission Exam Per Admitting Provider General: no acute distress, obese elderly male Head: normocephalic, atraumatic Eyes: conjunctiva non-injected, anicteric ENT: normal inspection external ears, nose, mucous membranes moist Neck: supple, trachea midline, non-tender Lungs: no respiratory distress, diminished breath sounds without wheezing/rhonchi/rales noted CV: RRR, no murmur noted, 1-2+pretibial edema Abd: normal BS, soft, non-tender Ext: no cyanosis, no calf tenderness Neuro: A&O x 3, no focal deficits noted, normal affect Skin: warm, dry Principal Diagnosis Bilateral pneumonia Discharge Exam Constitutional: WD/WN, vitals as above, NAD, sitting up in bed, pleasant, conversing easily Respiratory: Occasional crackles heard Cardiovascular: RRR, no murmur, no edema Vessels: no JVD or carotid bruit Chest: normal inspection of chest Abdomen: normal bowel sounds, soft, nontender, no hepatosplenomegaly Musculoskeletal: no cyanosis or clubbing, extremities motor strength 5/5 Skin: no rashes, warm and dry normal turgor Neurologic: PERRL, EOMI, accommodation nl, no face palsy, no dysarthria CN's II- XI intact bilaterally and moves all extremities Psychiatric: A+Ox3, euthymic affect Discharge Data Allergies Allergy/AdvReac Type Severity Reaction Status Date / Time cephalexin Allergy Mild Rash Verified 05/07/23 07:43 codeine Allergy Mild Rash Verified 05/07/23 07:43 Consultations 06/18/23 14:04 ED Decision to Admit Stat 06/19/23 13:23 Consult Cardiology Routine Ordered Studies 06/18/23 17:40 CT angio chest PE protocol Stat Hospital Course (1) Exertional dyspnea: Plan Acute hypoxic respiratory failure; Acute on chronic HFpEF Bilateral pneumonia Patient is a 78 year old male with PMH of HTN, insulin-dependent DM II, atrial flutter, tachybradycardia syndrome s/p pacemaker, CAD, anxiety, depression, obesity presented to ER 06/17 with complaint of progressive exertional shortness of breath and cough x 1 week. On the day of arrival - at urgent care with reported sats 85-87% on room air. On admission, he was found to have leukocytosis of 11.15 K, negative procalcitonin. CTA chest showed bilateral infiltrates in lower lobes; no PE. Patient was admitted to telemetry floor; was treated for pneumonia with antibiotics. Cardiology was also consulted for comanagement as part of the shortness of breath was thought secondary to CHF. He was diuresed with Lasix IV during the hospitalization. Patient reported significant improvement throughout the hospitalization. Two-step oxygen evaluation was done; patient needed 2 L of oxygen on exertion. He was discharged home on oral antibiotics and cough suppressant. Please note the above document was generated using voice recognition software. It may contain grammatical, syntax or spelling errors. Any formal questions or concerns about the content, text or information contained within the body of this dictation should be directly addressed to the provider for clarification Total Time Total Time Spent Total Time Spent (In Minutes): 35 Total Time Includes: Examination of the Patient, Discharge Planning, Medication Reconciliation, Communication With Other Providers and Other Discharge Plan Discharge Items Patient Disposition: Home - Self-Care Reason For Visit: HYPOXIA Discharge Diagnosis: Acute hypoxic respiratory failure; Acute on chronic HFpEF Bilateral pneumonia Activity: Resume your previous activity Non-emergency contact: Primary Care Provider Call non-emergency contact if: you have any medication questions and your symptoms worsen Follow-up/Referrals: Martin Zavaleta MD [Primary Care Provider] - (Date & Time 06/25/2023 11:00 AM Provider Martin Zavaleta MD Department [facility] ) Diet: Regular Addtl Attending Provider Instructions: You were admitted to the hospital due to cough and shortness of breath. The cause for it is pneumonia. You are prescribed following medication: 1) Levofloxacin(antibiotic) 750 mg once a day for 3 more days 2) cough suppressant (Tessalon Perles) 3 times a day for 5 days Please wear oxygen at 2 L by nasal cannula on exertion. An appointment with your primary care doctor will be made for sometime this week. Pending Studies at Discharge: No Stand-Alone Forms: My [facility], Smoking Cessation Medications and DC Order Prescriptions: New benzonatate 100 mg Capsule 100 mg PO TID 5 Days Qty: 15 0RF levofloxacin 750 mg Tablet 750 mg PO DAILY@1100 3 Days Qty: 3 0RF Continued nitroglycerin 0.4 mg tablet, sublingual 0.4 mg sublingual Q5M PRN (Reason: Chest Pain) Rx Instructions: do not exceed 3 doses per episode omega-3 fatty acids-fish oil [Fish Oil] 360-1,200 mg capsule 1 cap PO BID glucosamine HCl 1 tab PO BID Rx Instructions: joint fenofibrate 54 mg tablet 54 mg PO QAM diclofenac sodium [Voltaren Arthritis Pain] 1 % gel 2 g topical QID PRN (Reason: Pain) Rx Instructions: apply to single elbow, wrist or hand; for hand includes palm/fingers/back of hand losartan 50 mg tablet 50 mg PO QAM aspirin 81 mg Tablet,Delayed Release (Dr/Ec) 81 mg PO QAM metformin 1,000 mg tablet 1,000 mg PO BID atenolol 50 mg tablet 100 mg PO QAM insulin degludec [Tresiba FlexTouch U-200] 200 unit/mL (3 mL) insulin pen 40 unit SUBCUT BID Trulicity 0.75 mg/0.5 mL pen injector 0.75 mg SUBCUT Q7D Rx Instructions: Q SUN amlodipine [Norvasc] 10 mg tablet 10 mg PO QAM atorvastatin 20 mg tablet 20 mg PO HS insulin aspart U-100 [Novolog FlexPen U-100 Insulin] 100 unit/mL (3 mL) insu michael pen 20 unit SUBCUT BID Rx Instructions: +sliding scale as needed magnesium oxide 400 mg (241.3 mg magnesium) tablet 400 mg PO HS isosorbide mononitrate 120 mg tablet extended release 24 hr 60 mg PO DAILY Discharge Orders: Discharge Order (Routine); Ordered 06/22/23 Ordered By: Mukul Ardon Admission Data Admit Date/Time: 06/18/23 14:44 Attending Provider: Mukul Ardon Admit Provider: Latrice Cole Primary Care Provider: Martin Zavaleta Other Providers: Latrice Cole; Anthony Romero; Capo Atkinson; Ihsan Vasquez; Duke Franks; Remington Shanks; Betito Miguel Jr; Wayne Henry; Paris Pierson; Jennifer Van; George Medina; George Salinas; Willian Tariq; Komal Doan; Jose Elias Segovia; Liza Stanton; Eduardo Way; Ayan Luz; Sadi Knox; Pelon Delarosa Other Interventions: Discharge Summary Assessment (RN) Last Done: 06/22/23 10:04
== END 2023-06-22 11:41 | disposition home or self-care (01) | DRG 193 ==
LOC: ED 12:18 → 2N 14:44 → SUATTDRO 14:44 → 2N 16:24
DX: Z79.899 Other long term (current) drug therapy; R07.9 Chest pain, unspecified; Z79.84 Long term (current) use of oral hypoglycemic drugs; Z79.4 Long term (current) use of insulin; Z88.1 Allergy status to other antibiotic agents; Z68.42 Body mass index [BMI] 45.0-49.9, adult; Z79.85 Long-term (current) use of injectable non-insulin antidiabetic drugs; J96.01 Acute respiratory failure with hypoxia; F32.A Depression, unspecified; I24.89 Other forms of acute ischemic heart disease; Z79.82 Long term (current) use of aspirin; E66.01 Morbid (severe) obesity due to excess calories; I50.33 Acute on chronic diastolic (congestive) heart failure; E83.42 Hypomagnesemia; Z95.0 Presence of cardiac pacemaker; I49.5 Sick sinus syndrome; I48.92 Unspecified atrial flutter; Z88.5 Allergy status to narcotic agent; I11.0 Hypertensive heart disease with heart failure; E11.40 Type 2 diabetes mellitus with diabetic neuropathy, unspecified; J18.9 Pneumonia, unspecified organism; I25.10 Atherosclerotic heart disease of native coronary artery without angina pectoris; F41.9 Anxiety disorder, unspecified; E78.00 Pure hypercholesterolemia, unspecified

== ENCOUNTER 2024-03-03 08:54 | Inpatient (IN) ==
--- NOTE | 2024-03-03 09:28 | Emergency Department Note ---
Impression & Plan Pulmonary edema, Hypoxia, Hypoglycemia ED Provider Note NAME: SONDRA FRANCES AGE: 79 SEX: M : 1945 ARRIVES VIA: Ambulance INFORMANT: Patient, ED PROVIDER(S): Ihsan Walters DO CHIEF COMPLAINT: Shortness of breath HPI: The patient is a 79-year-old male who presented to the emergency department for an evaluation of shortness of breath and chest pain. The patient has been noticing symptoms over the course of the last few days. He states over the last month he has had some exertional chest pain as well as shortness of breath. He started using his outpatient oxygen. He denies having any leg swelling or cough. He denies having any fever or hemoptysis. The patient states he has been compliant with his outpatient medications. He arrived via ambulance. He did receive aspirin prior to arrival. ROS: See above HPI for pertinent positives & negatives. A total of 10 systems reviewed and were otherwise negative. PAST MEDICAL HISTORY: See Below PAST SURGICAL HISTORY: See Below FAMILY HISTORY: See Below SOCIAL HISTORY: See Below HOME MEDICATIONS: See Below ALLERGIES: See Below VITALS: See Below PHYSICAL EXAMINATION: GENERAL: Patient is awake alert in no acute distress patient is resting comfortably and showing no signs of anxiety EYES: The conjunctivae are clear. The pupils are round and reactive. EARS, NOSE, MOUTH AND THROAT: The nose is without any evidence of any deformity. NECK: The neck is nontender and supple. RESPIRATORY: Diminished breath sounds are noted at both bases. There is no tachypnea or conversational dyspnea. CARDIOVASCULAR: Regular rate and rhythm noted there no murmurs rubs or gallops normal S1 normal S2. GASTROINTESTINAL: The abdomen is soft. Abdomen is nontender. MUSCULOSKELETAL/EXTREMITIES: There is no evidence of gross deformity full range of motion is noted in the hips and shoulders. SKIN: Pedal edema was noted bilaterally. Skin was warm and dry. NEUROLOGIC: Patient is awake alert and oriented x3 MEDICAL DECISION MAKING: The patient is a 79-year-old male who presented to the emergency department for an evaluation of difficulty breathing. The patient arrived via ambulance. The patient also took his insulin but did not eat. He was found to be hypoglycemic. This was treated with oral glucose replacement. I discussed patient's laboratory and radiographic studies with him. He was treated with aspirin prior to arrival. He was ordered Lasix in the emergency department. Given his findings I did discuss his condition with the on-call [facility]ist group. They have agreed to evaluate the patient in the emergency department. Triage Nursing notes reviewed. Prior medical records reviewed Vital Signs: reviewed and remarkable for hypoxia Differential diagnosis: Cardiac ischemia, aortic dissection, pulmonary embolism, pneumothorax, pneumonia, pericarditis, myocarditis, esophageal rupture, GERD, cholecystitis, pancreatitis, musculoskeletal, as well as other pathologies. ER treatment provided: See below Diagnostics interpreted by me: ECG: EKG was obtained in the emergency department. My interpretation is dual- chamber pacemaker at 88 bpm. LVH was suggested by voltage criteria. PVC was noted. This was compared to a tracing from June 18, 2023. No changes were noted. Cardiac Monitoring: An order was placed for continuous cardiac monitoring. The monitor shows a rate of 68 bpm with paced rhythm. Laboratory studies: As stated above and show below. Imaging studies: See below. Radiographic imaging was reviewed by myself Consultation(s): I discussed this case with Pia who is on-call for the [facility] hospitalist group. Past Med/Surg History Problem List (Updated 03/03/24 @ 10:48 by Ihsan Walters DO) Hypoglycemia (Acute) Hypoxia (Acute) Pulmonary edema (Acute) Lesion of skin of scalp suspect BCC Excessive cerumen in both ear canals Nasal septal spur Tachy-landry syndrome Leg edema SVT (supraventricular tachycardia) Atrial fibrillation (Acute) Hypomagnesemia (Acute) Hypoxia (Acute) Chest pain (Acute) History of COVID-19 COVID-19 virus infection Acute respiratory failure with hypoxemia Colon polyp Antiplatelet or antithrombotic long-term use Fatigue Acquired deviated nasal septum Chronic sinusitis Insulin dependent diabetes mellitus (Acute) Chest pain CAD (coronary artery disease) Snoring Morbid obesity BMI 45.4 Left anterior fascicular block (Acute) RBBB (Acute) First degree atrioventricular block Dyslipidemia Hypertension Type 2 diabetes mellitus IDDM Medical History Exertional dyspnea Pacemaker History of COVID-19 09/2021, admitted to [place] for 8 days-"pt unsure why he was admitted" per record, cough and hypoxia>resolved Elevated troponin hx Monoclonal gammopathy DJD (degenerative joint disease), lumbosacral Hemorrhoids pt denies Diabetic neuropathy Osteoarthritis Diverticulosis Surgical History History of permanent cardiac pacemaker placement 09/2022, [place]; f/u [facility] History of colonoscopy last 2015 History of sinus surgery (~05/10/20) History of cardiac cath (~04/27/21) no stents, d/t angina H/O oral surgery all teeth removed History of back surgery (~05/2005) lumbar laminectomy Hx of cataract surgery lt Family History Father Coronary heart disease Heart disease Myocardial infarction Sister Coronary heart disease Cancer Brother Coronary heart disease Hx of CABG Family/Other Hearing loss Mother Asthma Other No family history of adverse response to anesthesia Social History Smoking Status: Never smoker Tobacco Type: Smokeless Tobacco (Dip or Chew) Second Hand Exposure: No; Do You Dip or Chew Tobacco: No (used to chew tobacco in early ); Hx Alcohol Use: No Hx Substance Use: No Preferred Language: Rwandan Communication Ability: Effective Spinneret Cleaner Required: No Beliefs That Will Affect Care: None marital status: Single Current Living Situation: Alone Current Living Situation Comment: Sister is neighbor current occupational status: retired How many Children do You have Comment: No Children Feels Safe at Home: Yes Assistive Devices: None Allergies Allergies Allergy/AdvReac Type Severity Reaction Status Date / Time Respiratory Syncytial Virus Allergy Severe swollen Verified 03/03/24 10:30 (RSV) p tongue cephalexin Allergy Mild Rash Verified 03/03/24 10:30 codeine Allergy Mild Rash Verified 03/03/24 10:30 Home Meds Home Medications Medication Instructions Recorded Confirmed atenolol 50 mg tablet 100 mg PO QAM 08/11/19 03/03/24 dulaglutide 0.75 mg/0.5 mL 0.75 mg subcut Q7D 08/11/19 03/03/24 subcutaneous pen injector (Trulicity) insulin degludec 200 unit/mL (3 56 unit subcut BID 08/11/19 03/03/24 mL) subcutaneous pen (Tresiba FlexTouch U-200 insulin) metformin 1,000 mg tablet 1,000 mg PO BID 08/11/19 03/03/24 losartan 50 mg tablet 50 mg PO QAM 10/25/20 03/03/24 amlodipine 10 mg tablet (Norvasc) 10 mg PO QAM 01/02/21 03/03/24 atorvastatin 20 mg tablet 20 mg PO HS 05/16/21 03/03/24 insulin aspart U-100 100 unit/mL 20 unit subcut BID 06/05/22 03/03/24 (3 mL) subcutaneous pen (Novolog FlexPen U-100 Insulin aspart) diclofenac sodium 1 % topical gel 2 g topical QID PRN Pain 03/03/23 03/03/24 (Voltaren Arthritis Pain) fenofibrate 54 mg tablet 54 mg PO QAM 03/03/23 03/03/24 apixaban 5 mg tablet (Eliquis) 5 mg PO BID 03/03/24 03/03/24 glucosamine sulfate 750 mg tablet 750 mg PO BID 03/03/24 03/03/24 isosorbide mononitrate 120 mg 60 mg PO QAM 03/03/24 03/03/24 tablet,extended release 24 hr vit C 250 mg-vit E 90 mg-zinc 40 1 tab PO BID 03/03/24 03/03/24 mg-copper 1 [id number] capsule (PreserVision AREDS-2) Previous Rx's Medication Instructions Recorded magnesium oxide 400 mg (241.3 mg 400 mg PO HS #90 tabs 11/18/23 magnesium) tablet epinephrine 0.3 mg/0.3 mL 0.3 mg (0.3 mL) IM Q4H PRN 12/12/23 injection, auto-injector anaphylaxis #2 ea nitroglycerin 0.4 mg sublingual 0.4 mg sublingual Q5M PRN Chest 12/18/23 tablet Pain #20 tabs Results & Data (ED) Vital Signs Vital Signs - 24 hr 03/03/24 09:02 03/03/24 09:03 03/03/24 09:03 Temperature 36.9 C Temperature Source Oral Pulse Rate 81 94 H Pulse Rate [Apical] Respiratory Rate 19 Respiratory Effort / Characteristics Non-Labored Spontaneous Non-Labored Spontaneous Respiratory Depth Normal Normal Respiratory Pattern Blood Pressure 149/93 H Blood Pressure [Right Arm] Blood Pressure Mean 111 Blood Pressure Mean [Right Arm] Blood Pressure Position Semi-fowlers Blood Pressure Position [Right Arm] Pulse Oximetry 92 Oxygen Delivery Method Nasal Cannula Oxygen Flow Rate 3 Sepsis Recent Fever Within 48 Hours No Sepsis New/Unexplained Change in Mental Status N/A Sepsis Action Taken by Nursing No Action Required Oxygen Flow Rate - Titration Pulse Oximetry Post Tiitration 03/03/24 09:03 03/03/24 09:03 03/03/24 09:14 Temperature 36.9 C Temperature Source Oral Pulse Rate 68 Pulse Rate [Apical] 94 H Respiratory Rate 19 18 Respiratory Effort / Characteristics Spontaneous Respiratory Depth Normal Respiratory Pattern Regular Blood Pressure Blood Pressure [Right Arm] 149/93 H Blood Pressure Mean Blood Pressure Mean [Right Arm] 111 Blood Pressure Position Blood Pressure Position [Right Arm] Semi-fowlers Pulse Oximetry 85 L 92 94 Oxygen Delivery Method Room Air Nasal Cannula Nasal Cannula Oxygen Flow Rate 2 3 Sepsis Recent Fever Within 48 Hours Sepsis New/Unexplained Change in Mental Status Sepsis Action Taken by Nursing Oxygen Flow Rate - Titration 2 Pulse Oximetry Post Tiitration 92 Home Medications Current Medication List: was personally reviewed by me Laboratory Data Attestation: I reviewed the patient's lab results. 03/03/24 09:05 03/03/24 09:05 Lab Results 03/03/24 03/03/24 Range/Units 09:05 09:17 WBC 10.88 H (4.8-10.8) K/ul RBC 4.38 L (4.70-6.10) M/uL Hgb 12.5 L (14.0-18.0) g/dl Hct 39.1 L (42.0-52.0) % MCV 89.3 (80.0-100.0) fL MCH 28.5 (25.0-34.0) pg MCHC 32.0 (32.0-36.0) g/dL RDW Std Deviation 46.5 H (36.4-46.3) fL RDW Coeff of [place] 14.6 H (11.5-14.5) % Plt Count 249 (130-400) K/uL MPV 10.3 (9.4-12.4) fL Immature Gran % (Auto) 0.4 % Neut % (Auto) 72.0 % Lymph % (Auto) 17.2 % [place] % (Auto) 8.4 % Eos % (Auto) 1.7 % Baso % (Auto) 0.3 % Neut # (Auto) 7.85 H (1.40-6.50) K/uL Lymph # (Auto) 1.87 (1.20-3.40) K/uL [place]aston # (Auto) 0.91 H (0.11-0.59) K/uL Eos # (Auto) 0.18 (0.00-0.50) K/uL Baso # (Auto) 0.03 (0.00-0.20) K/uL Immature Gran # (Auto) 0.04 (0.01-0.20) K/uL PT 11.8 (9.0-12.0) Seconds INR 1.1 (0.9-1.1) APTT 30 (21-31) Seconds PTT Ratio 1.1 Sodium 145 (136-145) mmol/L Potassium 3.7 (3.5-5.1) mmol/L Chloride 104 (98-107) mmol/L Carbon Dioxide 35 H (21-32) mmol/L Anion Gap 6 (3-11) BUN 15 (6-23) mg/dl Creatinine 0.88 (0.6-1.4) mg/dl Est Cr Clr Drug Dosing 97.6 ml/min eGFR 87.47 BUN/Creatinine Ratio 17.0 (10-20) Glucose 53 L* (70-99(Fasting)) mg/dl Calcium 9.5 (8.6-10.3) mg/dl Total Bilirubin 1.0 (0.2-1.0) mg/dl AST 17 (13-39) U/L ALT 16 (7-52) U/L Alkaline Phosphatase 54 (34-104) U/L Troponin I High Sens 14.2 (0-20) pg/ml Total Protein 7.5 (6.0-8.3) gm/dl Albumin 4.3 (3.4-5.0) gm/dl Globulin 3.2 (2.5-4.0) gm/dl Albumin/Globulin Ratio 1.3 (0.9-2) Lipase 11 (11-82) U/L Adenovirus (PCR) Not Detected (NotDetected) B. pertussis DNA (PCR) Not Detected (NotDetected) B.parapertussis DNA PCR Not Detected (NotDetected) C. pneumoniae DNA (PCR) Not Detected (NotDetected) Coronavirus OC43 (PCR) Not Detected (NotDetected) Coronavirus HKU1 (PCR) Not Detected (NotDetected) Coronavirus 229E (PCR) Not Detected (NotDetected) SARS-CoV-2 (PCR) Not Detected (NotDetected) Coronavirus NL63 (PCR) Not Detected (NotDetected) Human Metapneumovir PCR Not Detected (NotDetected) Influenza Type A (PCR) Not Detected (NotDetected) Influenza Type B (PCR) Not Detected (NotDetected) M. pneumoniae (PCR) Not Detected (NotDetected) Parainfluenza 1 (PCR) Not Detected (NotDetected) Parainfluenza 2 (PCR) Not Detected (NotDetected) Parainfluenza 3 (PCR) Not Detected (NotDetected) Parainfluenza 4 (PCR) Not Detected (NotDetected) RSV (PCR) Not Detected (NotDetected) Entero/Rhino (PCR) Not Detected (NotDetected) Imaging Data Attestation: I personally reviewed and interpreted this imaging study as follows: My Impression: 1 view chest x-ray was obtained in the emergency department. My interpretation is cardiomegaly with pulmonary edema, final report below. Radiologist's Impression: Chest X-Ray 03/03/24 09:02 XR chest 1V portable HISTORY: 79 years-old Male Chest pain, nonspecific COMPARISON: 06/18/2023 TECHNIQUE: AP view of the chest FINDINGS: Cardiac silhouette is enlarged. Dual-lead left subclavian pacer. Pulmonary vascular congestion with interstitial coarsening. No pneumothorax. Layering pleural effusions with bibasilar consolidation. IMPRESSION: 1. Cardiomegaly with pulmonary edema. 2. Layering pleural effusions with bibasilar consolidation. ACT 112: Negative or not required by law. The above report was generated using voice recognition software. It may contain grammatical, syntax or spelling errors. Electronically signed by: Orcaio Martinez M.D. 03/03/2024 9:48 AM Discharge Plan Visit Data Chief Complaint: Chest Pain Stated Complaint: SOB, CHEST PAIN ED Provider: Ihsan Walters Discharge Problem: Pulmonary edema, Hypoxia, Hypoglycemia Patient Disposition: Being Evaluated by Hospitalist Forms Stand Alone Forms: My [facility] Prescriptions Prescriptions: No Action magnesium oxide 400 mg (241.3 mg magnesium) tablet 400 mg PO HS Qty: 90 3RF fenofibrate 54 mg tablet 54 mg PO QAM diclofenac sodium [Voltaren Arthritis Pain] 1 % gel 2 g topical QID PRN (Reason: Pain) Rx Instructions: apply to single elbow, wrist or hand; for hand includes palm/fingers/back of hand losartan 50 mg tablet 50 mg PO QAM nitroglycerin 0.4 mg tablet, sublingual 0.4 mg sublingual Q5M PRN (Reason: Chest Pain) Qty: 20 3RF Rx Instructions: do not exceed 3 doses per episode metformin 1,000 mg tablet 1,000 mg PO BID atenolol 50 mg tablet 100 mg PO QAM insulin degludec [Tresiba FlexTouch U-200] 200 unit/mL (3 mL) insulin pen 56 unit SUBCUT BID Trulicity 0.75 mg/0.5 mL pen injector 0.75 mg SUBCUT Q7D Rx Instructions: Q SUN amlodipine [Norvasc] 10 mg tablet 10 mg PO QAM atorvastatin 20 mg tablet 20 mg PO HS insulin aspart U-100 [Novolog FlexPen U-100 Insulin] 100 unit/mL (3 mL) insulin pen 20 unit SUBCUT BID Rx Instructions: +sliding scale as needed epinephrine 0.3 mg/0.3 mL auto-injector 0.3 mg IM Q4H PRN (Reason: anaphylaxis) Qty: 2 0RF PreserVision AREDS-2 250-90-40-1 mg Capsule 1 tab PO BID Eliquis 5 mg tablet 5 mg PO BID glucosamine sulfate [Glucosamine] 750 mg Tablet 750 mg PO BID Rx Instructions: joint isosorbide mononitrate 120 mg tablet extended release 24 hr 60 mg PO QAM Referrals Referrals: Martin Zavaleta MD [Primary Care Provider] - Discharge Problem: Pulmonary edema Qualifiers: Chronicity: acute Qualified Code(s): J81.0 - Acute pulmonary edema
[2024-03-03 09:40] LABS: Basophils # (auto) 0.03 K/uL (0.00-0.20); Basophils % (auto) 0.3 %; Eosinophils # (auto) 0.18 K/uL (0.00-0.50); Eosinophils % (auto) 1.7 %; Hematocrit (blood only) 39.1 % (42.0-52.0); Hemoglobin 12.5 g/dl (14.0-18.0); Immature Granulocytes # (auto) 0.04 K/uL (0.01-0.20); Immature Granulocytes % (auto) 0.4 %; Lymphocytes # (auto) 1.87 K/uL (1.20-3.40); Lymphocytes % (auto) 17.2 %; Mean Corpuscular Hemoglobin 28.5 pg (25.0-34.0); Mean Corpuscular Volume 89.3 fL (80.0-100.0); Mean Platelet Volume 10.3 fL (9.4-12.4); Monocytes # (auto) 0.91 K/uL (0.11-0.59); Monocytes % (auto) 8.4 %; Neutrophils # (auto) 7.85 K/uL (1.40-6.50); Platelet Count 249 K/uL (130-400); RDW Coefficient of Variation 14.6 % (11.5-14.5); RDW Standard Deviation 46.5 fL (36.4-46.3); Red Blood Count 4.38 M/uL (4.70-6.10); White Blood Count 10.88 K/ul (4.8-10.8)
--- NOTE | 2024-03-03 09:50 | XRay Report ---
XR chest 1V portable HISTORY: 79 years-old Male Chest pain, nonspecific COMPARISON: 06/18/2023 TECHNIQUE: AP view of the chest FINDINGS: Cardiac silhouette is enlarged. Dual-lead left subclavian pacer. Pulmonary vascular congestion with i nterstitial coarsening. No pneumothorax. Layering pleural effusions with bibasilar consolidation. IMPRESSION: 1. Cardiomegaly with pulmonary edema. 2. Layering pleural effusions with bibasilar consolidation. ACT 112: Negative or not required by law. The above report was generated using voice recognition software. It may contain grammatical, syntax o r spelling errors. Electronically signed by: Oracio Martinez M.D. 03/03/2024 9:48 AM
[2024-03-03 10:07] LABS: INR 1.1 (0.9-1.1); Partial Thromboplastin Ratio 1.1; Partial Thromboplastin Time 30 Seconds (21-31); Prothrombin Time 11.8 Seconds (9.0-12.0)
[2024-03-03 10:14] LABS: Albumin Globulin Ratio 1.3 (0.9-2); Albumin Level 4.3 gm/dl (3.4-5.0); Calcium 9.5 mg/dl (8.6-10.3); Creatinine Clr Calc Pharmacy 97.6 ml/min; Globulin 3.2 gm/dl (2.5-4.0); Potassium 3.7 mmol/L (3.5-5.1); Total Protein 7.5 gm/dl (6.0-8.3); Troponin I High Sensitivity 14.2 pg/ml (0-20)
[2024-03-03 10:18] LABS: Adenovirus PCR Not Detected (NotDetected); Bordetella parapertussis PCR Not Detected (NotDetected); Bordetella pertussis PCR Not Detected (NotDetected); Chlamydia pneumoniae PCR Not Detected (NotDetected); Coronavirus 229E PCR Not Detected (NotDetected); Coronavirus CoV-2 (COVID19)PCR Not Detected (NotDetected); Coronavirus HKU1 PCR Not Detected (NotDetected); Coronavirus NL63 PCR Not Detected (NotDetected); Coronavirus OC43PCR Not Detected (NotDetected); Human Metapneumovirus PCR Not Detected (NotDetected); Influenza A PCR Not Detected (NotDetected); Influenza B PCR Not Detected (NotDetected); Mycoplasma pneumoniae PCR Not Detected (NotDetected); Parainfluenza Virus 1 PCR Not Detected (NotDetected); Parainfluenza Virus 2 PCR Not Detected (NotDetected); Parainfluenza Virus 3 PCR Not Detected (NotDetected); Parainfluenza Virus 4 PCR Not Detected (NotDetected); Respiratory Syncytial VirusPCR Not Detected (NotDetected); Rhinovirus/Enterovirus PCR Not Detected (NotDetected)
[2024-03-03] MEDS: FUROSEMIDE 40 MG/4 ML VIAL IV ONE (10:50)
--- NOTE | 2024-03-03 11:09 | History & Physical Report ---
Date of Service March 03, 2024 Assessment & Plan (1) Acute respiratory failure with hypoxemia: (2) Acute on chronic heart failure with preserved ejection fraction (HFpEF, >= 50%): (3) CAD (coronary artery disease): (4) Tachy-landry syndrome: (5) Morbid obesity: (6) Type 2 diabetes mellitus: Plan This is a 79-year-old male who has a significant past medical history of nonobstructive CAD, history of tachybradycardia syndrome status post pacemaker placement in September 2022, paroxysmal atrial fibrillation/flutter, HTN, HLD, morbid obesity, insulin-dependent T2DM who presents to ED secondary to shortness of breath x 3 days. #Acute hypoxic resp faiulre #Acute on Chronic HFpEF admit to PCU last echo 06/17 EF 65-70%, normal wall motion In ED pt was ordered 100mg of IV lasix, but nurse was instructed to only give 50mg as pt is not on lasix at home will re eval this afternoon for additional dosing place on Lasix 40mg IV BID with bid potassium update echo consult [facility] cards obtain tsh daily weights, I and O #Hx of TBS s/p PPM #PAF - noted on recent pacer interrogation #Nonobstructive CAD #HTN/HLD continue atenolol, losartan, amlodipine, statin, imdur and eliquis Eliquis recently started on 02/22 due to episodes of afib #T2DM insulin dependent hold metformin and trulicity lantus/novolog per protocol, obtain a1c in a.m., pt reports a1c 7.1 as op #Morbid Obesity, BMI 53.3 encourage diet and lifestyle modifications consult aquatics manager for heart healthy/CHF diet #DVT ppx: Eliquis FULL CODE PCP: Dr. Zavaleta Dispo: admit for IV diuresis Pt was seen and examined in collaboration with Dr. Curtis, please see addendum I spent a total of 76 minutes reviewing notes, outpatient records, labs, medication, coordinating, documenting and providing care for this patient excluding time spent in the performance of separately billed services. History of Present Illness Chief Complaint: SOB x 3 days. Primary Care Provider: Martin Zavaleta MD This is a 79-year-old male who has a significant past medical history of nonobstructive CAD, history of tachybradycardia syndrome status post pacemaker placement in September 2022, paroxysmal atrial fibrillation/flutter, HTN, HLD, morbid obesity, insulin-dependent T2DM who presents to ED secondary to shortness of breath x 3 days. He reports over the last few days noticing increasing shortness of breath with exertion. He denies any shortness of breath at rest. He also states if he were to climb up a flight of stairs he would get chest pain. He would then sit down at the top and his symptoms would go away in minutes. This morning he opted to present to ED due to worsening shortness of breath. He states even walking from his kitchen to his living room he became short of breath which is unusual for him. He did have leftover oxygen at home from his brother which he has been using the past couple days, but this did not seem to help. He currently denies any chest pain or shortness of breath at rest. He permanently sleeps in a recliner so he denies any orthopnea or PND. He denies any recent illness, fever, chills, sweats, lightheadedness, dizziness, nausea, vomiting, abdominal pain, hemoptysis, melena, hematochezia. He does have frequent nocturia, but this is normal for him. He reports being compliant with his medications and took all of his morning medications prior to coming to ED. He follows with [facility] cardiology. He was last seen in clinic on 02/22 in which his aspirin was discontinued and he was started on Eliquis 5 mg twice daily due to pacemaker interrogation revealing episodes of tacky atrial arrhythmias. He notes ever since starting the Eliquis he has become more short of breath, he is unsure if there is any correlation. He reports a 10 pound weight gain in the last 3 or 4 months. He does have chronic lower extremity swelling, but feels this is unchanged. He does not follow a low-sodium diet. He reports he lives alone but his sister lives within 100 feet of him. He denies any smoking or alcohol use. He drinks nonalcoholic beverages. In ED patient was noted to be hypoxic and was requiring 3 L of oxygenation. His lab work was notable for a leukocytosis at 10.8 8K, H&H 12.5 and 39.1, glucose of 53. His respiratory bio fire was negative. Chest x-ray concerning for pulmonary edema and layering pleural effusions. He was initially ordered 100 mg of IV Lasix in ED, but this was not given prior to my evaluation. Allergies Allergy/AdvReac Type Severity Reaction Status Date / Time Respiratory Syncytial Virus Allergy Severe swollen Verified 03/03/24 10:30 (RSV) p tongue cephalexin Allergy Mild Rash Verified 03/03/24 10:30 codeine Allergy Mild Rash Verified 03/03/24 10:30 Home Medications Medication Instructions Recorded Confirmed Type atenolol 50 mg tablet 100 mg PO QAM 08/11/19 03/03/24 History dulaglutide 0.75 mg/0.5 mL 0.75 mg subcut Q7D 08/11/19 03/03/24 History subcutaneous pen injector (Trulicity) insulin degludec 200 unit/mL (3 56 unit subcut BID 08/11/19 03/03/24 History mL) subcutaneous pen (Tresiba FlexTouch U-200 insulin) metformin 1,000 mg tablet 1,000 mg PO BID 08/11/19 03/03/24 History losartan 50 mg tablet 50 mg PO QAM 10/25/20 03/03/24 History amlodipine 10 mg tablet (Norvasc) 10 mg PO QAM 01/02/21 03/03/24 History atorvastatin 20 mg tablet 20 mg PO HS 05/16/21 03/03/24 History insulin aspart U-100 100 unit/mL 20 unit subcut BID 06/05/22 03/03/24 History (3 mL) subcutaneous pen (Novolog FlexPen U-100 Insulin aspart) diclofenac sodium 1 % topical gel 2 g topical QID PRN Pain 03/03/23 03/03/24 History (Voltaren Arthritis Pain) fenofibrate 54 mg tablet 54 mg PO QAM 03/03/23 03/03/24 History magnesium oxide 400 mg (241.3 mg 400 mg PO HS #90 tabs 11/18/23 03/03/24 Rx magnesium) tablet epinephrine 0.3 mg/0.3 mL 0.3 mg (0.3 mL) IM Q4H PRN 12/12/23 03/03/24 Rx injection, auto-injector anaphylaxis #2 ea nitroglycerin 0.4 mg sublingual 0.4 mg sublingual Q5M PRN Chest 12/18/23 03/03/24 Rx tablet Pain #20 tabs apixaban 5 mg tablet (Eliquis) 5 mg PO BID 03/03/24 03/03/24 History glucosamine sulfate 750 mg tablet 750 mg PO BID 03/03/24 03/03/24 History isosorbide mononitrate 120 mg 60 mg PO QAM 03/03/24 03/03/24 History tablet,extended release 24 hr vit C 250 mg-vit E 90 mg-zinc 40 1 tab PO BID 03/03/24 03/03/24 History mg-copper 1 [id number] capsule (PreserVision AREDS-2) Past Med/Surg History Problem List (Updated 03/03/24 @ 15:04 by Remington Shanks MD) AVB (atrioventricular block) Acute on chronic heart failure with preserved ejection fraction (HFpEF, >= 50%) Hypoglycemia (Acute) Hypoxia (Acute) Pulmonary edema (Acute) Lesion of skin of scalp suspect BCC Excessive cerumen in both ear canals Nasal septal spur Tachy-landry syndrome Leg edema SVT (supraventricular tachycardia) Atrial fibrillation (Acute) Hypomagnesemia (Acute) Hypoxia (Acute) Chest pain (Acute) History of COVID-19 COVID-19 virus infection Acute respiratory failure with hypoxemia Colon polyp Antiplatelet or antithrombotic long-term use Fatigue Acquired deviated nasal septum Chronic sinusitis Insulin dependent diabetes mellitus (Acute) Chest pain CAD (coronary artery disease) Snoring Morbid obesity BMI 45.4 Left anterior fascicular block (Acute) RBBB (Acute) First degree atrioventricular block Dyslipidemia Hypertension Type 2 diabetes mellitus IDDM Medical History Exertional dyspnea Pacemaker History of COVID-19 09/2021, admitted to [place] for 8 days-"pt unsure why he was admitted" per record, cough and hypoxia>resolved Elevated troponin hx Monoclonal gammopathy DJD (degenerative joint disease), lumbosacral Hemorrhoids pt denies Diabetic neuropathy Osteoarthritis Diverticulosis Surgical History History of permanent cardiac pacemaker placement 09[place]2022, [place]; f/u [facility] History of colonoscopy last 2015 History of sinus surgery (~05/10/20) History of cardiac cath (~04/27/21) no stents, d/t angina H/O oral surgery all teeth removed History of back surgery (~05/2005) lumbar laminectomy Hx of cataract surgery lt Family History Father Coronary heart disease Heart disease Myocardial infarction Sister Coronary heart disease Cancer Brother Coronary heart disease Hx of CABG Family/Other Hearing loss Mother Asthma Other No family history of adverse response to anesthesia Social History Smoking Status: Never smoker Tobacco Type: Smokeless Tobacco (Dip or Chew) Second Hand Exposure: No; Do You Dip or Chew Tobacco: No; Hx Alcohol Use: No Hx Substance Use: No Preferred Language: Slovak Communication Ability: Effective Second Helper Required: No Beliefs That Will Affect Care: None marital status: Single Current Living Situation: Alone Current Living Situation Comment: Sister is neighbor current occupational status: retired How many Children do You have Comment: No Children Feels Safe at Home: Yes Assistive Devices: None Review of Systems Review of Systems: All systems reviewed & are unremarkable except as noted in HPI & below Physical Exam Physical Exam: Constitutional: WD/WN, obese, M, sitting up in chair, vitals as above, NAD, sitting up in bed, pleasant, conversing easily Head: Normocephalic, Atraumatic Eyes: PERRL, conjunctivae normal, anicteric sclerae ENMT: external ear and nose normal, oropharynx normal Neck: trachea midline, no thyromegaly normal visual inspection Respiratory: normal respiratory effort, lungs clear to auscultation, no wheeze, rales, rhonchi. Normal insp/exp effort, no accessory muscle use Cardiovascular: RRR, no murmur, RLE edema +3, trace LLE Vessels: no JVD or carotid bruit Chest: normal inspection of chest Abdomen: protuberant abd, normal bowel sounds, soft, nontender, no hepatosplenomegaly Musculoskeletal: no cyanosis or clubbing, extremities motor strength 5/5 Skin: no rashes, warm and dry normal turgor Neurologic: PERRL, EOMI, accommodation nl, no face palsy, no dysarthria CN's II-XI intact bilaterally and moves all extremities Psychiatric: A+Ox3, euthymic affect Lymphatic: no cervical or axillary lymphadenopathy : deferred Results & Data Results & Data Vital Signs (Past 12 Hours) Vital Signs Temp Pulse Pulse Resp BP BP Pulse Ox 03/03/24 09:14 68 18 94 03/03/24 09:03 36.9 C 94 H 19 149/93 H 92 03/03/24 09:03 85 L 03/03/24 09:03 36.9 C 94 H 19 149/93 H 92 03/03/24 09:02 81 O2 Del Method O2 Flow Rate 03/03/24 09:14 Nasal Cannula 3 03/03/24 09:03 Nasal Cannula 2 03/03/24 09:03 Room Air 03/03/24 09:03 Nasal Cannula 3 03/03/24 09:02 Laboratory Results I have independently reviewed and interpreted patient's admitting labs including CBC, CMP, PTT, PT/INR, lipase, resp biofire and troponin. Diagnostic Findings Chest X-Ray 03/03/24 09:02 XR chest 1V portable HISTORY: 79 years-old Male Chest pain, nonspecific COMPARISON: 06/18/2023 TECHNIQUE: AP view of the chest FINDINGS: Cardiac silhouette is enlarged. Dual-lead left subclavian pacer. Pulmonary vascular congestion with interstitial coarsening. No pneumothorax. Layering pleural effusions with bibasilar consolidation. IMPRESSION: 1. Cardiomegaly with pulmonary edema. 2. Layering pleural effusions with bibasilar consolidation. ACT 112: Negative or not required by law. The above report was generated using voice recognition software. It may contain grammatical, syntax or spelling errors. Electronically signed by: Oracio Martinez M.D. 03/03/2024 9:48 AM Medications Administered Medication List Discontinued Medications Furosemide (Furosemide 40 Mg/4 Ml Vial) 100 mg IV ONE ONE Stop: 03/03/24 10:18 Last Admin: 03/03/24 10:50 Dose: 50 mg Documented By: [facility] [address] ECG Additional Comments: I have independently reviewed and interpreted patient's admitting EKG which revealed: 88 bpm dual paced, qtc 525ms COVID-19 Results Results COVID-19 Adm Lab Results: RBC 4.38 M/uL (4.70-6.10) L 03/03/24 WBC 10.88 K/ul (4.8-10.8) H 03/03/24 Hgb 12.5 g/dl (14.0-18.0) L 03/03/24 Hct 39.1 % (42.0-52.0) L 03/03/24 Plt Count 249 K/uL (130-400) 03/03/24 Neutrophils (%) (Auto) 72.0 % 03/03/24 Lymphocytes (%) (Auto) 17.2 % 03/03/24 Monocytes # (Auto) 0.91 K/uL (0.11-0.59) H 03/03/24 Eosinophils # (Auto) 0.18 K/uL (0.00-0.50) 03/03/24 Immature Granulocyte % (Auto) 0.4 % 03/03/24 Neutrophils # (Auto) 7.85 K/uL (1.40-6.50) H 03/03/24 Lymphocytes # (Auto) 1.87 K/uL (1.20-3.40) 03/03/24 Monocytes # (Auto) 0.91 K/uL (0.11-0.59) H 03/03/24 Eosinophils # (Auto) 0.18 K/uL (0.00-0.50) 03/03/24 Basophils # (Auto) 0.03 K/uL (0.00-0.20) 03/03/24 Immature Granulocyte # (Auto) 0.04 K/uL (0.01-0.20) 5 Na 145 mmol/L (136-145) 03/03/24 K 3.7 mmol/L (3.5-5.1) 03/03/24 Cl 104 mmol/L (98-107) 03/03/24 CO2 35 mmol/L (21-32) H 03/03/24 Anion Gap 6 (3-11) 03/03/24 BUN 15 mg/dl (6-23) 03/03/24 Creatinine 0.88 mg/dl (0.6-1.4) 03/03/24 BUN/Creatinine Ratio 17.0 (10-20) 03/03/24 Glucose Level 53 mg/dl (70-99(Fasting)) L* 03/03/24 Ca 9.5 mg/dl (8.6-10.3) 03/03/24 Total Bilirubin 1.0 mg/dl (0.2-1.0) 03/03/24 AST/SGOT 17 U/L (13-39) 03/03/24 ALT/SGPT 16 U/L (7-52) 03/03/24 Alkaline Phosphatase 54 U/L (34-104) 03/03/24 Total Protein 7.5 gm/dl (6.0-8.3) 03/03/24 Albumin 4.3 gm/dl (3.4-5.0) 03/03/24 Globulin 3.2 gm/dl (2.5-4.0) 03/03/24 Albumin/Globulin Ratio 1.3 (0.9-2) 03/03/24 PTT 30 Seconds (21-31) 03/03/24 INR 1.1 (0.9-1.1) 03/03/24 Adenovirus (PCR) Not Detected (NotDetected) 03/03/24 B. parapertussis DNA (PCR) Not Detected (NotDetected) 10/18 B. pertussis DNA (PCR) Not Detected (NotDetected) 03/03/24 C. pneumoniae DNA (PCR) Not Detected (NotDetected) 5 Coronavirus Type OC43 (PCR) Not Detected (NotDetected) 10/18 Coronavirus Type HKU1 (PCR) Not Detected (NotDetected) 10/18 Coronavirus Type 229E (PCR) Not Detected (NotDetected) 10/18 COVID-19 PCR Not Detected (NotDetected) 03/03/24 Coronavirus Type NL63 (PCR) Not Detected (NotDetected) 10/18 Human Metapneumovirus (PCR) Not Detected (NotDetected) 10/18 Influenza Virus Type A (PCR) Not Detected (NotDetected) Influenza Virus Type B (PCR) Not Detected (NotDetected) M. pneumoniae (PCR) Not Detected (NotDetected) 03/03/24 Parainfluenza Type 1 (PCR) Not Detected (NotDetected) 10/18 Parainfluenza Type 2 (PCR) Not Detected (NotDetected) 10/18 Parainfluenza Type 3 (PCR) Not Detected (NotDetected) 10/18 Parainfluenza Type 4 (PCR) Not Detected (NotDetected) 10/18 RSV (PCR) Not Detected (NotDetected) 03/03/24 Enterovirus/Rhinovirus (PCR) Not Detected (NotDetected) Chest X-Ray 03/03/24 Code Status & VTE Plan VTE Prophylaxis Plan VTE Prophylaxis will be ordered: No Supervising Physician Co-Signing Physician Notes Attending Addendum: Case reviewed with the advanced practitioner. I have personally performed a history and physical examination on the patient. I have reviewed the advanced practitioner's documentation on the date of service referenced in note, and I agree with, and take responsibility for the plan of care. please refer to her notes for full details patient seen and examined, records reviewed by myself as well on exam, patient seen resting in bed, comfortable, not in distress breathing is impoving no other symptoms VS noted and reviewed orientedx 3 , not in distress, speaks in sentences with no effort nor accessory muscle use normal rate, regular rhythm, no murmurs mild rales at the bases non distended, soft, nontender grade 1 lower ext edema no neuro deficits all labs, imaging noted and reviewed ASSESSMENT AND PLAN Acute hypoxic respiratory failure Acute on chronic HPF Lasix 40 mg IV twice daily Consult cardiology History of tachybradycardia syndrome, status post pacemaker placement Atrial fibrillation Continue atenolol, Eliquis other diagnoses and plan of care as per advanced practitioner's notes Néstor Curtis MD
[2024-03-03] MEDS ORDERED: ALUMINUM/MAGNESIUM SUSP 30 ML UDC PO PRN (11:34)
[2024-03-03] MEDS ORDERED: PROMETHAZINE 12.5 MG/50.5 ML BAG IV PRN (11:34)
[2024-03-03] MEDS ORDERED: GLUCAGON FOR INJ 1 MG VIAL SQ PRN (11:34)
[2024-03-03] MEDS ORDERED: CARBOHYDRATES FOR HYPOGLYCEMIA PO PRN (11:34)
[2024-03-03] MEDS ORDERED: POLYETHYLENE (MIRALAX) 17 GM PACK PO PRN (11:34)
[2024-03-03] MEDS ORDERED: DEXTROSE 50% 50 ML SYRINGE IV PRN (11:34)
[2024-03-03] MEDS ORDERED: FAMOTIDINE 20 MG TAB PO PRN (11:34)
[2024-03-03] MEDS ORDERED: GLUCOSE 40% GEL 15 GM TUBE PO PRN (11:34)
[2024-03-03] MEDS ORDERED: GLUCOSE 10 TAB/TUBE PO PRN (11:34)
[2024-03-03] MEDS: POTASSIUM CHLORIDE CRTAB 20 MEQ TABCR PO STA (12:10)
--- NOTE | 2024-03-03 13:45 | Ultrasound Report ---
US venous doppler LE BI CLINICAL HISTORY: edema R > L TECHNIQUE: Bilateral lower extremity real-time compression venous ultrasound with Color Doppler imagi ng. Utilizing real-time ultrasonic imaging multiple real time high-resolution ultrasonic images with compression and noncompression maneuvers of the deep venous system in addition to color doppler imagi ng were performed from the common femoral vein through the proximal calf veins. COMPARISON: None available at the time of this dictation. FINDINGS/IMPRESSION: No deep venous thrombus, there is normal compressibility of the deep venous system from the common fe moral vein through the proximal calf veins. No superficial venous thrombosis is identified. Soft tis carla edema is seen. ACT 112: Negative or not required by law. Electronically signed by: Stalin Amos M.D. 03/03/2024 1:43 PM
[2024-03-03 14:00] LABS: Base Excess VBG 9.7 mEq/L; HCO3 VBG 38 mmol/L; Oxygen Saturation VBG < 60.0 %; PCO2 VBG 67 mmHg (38-50); PO2 VBG 26 mmHg; pH VBG 7.36 (7.36-7.41)
[2024-03-03] MEDS: INSULIN ASPART PER UNIT CHARGE SC SCH (14:13)
--- NOTE | 2024-03-03 14:54 | Cardiology Consultation ---
Date of Consultation March 03, 2024 Assessment & Plan (1) Pulmonary edema: (2) AVB (atrioventricular block): (3) CAD (coronary artery disease): (4) Chest pain: (5) Atrial fibrillation: (6) SVT (supraventricular tachycardia): Plan 1. Pulmonary edema: He presents in pulmonary edema with a history of normal left ventricular function, echocardiography this visit confirms appropriate left ventricular function. The cause is not clear, he appears to have fluid retention. He did have atrial fibrillation recently although is not in it now, it is possible that triggered some fluid retention and that led to congestive heart failure. It does not appear to be ischemic based on his symptoms and echocardiogram. He is responding clinically to diuresis and I would continue. 2. AV block: He is currently pacing all of the time in the ventricle, I am going to interrogate his device tomorrow to see whether he needs to pace consistently in the ventricle. Pacemaker appears to be working well on telemetry but has not been evaluated this admission. 3. Coronary artery disease: Although he has documented coronary artery disease there is no evidence that this has progressed, however his electrocardiogram cannot be read with accuracy due to the presence of ventricular paced. Cardiac enzymes this admission are negative so I do not suspect ischemic heart disease but is possible he has had progression. 4. Chest pain: I do not believe his current presentation with chest pain is ischemic in nature. I suspect it is a discomfort caused by shortness of breath based on his description. If it continues we may have to do stress testing. 5. Atrial fibrillation: He is currently in sinus rhythm, his pacemaker does monitor for atrial fibrillation and we can determine the burden when we interrogate his device. 6. SVT: He has a history of SVT with ablation, device interrogation will indicate if he has recurrent SVT. On my call, I assume you are not going to be here tomorrow, but I do have a device interrogation which is Dr. Salinas's patient and does not need to be done tonight. It might need programming so I do not want to just send in a note. I think you folks are here tomorrow, could I have someone do it? I can give you the name and room number tomorrow. Whomever whomever I hope your mom did okay. History of Present Illness Reason for Consultation: Congestive heart failure Attending Physician: Néstor Curtis MD History of Present Illness This is a 79-year-old male with a history of coronary artery disease (mild and nonobstructive on May 07, 2021) SVT for which he had ablation, he did have significant underlying AV ratna conduction disease and a pacemaker was implanted (with a left bundle pacing lead) on October 24, 2022. An echocardiogram June 19, 2023 showed normal left ventricular systolic function with moderate concentric left ventricular hypertrophy. Sounds good, thanks. He was noted on pacemaker monitoring in January 2024 to have episodes of atrial fibrillation, 1 lasted as long as 5 hours. He was therefore started on Eliquis on February 23, 2024. He presented to the emergency room on March 03, 2024 with dyspnea and chest pain. These have been present for several days although over the last month he notes some exertional chest pain as well as exertional shortness of breath. He is somewhat vague about when this started but it clearly was getting worse over the last several days to a week. Exertional chest discomfort is hard for him to describe, it could be anginal but may also be shortness of breath. He has not had lightheadedness or dizziness. He has longstanding leg edema which may have been getting worse recently. Of note it has improved following his presentation with diuresis and he feels better now at the time of my evaluation. His presenting electrocardiogram on March 03, 2024 shows an AV paced rhythm with no acute changes although ventricular pacing could obscure ischemic findings. His BNP was elevated at 308, high-sensitivity troponin was negative at 14.2 on presentation. A chest x-ray done on presentation showed cardiomegaly with pulmonary edema and pleural effusions. A venous Doppler study did not show any thrombosis in the legs. Allergies Allergy/AdvReac Type Severity Reaction Status Date / Time Respiratory Syncytial Virus Allergy Severe swollen Verified 03/03/24 10:30 (RSV) p tongue cephalexin Allergy Mild Rash Verified 03/03/24 10:30 codeine Allergy Mild Rash Verified 03/03/24 10:30 Home Medications Medication Instructions Recorded Confirmed Type atenolol 50 mg tablet 100 mg PO QAM 08/11/19 03/03/24 History dulaglutide 0.75 mg/0.5 mL 0.75 mg subcut Q7D 08/11/19 03/03/24 History subcutaneous pen injector (Trulicity) insulin degludec 200 unit/mL (3 56 unit subcut BID 08/11/19 03/03/24 History mL) subcutaneous pen (Tresiba FlexTouch U-200 insulin) metformin 1,000 mg tablet 1,000 mg PO BID 08/11/19 03/03/24 History losartan 50 mg tablet 50 mg PO QAM 10/25/20 03/03/24 History amlodipine 10 mg tablet (Norvasc) 10 mg PO QAM 01/02/21 03/03/24 History atorvastatin 20 mg tablet 20 mg PO HS 05/16/21 03/03/24 History insulin aspart U-100 100 unit/mL 20 unit subcut BID 06/05/22 03/03/24 History (3 mL) subcutaneous pen (Novolog FlexPen U-100 Insulin aspart) diclofenac sodium 1 % topical gel 2 g topical QID PRN Pain 03/03/23 03/03/24 History (Voltaren Arthritis Pain) fenofibrate 54 mg tablet 54 mg PO QAM 03/03/23 03/03/24 History magnesium oxide 400 mg (241.3 mg 400 mg PO HS #90 tabs 11/18/23 03/03/24 Rx magnesium) tablet epinephrine 0.3 mg/0.3 mL 0.3 mg (0.3 mL) IM Q4H PRN 12/12/23 03/03/24 Rx injection, auto-injector anaphylaxis #2 ea nitroglycerin 0.4 mg sublingual 0.4 mg sublingual Q5M PRN Chest 12/18/23 03/03/24 Rx tablet Pain #20 tabs apixaban 5 mg tablet (Eliquis) 5 mg PO BID 03/03/24 03/03/24 History glucosamine sulfate 750 mg tablet 750 mg PO BID 03/03/24 03/03/24 History isosorbide mononitrate 120 mg 60 mg PO QAM 03/03/24 03/03/24 History tablet,extended release 24 hr vit C 250 mg-vit E 90 mg-zinc 40 1 tab PO BID 03/03/24 03/03/24 History mg-copper 1 [id number] capsule (PreserVision AREDS-2) Patient History Medical History Exertional dyspnea Pacemaker History of COVID-19 09/2021, admitted to [facility] for 8 days-"pt unsure why he was admitted" per record, cough and hypoxia>resolved Elevated troponin hx Monoclonal gammopathy DJD (degenerative joint disease), lumbosacral Hemorrhoids pt denies Diabetic neuropathy Osteoarthritis Diverticulosis Surgical History History of permanent cardiac pacemaker placement 09/2022, [facility]; f/u [facility] History of colonoscopy last 2015 History of sinus surgery (~05/10/20) History of cardiac cath (~04/27/21) no stents, d/t angina H/O oral surgery all teeth removed History of back surgery (~05/2005) lumbar laminectomy Hx of cataract surgery lt Family History Father Coronary heart disease Heart disease Myocardial infarction Sister Coronary heart disease Cancer Brother Coronary heart disease Hx of CABG Family/Other Hearing loss Mother Asthma Other No family history of adverse response to anesthesia Social History Smoking Status: Never smoker Tobacco Type: Smokeless Tobacco (Dip or Chew) Second Hand Exposure: No; Do You Dip or Chew Tobacco: No; Hx Alcohol Use: No Hx Substance Use: No Preferred Language: Greenlandic Communication Ability: Effective 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 He is sitting next to his bed. HEENT: Unremarkable Neck: No jugular venous distention, carotid pulses are normal and equal bilaterally without bruits. Pulmonary: Clear to auscultation bilaterally but with decreased breath sounds throughout. Cardiac: Regular rhythm with no murmur, gallop or rub. Abdomen: Soft, nontender with normal bowel sounds. Extremities: No edema. Neurologic: No focal findings. Skin: No rash, ecchymoses or petechiae. Results & Data Vital Signs (Past 12 Hours) Vital Signs Temp Pulse Pulse Resp BP BP Pulse Ox 03/03/24 14:00 69 17 139/76 94 03/03/24 11:34 67 17 136/57 L 93 03/03/24 11:34 03/03/24 09:14 68 18 94 03/03/24 09:03 36.9 C 94 H 19 149/93 H 92 03/03/24 09:03 85 L 03/03/24 09:03 36.9 C 94 H 19 149/93 H 92 03/03/24 09:02 81 Pulse Ox O2 Del Method O2 Del Method O2 Flow Rate O2 Flow Rate 03/03/24 14:00 Nasal Cannula 3 03/03/24 11:34 Nasal Cannula 3 03/03/24 11:34 93 Nasal Cannula 3 03/03/24 09:14 Nasal Cannula 3 03/03/24 09:03 Nasal Cannula 2 03/03/24 09:03 Room Air 03/03/24 09:03 Nasal Cannula 3 03/03/24 09:02 Laboratory Results Cardiac Enzymes 03/03/24 03/03/24 Range/Units 09:05 13:53 AST 17 (13-39) U/L Troponin I High Sens 14.2 (0-20) pg/ml B-Natriuretic Peptide 308 H (0-100) pg/ml Coagulation 03/03/24 03/03/24 Range/Units 09:05 13:53 PT 11.8 (9.0-12.0) Seconds APTT 30 (21-31) Seconds B-Natriuretic Peptide 308 H (0-100) pg/ml CBC 03/03/24 Range/Units 09:05 WBC 10.88 H (4.8-10.8) K/ul RBC 4.38 L (4.70-6.10) M/uL Hgb 12.5 L (14.0-18.0) g/dl Hct 39.1 L (42.0-52.0) % Plt Count 249 (130-400) K/uL Neut # (Auto) 7.85 H (1.40-6.50) K/uL Lymph # (Auto) 1.87 (1.20-3.40) K/uL [place] # (Auto) 0.91 H (0.11-0.59) K/uL Eos # (Auto) 0.18 (0.00-0.50) K/uL Baso # (Auto) 0.03 (0.00-0.20) K/uL Comprehensive Metabolic Panel 03/03/24 Range/Units 09:05 Sodium 145 (136-145) mmol/L Potassium 3.7 (3.5-5.1) mmol/L Chloride 104 (98-107) mmol/L Carbon Dioxide 35 H (21-32) mmol/L BUN 15 (6-23) mg/dl Creatinine 0.88 (0.6-1.4) mg/dl Glucose 53 L* (70-99(Fasting)) mg/dl Calcium 9.5 (8.6-10.3) mg/dl AST 17 (13-39) U/L ALT 16 (7-52) U/L Alkaline Phosphatase 54 (34-104) U/L Total Protein 7.5 (6.0-8.3) gm/dl Albumin 4.3 (3.4-5.0) gm/dl Intake and Output 03/03/24 03/03/24 03/03/24 06:59 14:59 22:59 Output Total 875 / 875 Balance -875 / -875 Output: Urine 875 / 875 Other: Weight 154.4 kg Weight Measurement Method Built in [facility] Patient Weight 03/04/24 06:59 Weight 154.4 kg Diagnostic Findings Telemetry: Sinus rhythm with ventricular pacing primarily, no significant arrhythmia PG Care Time/CCT Total # of Minutes Spent Total Time Spent with Patient: Total time spent is greater than 50% in coordination of care (as documented) at patient's floor/unit and/or counseling patient: Coding Level of Care Code 97278 INT INP/OBS CARE 3/75MIN Diagnoses Pulmonary edema J81.0 Chronicity: acute AVB (atrioventricular block) I44.30 CAD (coronary artery disease) I25.10 Chest pain R07.9 Atrial fibrillation I48.0 Atrial fibrillation type: paroxysmal SVT (supraventricular tachycardia) I47.1 (1) Pulmonary edema Chronicity: acute Qualified Code(s): J81.0 - Acute pulmonary edema (5) Atrial fibrillation Atrial fibrillation type: paroxysmal Qualified Code(s): I48.0 - Paroxysmal atrial fibrillation
[2024-03-03] MEDS: LANTUS PER UNIT CHARGE SQ SCH (20:49)
[2024-03-03] MEDS ORDERED: MELATONIN 3 MG TAB PO PRN (21:00)
--- NOTE | 2024-03-03 21:32 | XCELERA ---
[id number]
[2024-03-03] MEDS: APIXABAN 5 MG TABLET PO SCH (22:06)
[2024-03-03] MEDS: MAGNESIUM OXIDE 400 MG TAB PO SCH (22:06)
[2024-03-03] MEDS: ATORVASTATIN 20 MG TAB PO SCH (22:06)
[2024-03-03] MEDS: POTASSIUM CHLORIDE CRTAB 20 MEQ TABCR PO SCH (22:07)
[2024-03-03] MEDS: CEROVITE ADV FORMULA TAB PO SCH (22:07)
[2024-03-04 06:25] LABS: Basophils # (auto) 0.02 K/uL (0.00-0.20); Basophils % (auto) 0.2 %; Eosinophils # (auto) 0.21 K/uL (0.00-0.50); Eosinophils % (auto) 2.6 %; Hematocrit (blood only) 36.1 % (42.0-52.0); Hemoglobin 11.7 g/dl (14.0-18.0); Immature Granulocytes # (auto) 0.02 K/uL (0.01-0.20); Immature Granulocytes % (auto) 0.2 %; Lymphocytes # (auto) 1.42 K/uL (1.20-3.40); Lymphocytes % (auto) 17.3 %; Mean Corpuscular Hemoglobin 28.7 pg (25.0-34.0); Mean Corpuscular Hgb Conc 32.4 g/dL (32.0-36.0); Mean Corpuscular Volume 88.7 fL (80.0-100.0); Mean Platelet Volume 10.7 fL (9.4-12.4); Monocytes # (auto) 0.78 K/uL (0.11-0.59); Monocytes % (auto) 9.5 %; Neutrophils # (auto) 5.77 K/uL (1.40-6.50); Neutrophils % (auto) 70.2 %; Platelet Count 205 K/uL (130-400); RDW Coefficient of Variation 14.4 % (11.5-14.5); RDW Standard Deviation 46.8 fL (36.4-46.3); Red Blood Count 4.07 M/uL (4.70-6.10); White Blood Count 8.22 K/ul (4.8-10.8)
[2024-03-04 06:41] LABS: BUN Creatinine Ratio 19.4 (10-20); Calcium 8.9 mg/dl (8.6-10.3); Creatinine Clr Calc Pharmacy 81.5 ml/min; Magnesium 1.7 mg/dl (1.7-2.4); Potassium 3.8 mmol/L (3.5-5.1)
[2024-03-04 07:07] LABS: Estimated Average Glucose 154 mg/dl
--- NOTE | 2024-03-04 07:23 | Electrocardiogram Report ---
Test Reason : Blood Pressure : */* mmHG Vent. Rate : 88 BPM Atrial Rate : 88 BPM P-R Int : * ms QRS Dur : 150 ms QT Int : 420 ms P-R-T Axes : * -39 107 degrees QTcB Int : 508 ms AV dual-paced rhythm with premature ventricular or aberrantly conducted complexes Abnormal ECG When compared with ECG of 18-Jun-2023 12:38, Vent. rate has increased by 13 bpm Confirmed by Remington Shanks ([id number]) on 03/04/2024 7:22:39 AM Referred By: Confirmed By: Remington Shanks
[2024-03-04] MEDS: ATENOLOL 50 MG TABLET PO SCH (09:04)
[2024-03-04] MEDS: amLODIPine BESYLATE 5 MG TAB PO SCH (09:04)
[2024-03-04] MEDS: LOSARTAN POTASSIUM 50 MG TAB PO SCH (09:05)
[2024-03-04] MEDS: ISOSORBIDE MONO EXTENDED REL 60 MG TABCR PO SCH (09:05)
[2024-03-04] MEDS: FUROSEMIDE 40 MG/4 ML VIAL IV SCH (09:05)
[2024-03-04] MEDS: FENOFIBRATE NANOCRYSTALLIZED 48 MG TABLET PO SCH (09:12)
--- NOTE | 2024-03-04 13:00 | Cardiology Progress Note ---
Date of Service March 04, 2024 Assessment & Plan (1) Lightheadedness: (2) Acute on chronic heart failure with preserved ejection fraction (HFpEF, >= 50%): (3) Paroxysmal A-fib: (4) History of permanent cardiac pacemaker placement: (5) CAD (coronary artery disease): Plan 79-year-old man with history of CAD, pacemaker, paroxysmal atrial fibrillation, presented with chest pain which appeared nonischemic and evidence of volume overload. He seems to be diuresing well and, with exception of transient lightheadedness this morning, he is doing well clinically. Etiology of lightheadedness unclear, he was sitting so does not seem orthostatic, no rhythm disturbances noted on telemetry. He still appears mildly hypervolemic, would continue IV diuretic and increase activity as able. Pacemaker function appropriate on telemetry, will obtain pacemaker interrogation at some point to assess recent atrial fibrillation burden (if any). He has remained in sinus or paced rhythm during this hospitalization. Defer to Dr. Guerin (he will return tomorrow) regarding any pacemaker adjustments. Admission and Anticipated Discharge Date Admission Date: March 03, 2024 Subjective Uneventful night, but he did have transient lightheadedness right around 10 AM this morning. Telemetry showed only sinus rhythm with sporadic PVCs, no different than baseline overnight. Input/output -1300 mL Other than the lightheadedness, he had no somatic complaints and denied any chest pain, dyspnea, orthopnea, or PND. No subjective palpitations. Telemetry showed sinus rhythm at 70-80 bpm with sporadic PVCs but no ventricular dysrhythmias. Physical Exam Physical Exam: No distress. Normotensive. Pulse 66 bpm and regular. Respirations 18 unlabored. Skin: no ecchymoses or generalized lesions. HEENT: unremarkable. Neck: JVP one third of the way to the angle of the jaw at 90 degrees, no carotid bruits. Lungs: clear. Cardiac: regular rhythm, normal S1-2, no murmur. Abdomen: benign. Extremities: 1+ pretibial edema, pulses intact. Neurologic: normal affect and conversation, nonfocal. Results & Data Vital Signs (Past 12 Hours) Vital Signs Temp Pulse Resp BP Pulse Ox O2 Del Method O2 Flow Rate 03/04/24 11:18 97.5 F L 65 18 132/78 94 Nasal Cannula 2 01/09/25 10:50 Nasal Cannula 2 03/04/24 07:25 97.9 F 66 18 169/81 H 91 Nasal Cannula 2 03/04/24 03:46 98.1 F 67 18 158/71 H 91 Room Air Laboratory Results Normal electrolytes, BUN 19, creatinine 0.98. Hemoglobin 11.7. Diagnostic Findings Venous Doppler lower extremities yesterday was negative. PG Care Time/CCT Total # of Minutes Spent Total Time Spent with Patient: Total time spent is greater than 50% in coordination of care (as documented) at patient's floor/unit and/or counseling patient: Coding Level of Care Code 88809 SUB INP/OBS CARE 2/35MIN Diagnoses Lightheadedness R42 Acute on chronic heart failure with preserved ejection fraction (HFpEF, >= 50%) I50.33 Paroxysmal A-fib I48.0 History of permanent cardiac pacemaker placement Z95.0 CAD (coronary artery disease) I25.10
--- NOTE | 2024-03-04 15:01 | Cardiology Progress Note ---
Date of Service March 04, 2024 Assessment & Plan (1) Lightheadedness: (2) Acute on chronic heart failure with preserved ejection fraction (HFpEF, >= 50%): (3) Paroxysmal A-fib: (4) History of permanent cardiac pacemaker placement: (5) CAD (coronary artery disease): Plan 1. Acute decompensated heart failure with preserved ejection fraction: Clinically improved. He seems to be affecting a good diuresis. Renal function was stable today. I think if he affects a good diuresis in the next 24 hours and is feeling better tomorrow he could conceivably go home on a low-dose of diuretic, possibly 20 mg daily. He would follow-up in our clinic in a week or 2 for symptom evaluation and laboratory work. The etiology of his decompensation is unclear. There were no arrhythmias detected on his device interrogation performed today. No history of dietary indiscretion. No evidence of an acute ischemic event or reduced LV systolic function to support that diagnosis. Continue good blood pressure control and consider the initiation of an SGLT2 inhibitor. 2. Coronary artery disease: No current symptoms suggestive of coronary insufficiency or angina. The "chest pain" or pressure that he experienced at time admission resolved with improvement in his breathing. 3. Paroxysmal atrial fibrillation: Last episode was on February 02. He will continue on systemic anticoagulation. Will continue to monitor him for additional symptoms or episodes. 4. Normally functioning dual-chamber permanent pacemaker left bundle pacing lead: He has 100% ventricular pacing which was initiated due to a long UT interval. Unclear if chronic pacing has played a role in his symptoms. In order to reduce pacing we changed his mode to MVP. I had to monitor him for additional symptoms. Admission and Anticipated Discharge Date Admission Date: March 03, 2024 Subjective This afternoon patient claimed to be ambulatory around his room. He had some breathing difficulty this morning that he attributes to some nasal congestion. No breathing difficulty currently. No orthopnea overnight. No dizziness or lightheadedness. No sense of palpitation. Breathing definitely improved. Review of Systems Review of Systems: Per HPI Physical Exam Physical Exam: The patient is alert and oriented. Mood and affect appeared normal. He answered all questions appropriately. HEENT: Pupils are equal and reactive to light and accommodation. Extraocular movements are intact. The sclerae are anicteric. Neuro: Cranial nerves intact Lungs: Normal respiratory effort. Cardiac: Heart demonstrates a regular rate and rhythm. Normal S1 and S2. No murmurs on examination. Pulses: The patient has palpable radial pulses bilaterally that are equal in intensity Extremities: There was no evidence of hypoperfusion. There is no cyanosis or clubbing. Mild lower extremity edema bilaterally Skin: I did not appreciate any rashes on examination today. Results & Data Vital Signs (Past 12 Hours) Vital Signs Temp Pulse Resp BP Pulse Ox O2 Del Method O2 Flow Rate 03/04/24 11:18 36.4 C L 65 18 132/78 94 Nasal Cannula 2 03/04/24 10:50 Nasal Cannula 2 03/04/24 07:25 36.6 C 66 18 169/81 H 91 Nasal Cannula 2 03/04/24 03:46 36.7 C 67 18 158/71 H 91 Room Air Laboratory Results Abnormal Lab Results 03/03/24 03/03/24 03/04/24 16:03 20:24 05:46 WBC 8.22 RBC 4.07 L Hgb 11.7 L Hct 36.1 L MCV 88.7 MCH 28.7 MCHC 32.4 RDW Std Deviation 46.8 H RDW Coeff of [place] 14.4 Plt Count 205 MPV 10.7 Immature Gran % (Auto) 0.2 Neut % (Auto) 70.2 Lymph % (Auto) 17.3 [place] % (Auto) 9.5 Eos % (Auto) 2.6 Baso % (Auto) 0.2 Neut # (Auto) 5.77 Lymph # (Auto) 1.42 [place] # (Auto) 0.78 H Eos # (Auto) 0.21 Baso # (Auto) 0.02 Immature Gran # (Auto) 0.02 Sodium 142 Potassium 3.8 Chloride 103 Carbon Dioxide 35 H Anion Gap 4 BUN 19 Creatinine 0.98 Est Cr Clr Drug Dosing 81.5 eGFR 78.44 BUN/Creatinine Ratio 19.4 Glucose 97 POC Glucose 145 H 110 H Estimat Average Glucose 154 Hemoglobin A1c 7.0 H Calcium 8.9 Magnesium 1.7 03/04/24 03/04/24 07:56 11:34 WBC RBC Hgb Hct MCV MCH MCHC RDW Std Deviation RDW Coeff of [place] Plt Count MPV Immature Gran % (Auto) Neut % (Auto) Lymph % (Auto) [place] % (Auto) Eos % (Auto) Baso % (Auto) Neut # (Auto) Lymph # (Auto) [place] # (Auto) Eos # (Auto) Baso # (Auto) Immature Gran # (Auto) Sodium Potassium Chloride Carbon Dioxide Anion Gap BUN Creatinine Est Cr Clr Drug Dosing eGFR BUN/Creatinine Ratio Glucose POC Glucose 93 169 H Estimat Average Glucose Hemoglobin A1c Calcium Magnesium Diagnostic Findings I performed complete device interrogation of his dual-chamber permanent pacemaker. Normal device longevity. Normal function of both leads. 1% ventricular pacing based on programming. No atrial fibrillation since February 02. 1 episode of SVT lasting few seconds. PG Care Time/CCT Total # of Minutes Spent Total Time Spent with Patient: Total time spent is greater than 50% in coordination of care (as documented) at patient's floor/unit and/or counseling patient: Coding Level of Care Code 51043 SUB INP/OBS CARE 2/35MIN Diagnoses Lightheadedness R42 Acute on chronic heart failure with preserved ejection fraction (HFpEF, >= 50%) I50.33 Paroxysmal A-fib I48.0 History of permanent cardiac pacemaker placement Z95.0 CAD (coronary artery disease) I25.10 CPT Codes Dual Lead Pacemaker System - [id number] ([id number])
--- NOTE | 2024-03-04 15:33 | Hospitalist Progress Note ---
Date of Service March 04, 2024 Assessment & Plan (1) Acute respiratory failure with hypoxemia: (2) Acute on chronic heart failure with preserved ejection fraction (HFpEF, >= 50%): (3) CAD (coronary artery disease): (4) Tachy-landry syndrome: (5) Morbid obesity: (6) Type 2 diabetes mellitus: Plan 79-year-old male who has a significant past medical history of nonobstructive CAD, history of tachybradycardia syndrome status post pacemaker placement in September 2022, paroxysmal atrial fibrillation/flutter, HTN, HLD, morbid obesity, insulin-dependent T2DM who presents to ED secondary to shortness of breath x 3 days. He is being managed for the following: Acute hypoxic resp faiulre Acute on Chronic HFpEF Presenting with shortness of breath worsening for last 3 days [employer], associated with dry cough. last echo 06/17 EF 65-70%, normal wall motion. Admitting troponin negative. Echo this admission with EF of 65 to 70%, no regional wall motion abnormality, indeterminate diastolic dysfunction Cardiology on board, patient being diuresed, possible DC tomorrow, follow-up with cardiology in 1 to 2 weeks time upon discharge. Strict I's and O's, monitor and replete electrolytes, continue telemetry.Fluid restriction 1.8 L. Patient reports improving shortness of breath/chest discomfort/dry cough. Continue with Lasix, twice daily potassium supplement. 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 Zavaleta Dispo: admit for IV diuresis Admission and Anticipated Discharge Date Admission Date: March 03, 2024 Subjective Patient was seen and examined at bedside. Patient was sitting up in chair, on 2 L nasal cannula oxygen, NAD, resting comfortably. Patient reports improving shortness of breath/dry cough/chest discomfort, being able to ambulate around in the room. Patient reports eating okay and moving bowels okay, denies any problem passing urine. Patient denies fever or febrile illness. Physical Exam Physical Exam: GENERAL: Alert and oriented x3. NAD, on 2L NC O2. HEENT: No pallor, no icterus. Pupils equal, round and reactive to light. Oral mucosa moist. NECK: No JVD, no neck masses. HEART: S1 and S2 heard. Regular rate and rhythm. No murmur, no gallop. RESPIRATORY SYSTEM: Normal AP diameter. No accessory muscle use. No wheezing, no crackles. ABDOMEN: Soft, bowel sounds present, nontender, no distention. CENTRAL NERVOUS SYSTEM: No facial droop. Speech is clear. Obeys simple commands. Moves extremities. EXTREMITIES: 2+ ble pitting edema, no erythema seen. Results & Data Results & Data Vital Signs (Past 12 Hours) Vital Signs Temp Pulse Resp BP Pulse Ox O2 Del Method O2 Flow Rate 03/04/24 15:22 36.7 C 67 18 145/75 H 94 Nasal Cannula 2 03/04/24 11:18 36.4 C L 65 18 132/78 94 Nasal Cannula 2 03/04/24 10:50 Nasal Cannula 2 03/04/24 07:25 36.6 C 66 18 169/81 H 91 Nasal Cannula 2 03/04/24 03:46 36.7 C 67 18 158/71 H 91 Room Air
[2024-03-04] MEDS: ACETAMINOPHEN 325 MG TAB PO PRN (16:12)
[2024-03-04] MEDS ORDERED: SODIUM CHLORIDE 0.65% NA SOLN 45 ML (OCEAN) PRN (22:15)
[2024-03-05 06:09] LABS: Hematocrit (blood only) 36.6 % (42.0-52.0); Hemoglobin 12.1 g/dl (14.0-18.0); Mean Corpuscular Hemoglobin 28.6 pg (25.0-34.0); Mean Corpuscular Hgb Conc 33.1 g/dL (32.0-36.0); Mean Corpuscular Volume 86.5 fL (80.0-100.0); Mean Platelet Volume 10.3 fL (9.4-12.4); Platelet Count 218 K/uL (130-400); RDW Coefficient of Variation 14.3 % (11.5-14.5); RDW Standard Deviation 44.2 fL (36.4-46.3); Red Blood Count 4.23 M/uL (4.70-6.10); White Blood Count 7.66 K/ul (4.8-10.8)
[2024-03-05 06:24] LABS: BUN Creatinine Ratio 21.8 (10-20); Calcium 9.1 mg/dl (8.6-10.3); Creatinine Clr Calc Pharmacy 72.7 ml/min; Magnesium 1.8 mg/dl (1.7-2.4); Phosphorus 3.9 mg/dl (2.5-4.9); Potassium 3.9 mmol/L (3.5-5.1)
[2024-03-05 06:28] LABS: Troponin I High Sensitivity 13.8 pg/ml (0-20)
--- NOTE | 2024-03-05 14:20 | Hospitalist Progress Note ---
Date of Service March 05, 2024 Assessment & Plan (1) Acute respiratory failure with hypoxemia: (2) Acute on chronic heart failure with preserved ejection fraction (HFpEF, >= 50%): (3) CAD (coronary artery disease): (4) Tachy-landry syndrome: (5) Morbid obesity: (6) Type 2 diabetes mellitus: Plan 79-year-old male who has a significant past medical history of nonobstructive CAD, history of tachybradycardia syndrome status post pacemaker placement in September 2022, paroxysmal atrial fibrillation/flutter, HTN, HLD, morbid obesity, insulin-dependent T2DM who presents to ED secondary to shortness of breath x 3 days. 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 last echo 06/17 EF 65-70%, normal wall motion. Admitting troponin negative. Echo this admission with EF of 65 to 70%, no regional wall motion abnormality, indeterminate diastolic dysfunction Cardiology on board, patient being diuresed, follow-up with cardiology in 1 to 2 weeks time upon discharge. Strict I's and O's, monitor and replete electrolytes, continue telemetry. Fluid restriction 1.8 L. Patient reports improving shortness of breath/chest discomfort/dry cough. Still w/ 2+ ble edema, Continue with iv Lasix bid, twice daily potassium supplement. Reassess in AM for possible transition to po lasix. Hx of TBS s/p PPM PAF - noted on recent pacer interrogation Nonobstructive CAD HTN/HLD continue atenolol, losartan, amlodipine, statin, imdur and eliquis Eliquis recently started on 02/22 due to episodes of afib T2DM insulin dependent hold metformin and trulicity lantus/novolog per protocol, a1c 7.0 this admission Morbid Obesity, BMI 53.3 encourage diet and lifestyle modifications consult bilingual operator for heart healthy/CHF diet DVT ppx: Eliquis FULL CODE PCP: Dr. Zavaleta Dispo: admit for IV diuresis, likely dc rosey. Admission and Anticipated Discharge Date Admission Date: March 03, 2024 Subjective Patient was seen and examined at bedside. Patient was sitting up in chair, on 2 L nasal cannula oxygen, NAD, resting comfortably. Patient reports improving shortness of breath/dry cough/chest discomfort, being able to ambulate around in the room. Patient reports eating okay and BM 2 d ago, denies any problem passing urine. PRN miralax changed to guille w/ hold parameters. Patient denies fever or febrile illness. Physical Exam Physical Exam: GENERAL: Alert and oriented x3. NAD, on 2L NC O2. HEENT: No pallor, no icterus. Pupils equal, round and reactive to light. Oral mucosa moist. NECK: No JVD, no neck masses. HEART: S1 and S2 heard. Regular rate and rhythm. No murmur, no gallop. RESPIRATORY SYSTEM: Normal AP diameter. No accessory muscle use. No wheezing, no crackles. ABDOMEN: Soft, bowel sounds present, nontender, no distention. CENTRAL NERVOUS SYSTEM: No facial droop. Speech is clear. Obeys simple commands. Moves extremities. EXTREMITIES: 2+ ble pitting edema, no erythema seen. Results & Data Results & Data Vital Signs (Past 12 Hours) Vital Signs Temp Pulse Resp BP Pulse Ox O2 Del Method O2 Flow Rate 03/05/24 11:00 36.4 C L 69 18 113/72 94 Room Air 03/05/24 08:00 Nasal Cannula 2 03/05/24 07:53 36.7 C 67 18 151/77 H 93 Nasal Cannula 2.5 03/05/24 03:17 36.8 C 65 22 115/55 L 91 Nasal Cannula 2
[2024-03-05] MEDS: POLYETHYLENE (MIRALAX) 17 GM PACK PO SCH (14:26)
--- NOTE | 2024-03-05 17:21 | Electrocardiogram Report ---
Test Reason : Blood Pressure : */* mmHG Vent. Rate : 66 BPM Atrial Rate : 66 BPM P-R Int : 358 ms QRS Dur : 146 ms QT Int : 476 ms P-R-T Axes : 11 -69 -27 degrees QTcB Int : 499 ms Sinus rhythm with 1st degree A-V block Right bundle branch block Left anterior fascicular block Bifascicular block ST elevation consider lateral injury or acute infarct ACUTE NE / STEMI Abnormal ECG When compared with ECG of 03-Mar-2024 08:59, Sinus rhythm has replaced Electronic ventricular pacemaker ST elevation is now present Confirmed by Remington Shanks ([id number]) on 03/05/2024 5:21:27 PM Referred By: REFERRED SELF Confirmed By: Remington Shanks
--- NOTE | 2024-03-05 17:24 | Electrocardiogram Report ---
Test Reason : Blood Pressure : */* mmHG Vent. Rate : 66 BPM Atrial Rate : 66 BPM P-R Int : 362 ms QRS Dur : 146 ms QT Int : 478 ms P-R-T Axes : 91 -71 -26 degrees QTcB Int : 501 ms Sinus rhythm with 1st degree A-V block with occasional Premature ventricular complexes Right bundle branch block Left anterior fascicular block Bifascicular block Abnormal ECG When compared with ECG of 04-Mar-2024 18:06, (unconfirmed) Premature ventricular complexes are now Present Confirmed by Remington Shanks ([id number]) on 03/05/2024 5:24:27 PM Referred By: REFERRED SELF Confirmed By: Remington Shanks
[2024-03-06 08:27] VITALS: RESP 18
[2024-03-06 10:44] LABS: BUN Creatinine Ratio 19.5 (10-20); Calcium 8.9 mg/dl (8.6-10.3); Creatinine Clr Calc Pharmacy 67.7 ml/min; Magnesium 1.7 mg/dl (1.7-2.4); Potassium 3.8 mmol/L (3.5-5.1)
[2024-03-06 11:16] VITALS: PULSE 67; TEMP 97.5; O2SAT 94
--- NOTE | 2024-03-06 11:31 | Discharge Summary ---
Date of Service March 06, 2024 Admission HPI Per Admitting Provider This is a 79-year-old male who has a significant past medical history of nonobstructive CAD, history of tachybradycardia syndrome status post pacemaker placement in September 2022, paroxysmal atrial fibrillation/flutter, HTN, HLD, morbid obesity, insulin-dependent T2DM who presents to ED secondary to shortness of breath x 3 days. He reports over the last few days noticing increasing shortness of breath with exertion. He denies any shortness of breath at rest. He also states if he were to climb up a flight of stairs he would get chest pain. He would then sit down at the top and his symptoms would go away in mi nutes. This morning he opted to present to ED due to worsening shortness of breath. He states even walking from his kitchen to his living room he became short of breath which is unusual for him. He did have leftover oxygen at home from his brother which he has been using the past couple days, but this did not seem to help. He currently denies any chest pain or shortness of breath at rest. He permanently sleeps in a recliner so he denies any orthopnea or PND. He denies any recent illness, fever, chills, sweats, lightheadedness, dizziness, nausea, vomiting, abdominal pain, hemoptysis, melena, hematochezia. He does have frequent nocturia, but this is normal for him. He reports being compliant with his medications and took all of his morning medications prior to coming to ED. He follows with [facility] cardiology. He was last seen in clinic on 02/22 in which his aspirin was discontinued and he was started on Eliquis 5 mg twice daily due to pacemaker interrogation revealing episodes of tacky atrial arrhythmias. He notes ever since starting the Eliquis he has become more short of breath, he is unsure if there is any correlation. He reports a 10 pound weight gain in the last 3 or 4 months. He does have chronic lower extremity swelling, but feels this is unchanged. He does not follow a low-sodium diet. He reports he lives alone but his sister lives within 100 feet of him. He denies any smoking or alcohol use. He drinks nonalcoholic beverages. In ED patient was noted to be hypoxic and was requiring 3 L of oxygenation. His lab work was notable for a leukocytosis at 10.8 8K, H&H 12.5 and 39.1, glucose of 53. His respiratory bio fire was negative. Chest x-ray concerning for pulmonary edema and layering pleural effusions. He was initially ordered 100 mg of IV Lasix in ED, but this was not given prior to my evaluation. Admission Exam Per Admitting Provider Constitutional: WD/WN, obese, M, sitting up in chair, vitals as above, NAD, sitting up in bed, pleasant, conversing easily Head: Normocephalic, Atraumatic Eyes: PERRL, conjunctivae normal, anicteric sclerae ENMT: external ear and nose normal, oropharynx normal Neck: trachea midline, no thyromegaly normal visual inspection Respiratory: normal respiratory effort, lungs clear to auscultation, no wheeze, rales, rhonchi. Normal insp/exp effort, no accessory muscle use Cardiovascular: RRR, no murmur, RLE edema +3, trace LLE Vessels: no JVD or carotid bruit Chest: normal inspection of chest Abdomen: protuberant abd, normal bowel sounds, soft, nontender, no hepatosplenomegaly Musculoskeletal: no cyanosis or clubbing, extremities motor strength 5/5 Skin: no rashes, warm and dry normal turgor Neurologic: PERRL, EOMI, accommodation nl, no face palsy, no dysarthria CN's II-XI intact bilaterally and moves all extremities Psychiatric: A+Ox3, euthymic affect Lymphatic: no cervical or axillary lymphadenopathy : deferred Principal Diagnosis Acute on chronic HFpEF Discharge Exam GENERAL: Alert and oriented x3. NAD, on 2L NC O2. HEENT: No pallor, no icterus. Pupils equal, round and reactive to light. Oral mucosa moist. NECK: No JVD, no neck masses. HEART: S1 and S2 heard. Regular rate and rhythm. No murmur, no gallop. RESPIRATORY SYSTEM: Normal AP diameter. No accessory muscle use. No wheezing, no crackles. ABDOMEN: Soft, bowel sounds present, nontender, no distention. CENTRAL NERVOUS SYSTEM: No facial droop. Speech is clear. Obeys simple commands. Moves extremities. EXTREMITIES: 1+ ble pitting edema, no erythema seen. Discharge Data Allergies Allergy/AdvReac Type Severity Reaction Status Date / Time Respiratory Syncytial Virus Allergy Severe swollen Verified 03/03/24 10:30 (RSV) p tongue cephalexin Allergy Mild Rash Verified 03/03/24 10:30 codeine Allergy Mild Rash Verified 03/03/24 10:30 Consultations 03/03/24 10:27 ED Decision to Admit Stat 03/03/24 10:39 Consult Cardiology Routine Ordered Studies 03/03/24 11:15 US venous doppler LE Stat Hospital Course (1) Acute respiratory failure with hypoxemia: (2) Acute on chronic heart failure with preserved ejection fraction (HFpEF, >= 50%): (3) CAD (coronary artery disease): (4) Tachy-landry syndrome: (5) Morbid obesity: (6) Type 2 diabetes mellitus: Plan 79-year-old male who has a significant past medical history of nonobstructive CAD, history of tachybradycardia syndrome status post pacemaker placement in September 2022, paroxysmal atrial fibrillation/flutter, HTN, HLD, morbid obesity, i nsulin-dependent T2DM who presents to ED secondary to shortness of breath x 3 days. 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 last echo 06/17 EF 65-70%, normal wall motion. Admitting troponin negative. Echo this admission with EF of 65 to 70%, no regional wall motion abnormality, indeterminate diastolic dysfunction Cardiology sil husain pt on 20 mg lasix daily, follow-up with cardiology in 1 to 2 weeks time upon discharge. Maintain heart healthy diet/low-sodium diet/fluid restriction of 1.8 L/day. Patient reports improving shortness of breath/chest discomfort/dry cough. He reports he is back to baseline. Patient is hemodynamically stable and would like to go home. Patient to follow-up with cardiology in 1 to 2 weeks time upon discharge. Continue with potassium supplement while on Lasix. Hx of TBS s/p PPM PAF - noted on recent pacer interrogation Nonobstructive CAD HTN/HLD continue atenolol, losartan, amlodipine, statin, imdur and eliquis Eliquis recently started on 02/22 due to episodes of afib T2DM insulin dependent hold metformin and trulicity lantus/novolog per protocol, a1c 7.0 this admission Morbid Obesity, BMI 53.3 encourage diet and lifestyle modifications consult transplant nurse for heart healthy/CHF diet DVT ppx: Marsha FULL CODE PCP: Dr. Zavaleta Patient is being discharged home with following instructions at the point of discharge: Follow-up with your primary care physician within a week time and likely you will need labs CBC/CMP/magnesium/phosphorus. You were evaluated for acute on chronic heart failure while in hospital. Cardiology evaluated you. You are being discharged on Lasix 20 mg daily. You will need to follow-up with cardiology in about 1-2 weeks time upon discharge for ongoing evaluation/management. Maintain heart healthy/low-sodium diet, maintain fluid restriction of less than 1.8 L/day. Take your medications as prescribed. Please make sure that you are able to get your medications today by calling your pharmacy before you leave the hospital so that your treatment continuity is not broken. Home Health Attestation I certify that this patient is under my care and that I, or a physicians diet assistant working with me, had a face to-face encounter that meets the home health [id number]-[id number] encounter requirements with this patient. The encounter with the patient was in whole, or in part, for the following medical condition, which is the primary reason for home health care (list medical condition): I certify that, based on my findings, the following services are medically necessary home health services: My clinical findings support the need for the above services because: Further, I certify that my clinical findings support that this patient is homebound (i.e. absences from home require considerable and taxing effort and are for medical reasons or buddhism services or infrequently or of short duration when for other reasons) because: Certification for Home Health Services: Based on the above findings, I certify that this patient is confined to the home and needs intermittent detention care, physical therapy and/or speech therapy or continues to need occupational therapy. The patient is under my care, and I have initiated the establishment of the plan of care. This patient will be followed by a physician who will periodically review the plan of care. Total Time Total Time Spent Total Time Spent (In Minutes): 35 Discharge Plan Discharge Items Patient Disposition: Home - Self-Care Reason For Visit: ACUTE HYPOXIC RESP FAILURE, ACUTE CHF Discharge Diagnosis: Acute on chronic HFpEF Activity: Resume your previous activity Non-emergency contact: Primary Care Provider Call non-emergency contact if: you have any medication questions and your symptoms worsen Follow-up/Referrals: Martin Zavaleta MD [Primary Care Provider] - (Date & Time 03/12/2024 2:00 PM Provider: Martin Zavaleta MD Department: [facility] ) Diet: Carb Consistent or DM2, Heart Healthy and Low Sodium (2gm) Addtl Attending Provider Instructions: Follow-up with your primary care physician within a week time and likely you will need labs CBC/CMP/magnesium/phosphorus. You were evaluated for acute on chronic heart failure while in hospital. Cardiology evaluated you. You are being discharged on Lasix 20 mg daily. You will need to follow-up with cardiology in about 1-2 weeks time upon discharge for ongoing evaluation/management. Maintain heart healthy/low-sodium diet, maintain fluid restriction of less than 1.8 L/day. Take your medications as prescribed. Please make sure that you are able to get your medications today by calling your pharmacy before you leave the hospital so that your treatment continuity is not broken. Pending Studies at Discharge: No Stand-Alone Forms: [facility] Medications and DC Order Prescriptions: New furosemide 20 mg tablet 20 mg PO DAILY Qty: 30 0RF potassium chloride 20 mEq Tablet,Er Particles/Crystals 20 meq PO DAILY Qty: 30 0RF Rx Instructions: take it daily with lasix in AM. Continued magnesium oxide 400 mg (241.3 mg magnesium) tablet 400 mg PO HS Qty: 90 3RF fenofibrate 54 mg tablet 54 mg PO QAM diclofenac sodium [Voltaren Arthritis Pain] 1 % gel 2 g topical QID PRN (Reason: Pain) Rx Instructions: apply to single elbow, wrist or hand; for hand includes palm/fingers/back of hand losartan 50 mg tablet 50 mg PO QAM nitroglycerin 0.4 mg tablet, sublingual 0.4 mg sublingual Q5M PRN (Reason: Chest Pain) Qty: 20 3RF Rx Instructions: do not exceed 3 doses per episode metformin 1,000 mg tablet 1,000 mg PO BID atenolol 50 mg tablet 100 mg PO QAM insulin degludec [Tresiba FlexTouch U-200] 200 unit/mL (3 mL) insulin pen 40 unit SUBCUT BID Trulicity 0.75 mg/0.5 mL pen injector 0.75 mg SUBCUT Q7D Rx Instructions: Q SUN amlodipine [Norvasc] 10 mg tablet 10 mg PO QAM atorvastatin 20 mg tablet 20 mg PO HS insulin aspart U-100 [Novolog FlexPen U-100 Insulin] 100 unit/mL (3 mL) insulin pen 20 unit SUBCUT AC Rx Instructions: +sliding scale as needed epinephrine 0.3 mg/0.3 mL auto-injector 0.3 mg IM Q4H PRN (Reason: anaphylaxis) Qty: 2 0RF PreserVision AREDS-2 250-90-40-1 mg Capsule 1 tab PO BID Eliquis 5 mg tablet 5 mg PO BID glucosamine sulfate 750 mg Tablet 750 mg PO BID Rx Instructions: joint isosorbide mononitrate 120 mg tablet extended release 24 hr 60 mg PO QAM Discharge Orders: Discharge Order (Routine); Ordered 03/06/24 Ordered By: Angela López Discharge Order- CHF (Routine); Ordered 03/06/24 Ordered By: Angela López Krames/Other Patient Handouts: Hypoglycemia (Low Blood Sugar), Managing Type 2 Diabetes Admission Data Admit Date/Time: 03/03/24 10:39 Attending Provider: Angela López Admit Provider: Néstor Curtis Primary Care Provider: Martin Zavaleta Other Providers: Néstor Curtis; Remington Shanks
[2024-03-06 12:54] VITALS: BP 125/73
== END 2024-03-06 13:50 | disposition home or self-care (01) | DRG 291 ==
LOC: ED 08:54 → EDINP 10:39 → SUATTDRO 10:39 → 4W 11:34